=== PATIENT | male | born 1940 | race Caucasian/White ===

== ENCOUNTER 2019-12-29 08:37 | Outpatient (CLI) | payer MEDICARE, SELFPAY ==
--- NOTE | ~2019-12-29 | XR_ITS ---
EXAMINATION: XR chest 2V EXAM DATE: 12/29/2019 09:01 INDICATION: Shortness of breath and cough, symptoms one week. TECHNIQUE: Frontal and lateral projections of the chest obtained and reviewed. Comparison is made to prior examination from 12/10/2017. FINDINGS: Some right-sided pleural calcifications. No confluent consolidation, pneumothorax or pleur al effusion suspected. Sternotomy wires are present without findings to suggest sternal dehiscence. C ardiomediastinal silhouette is normal. There are mild bony degenerative changes. There is no signific ant interval change. IMPRESSION: No acute findings. Reviewed, dictated and finalized at location B. IMPRESSION: No acute findings.
[2019-12-29 08:49] LABS: Basophils Percent Auto 0.3 % (0.2-1.2); Eosinophils Absolute Auto 0.2 K/mm3 (0-0.3); Eosinophils Percent Auto 1.5 % (0-4.4); Hemoglobin 13.3 g/dL (14.0-18.0); Immature Granulocyte Absolute 0.03 K/mm3 (0.00-0.031); Immature Granulocyte Percent A 0.3 % (0-0.5); Lymphocytes Absolute Auto 1.46 K/mm3 (0.9-3.2); Mean Corpuscular HGB Conc 32.4 g/dl (32-36); Mean Corpuscular Hemoglobin 31.4 pg (26-34); Mean Corpuscular Volume 96.7 fl (80-100); Mean Platelet Volume 10.9 fl (7.4-10.4); Monocytes Absolute Auto 0.8 K/mm3 (0.1-0.6); Monocytes Percent Auto 8.4 % (2.6-8.5); Neutrophils Absolute Auto 7.3 K/mm3 (1.3-6.7); Neutrophils Percent Auto 74.5 % (45.5-73.1); Platelet Count Result 216 k/mm3 (150-375); Red Blood Count 4.24 M/mm3 (4.6-6.20); Red Cell Distribution Width 13.2 % (11.5-14.5); White Blood Count 9.8 K/mm3 (4.5-10.0)
== END 2019-12-29 08:38 | disposition home or self-care (01) ==
PROVIDERS: PCP Internal Medicine; Visit Provider Internal Medicine
DX: R06.02 Shortness of breath (principal); Z20.828 Contact with and (suspected) exposure to other viral communicable diseases
CPT/HCPCS: 36415; 71046; 85025; 87635; C9803; U0003

== ENCOUNTER → 2019-12-29 10:51 | Outpatient (NON) | payer MEDICARE, SELFPAY ==
[2019-12-31 14:29] LABS: Pan-SARS RNA: NEGATIVE (NEGATIVE); SARS-CoV-2 RNA: NEGATIVE (NEGATIVE)
== END ==
PROVIDERS: PCP Internal Medicine; Visit Provider Internal Medicine
DX: R05 Cough (principal); R06.02 Shortness of breath
CPT/HCPCS: 87635; U0002; U0003

== ENCOUNTER 2020-08-04 14:20 | Outpatient (CLI) | payer MEDICARE, SELFPAY ==
--- NOTE | ~2020-08-04 | US_ITS ---
EXAMINATION: US art doppler w press LE BI DATE: 08/04/2020 15:06 INDICATION: After scarring heart disease of the [place] coronary arteries. Hypercholesterolemia and pr ior smoking. TECHNIQUE: Segmental pressures and plethysmographic and Doppler waveforms of the brachial and lower e xtremity arteries were obtained. COMPARISON: None. FINDINGS: Right and left brachial artery pressures of 115 mm Hg and 114 mm Hg, respectively, are concordant (no rmal difference <= 30 mmHg). The left high thigh pressure index is 1.48 (normal > 1.2). The right hig h thigh pressure index was unable to be obtained due to inability to occlude the vessel. The right ankle-brachial index (KIRILL) is 1.34 (normal >= 0.9-1). The right great toe-brachial index (T BI) is 0.85 (normal >= 0.6-0.8). The right lower extremity segmental pressure gradients are normal (n ormal gradients <= 20-30 mmHg between adjacent levels on the same leg or the same levels on the two l egs). Arterial waveforms are biphasic with brisk systolic upstrokes throughout the right lower limb. The left KIRILL is 1.51. The left TBI is 0.80. The left lower extremity segmental pressure gradients are normal. Arterial waveforms are triphasic at the left popliteal artery and biphasic at the remaining arteries in the left lower limb with brisk systolic upstrokes throughout. IMPRESSION: 1. Normal KIRILL's and TBI's bilaterally. No significant occlusive disease. Reviewed, dictated and finalized at location A. O DEVELOPER
== END 2020-08-04 14:21 | disposition home or self-care (01) ==
PROVIDERS: PCP Internal Medicine; Visit Provider Internal Medicine
DX: I25.10 Atherosclerotic heart disease of native coronary artery without angina pectoris (principal); E78.5 Hyperlipidemia, unspecified; I73.9 Peripheral vascular disease, unspecified
CPT/HCPCS: 93923

== ENCOUNTER 2020-08-09 09:00 | Outpatient (RCR) | payer MEDICARE, SELFPAY ==
--- NOTE | 2020-08-03 09:58 | STOPEVAL ---
Speech Therapy Initial Evaluation: Thank you for referring Eliezer Rivas to [facility].? The patient is scheduled to be seen for therapy? 1x/week for 3 weeks. Please review, sign, date and return this plan of care DIONTE. I agree with and certify that the following plan of care is medically necessary. Referring Physician Date Attending Provider: Garrison Gamboa MD *ST Outpatient Evaluation Start: 08/02/20 11:14 Freq: Status: Active Protocol: Document 08/02/20 11:15 BECHERERT (Rec: 08/02/20 11:50 BECHERERT [email or web address]) Therapy Assessment Status Assessment Status Assessment Status Evaluation Outpatient Past Medical History Cardiovascular History Hx Atrial Fibrillation Yes: had ablation still on blood thinners Hx Cardiac Surgery Yes: stents Hx Coronary Artery Bypass Graft Yes Hx Coronary Stent Yes Gastrointestinal History Hx Gall Bladder Disease Yes: removed Endocrine History Hx Hypothyroidism Yes Other History Hx Cancer Yes: skin Evaluation Information Problem Diagnosis dysphonia Pain Assessment Timing of Pain Assessment Timing of Pain Assessment Assessment Self Report Self Report Pain Level 0 Pain Score Pain Score 0: Self Report Voice Evaluation Intelligibility Conversational Level Speech (% 100 Intelligibility) Respiration Type of Breathing Pattern Thoracic Counts on One Breath (#) 35 Length of Time for Counting (seconds) 11 Vowel Prolongation (seconds) 17 Termination of Phrases/Sentences Yes Coincides with Termination of Exhalation Method of Breathing Thoracic Phonation/Glottal Closure Cough Strong Throat Clearing Effective Hard Glottal Attack to Command Yes Vocal Hypertension on: Muscle Tension in No Neck or Face Vocal Hypertension: Strained Vocal No Quality or Hard Glottal Attack Loudness Ability to Alter Loudness in Various Yes Levels of Background Noise Ability to Alter Loudness with NUCLEAR CONTROL OPERATOR 10 to Yes 15 Feet Away Loudness No loudness deficit. Voice Quality Breathiness None Harshness None Hoarseness None Vocal Alvarado None Resonance Hypernasality None Hyponasality None [place]-sac Resonance None ST Clinical Summary Clinical Summary ST Clinical Summary Pt presents for speech/voice evaluation with c/o shortness of breath & having a raspy voice. Pt reports, for
--- NOTE | 2020-08-25 08:56 | PCSTNOTE ---
SPEECH THERAPY DISCHARGE: Attending Provider: Garrison Gamboa MD Patient:Eliezer Rivas Date of :1940 Patient has not returned for any further treatments since 08/09/2020, therefore he will be discharged at this time. Patient?s initial visit was on 08/02/2020 and he had a total of 2 visits. Pt presented for speech/voice evaluation with c/o shortness of breath & having a raspy voice. Pt reported, for example, that upon saying a 6 word sentence, the first 5 words come out okay then the sixth word is breathy and raspy . Pt was seen by an ENT who informed the pt that his vocal cords are thin & don't come together . 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 Pt stated he was, otherwise (aside from during discourse), occasionally SOB; pt denied dysphagia, only stated he occasionally had difficulty swallowing pills. Pt denied choking and/or coughing during any oral intake. Overall, upon completion of voice evaluation, pt demonstrated a very mild dysphonia; Pt was seen only x1 to teach HEP and monitor for any potential HEP adjustments. After the single treatment session, pt voiced and demonstrated understanding of HEP and verbalized improved breath support and voicing. The goals have been met. Thank you for referring this patient to [facility]. Please review, sign, date and return this discharge summary DIONTE. I have been updated about the patient's current status and I agree with discharge from the above service at this time. Referring Physician Date
== END 2020-08-25 14:16 | disposition home or self-care (01) ==
LOC: ANHST 09:00
PROVIDERS: PCP Internal Medicine; Visit Provider Otolaryngology
DX: R49.0 Dysphonia (principal); J38.7 Other diseases of larynx
CPT/HCPCS: 92507; 92524

== ENCOUNTER 2020-10-19 06:50 | Outpatient (NON) | payer MEDICARE, SELFPAY ==
[2020-10-19 11:03] LABS: Influenza Control Positive
[2020-10-19 17:33] LABS: SARS-CoV-2 RNA PCR Negative
== END 2020-10-19 06:51 ==
LOC: ANHCOVIDDT 06:58
PROVIDERS: PCP Internal Medicine; Visit Provider Internal Medicine
DX: Z20.822 Contact with and (suspected) exposure to COVID-19 (principal); R09.89 Other specified symptoms and signs involving the circulatory and respiratory systems
CPT/HCPCS: 87804; C9803; U0003; U0005

== ENCOUNTER 2020-11-04 08:47 | Outpatient (CLI) | payer MEDICARE, SELFPAY ==
--- NOTE | ~2020-11-04 | CT_ITS ---
EXAMINATION: CT sinus wo con DATE: 11/04/2020 09:03 INDICATION: Postnasal drip TECHNIQUE: Computed tomography (CT) of the paranasal sinuses was performed without intravenous contra st. The dose-length product was 278.02 mGy-cm. Automated exposure control and iterative reconstruction technique were employed. COMPARISON: CT dated 05/30/2017 FINDINGS: There is chronic mucosal thickening of the left frontal, left maxillary and ethmoid sinuses . There is mucoperiosteal reaction of the left maxillary sinus. Small left mastoid effusion. No signi ficant nasal septal deviation. Left ostiomeatal unit is occluded. IMPRESSION: 1. Moderate chronic sinusitis primarily involving the left maxillary and frontal sinuses. 2: Small left mastoid effusion. Reviewed, dictated and finalized at location B. ND BAKER IMPRESSION: 1. Moderate chronic sinusitis primarily involving the left maxillary and fronta l sinuses. 2: Small left mastoid effusion.
== END 2020-11-04 08:48 | disposition home or self-care (01) ==
LOC: ANHIMG 08:52
PROVIDERS: PCP Internal Medicine; Visit Provider Otolaryngology
DX: R09.82 Postnasal drip (principal); R44.8 Other symptoms and signs involving general sensations and perceptions; J32.9 Chronic sinusitis, unspecified
CPT/HCPCS: 70486

== ENCOUNTER 2020-11-15 03:45 | Emergency (ER) | payer MEDICARE, SELFPAY ==
[2020-11-15 03:52] VITALS: BP 163/62; PULSE 68; RESP 14; TEMP 37; O2SAT 98
[2020-11-15] MEDS: PHENYLEPHRINE HCL 0.5% NA SPRAY 15 ML BTL (*BKC) 1 SPRAY EACH NARE (03:58)
--- NOTE | 2020-11-15 04:04 | ED.GENADULT ---
HPI - General Adult General Chief complaint: Epistaxis Stated complaint: nose bleed Time Seen by Provider: 11/15/20 03:51 History of Present Illness HPI narrative: Patient 80-year-old gentleman who presents to the emergency department with chief complaint of epistaxis. Patient reports that he is on blood thinners and reports that this evening he was at home and noticed that his nose started bleeding. The patient reports he applied pressure and has subsequently not had improvement in the bleeding from his nostril. Patient states that it still oozing at this time and reports that its not improved by anything nor is it worsened by anything. Patient denies lightheadedness denies excessive bleeding. The patient reports he has been seen by ear nose and throat recently for similar complaints. Related Data Home Medications Medication Instructions Recorded Confirmed aspirin 81 mg tablet,delayed 81 mg PO DAILY 10/22/19 07/26/20 release calcium carbonate 600 mg calcium 600 mg PO BID 10/22/19 07/26/20 (1,500 mg) tablet calcium polycarbophil 625 mg tablet 1,250 mg PO DAILY 10/22/19 07/26/20 cyclosporine 0.05 % eye drops in a 1 drop EACH EYE Q12H 10/22/19 07/26/20 dropperette lactobacillus combination no.9 4 4,000 mmu cells PO DAILY 10/22/19 07/26/20 billion cell capsule multivitamin 1 tablet PO DAILY 10/22/19 07/26/20 omega-3 fatty acids 1,000 mg 1,000 mg PO BID 10/22/19 07/26/20 capsule warfarin 4 mg tablet 4 mg PO 4XW tablet 10/22/19 07/26/20 warfarin 6 mg tablet 6 mg PO 3XW tablet 10/22/19 07/26/20 clopidogrel 75 mg tablet 75 mg PO DAILY 02/23/20 07/26/20 ezetimibe 10 mg tablet 10 mg PO DAILY 02/23/20 07/26/20 famotidine 20 mg tablet 20 mg PO DAILY 02/23/20 07/26/20 isosorbide mononitrate 60 mg 60 mg PO DAILY 02/23/20 07/26/20 tablet,extended release 24 hr lovastatin 40 mg tablet 80 mg PO DAILY tablet 07/26/20 07/26/20 sotalol 80 mg tablet 120 mg PO DAILY tablet 07/26/20 07/26/20 Allergies Allergy/AdvReac Type Severity Reaction Status Date / Time No Known Allergies Allergy Verified 10/31/20 09:27 Review of Systems Review of Systems: Narrative: A 10 system review of systems was completed on the patient and is negative except for what is stated in the HPI. Nursing and ancillary documentation was reviewed. [facility] Past Medical History Medical History A-fib Abnormal finding of blood chemistry, unspecified ASHD (arteriosclerotic heart disease) Benign essential hypertension BMI 27.0-27.9,adult Claudication Dry eyes Elevated glucose Encounter for routine adult health examination without abnormal findings Hx of colonic polyps Hyperlipidemia Hypothyroidism (acquired) Insomnia On termite control representative drug therapy Peripheral visual field defect PVC's (premature ventricular contractions) Family History Family History Father Family history of heart disease in male family member before age 55 Family history of cardiovascular disease Mother Family history of diabetes mellitus in first degree relative Family history of heart disease in male family member before age 55 Diabetes mellitus Family history of cardiovascular disease Other Hypertension Social History Social History Smoking status: Former smoker Second hand tobacco smoke exposure: No Smoking end date: 09/23/79 Alcohol intake: never Substance use: never Exam Narrative: Exam Narrative: GENERAL: Well-appearing, well-nourished, and in no acute distress. HEAD: Normocephalic, atraumatic. EYES: PERRLA and EOMI. ENT: Nares clear, no rhinorrhea or epistaxis. Mucous membranes moist. NECK: Supple. CHEST: Clear to auscultation. No respiratory distress. HEART: Regular rate and rhythm. No murmur heard. Normal peripheral pulses. ABDOMEN: Soft, nontender, nondistende
[2020-11-15 06:05] VITALS: BP 159/76; PULSE 64; RESP 18; O2SAT 98
== END 2020-11-15 06:07 | disposition home or self-care (01) ==
PROVIDERS: Emergency Provider Emergency Medicine; PCP Internal Medicine
DX: R04.0 Epistaxis (principal); I48.91 Unspecified atrial fibrillation; Z79.01 Long term (current) use of anticoagulants; I25.10 Atherosclerotic heart disease of native coronary artery without angina pectoris; I10 Essential (primary) hypertension; Z86.010 Personal history of colon polyps; E78.5 Hyperlipidemia, unspecified; E03.9 Hypothyroidism, unspecified; H53.40 Unspecified visual field defects; Z87.891 Personal history of nicotine dependence; Z79.82 Long term (current) use of aspirin
CPT/HCPCS: 99283; A9270

== ENCOUNTER 2020-12-05 12:47 | Outpatient (CLI) | payer MEDICARE, SELFPAY ==
[2020-12-05 14:00] LABS: Partial Thromboplastin Time 36.7 SECONDS (22.3-36.8)
== END 2020-12-05 12:48 ==
LOC: ANHSURGERY 12-29 12:47
PROVIDERS: Anesthesiology; PCP Internal Medicine; Visit Provider Otolaryngology
DX: Z79.01 Long term (current) use of anticoagulants (principal)
CPT/HCPCS: 36415; 85610; 85730

== ENCOUNTER → 2020-12-06 00:35 | Outpatient (CLI) | payer MEDICARE, SELFPAY ==
[2020-12-06 18:32] LABS: SARS-CoV-2 RNA PCR Negative
== END ==
PROVIDERS: PCP Internal Medicine; Visit Provider Otolaryngology
DX: Z01.812 Encounter for preprocedural laboratory examination (principal); Z20.822 Contact with and (suspected) exposure to COVID-19
CPT/HCPCS: C9803; U0003; U0005

== ENCOUNTER 2020-12-09 01:37 | Day surgery (SDC) | payer MEDICARE, SELFPAY ==
[2020-12-01 15:24] VITALS: BMI 25.7
--- NOTE | 2020-12-08 09:27 | PM.IMHP ---
H&P: HPI History of Present Illness Date/Time: 12/08/20 09:27 80-year-old male who presents for planned surgical procedure. No changes in symptoms or medical history. Chief Complaint: CRS, postnasal drip, facial pressure pain Review of Systems Constitutional: Constitutional: Denies fatigue, Denies fever(s) and Denies lethargy Eyes: Eyes: Denies blurry vision and Denies change in vision ENT: Reports as per HPI Cardiovascular: Cardiovascular: Denies chest pain Respiratory: Respiratory: Denies cough Endocrine: Endocrine: Denies fatigue Hematologic/Lymphatic: Hematologic/Lymphatic: Denies easy bleeding, Denies easy bruising and Denies lymphadenopathy Allergic/Immunologic: Allergic/Immunologic: Denies seasonal rhinorrhea [facility] Past Medical History Medical History (Updated 12/08/20 @ 09:27 by Garrison Gamboa MD) A-fib Abnormal finding of blood chemistry, unspecified ASHD (arteriosclerotic heart disease) Benign essential hypertension BMI 27.0-27.9,adult Claudication Dry eyes Elevated glucose Encounter for routine adult health examination without abnormal findings Hx of colonic polyps Hyperlipidemia Hypothyroidism (acquired) Insomnia Itchy scrotum On intermediate manager drug therapy Peripheral visual field defect PVC's (premature ventricular contractions) Family History Family History Father Family history of heart disease in male family member before age 55 Family history of cardiovascular disease Mother Family history of diabetes mellitus in first degree relative Family history of heart disease in male family member before age 55 Diabetes mellitus Family history of cardiovascular disease Other Hypertension Social History Social History Smoking status: Former smoker Tobacco type: pipe Second hand tobacco smoke exposure: No Smoking end date: 03/23/78 Additional smoking assessment comments: SMOKED PIPE X 10-15 YEARS Alcohol intake: never Substance use: never Additional living arrangements comments: Spiritual care concerns: No Meds Home Medications and Allergies Home Medications Medication Instructions Recorded Confirmed Type calcium carbonate 600 mg calcium 600 mg PO BID 10/22/19 12/07/20 History (1,500 mg) tablet calcium polycarbophil 625 mg tablet 1,250 mg PO DAILY 10/22/19 12/07/20 History lactobacillus combination no.9 4 4,000 mmu cells PO DAILY 10/22/19 12/07/20 History billion cell capsule multivitamin 1 tablet PO DAILY 10/22/19 12/07/20 History omega-3 fatty acids 1,000 mg 2,000 mg PO BID 10/22/19 12/07/20 History capsule warfarin 4 mg tablet 4 mg PO 4XW tablet 10/22/19 12/07/20 History warfarin 6 mg tablet 6 mg PO 3XW tablet 10/22/19 12/07/20 History clopidogrel 75 mg tablet 75 mg PO QAM 02/23/20 12/07/20 History ezetimibe 10 mg tablet 10 mg PO HS 02/23/20 12/07/20 History famotidine 20 mg tablet 20 mg PO BID 02/23/20 12/07/20 History isosorbide mononitrate 60 mg 60 mg PO HS 02/23/20 12/07/20 History tablet,extended release 24 hr pantoprazole 40 mg tablet,delayed 40 mg PO QAM #90 tablet 09/27/20 12/07/20 Rx release alprazolam 0.25 mg PO TID PRN 12/01/20 12/07/20 History levothyroxine 75 mcg PO QAM 12/01/20 12/07/20 History lovastatin 80 mg PO HS 12/01/20 12/07/20 History sotalol 120 mg PO BID 12/01/20 12/07/20 History zolpidem 10 mg PO HS 12/01/20 12/07/20 History nystatin-triamcinolone 100,000 1 applic TOPICAL BID #30 g 12/06/20 12/07/20 Rx unit/g-0.1 % topical cream Allergies Allergy/AdvReac Type Severity Reaction Status Date / Time No Known Allergies Allergy Verified 12/06/20 08:23 Exam Const: General: cooperative, healthy appearing, comfortable, well developed and alert HENMT: Head: normal to inspection, normocephalic and atraumatic Ears: hearing grossly normal bilaterally, external ears normal, TM's normal bilaterall
[2020-12-09] VITALS (12 sets, daily range): BP systolic 121–184; BP diastolic 41–76; PULSE 58–80; RESP 10–20; TEMP 36.1–36.8; O2SAT 94–100
--- NOTE | 2020-12-09 07:02 | WPDHPUPDATE1 ---
History and Physical Update Update Date/Time: 12/09/20 07:02 History and Physical has been reviewed, including an updated exam of the patient. There are NO changes in the patient's condition. Risks, benefits, and alternatives have been discussed and questions answered. Patient agrees to proceed with procedure.
[2020-12-09] MEDS: ACETAMINOPHEN 500 MG TABLET 1000 MG PO (11:34)
[2020-12-09] MEDS: LACTATED RINGERS 1,000 ML 30 ML IV CONT ×3 (11:34→19:54)
[2020-12-09 11:48] LABS: Prothrombin Time 13.6 Seconds (11.1-14.7)
--- NOTE | 2020-12-09 11:58 | WPDANESEPPF ---
Anes - Initial Pre Proc Eval Procedure: Operation Date: 12/09/20 13:00 Proposed Procedures p Septoplasty, - Garrison Gamboa MD s Maxillary Antrostomy, Total Ethmoidectomy, Frontal Sinusotomy With Image Guidance - Garrison Gamboa MD Date/Time: 12/09/20 11:58 Surgeon: Garrison Gamboa MD Pre Op Diagnosis: chronic sinusitis Patient Data Age: 80 Gender: M Height: 6 ft Weight: 89.4 kg Last Vital Signs Temp 98.3 F 12/09/20 11:42 Pulse 58 L 12/09/20 11:42 Resp 16 12/09/20 11:42 BP 121/48 L 12/09/20 11:42 Allergies Allergy/AdvReac Type Severity Reaction Status Date / Time No Known Allergies Allergy Verified 12/06/20 08:23 Home Medications Medication Instructions Recorded Confirmed Type calcium carbonate 600 mg calcium 600 mg PO BID 10/22/19 12/09/20 History (1,500 mg) tablet calcium polycarbophil 625 mg tablet 1,250 mg PO DAILY 10/22/19 12/09/20 History lactobacillus combination no.9 4 4,000 mmu cells PO DAILY 10/22/19 12/09/20 History billion cell capsule multivitamin 1 tablet PO DAILY 10/22/19 12/09/20 History omega-3 fatty acids 1,000 mg 2,000 mg PO BID 10/22/19 12/09/20 History capsule warfarin 4 mg tablet 4 mg PO 4XW tablet 10/22/19 12/09/20 History warfarin 6 mg tablet 6 mg PO 3XW tablet 10/22/19 12/09/20 History clopidogrel 75 mg tablet 75 mg PO QAM 02/23/20 12/09/20 History ezetimibe 10 mg tablet 10 mg PO HS 02/23/20 12/09/20 History famotidine 20 mg tablet 20 mg PO BID 02/23/20 12/09/20 History isosorbide mononitrate 60 mg 60 mg PO HS 02/23/20 12/09/20 History tablet,extended release 24 hr pantoprazole 40 mg tablet,delayed 40 mg PO QAM #90 tablet 09/27/20 12/09/20 Rx release alprazolam 0.25 mg PO TID PRN 12/01/20 12/09/20 History levothyroxine 75 mcg PO QAM 12/01/20 12/09/20 History lovastatin 80 mg PO HS 12/01/20 12/09/20 History sotalol 120 mg PO BID 12/01/20 12/09/20 History zolpidem 10 mg PO HS 12/01/20 12/09/20 History nystatin-triamcinolone 100,000 1 applic TOPICAL BID #30 g 12/06/20 12/07/20 Rx unit/g-0.1 % topical cream Laboratory Tests 12/09/20 11:26 PT 13.6 Seconds D Seconds (11.1-14.7) INR 1.0 Patient hx anesthesia problems: none Family hx anesthesia problems: none PMFSH Past Medical History Medical History (Updated 12/08/20 @ 09:27 by Garrison Gamboa MD) A-fib Abnormal finding of blood chemistry, unspecified ASHD (arteriosclerotic heart disease) Benign essential hypertension BMI 27.0-27.9,adult Claudication Dry eyes Elevated glucose Encounter for routine adult health examination without abnormal findings Hx of colonic polyps Hyperlipidemia Hypothyroidism (acquired) Insomnia Itchy scrotum On intermediate designer drug therapy Peripheral visual field defect PVC's (premature ventricular contractions) Family History Family History Father Family history of heart disease in male family member before age 55 Family history of cardiovascular disease Mother Family history of diabetes mellitus in first degree relative Family history of heart disease in male family member before age 55 Diabetes mellitus Family history of cardiovascular disease Other Hypertension Social History Social History Smoking status: Former smoker Tobacco type: pipe Second hand tobacco smoke exposure: No Smoking end date: 03/23/78 Additional smoking assessment comments: SMOKED PIPE X 10-15 YEARS Alcohol intake: never Substance use: never Living arrangements: with family Additional living arrangements comments: Spiritual care concerns: No Anes - Eval Final PreProcedure Day of Procedure 12/09/20 11:58 Patient weight: overweight Heart: regular rate and rhythm Lungs: clear to auscultation Airway: Mallampati scale class II Neurological: alert and oriented Last oral intake: >/= 8 hours ASA classification: III Emergent
[2020-12-09] MEDS: ceFAZolin 2 GM/D5W 50 ML 2 GM/50 ML BAG IVPB (12:56)
[2020-12-09] MEDS: OXYMETAZOLINE HCL 0.05% NAS 15 ML BTL (*BKC) 1 SPRAY NASAL (13:05)
[2020-12-09] MEDS: LIDO 1%/EPINEPHRINE 1:100,000 50 ML VIAL INFILTRATE (13:06)
--- NOTE | 2020-12-09 15:13 | SUR.PHASEI ---
1510- Pts. hearing aids placed bilaterally. Spoke with spouse. pt without c/o pain. suctioned as needed.
--- NOTE | 2020-12-09 15:14 | P.OP_ITS ---
Procedure Note - Detailed Date of procedure: 12/09/20 Pre-op diagnosis: chronic sinusitis Post-op diagnosis: same Procedure performed: 1. Bilateral endoscopic maxillary antrostomies 1 of which with tissue removed 2. Bilateral total ethmoidectomies 3. Bilateral sphenoidotomies 4. Bilateral frontal sinusotomies 1 of which with tissue removed Description of procedure: The patient was correctly identified and consent was verified in the preoperative holding area. The patient was then brought to the operating room and a time-out performed. General anesthesia was induced and endotracheal tube was secured the patient's airway and taped to the left lower lip. Afrin-soaked pledgets were placed image guidance was initiated the Afrin. The patient Afrin-soaked pledgets were allowed to sit for 5 minutes and removed. Under endoscopic guidance specifically 0 degree endoscope the bilateral nasal passages were examined the left middle turbinate was medialized and a double ball tip probe was utilized to outfracture infracture the uncinate process. Backbiter was utilized to perform maxillary antrostomy as well as straight through cut and microdebrider copious amounts of purulence and fungal debris were noted this was irrigated copiously with a 70 degree scope and ensured to connect to the natural os. With the 0 degree scope the total ethmoidectomies performed with Kerrison and micro debrider. Of note some partitions were left a long the skull base as the anterior ethmoidal arteries were low lying. The sphenoid os was located and opened using a Kerrison punch. With a 70 degree scope the frontal sinus outflow tract was located and opened with a Cobra and draft frontal sinus instruments. Again in the left frontal sinus copious months of purulence and fungal debris were noted. Similar procedures were performed on the right side with similar findings except for the absence of fungal debris and purulence on the right side. Hemostasis was adequate. This marked the end of the procedure. Of note the right middle turbinate was somewhat flimsy and a nasal pore was placed to keep it medialized. Care the patient is turned over to Anesthesiology. I performed all dictated portions of the procedure. Anesthesia: GETA Surgeon: Garrison Gamboa MD Estimated blood loss (mL): 100 Packing: Yes ([place]) Pathology: none sent Complications: No immediate complications Condition: stable Disposition: PACU Findings: Left maxillary and left frontal fungal debris as well as purulence irrigated and removed.
--- NOTE | 2020-12-09 18:29 | WPDANESEPPF ---
Anes - Initial Pre Proc Eval Procedure: Operation Date: 12/09/20 13:00 Proposed Procedures p Septoplasty, - Garrison Gamboa MD s Maxillary Antrostomy, Total Ethmoidectomy, Frontal Sinusotomy With Image Guidance - Garrison Gamboa MD Operation Date: 12/09/20 18:00 Proposed Procedures p Cautery Of Nose - Garrison Gamboa MD Date/Time: 12/09/20 18:29 Surgeon: Garrison Gamboa MD Pre Op Diagnosis: chronic sinusitis Patient Data Age: 80 Gender: M Height: 1.83 m Weight: 89.4 kg Last Vital Signs Temp 36.8 C 12/09/20 14:42 Pulse 70 12/09/20 16:00 Resp 16 12/09/20 16:00 BP 165/58 H 12/09/20 16:00 Pulse Ox 100 12/09/20 15:40 Allergies Allergy/AdvReac Type Severity Reaction Status Date / Time No Known Allergies Allergy Verified 12/06/20 08:23 Home Medications Medication Instructions Recorded Confirmed Type calcium carbonate 600 mg calcium 600 mg PO BID 10/22/19 12/09/20 History (1,500 mg) tablet calcium polycarbophil 625 mg tablet 1,250 mg PO DAILY 10/22/19 12/09/20 History lactobacillus combination no.9 4 4,000 mmu cells PO DAILY 10/22/19 12/09/20 History billion cell capsule multivitamin 1 tablet PO DAILY 10/22/19 12/09/20 History omega-3 fatty acids 1,000 mg 2,000 mg PO BID 10/22/19 12/09/20 History capsule warfarin 4 mg tablet 4 mg PO 4XW tablet 10/22/19 12/09/20 History warfarin 6 mg tablet 6 mg PO 3XW tablet 10/22/19 12/09/20 History clopidogrel 75 mg tablet 75 mg PO QAM 02/23/20 12/09/20 History ezetimibe 10 mg tablet 10 mg PO HS 02/23/20 12/09/20 History famotidine 20 mg tablet 20 mg PO BID 02/23/20 12/09/20 History isosorbide mononitrate 60 mg 60 mg PO HS 02/23/20 12/09/20 History tablet,extended release 24 hr pantoprazole 40 mg tablet,delayed 40 mg PO QAM #90 tablet 09/27/20 12/09/20 Rx release alprazolam 0.25 mg PO TID PRN 12/01/20 12/09/20 History levothyroxine 75 mcg PO QAM 12/01/20 12/09/20 History lovastatin 80 mg PO HS 12/01/20 12/09/20 History sotalol 120 mg PO BID 12/01/20 12/09/20 History zolpidem 10 mg PO HS 12/01/20 12/09/20 History nystatin-triamcinolone 100,000 1 applic TOPICAL BID #30 g 12/06/20 12/07/20 Rx unit/g-0.1 % topical cream oxycodone 5 mg PO Q8H PRN #10 tablet 12/09/20 Rx Laboratory Tests 12/09/20 11:26 PT 13.6 Seconds D Seconds (11.1-14.7) INR 1.0 Patient hx anesthesia problems: none Family hx anesthesia problems: none PMFSH Past Medical History Medical History (Updated 12/09/20 @ 15:11 by Garrison Gamboa MD) A-fib Abnormal finding of blood chemistry, unspecified ASHD (arteriosclerotic heart disease) Benign essential hypertension BMI 27.0-27.9,adult Claudication Dry eyes Elevated glucose Encounter for routine adult health examination without abnormal findings Hx of colonic polyps Hyperlipidemia Hypothyroidism (acquired) Insomnia Itchy scrotum On dedicated intermodal truck driver drug therapy Peripheral visual field defect PVC's (premature ventricular contractions) Family History Family History Father Family history of heart disease in male family member before age 55 Family history of cardiovascular disease Mother Family history of diabetes mellitus in first degree relative Family history of heart disease in male family member before age 55 Diabetes mellitus Family history of cardiovascular disease Other Hypertension Social History Social History Smoking status: Former smoker Tobacco type: pipe Second hand tobacco smoke exposure: No Smoking end date: 03/23/78 Additional smoking assessment comments: SMOKED PIPE X 10-15 YEARS Alcohol intake: never Substance use: never Living arrangements: with family Additional living arrangements comments: Spiritual care concerns: No Anes - Eval Final PreProcedure Day of Procedure 12/09/20 18:29 Patient weight: overweight Heart: regular rate
--- NOTE | 2020-12-09 18:40 | WPDHPUPDATE1 ---
History and Physical Update Update Date/Time: 12/09/20 18:40 History and Physical has been reviewed, including an updated exam of the patient. The patient had postoperative epistaxis from the right side. Plan is for the OR for control of epistaxis. This will be performed endoscopically. The risks were discussed with the patient in great detail including bleeding infection and damage to surrounding structures. The patient voiced understanding and agreed.
--- NOTE | 2020-12-09 19:08 | SUR.PHASEII ---
1715 DR ANGELES NOTIFIED IN THE OR THAT PT IS OOZING PRETTY GOOD OUT OF RT NARE, HE FEELS LIKE ITS GETTING WORSE, BLEEDING ALSO DOWN THE BACK OF THROAT. DRIP[ PAD HAS BEEN CHANGED AT LEAST 3 TIMES IN THE LAST HOUR. PT WANTS DR ANGELES TO SEE HIM BEFORE HE LEAVES. PT VITAL SIGNS STABLE, MINIMAL PAIN, PT DROWSY. 1735 DR ANGELES AT BEDSIDE TO SEE PT. PT EXAMINED, DR ANGELES REMOVING CLOTS FROM NOSE USING EQUIPMENT AND PLACED A NASAL ROCKET IN RT NARE. GOING TO WATCH PT FOR A BIT, DR ANGELES WILL RETURN TO REASSESS. 1815 DR ANGELES RETURNED PT STILL FEELS LIKE ITS BLEEDING ON THE RT SIDE AND GOING DOWN THE BACK OF THROAT. PT AND DR ANGELES FEEL ITS BEST TO GO BACK TO THE OR AND PROCEED WITH A NASAL CAUTERY. 1845 PT TAKEN TO OR, CONSENT SIGNED BY SPOUSE DUE TO PT STILL UNDER ANESTHESIA.
[2020-12-09 19:11] LABS: Hematocrit 38.2 % (42.0-52.0); Hemoglobin 12.6 g/dL (14.0-18.0)
--- NOTE | 2020-12-09 20:08 | PM.PROC ---
Procedure Note - Detailed Date of procedure: 12/09/20 Pre-op diagnosis: chronic sinusitis Postoperative epistaxis Post-op diagnosis: same Procedure performed: 1. Nasal endoscopy 2. Control of postoperative epistaxis Description of procedure: The patient was correctly identified and consent was verified in the preoperative holding area. The patient was then brought to the operating room and a time-out was performed. General anesthesia was induced and endotracheal tube was secured the patient's airway and taped to the left lower lip. The bilateral nasal passages were then examined and debrided the postoperative portions had no arterial pumping but overall diffuse oozing more so from the skull base regions and not directly on the skull base were cauterized with Bovie electrocautery. Afrin-soaked pledgets were then placed for 10 minutes. FloSeal and then nasal pore packing was placed bilaterally. Overall the bleeding was much improved. Care the patient was then turned over to Anesthesiology. I performed all dictated portions of this procedure. Hemostasis was again adequate. Of note the patient's hemoglobin was checked and noted to be greater than 12 prior to the start of the procedure Anesthesia: [place] Surgeon: Garrison Gamboa MD Estimated blood loss (mL): 140 Drains: No Packing: Yes (Absorbable) Complications: No immediate complications Condition: stable Disposition: PACU Findings: Oozing from the postoperative cavities [id number] no arterial bleeding
== END 2020-12-09 21:09 | disposition home or self-care (01) ==
PROVIDERS: Anesthesiology; PCP Internal Medicine; Visit Provider Otolaryngology
PROC: (CPT 31267; 2020-12-09 13:00)
PROC: (CPT 31267; principal; 2020-12-09 18:00)
DX: J32.9 Chronic sinusitis, unspecified (principal); R09.82 Postnasal drip; I48.91 Unspecified atrial fibrillation; I25.10 Atherosclerotic heart disease of native coronary artery without angina pectoris; E78.5 Hyperlipidemia, unspecified; G47.00 Insomnia, unspecified; I49.3 Ventricular premature depolarization; Z87.891 Personal history of nicotine dependence; Z79.01 Long term (current) use of anticoagulants; E03.9 Hypothyroidism, unspecified; I73.9 Peripheral vascular disease, unspecified; Z79.02 Long term (current) use of antithrombotics/antiplatelets
CPT/HCPCS: 31267; 31257; 31253; 61782; 36415; 85014; 85018; 85610; A9270; J0330; J0690; J2405; J2704; J3010; J7120

== ENCOUNTER 2020-12-16 18:47 | Emergency (ER) | payer MEDICARE, SELFPAY ==
[2020-12-16 18:53] VITALS: BP 170/60; PULSE 78; RESP 14; TEMP 36.7; O2SAT 99
[2020-12-16 20:10] LABS: Basophils Percent Auto 0.5 % (0.2-1.2); Eosinophils Absolute Auto 0.3 K/mm3 (0-0.3); Eosinophils Percent Auto 2.9 % (0-4.4); Hematocrit 34.7 % (42.0-52.0); Hemoglobin 11.1 g/dL (14.0-18.0); Immature Granulocyte Absolute 0.02 K/mm3 (0.00-0.031); Immature Granulocyte Percent A 0.2 % (0-0.5); Lymphocytes Absolute Auto 1.13 K/mm3 (0.9-3.2); Mean Corpuscular Hemoglobin 31.4 pg (26-34); Mean Corpuscular Volume 98.3 fl (80-100); Mean Platelet Volume 10.1 fl (7.4-10.4); Monocytes Absolute Auto 0.7 K/mm3 (0.1-0.6); Monocytes Percent Auto 8.4 % (2.6-8.5); Neutrophils Absolute Auto 6.5 K/mm3 (1.3-6.7); Platelet Count Result 246 k/mm3 (150-375); Red Blood Count 3.53 M/mm3 (4.6-6.20); Red Cell Distribution Width 13.4 % (11.5-14.5); White Blood Count 8.7 K/mm3 (4.5-10.0)
[2020-12-16 20:21] LABS: Anion Gap 2 mmol/L (8-16); Blood Urea Nitrogen 13 mg/dL (9-20); Calcium 8.7 mg/dL (8.4-10.2); Carbon Dioxide 30 mmol/L (22-30); Chloride 108 mmol/L (98-107); Estimated Glomerular Filt Rate > 60; Glucose 109 mg/dL (75-110); Potassium 4.2 mmol/L (3.4-5.0); Sodium 140 mmol/L (137-145)
[2020-12-16 20:28] VITALS: BP 125/49; PULSE 67; RESP 18; O2SAT 99
--- NOTE | 2020-12-16 20:57 | ED.GENADULT ---
HPI - General Adult General Chief complaint: Epistaxis Stated complaint: nosebleed Time Seen by Provider: 12/16/20 19:39 History of Present Illness HPI narrative: Patient is a 80-year-old gentleman who presents to emergency department with chief complaint of nosebleed. Patient reports he recently had sinus surgery and is currently on antiplatelet therapy. The patient reports that he had a scope done by ENT and they remove some debris out of his nose after the surgery and yesterday noticed that he started having some bleeding out of his nose. Patient states that it was more bleeding down the back of his nose and has subsequently still had some dripping out of his nose. Patient states he tried to irrigate his nose earlier today and had mostly blood in the saline. Patient is concerned that his blood counts are dropping. And the patient has decided, the emergency department for evaluation. Related Data Home Medications Medication Instructions Recorded Confirmed calcium carbonate 600 mg calcium 600 mg PO BID 10/22/19 12/14/20 (1,500 mg) tablet calcium polycarbophil 625 mg tablet 1,250 mg PO DAILY 10/22/19 12/14/20 lactobacillus combination no.9 4 4,000 mmu cells PO DAILY 10/22/19 12/14/20 billion cell capsule multivitamin 1 tablet PO DAILY 10/22/19 12/14/20 omega-3 fatty acids 1,000 mg 2,000 mg PO BID 10/22/19 12/14/20 capsule warfarin 4 mg tablet 4 mg PO 4XW tablet 10/22/19 12/14/20 warfarin 6 mg tablet 6 mg PO 3XW tablet 10/22/19 12/14/20 clopidogrel 75 mg tablet 75 mg PO QAM 02/23/20 12/14/20 ezetimibe 10 mg tablet 10 mg PO HS 02/23/20 12/14/20 famotidine 20 mg tablet 20 mg PO BID 02/23/20 12/14/20 isosorbide mononitrate 60 mg 60 mg PO HS 02/23/20 12/14/20 tablet,extended release 24 hr alprazolam 0.25 mg PO TID PRN 12/01/20 12/14/20 levothyroxine 75 mcg PO QAM 12/01/20 12/14/20 lovastatin 80 mg PO HS 12/01/20 12/14/20 sotalol 120 mg PO BID 12/01/20 12/14/20 zolpidem 10 mg PO HS 12/01/20 12/14/20 Allergies Allergy/AdvReac Type Severity Reaction Status Date / Time No Known Allergies Allergy Verified 12/14/20 09:16 Review of Systems Review of Systems: Narrative: A 10 system review of systems was completed on the patient and is negative except for what is stated in the HPI. Nursing and ancillary documentation was reviewed. PMFSH Past Medical History Medical History A-fib Abnormal finding of blood chemistry, unspecified ASHD (arteriosclerotic heart disease) Benign essential hypertension BMI 27.0-27.9,adult Claudication Dry eyes Elevated glucose Encounter for routine adult health examination without abnormal findings Hx of colonic polyps Hyperlipidemia Hypothyroidism (acquired) Insomnia Itchy scrotum On intermediate drug therapy Peripheral visual field defect PVC's (premature ventricular contractions) Family History Family History Father Family history of heart disease in male family member before age 55 Family history of cardiovascular disease Mother Family history of diabetes mellitus in first degree relative Family history of heart disease in male family member before age 55 Diabetes mellitus Family history of cardiovascular disease Other Hypertension Social History Social History Smoking status: Former smoker Tobacco type: pipe Second hand tobacco smoke exposure: No Smoking end date: 03/23/78 Additional smoking assessment comments: SMOKED PIPE X 10-15 YEARS Alcohol intake: never Substance use: never Additional living arrangements comments: Spiritual care concerns: No Exam Narrative: Exam Narrative: GENERAL: Well-appearing, well-nourished, and in no acute distress. HEAD: Normocephalic, atraumatic. EYES: PERRLA and EOMI. ENT: There is slight clot in the left nostril. Ther
[2020-12-16 23:01] VITALS: BP 129/57; PULSE 79; RESP 18; O2SAT 98
== END 2020-12-16 23:04 | disposition home or self-care (01) ==
PROVIDERS: Emergency Provider Emergency Medicine; PCP Internal Medicine
DX: R04.0 Epistaxis (principal); I48.91 Unspecified atrial fibrillation; I25.10 Atherosclerotic heart disease of native coronary artery without angina pectoris; I10 Essential (primary) hypertension; E78.5 Hyperlipidemia, unspecified; E03.9 Hypothyroidism, unspecified; Z87.891 Personal history of nicotine dependence; Z79.02 Long term (current) use of antithrombotics/antiplatelets; Z79.01 Long term (current) use of anticoagulants; Z98.890 Other specified postprocedural states
CPT/HCPCS: 30901; 36415; 80048; 85025; 99283

== ENCOUNTER 2022-02-06 13:01 | Outpatient (CLI) | payer MEDICARE, SELFPAY ==
--- NOTE | ~2022-02-06 | US_ITS ---
EXAMINATION: US carotid duplex BI DATE: 02/06/2022 14:01 INDICATION: Carotid stenosis. TECHNIQUE: Grayscale, color Doppler, and pulsed Doppler images of the cervical carotid arteries were obtained. The degree of vessel stenosis is placed in one of the following categories: normal, <50%, 5 0-69%, >=70% but less than near-occlusion, near-occlusion, or total occlusion. Note that percent sten osis relative to normal distal artery lumen diameter is indirectly measured from velocity measurement s as described by Jai, et al. Radiology 2003; 229:340-346. Notes: Normal: Peak systolic velocity <125 centimeters/sec and no plaque <50%. Peak systolic velocity <125 ( EDV <40; ICA/CCA PSV ratio <2.0; used these factors only a tandem lesions or low cardiac output or co ntralateral disease) 50-69 %: PSV 125-230 (EDV 40-100; ratio 2-4) >= 70% but less than near occlusion: PSV greater than 230 (EDV > 100; ratio> 4.0) Near Occlusion: PSV that is variable; markedly narrowed lumen Occlusion: Absent flow on color/spectral Doppler and no lumen on russ scale. COMPARISON: None. FINDINGS: RIGHT: The right common carotid artery (CCA) peak systolic velocity (PSV) is 106 cm/s. The right internal ca rotid artery (ICA) PSV is 108 cm/s. The right ICA end-diastolic velocity (EDV) is 27 cm/s. The right ICA/CCA PSV ratio is 1.0. The external carotid artery (ECA) PSV is 138 cm/s. There is antegrade flow in the right vertebral artery. LEFT: The left CCA PSV is 94 cm/s. The left ICA PSV is 99 cm/s. The left ICA EDV is 14 cm/s. The left ICA/C CA PSV ratio is 1.1. The ECA PSV is 142 cm/s. There is antegrade flow in the left vertebral artery. IMPRESSION: 1. Less than 50% stenosis in the right internal carotid artery by sonographic criteria. 2. Less than 50% stenosis in the left internal carotid artery by sonographic criteria. Reviewed, dictated and finalized at location A. IMPRESSION: 1. Less than 50% stenosis in the right internal carotid artery by sonographic nona contreras. 2. Less than 50% stenosis in the left internal carotid artery by sonographic lucas downs.
== END 2022-02-06 13:02 | disposition home or self-care (01) ==
PROVIDERS: PCP Internal Medicine; Visit Provider Internal Medicine
DX: I65.23 Occlusion and stenosis of bilateral carotid arteries (principal)
CPT/HCPCS: 93880

== ENCOUNTER 2022-09-20 09:57 | Outpatient (CLI) | payer MEDICARE, SELFPAY ==
[2022-09-20 12:25] LABS: Alanine Aminotransferase 30 U/L (6-50); Albumin Level 4.4 g/dL (3.5-5.1); Alkaline Phosphatase 45 U/L (38-126); Anion Gap 7 mmol/L (8-16); Aspartate Amino Transferase 85 U/L (17-59); Bilirubin,Total 1.6 mg/dL (0.2-1.3); Blood Urea Nitrogen 14 mg/dL (9-20); Carbon Dioxide 26 mmol/L (22-30); Chloride 105 mmol/L (98-107); Estimated Glomerular Filt Rate > 60; Glucose 103 mg/dL (65-110); Magnesium 2.2 mg/dL (1.6-2.3); Potassium 4.5 mmol/L (3.4-5.0); Sodium 138 mmol/L (137-145)
== END 2022-09-20 09:58 | disposition home or self-care (01) ==
PROVIDERS: PCP Internal Medicine; Visit Provider Internal Medicine Cardiovascular Disease
DX: I48.91 Unspecified atrial fibrillation (principal); Z87.891 Personal history of nicotine dependence; I48.92 Unspecified atrial flutter; R42 Dizziness and giddiness; I47.1 Supraventricular tachycardia; I47.20 Ventricular tachycardia, unspecified; I49.3 Ventricular premature depolarization; E66.3 Overweight; Z79.01 Long term (current) use of anticoagulants; I35.0 Nonrheumatic aortic (valve) stenosis; E03.9 Hypothyroidism, unspecified; E78.5 Hyperlipidemia, unspecified; I25.10 Atherosclerotic heart disease of native coronary artery without angina pectoris; I10 Essential (primary) hypertension; Z95.0 Presence of cardiac pacemaker
CPT/HCPCS: 36415; 80053; 83735

== ENCOUNTER 2022-10-18 11:40 | Outpatient (CLI) | payer MEDICARE, SELFPAY ==
[2022-10-18 12:12] LABS: Alanine Aminotransferase 33 U/L (6-50); Alkaline Phosphatase 46 U/L (38-126); Aspartate Amino Transferase 39 U/L (17-59)
[2022-10-21 15:30] LABS: GGT 28 U/L (3-70)
== END 2022-10-18 11:41 | disposition home or self-care (01) ==
PROVIDERS: PCP Internal Medicine; Referring Provider Internal Medicine Cardiovascular Disease; Visit Provider Internal Medicine
DX: R74.01 Elevation of levels of liver transaminase levels (principal); R79.9 Abnormal finding of blood chemistry, unspecified
CPT/HCPCS: 36415; 80076; 82977

== ENCOUNTER 2022-10-31 11:02 | Outpatient (NON) | payer MEDICARE, SELFPAY ==
[2022-10-31 16:39] LABS: Toxigenic C. Diff NEGATIVE (NEGATIVE)
== END 2022-10-31 11:03 | disposition home or self-care (01) ==
PROVIDERS: PCP Internal Medicine; Visit Provider Internal Medicine
DX: R19.7 Diarrhea, unspecified (principal)
CPT/HCPCS: 87045; 87427; 87493; 89055

== ENCOUNTER 2022-11-27 01:14 | Day surgery (SDC) | payer MEDICARE, SELFPAY ==
[2022-11-14 13:34] VITALS: BMI 27.1
[2022-11-27 07:05] VITALS: BP 143/61; PULSE 69; RESP 18; TEMP 35.4; O2SAT 99; BMI 26.2
[2022-11-27] MEDS: LACTATED RINGERS 1,000 ML 150 ML IV CONT (07:31)
--- NOTE | 2022-11-27 07:49 | PM.HPGS ---
History of Present Illness History of Present Illness Consent: Risks, benefits, and alternatives have been discussed and questions answered. Patient agrees to proceed with procedure. Chief complaint: diverticulitis, neoplasm screening Narrative: Eliezer Rivas is a 82 year old male Presents colonoscopy. Patient reports that he had diarrhea that lasted for about 10 days. Because of this he went to the emergency room. A CT scan suggested the patient had diverticulitis. Patient denies any specific abdominal pain. He has had no bleeding. His diarrhea has resolved. His family history is noncontributory. Because of these abnormalities colonoscopy is requested. Review of Systems Review of Systems: Review of systems noncontributory. Patient does report a history of atrial fibrillation in general overall fatigue. [facility] Past Medical History Medical History A-fib Abnormal finding of blood chemistry, unspecified Aortic stenosis ASHD (arteriosclerotic heart disease) Benign essential hypertension BMI 26.0-26.9,adult BMI 27.0-27.9,adult BMI 28.0-28.9,adult Breast lump Cardiac pacemaker in situ Claudication Diarrhea Diverticulitis Dizziness Dry eyes Elevated glucose Encounter for Medicare annual wellness exam Encounter for routine adult health examination with abnormal findings Encounter for routine adult health examination without abnormal findings Epididymitis Gynecomastia Hematoma Hx of colonic polyps Hyperlipidemia Hypothyroidism (acquired) Insomnia Itchy scrotum LLQ pain Lung nodule On [facility] drug therapy Peripheral visual field defect Prediabetes PVC's (premature ventricular contractions) Renal cyst Shortness of breath Sinus drainage Subcutaneous mass Trigger finger, left middle finger Vitamin D deficiency Weakness Family History Family History Father Family history of heart disease in male family member before age 55 Family history of cardiovascular disease Mother Family history of diabetes mellitus in first degree relative Family history of heart disease in male family member before age 55 Diabetes mellitus Family history of cardiovascular disease Other Hypertension Social History Social History Years smoked: 15 Smoking status: Former smoker Tobacco type: pipe Second hand tobacco smoke exposure: No Smoking end date: 03/23/78 Additional smoking assessment comments: SMOKED PIPE X 10-15 YEARS Alcohol intake: never Substance use: never Substance use type: does not use Lack of Transportation: No Lack of Food: Never True Current Housing: I Have Housing Concerned About Future Housing: No Difficulty Paying Gas/Electric Bills: No Difficulty Paying for Meds: No Currently Unemployed: No Difficulty w/ Childcare or Family Care: No Living arrangements: with family Additional living arrangements comments: Occupation/Education: retired Gender identity (if verbalized by the patient): Male Spiritual care concerns: No Meds Home Medications and Allergies Home Medications Medication Instructions Recorded Confirmed Type calcium carbonate 600 mg calcium 600 mg PO BID 10/22/19 11/27/22 History (1,500 mg) tablet calcium polycarbophil 625 mg 625 mg PO BID 10/22/19 11/27/22 History tablet (FiberCon) multivitamin 1 tablet PO DAILY 10/22/19 11/27/22 History omega-3 fatty acids 1,000 mg 1,000 mg PO BID 10/22/19 11/27/22 History capsule (Fish Oil Concentrate) clopidogrel 75 mg tablet (Plavix) 75 mg PO QAM 02/23/20 11/27/22 History ezetimibe 10 mg tablet 10 mg PO HS 02/23/20 11/27/22 History famotidine 20 mg tablet 20 mg PO BID 02/23/20 11/27/22 History isosorbide mononitrate 60 mg 60 mg PO DAILY 02/23/20 11/27/22 History tablet,extended release 24 hr magnesium oxide 400 mg PO BI
[2022-11-27 07:53] LABS: INR 1.2
--- NOTE | 2022-11-27 07:57 | WPDANESEPPF ---
Anes - Initial Pre Proc Eval Procedure: Operation Date: 11/27/22 08:30 Proposed Procedures p Colonoscopy - Edilson Mejia MD Date/Time: 11/27/22 07:57 Surgeon: Edilson Mejia MD Pre Op Diagnosis: diverticulitis, neoplasm screening Patient Data Age: 82 Gender: M Height: 1.83 m Weight: 87.9 kg Last Vital Signs Temp 95.8 F L 11/27/22 07:05 Pulse 69 11/27/22 07:05 Resp 18 11/27/22 07:05 BP 143/61 H 11/27/22 07:05 Pulse Ox 99 11/27/22 07:05 O2 Del Method Room Air 11/27/22 07:05 Allergies Allergy/AdvReac Type Severity Reaction Status Date / Time No Known Allergies Allergy Verified 11/27/22 07:14 Home Medications Medication Instructions Recorded Confirmed Type calcium carbonate 600 mg calcium 600 mg PO BID 10/22/19 11/27/22 History (1,500 mg) tablet calcium polycarbophil 625 mg 625 mg PO BID 10/22/19 11/27/22 History tablet (FiberCon) multivitamin 1 tablet PO DAILY 10/22/19 11/27/22 History omega-3 fatty acids 1,000 mg 1,000 mg PO BID 10/22/19 11/27/22 History capsule (Fish Oil Concentrate) clopidogrel 75 mg tablet (Plavix) 75 mg PO QAM 02/23/20 11/27/22 History ezetimibe 10 mg tablet 10 mg PO HS 02/23/20 11/27/22 History famotidine 20 mg tablet 20 mg PO BID 02/23/20 11/27/22 History isosorbide mononitrate 60 mg 60 mg PO DAILY 02/23/20 11/27/22 History tablet,extended release 24 hr magnesium oxide 400 mg PO BID 04/18/21 11/27/22 History rosuvastatin 10 mg tablet 10 mg PO DAILY 05/11/21 11/27/22 History aspirin 81 mg tablet,delayed 81 mg PO DAILY 10/11/21 11/27/22 History release (Adult Low Dose Aspirin) levothyroxine 75 mcg tablet 75 mcg PO QAM #90 tabs 12/26/21 11/27/22 Rx pantoprazole 40 mg tablet,delayed 40 mg PO QAM #90 tabs 12/26/21 11/27/22 Rx release dofetilide 500 mcg capsule 500 mcg PO Q12H 06/28/22 11/27/22 History zolpidem 10 mg tablet 10 mg PO QHS #30 tabs 08/14/22 11/27/22 Rx warfarin 4 mg tablet 4 mg PO HS 10/26/22 11/27/22 History Adult Probiotic 1 cap PO DAILY 11/14/22 11/27/22 History Vitamin D3 1 cap PO BID 11/14/22 11/27/22 History metoprolol tartrate 50 mg tablet 50 mg PO BID 11/14/22 11/27/22 History alprazolam 0.25 mg tablet 0.25 mg PO TID #90 tabs 11/20/22 11/27/22 Rx fluticasone propionate 50 See Rx Instructions .Route 11/21/22 11/27/22 Rx mcg/actuation nasal .COMPLEX #16 grams spray,suspension Laboratory Tests 11/27/22 07:31 PT 15.0 Seconds H Seconds (11.1-14.7) INR 1.2 Patient hx anesthesia problems: none Family hx anesthesia problems: none Results Review: All pre-operative results and documents have been reviewed as part of the pre-operative evaluation. [facility] Past Medical History Medical History A-fib Abnormal finding of blood chemistry, unspecified Aortic stenosis ASHD (arteriosclerotic heart disease) Benign essential hypertension BMI 26.0-26.9,adult BMI 27.0-27.9,adult BMI 28.0-28.9,adult Breast lump Cardiac pacemaker in situ Claudication Diarrhea Diverticulitis Dizziness Dry eyes Elevated glucose Encounter for Medicare annual wellness exam Encounter for routine adult health examination with abnormal findings Encounter for routine adult health examination without abnormal findings Epididymitis Gynecomastia Hematoma Hx of colonic polyps Hyperlipidemia Hypothyroidism (acquired) Insomnia Itchy scrotum LLQ pain Lung nodule On fpc drug therapy Peripheral visual field defect Prediabetes PVC's (premature ventricular contractions) Renal cyst Shortness of breath Sinus drainage Subcutaneous mass Trigger finger, left middle finger Vitamin D deficiency Weakness Family History Family History Father Family history of heart disease in male family member before age 55 Family history of cardiovascular disease Mother Family history of diabetes mellitus in first degree relati
[2022-11-27 08:52] VITALS: BP 106/56; PULSE 60; RESP 18; O2SAT 99
[2022-11-27 09:02] VITALS: BP 115/61; PULSE 61; RESP 21; O2SAT 100
[2022-11-27 09:12] VITALS: BP 118/63; PULSE 60; RESP 20; O2SAT 100
== END 2022-11-27 09:18 | disposition home or self-care (01) ==
PROVIDERS: PCP Internal Medicine; Visit Provider Internal Medicine Gastroenterology
PROC: 0DJD8ZZ Inspection of Lower Intestinal Tract, Via Natural or Artificial Opening Endoscopic (ICD-10-PCS; CPT 45378; principal; 2022-11-27 08:30)
DX: R19.7 Diarrhea, unspecified (principal); D12.0 Benign neoplasm of cecum; K63.5 Polyp of colon; K57.30 Diverticulosis of large intestine without perforation or abscess without bleeding; K64.8 Other hemorrhoids; Z87.19 Personal history of other diseases of the digestive system; I48.91 Unspecified atrial fibrillation; I25.10 Atherosclerotic heart disease of native coronary artery without angina pectoris; I10 Essential (primary) hypertension; Z95.0 Presence of cardiac pacemaker; E78.5 Hyperlipidemia, unspecified; E03.9 Hypothyroidism, unspecified; R73.03 Prediabetes; I49.3 Ventricular premature depolarization; I35.0 Nonrheumatic aortic (valve) stenosis; Z79.01 Long term (current) use of anticoagulants; Z79.02 Long term (current) use of antithrombotics/antiplatelets; Z87.891 Personal history of nicotine dependence
CPT/HCPCS: 45385; 36415; 85610; 88305; J2704; J7120

== ENCOUNTER 2022-12-08 07:48 | Inpatient (IN) | payer MEDICARE, SELFPAY ==
[2022-12-08] VITALS (33 sets, daily range): BP systolic 52–153; BP diastolic 21–65; PULSE 69–100; RESP 11–22; TEMP 36.4–37; O2SAT 98–100
--- NOTE | ~2022-12-08 | CT_ITS ---
EXAMINATION: CT brain wo con DATE: 12/09/2022 19:00 INDICATION: syncope . TECHNIQUE: Computed tomography (CT) of the head was performed without intravenous contrast. The mA wa s adjusted according to patient size. Iterative reconstruction technique was employed. The dose-lengt h product was 605.33 mGy-cm. COMPARISON: CT brain 01/22/2013, CT sinus 11/04/2020. FINDINGS: No acute intracranial hemorrhage or extra-axial fluid collection. No hydrocephalus, mass, or herniation. No acute ischemic infarct. Unremarkable dural venous sinus attenuation. No acute osseous abnormality. Prior sinus surgery. Left frontal opacification with surrounding sclerosis. Ethmoid mucosal thickenin g. Left mastoid fluid. The remaining aerated spaces are clear. Mild atrophy and chronic white matter change. Atherosclerotic intracranial calcification. Bilateral l ens replacements. IMPRESSION: No acute intracranial process. Chronic left frontal sinusitis. Reviewed, dictated and finalized at location K.
--- NOTE | 2022-12-08 07:57 | ECG_ITS ---
Measurements Intervals [place] Rate: 83 P: 262 MO: 118 QRS: 46 QRSD: 106 T: 27 QT: 434 QTc: 511 Interpretive Statements SINUS OR ECTOPIC ATRIAL RHYTHM VOLTAGE CRITERIA FOR LVH NONSPECIFIC ST & T-WAVE ABNORMALITY- INF/LAT LEADS PROLONGED QT INTERVAL BASELINE ARTIFACT- I, II, III, AVR ABNORMAL ECG NO PREVIOUS ECG AVAILABLE FOR COMPARISON Electronically Signed On 12-08-2022 8:14:23 CDT by Prem Solorzano D.O.
--- NOTE | 2022-12-08 08:17 | PC.NURSE ---
Patient stated that all he took this morning from his medications was his Tikosyn 500mcg.
[2022-12-08 08:20] LABS: Basophils Absolute Auto 0.1 K/mm3 (0.0-0.1); Basophils Percent Auto 0.8 % (0.2-1.2); Eosinophils Absolute Auto 0.2 K/mm3 (0-0.3); Eosinophils Percent Auto 3.4 % (0-4.4); Hematocrit 29.3 % (42.0-52.0); Hemoglobin 9.5 g/dL (14.0-18.0); Immature Granulocyte Absolute 0.03 K/mm3 (0.00-0.031); Immature Granulocyte Percent A 0.5 % (0-0.5); Lymphocytes Absolute Auto 1.97 K/mm3 (0.9-3.2); Mean Corpuscular HGB Conc 32.4 g/dl (32-36); Mean Corpuscular Hemoglobin 32.2 pg (26-34); Mean Corpuscular Volume 99.3 fl (80-100); Monocytes Absolute Auto 0.4 K/mm3 (0.1-0.6); Monocytes Percent Auto 6.8 % (2.6-8.5); Neutrophils Absolute Auto 3.5 K/mm3 (1.3-6.7); Neutrophils Percent Auto 56.5 % (45.5-73.1); Platelet Count Result 193 k/mm3 (150-375); Red Blood Count 2.95 M/mm3 (4.6-6.20); Red Cell Distribution Width 13.5 % (11.5-14.5); White Blood Count 6.2 K/mm3 (4.5-10.0)
--- NOTE | 2022-12-08 08:24 | ED.GIBLEED ---
HPI - GI Bleed General Chief complaint: GI Bleed Stated complaint: GI Bleed Time Seen by Provider: 12/08/22 08:24 Source: patient, family and EMS Mode of arrival: EMS Limitations: no limitations History of Present Illness HPI Narrative: 82 years old white male came from home by ambulance complaining of rectal bleeding, lightheadedness, and syncope this morning on a standing position trying to have a bowel movement. Patient was seen at [facility] yesterday for similar symptoms and was discharged home and was asked to hold his Coumadin. Patient is status post colonoscopy on November [address] Mejia because of diarrhea. Patient had polypectomy at that time. Patient restarted his Coumadin 7 days ago. Patient currently on aspirin, Plavix and Coumadin. Patient is laying down in bed, and his main complaint at this time is shortness of breath. Related Data Home Medications Medication Instructions Recorded Confirmed calcium carbonate 600 mg calcium 600 mg PO BID 10/22/19 11/27/22 (1,500 mg) tablet calcium polycarbophil 625 mg 625 mg PO BID 10/22/19 11/27/22 tablet (FiberCon) multivitamin 1 tablet PO DAILY 10/22/19 11/27/22 omega-3 fatty acids 1,000 mg 1,000 mg PO BID 10/22/19 11/27/22 capsule (Fish Oil Concentrate) clopidogrel 75 mg tablet (Plavix) 75 mg PO QA 02/23/20 11/27/22 ezetimibe 10 mg tablet 10 mg PO HS 02/23/20 11/27/22 famotidine 20 mg tablet 20 mg PO BID 02/23/20 11/27/22 isosorbide mononitrate 60 mg 60 mg PO DAILY 02/23/20 11/27/22 tablet,extended release 24 hr magnesium oxide 400 mg PO BID 04/18/21 11/27/22 aspirin 81 mg tablet,delayed 81 mg PO DAILY 10/11/21 11/27/22 release (Adult Low Dose Aspirin) dofetilide 500 mcg capsule 500 mcg PO Q12H 06/28/22 11/27/22 warfarin 4 mg tablet 4 mg PO HS 10/26/22 11/27/22 Adult Probiotic 1 cap PO DAILY 11/14/22 11/27/22 Vitamin D3 1 cap PO BID 11/14/22 11/27/22 metoprolol tartrate 50 mg tablet 50 mg PO BID 11/14/22 11/27/22 Allergies Allergy/AdvReac Type Severity Reaction Status Date / Time No Known Allergies Allergy Verified 11/27/22 07:14 Review of Systems Review of Systems: All systems reviewed & are unremarkable except as noted in HPI and below PMFSH Past Medical History Medical History A-fib Abnormal finding of blood chemistry, unspecified Aortic stenosis ASHD (arteriosclerotic heart disease) Benign essential hypertension BMI 26.0-26.9,adult BMI 27.0-27.9,adult BMI 28.0-28.9,adult Breast lump Cardiac pacemaker in situ Claudication Diarrhea Diverticulitis Dizziness Dry eyes Elevated glucose Encounter for Medicare annual wellness exam Encounter for routine adult health examination with abnormal findings Encounter for routine adult health examination without abnormal findings Epididymitis Gynecomastia Hematoma Hx of colonic polyps Hyperlipidemia Hypothyroidism (acquired) Insomnia Itchy scrotum LLQ pain Lung nodule On half-way drug therapy Peripheral visual field defect Prediabetes PVC's (premature ventricular contractions) Renal cyst Shortness of breath Sinus drainage Subcutaneous mass Trigger finger, left middle finger Vitamin D deficiency Weakness Family History Family History Father Family history of heart disease in male family member before age 55 Family history of cardiovascular disease Mother Family history of diabetes mellitus in first degree relative Family history of heart disease in male family member before age 55 Diabetes mellitus Family history of cardiovascular disease Other Hypertension Social History Social History Years smoked: 15 Smoking status: Former smoker Tobacco type: pipe Second hand tobacco smoke exposure: No Smoking end date: 03/23/78 Additional smoking assessment comments: SMOKED PIPE X 10-15 YEARS Alcohol intake: never Substa
[2022-12-08 08:30] LABS: INR 2.1; Partial Thromboplastin Time 25.7 SECONDS (22.3-36.8); Prothrombin Time 22.6 Seconds (11.1-14.7)
[2022-12-08 08:31] LABS: Alanine Aminotransferase 30 U/L (6-50); Albumin Level 3.8 g/dL (3.5-5.1); Alkaline Phosphatase 31 U/L (38-126); Anion Gap 7 mmol/L (8-16); Aspartate Amino Transferase 32 U/L (17-59); Bilirubin,Total 1.1 mg/dL (0.2-1.3); Blood Urea Nitrogen 18 mg/dL (9-20); Calcium 8.5 mg/dL (8.4-10.2); Carbon Dioxide 24 mmol/L (22-30); Chloride 106 mmol/L (98-107); Estimated CRCL calculation 59 ml/min; Estimated Glomerular Filt Rate > 60; Glucose 129 mg/dL (65-110); Potassium 4.1 mmol/L (3.4-5.0); Sodium 137 mmol/L (137-145)
--- NOTE | 2022-12-08 08:51 | PC.NURSE ---
Patient requested to go the bathroom and was able to ambulate to the Doreen steady without any complications. While en route to the bathroom the patient stated he was going to pass out and then proceeded to slump over the Doreen steady where two nurses held the patient up and a third came to help wheel the patient back to his room. The patient was then placed in his bed without any issues and a bed corado was given so the patient could go to the bathroom.
[2022-12-08 09:24] LABS: Lactic Acid Reflex 3.3 mmol/L (0.7-2.0)
[2022-12-08] MEDS: SODIUM CHLORIDE 0.9% IV 1,000 ML 999 ML IV CONT (10:00)
--- NOTE | 2022-12-08 10:28 | ECG_ITS ---
Measurements Intervals [place] Rate: 73 P: -73 MN: 117 QRS: 55 QRSD: 100 T: 75 QT: 435 QTc: 480 Interpretive Statements ECTOPIC ATRIAL RHYTHM VOLTAGE CRITERIA FOR LVH ST-T WAVE ABNORMALITY IN LATERAL LEADS- CONSIDER ISCHEMIA ABNORMAL ECG COMPARED TO ECG 12/08/2022 07:56:10 ST-T AVE ABNORMALITY IS MORE PRONOUNCED Electronically Signed On 12-08-2022 21:27:36 CDT by Prem Solorzano D.O.
[2022-12-08] MEDS: PANTOPRAZOLE SODIUM IV 40 MG VIAL IV PUSH (10:32)
--- NOTE | 2022-12-08 10:40 | PC.NURSE ---
Pt called nurse with c/o chest discomfort. Dr. Conroy notified r/p EKG preformed and showed to Dr. Conroy
[2022-12-08] MEDS: PHYTONADIONE ADULT INJ 10 MG in DEXTROSE 5% IN WATER 50 ML 100 MG IVPB (10:53)
[2022-12-08 10:56] LABS: Hematocrit 26.5 % (42.0-52.0); Hemoglobin 8.5 g/dL (14.0-18.0)
[2022-12-08] MEDS: SODIUM CHLORIDE 0.9% IV 1,000 ML 125 ML IV CONT ×2 (10:59→18:40)
--- NOTE | 2022-12-08 11:50 | ADMGEN ---
This patient, Eliezer Rivas, was admitted to Medical Room 244-. Patient/family oriented to hospital policies and general routines including ID bracelet, bed and alarms, visiting hours, pain management, procedures, bathroom and other care routines, personal items, smoking policy, room service/diet, and visiting hours. Information on how to activate the Rapid Response Team has been discussed. Patient/Family are encouraged to report perceived risks to care and to ask questions if they do not understand what they are told or what they should do.
[2022-12-08 12:12] LABS: Reflex Lactic Acid Yes or No Add Lactic
[2022-12-08 13:05] LABS: Lactic Acid 2.3 mmol/L (0.7-2.0)
--- NOTE | 2022-12-08 16:06 | PHAR ---
Addendum entered by Breanna Montoya [facility] 12/08/22 17:41: TYPO CORRECTION IDENTIFIED TO CONTAIN Original Note: RX [id number] MAIK IDNETIFIED TO [facility] NAME: DOFETILIDE INGREDIENTS: DOFETILIDE -- 500 MCG RELATED DOCUMENTS: DRUGDEX EVALUATIONS - DOFETILIDE COLOR: PEACH , WHITE IMPRINT: 500MCG ; 712 FORM: ORAL CAPSULE
--- NOTE | 2022-12-08 17:21 | ECG_ITS ---
Measurements Intervals [place] Rate: P: OK: QRS: QRSD: T: QT: QTc: Interpretive Statements ECTOPIC ATRIAL RHYTHM SUPRAVENTRICULAR BIGEMINY LEFT VENTRICULAR HYPERTROPHY WITH ST-T CHANGE ST-T WAVE ABNORMALITY IN ANTEROLATERAL LEADS- CONSIDER ISCHEMIA BASELINE ARTIFACT- I, II, III, AVL ABNORMAL ECG NO PRIOR ECG FOR COMPARISON Electronically Signed On 12-09-2022 17:10:28 CDT by Prem Solorzano D.O.
--- NOTE | 2022-12-08 17:33 | PC.NURSE ---
Pt c/o chest pain, Feels like gas. Comes and goes. 04/01. Chest pain reported to JONO Gomez. She states she will put in orders. Pt requesting for nurse Jaclyn to make sure he gets his 0 home medication on time. This was also reported to the provider. Ary states she has reviewed the EKG and will order some trops.
[2022-12-08 17:35] LABS: Hematocrit 24.1 % (42.0-52.0); Hemoglobin 7.7 g/dL (14.0-18.0)
[2022-12-08] MEDS: MORPHINE SULFATE (*CRX) 2 MG/ML INJ IV PUSH (17:36)
[2022-12-08 18:15] LABS: Troponin I 0.084 ng/mL (0.000-0.034)
--- NOTE | 2022-12-08 21:00 | PM.IMHP ---
H&P: HPI History of Present Illness Date/Time: 12/08/22 13:00 Chief Complaint: Syncope, bloody stools. Narrative: This is a very plesant 82-year-old male with paroxysmal atrial fibrillation on chronic anticoagulation, coronary artery disease status post CABG, hypertension, dyslipidemia, hypothyroidism, and other comorbidities who presented to the emergency department via EMS from home for evaluation of bloody stools and syncope. Patient provides the following history. He had a colonoscopy per Dr. Mejia on 11/27/2022 for evaluation of diarrhea. Diverticulosis and internal hemorrhoids were noted and 2 benign polyps were removed from the cecum and sigmoid colon. He held warfarin, aspirin, and clopidogrel prior to the procedure and resumed them earlier this week. He was off them for a longer period of time in anticipation of a tooth extraction. He was told to take 8 mg of warfarin when he started back on the medication and the following day he noticed bright red blood in his stool and he was seen at [facility] in the afternoon. He was apparently stable on workup and after discussions with his search planner and primary care provider, was decided that he would continue to hold his warfarin. He continues to pass bloody stools and this morning after passing a large stool he reports feeling weak, lightheaded, and dizzy while standing to wash his hands and the next thing he knew he was down on the floor. He briefly lost consciousness and does not think he had his head. Luckily he sustained no injuries. He came back in for evaluation today and his hemoglobin has continued to trend down words, 6.9 g at the time of this dictation which is 2.5 g lower than what it was on presentation. He is profoundly orthostatic (104/58 --> 94/53 --> 52/21) and is to be transfused this evening. He has not had a bloody stool for the last 6 hours or so. The bleeding is painless. He has no epigastric or abdominal discomfort. He frequently suffers from gas and GERD symptoms and that is unchanged. At the time my evaluation he feels weak but is otherwise comfortable. He is not having any chest pain or shortness of breath currently but he reported having midsternal chest pressure radiating to the jaw and left arm while in the emergency department and also this afternoon. EKG does show some ST depressions in the lateral leads and his troponin is elevated at 0.250. Again he is not currently having any chest discomfort. Review of Systems Review of Systems: Twelve systems were reviewed and are negative except for as per HPI. [facility] Past Medical History Medical History (Updated 12/09/22 @ 00:02 by Ary Gomez PA-C) Aortic stenosis Atrial fibrillation Benign essential hypertension Benign prostatic hyperplasia Chronic anticoagulation Coronary artery disease Diverticulitis Epididymitis Gastroesophageal reflux Hyperlipidemia Hypothyroidism Insomnia Lung nodule Myocardial infarction Prediabetes Vitamin D deficiency Surgical History Surgical History (Updated 12/08/22 @ 13:34 by Ary Gomez PA-C) History of appendectomy (07/2011) History of cardiac catheterization History of cholecystectomy (03/2005) History of colonoscopy with polypectomy History of coronary artery bypass graft x 2 History of coronary artery stent placement History of epididymectomy (10/2009) Right. History of nasal septoplasty (1969) History of permanent cardiac pacemaker placement History of transurethral resection of prostate (10/2009) Family History Family History Father Family history of heart disease in male family member before age 55 Family history of cardiovascular disease Mother Family history of diabetes mellitus in first degree relative Family history of heart disease in male family member before age 55 Diabetes mellitus Family history of cardiovascular disease Other Hypertension Social Histor
[2022-12-08] MEDS: METOPROLOL TARTRATE 50 MG TAB PO (21:25)
[2022-12-08] MEDS: ZOLPIDEM TARTRATE (*CRX) 5 MG TABLET 10 MG PO (21:25)
[2022-12-08] MEDS: EZETIMIBE 10 MG TABLET PO (21:25)
[2022-12-08] MEDS: MAGNESIUM OXIDE 400 MG TABLET PO (21:25)
[2022-12-08] MEDS: ALPRAZolam (*CRX) 0.25 MG TABLET PO (21:26)
[2022-12-08] MEDS: OMEGA 3 POLYUNSAT FATTY ACIDS 1 GM CAP 2 GM PO (21:26)
[2022-12-08 23:21] LABS: Hematocrit 21.1 % (42.0-52.0)
[2022-12-08 23:35] LABS: Hemoglobin 6.9 g/dL (14.0-18.0)
[2022-12-09] VITALS (24 sets, daily range): BP systolic 96–143; BP diastolic 36–60; PULSE 16–97; RESP 16–100; TEMP 36.4–37.1; O2SAT 79–100
[2022-12-09] LABS: Troponin I 0.595 ng/mL (0.000-0.034)
[2022-12-09] MEDS: LEVOTHYROXINE SODIUM 75 MCG TABLET PO (06:56)
[2022-12-09] MEDS: OMEGA 3 POLYUNSAT FATTY ACIDS 1 GM CAP 2 GM PO ×2 (08:02→20:17)
[2022-12-09] MEDS: FLUTICASONE PROPIONATE 0.05% NA SPR 16 GM BTL (*BKC) 2 SPRAY NASAL (08:02)
[2022-12-09] MEDS: ACIDOPHILUS/BULGARICUS CHEWABLE TABLET 1 TABLET PO (08:03)
[2022-12-09] MEDS: MAGNESIUM OXIDE 400 MG TABLET PO ×2 (08:03→20:17)
[2022-12-09] MEDS: PANTOPRAZOLE SODIUM IV 40 MG VIAL IV PUSH (08:03)
[2022-12-09] MEDS: ROSUVASTATIN 5 MG TABLET PO (08:03)
[2022-12-09] MEDS: CALCIUM CARBONATE (OSCAL) 500 MG TABLET PO (08:04)
[2022-12-09] MEDS: MULTIVITAMINS THERAPEUTIC TAB (*BKC) 1 TABLET PO (08:04)
[2022-12-09] MEDS: ALPRAZolam (*CRX) 0.25 MG TABLET PO ×2 (08:14→20:18)
--- NOTE | 2022-12-09 09:52 | PM.CNCAR ---
Assessment and Plan Assessment and plan (1) Elevated troponin: Code(s): R77.8 - Other specified abnormalities of plasma proteins Status: Acute Assessment and Plan: Acute myocardial injury with angina, elevated troponins, and lateral ST depression consistent with ischemia on EKG, all due to acute physiologic stress from the patient's severe anemia. Doubt acute coronary syndrome. Likely will improve as patient's anemia resolves. --Main treatment: transfusions until patient becomes asymptomatic --IV Fluids for soft BP --Try to resume low-dose BB, titrate back up to usual dose as BP allows --SL TNG prn (2) Coronary artery disease: Code(s): I25.10 - Atherosclerotic heart disease of [place] coronary artery without angina pectoris Status: Acute Assessment and Plan: History of CAD, CABG, redo, MIs and stents. The most recent stent was placed in an old saphenous vein graft to the posterolateral in September 2021. STents in old vein grafts are susceptible to acute thrombosi. However, the patient will need to be office anti-platelet medications for period of time because of the bleeding and acute myocardial injury which will put him at risk of stent thrombosis, which could be a life-threatening problem. On the good side of things has been more than a year since he had the stent placed so it will be less thrombogenic a recent stent would be. --discontinue aspirin and Plavix for now, perhaps resume Plavix at a later date, when GI bleeding has abated. --metoprolol 50 mg b.i.d. has been placed on hold due to the patient's soft blood pressure. I will try to resume it at much lower dose, 12.5 mg b.i.d. and titrate back up to his usual dose as blood pressure allows. (3) Acute blood loss anemia: Code(s): D62 - Acute posthemorrhagic anemia Status: Acute Assessment and Plan: Severe anemia secondary to GI bleeding, getting his 2nd unit of packed cells. May be related to his recent polypectomy. Potentially life-threatening. --follow H&H serially --GI consulted --Consider transfer to the IMU (4) Rectal bleeding: Code(s): K62.5 - Hemorrhage of anus and rectum Status: Acute Assessment and Plan: Patient has been having hematochezia, possibly related to his recent polypectomy and also taking aspirin and Plavix and warfarin. Places pt at risk for significant morbidity and mortality. --hold aspirin, Plavix and warfarin for now --Resume and modify AC/antiplatelet agents (perhaps DOAC + Plavix?) at a later date once the GI bleeding has ceased. --Consider left atrial appendage occlusion device on FU w/ his usual geographic information system surveyor, Dr. Miranda. History of Present Illness History of Present Illness Consult date/time: 12/09/22 09:52 Reason For Visit: gi bleed,coumadin coagulopathy Narrative: Eliezer Rivas an 82-year-old male whom we are asked to see at the request JONO Gomez for advice and opinion regarding his chest pain and elevated troponins in consultation. For unknown reasons, the request did not go through the EMR and I was not informed until I was notified on round this a.m. The patient a history of CAD, MIi, coronary stent (most recent in Sep 2021), CABG (1982 and 2001), pacemake(Biotronik 06/2022)r, and paroxysmal atrial fibrillation on Tikosyn. He was seen by Dr. Miranda, his usual geographic information system surveyor at [facility], on 09/25/2022 complaining of angina. Medical therapy was continued. Was still having some PAF. The patient had a colonoscopy by Dr. Cox on November 27 for diarrhea. He resumed his warfarin after that. He then had rectal bleeding and was told to hold his warfarin. He remained on Plavix + ASA. He presented to our emergency room after having several bloody bowel movements and syncope on 12/08/2022. He apparently had episode of syncope in the emergency room as well. His hematocrit was 29 on admission but has declined to 21yesterday. He is getting
[2022-12-09 10:19] LABS: INR 1.3; Prothrombin Time 15.4 Seconds (11.1-14.7)
[2022-12-09 11:01] LABS: Thyroid Stimulating Hormone Reflex 0.838 uIU/mL (0.465-4.68)
[2022-12-09] MEDS: SIMETHICONE 80 MG TAB.CHEW PO (11:12)
[2022-12-09 11:25] LABS: Anion Gap 5 mmol/L (8-16); Blood Urea Nitrogen 10 mg/dL (9-20); Calcium 8.2 mg/dL (8.4-10.2); Carbon Dioxide 22 mmol/L (22-30); Chloride 110 mmol/L (98-107); Estimated CRCL calculation 74 ml/min; Estimated Glomerular Filt Rate > 60; Glucose 170 mg/dL (65-110); Potassium 3.7 mmol/L (3.4-5.0); Sodium 137 mmol/L (137-145)
--- NOTE | 2022-12-09 12:00 | PC.NURSE ---
Patient transferred to IMU at 1200 12/09/22.
--- NOTE | 2022-12-09 12:01 | P.PNIM_ITS ---
Progress Note: A&P Assessment and Plan (1) GI bleed: Code(s): K92.2 - Gastrointestinal hemorrhage, unspecified Status: Acute Assessment and Plan: The patient presented to the emergency department for evaluation of a syncopal episode after having a bloody stool. Patient has had multiple bloody stools over the past couple days. patient does have history of internal hemorrhoids. * Colonoscopy with polypectomy on 11/27/2022 * Patient on warfarin, Plavix and aspirin. These were all recently resumed after colonoscopy. * Above medications have been put on hold since admission * Hemoglobin and hematocrit dropped from 9.5 to 6.9 while in the ED. Patient then transfused with 2 units of PRBCs. * Trend H&H. * GI consulted . I have discussed this case with on-call renovator machine operator. (2) Elevated troponin: Code(s): R77.8 - Other specified abnormalities of plasma proteins Status: Acute Assessment and Plan: Patient developed chest pain with radiation down his arm and trauma while he was in the ED. * EKG revealed ST depressions in the lateral leads * Troponin trending up with highest at 1.7 * Patient unable to take anti-platelet therapy due to GI bleed and symptomatic anemia. * Cardiology consulted. IF discussed this case personally with on-call car diologist. * Per Cardiology they believe that this is due to physiological stress from patient's severe anemia with low suspicion of acute coronary syndrome. * Patient transferred IMU due to rising troponin, angina and severe anemia. (3) Orthostatic hypotension: Code(s): I95.1 - Orthostatic hypotension Status: Acute Assessment and Plan: Patient with positive orthostatics. * This could be due from profound anemia and blood loss * Patient's metoprolol originally held. Patient's metoprolol started back at lowest dose on 12/09/2022 due to patient's elevated troponin Per cardiology. (4) Syncope: Code(s): R55 - Syncope and collapse Status: Acute Assessment and Plan: Patient with positive orthostatics as well as severe anemia which is most likely the cause of patient's collapse. * Will order CT brain to rule out hemorrhage. * EKG with S T-wave abnormality in lateral leads * Elevated troponin trending up * Consider echocardiogram in a day or 2. (5) Elevated lactic acid level: Code(s): R79.89 - Other specified abnormal findings of blood chemistry Status: Acute Assessment and Plan: Most likely from hypoperfusion. Will trend. (6) Atrial fibrillation: Code(s): I48.91 - Unspecified atrial fibrillation Status: Acute Assessment and Plan: Patient is on warfarin, goal patrol and aspirin. All of these were held. * I asked patient why he was on warfarin instead of Eliquis or Xarelto and he was unsure. He states that he has been warfarin for years. He on discharge I would potentially like to transition patient off of warfarin and on to Eliquis. (7) Acute blood loss anemia: Code(s): D62 - Acute posthemorrhagic anemia Status: Acute Assessment and Plan: see above. Subjective Date/time seen: 12/09/22 12:01 Interval history: Patient sitting up in bed with daughter at bedside. Patient actively having chest pain that started since arrival to the ED last night. Patient still H aving bloody stools. patient denies chest pain radiation although he was experiencing
--- NOTE | 2022-12-09 12:01 | PM.IMPN ---
Progress Note: A&P Assessment and Plan (1) GI bleed: Code(s): K92.2 - Gastrointestinal hemorrhage, unspecified Status: Acute Assessment and Plan: The patient presented to the emergency department for evaluation of a syncopal episode after having a bloody stool. Patient has had multiple bloody stools over the past couple days. patient does have history of internal hemorrhoids. Colonoscopy with polypectomy on 11/27/2022 Patient on warfarin, Plavix and aspirin. These were all recently resumed after colonoscopy. Above medications have been put on hold since admission Hemoglobin and hematocrit dropped from 9.5 to 6.9 while in the ED. Patient then transfused with 2 units of PRBCs. Trend H&H. GI consulted . I have discussed this case with on-call provider relations specialist. (2) Elevated troponin: Code(s): R77.8 - Other specified abnormalities of plasma proteins Status: Acute Assessment and Plan: Patient developed chest pain with radiation down his arm and trauma while he was in the ED. EKG revealed ST depressions in the lateral leads Troponin trending up with highest at 1.7 Patient unable to take anti-platelet therapy due to GI bleed and symptomatic anemia. Cardiology consulted. IF discussed this case personally with on-call rehabilitation inspector. Per Cardiology they believe that this is due to physiological stress from patient's severe anemia with low suspicion of acute coronary syndrome. Patient transferred IMU due to rising troponin, angina and severe anemia. (3) Orthostatic hypotension: Code(s): I95.1 - Orthostatic hypotension Status: Acute Assessment and Plan: Patient with positive orthostatics. This could be due from profound anemia and blood loss Patient's metoprolol originally held. Patient's metoprolol started back at lowest dose on 12/09/2022 due to patient's elevated troponin Per cardiology. (4) Syncope: Code(s): R55 - Syncope and collapse Status: Acute Assessment and Plan: Patient with positive orthostatics as well as severe anemia which is most likely the cause of patient's collapse. Will order CT brain to rule out hemorrhage. EKG with S T-wave abnormality in lateral leads Elevated troponin trending up Consider echocardiogram in a day or 2. (5) Elevated lactic acid level: Code(s): R79.89 - Other specified abnormal findings of blood chemistry Status: Acute Assessment and Plan: Most likely from hypoperfusion. Will trend. (6) Atrial fibrillation: Code(s): I48.91 - Unspecified atrial fibrillation Status: Acute Assessment and Plan: Patient is on warfarin, goal patrol and aspirin. All of these were held. I asked patient why he was on warfarin instead of Eliquis or Xarelto and he was unsure. He states that he has been warfarin for years. He on discharge I would potentially like to transition patient off of warfarin and on to Eliquis. (7) Acute blood loss anemia: Code(s): D62 - Acute posthemorrhagic anemia Status: Acute Assessment and Plan: see above. Subjective Date/time seen: 12/09/22 12:01 Interval history: Patient sitting up in bed with daughter at bedside. Patient actively having chest pain that started since arrival to the ED last night. Patient still Having bloody stools. patient denies chest pain radiation although he was experiencing this down his arms and his trough last night. He denies dizziness, lightheadedness, shortness of breath. Patient having no pain with his bowel movements and states the blood is more surrounding his stool rather than in his stool. He does have history of hemorrhoids. Review of Systems Review of Systems: All systems reviewed & are unremarkable except as noted in HPI and below Exam Narrative: GENERAL: Comfortable, no acute distress HENMT: moist mucous membranes EYES: EOM
--- NOTE | 2022-12-09 12:30 | PC.NURSE ---
This patient, Eliezer Rivas, was received from [facility] on 12/09/22 at 12:30. Patient/family oriented to unit policies and routines. Received report from NELLIE Anaya
[2022-12-09 12:47] LABS: Basophils Absolute Auto 0.1 K/mm3 (0.0-0.1); Basophils Percent Auto 0.5 % (0.2-1.2); Eosinophils Absolute Auto 0.2 K/mm3 (0-0.3); Eosinophils Percent Auto 1.8 % (0-4.4); Hematocrit 29.2 % (42.0-52.0); Hemoglobin 9.4 g/dL (14.0-18.0); Immature Granulocyte Absolute 0.03 K/mm3 (0.00-0.031); Immature Granulocyte Percent A 0.3 % (0-0.5); Lymphocytes Absolute Auto 1.64 K/mm3 (0.9-3.2); Lymphocytes Percent Auto 16.1 % (18.3-44.2); Mean Corpuscular HGB Conc 32.2 g/dl (32-36); Mean Corpuscular Hemoglobin 30.1 pg (26-34); Mean Corpuscular Volume 93.6 fl (80-100); Mean Platelet Volume 10.4 fl (7.4-10.4); Monocytes Absolute Auto 1.2 K/mm3 (0.1-0.6); Monocytes Percent Auto 11.3 % (2.6-8.5); Neutrophils Absolute Auto 7.1 K/mm3 (1.3-6.7); Nucleated Red Blood Cells Perc 0.2 % (0.0-0.2); Platelet Count Result 151 k/mm3 (150-375); Red Blood Count 3.12 M/mm3 (4.6-6.20); Red Cell Distribution Width 15.5 % (11.5-14.5); White Blood Count 10.2 K/mm3 (4.5-10.0)
--- NOTE | 2022-12-09 14:36 | WPDGICN ---
Assessment and Plan Assessment and plan (1) Rectal bleeding: Code(s): K62.5 - Hemorrhage of anus and rectum Status: Acute Assessment and Plan: here with symptomatic bleeding that caused anemia and syncope while patient is on blood thinners (asa, plavix, coumadin- everything on hold now) last colonoscopy 11/27 with only polypectomy- given timing I think will be unlikely source of bleeding and I favor more diverticular source will order GIB scan to assess if still actively bleeding, then will do colonoscopy (if negative then egd since he also has h/o gerd and was using tums) iv protonix, bowel prep tonight (2) Acute blood loss anemia: Code(s): D62 - Acute posthemorrhagic anemia Status: Acute Assessment and Plan: required blood transfusion continue to monitor and keep hb>7 (3) Syncope: Code(s): R55 - Syncope and collapse Status: Acute Assessment and Plan: probably from active bleeding (4) Non-ST elevated myocardial infarction: Code(s): I21.4 - Non-ST elevation (NSTEMI) myocardial infarction Status: Acute Assessment and Plan: demand ischemia from severe anemia cardiology on board on telemetry chest pain resolved after blood transfusion (5) Elevated troponin: Code(s): R77.8 - Other specified abnormalities of plasma proteins Status: Acute Assessment and Plan: by cardiology (6) Orthostatic hypotension: Code(s): I95.1 - Orthostatic hypotension Status: Acute Assessment and Plan: from anemia resolved (7) Chronic anticoagulation: Code(s): Z79.01 - senior care (current) use of anticoagulants Status: Acute Assessment and Plan: received vit K inr down to 1.3 (8) Atrial fibrillation: Code(s): I48.91 - Unspecified atrial fibrillation Status: Acute (9) Colon, diverticulosis: Code(s): K57.30 - Diverticulosis of large intestine without perforation or abscess without bleeding Status: Acute Assessment and Plan: wonder if cause of bleeding GI Consult Note Consult date/time: 12/09/22 14:36 Reason for consult: rectal bleeding, acute blood loss anemia, syncope HPI: Eliezer Rivas is a 82 year old male with h/o CAD, afib s/p pacemaker on aspirin, plavix and coumadin, GERD on protonix (last egd several years ago). He had diarrhea that lasted for about 10 days last month, evaluated in ER and CT scan suggested the patient had diverticulitis, diarrhea resolved and finally Dr Mejia performed colonoscopy 11/27/22, normal colon, found 2 polyps removed with hot snare and diverticulosis without inflammation, hemorrhoids. He resumed his warfarin after that and just few days ago started with new onset of rectal bleeding, he went to [place] [facility] and told to hold coumadin but continued to have more rectal bleeding of brb with clots but also dark appereance and actually had syncopal episode finally came to our ER.?His hb was 9.5 on admission but has declined to 6.9, up to 9.4 after 2 units of blood transfusion, INR was 2.1 then received vit K and down to 1.3. It seems that frequency and amount bleeding finally declining.?Also had chest pain/substernal gas pain off and on since admission but resolved after blood transfusion, improved after using peptobismol. Daughter is at bedside. Review of Systems Constitutional: Constitutional: Denies fever(s) and Reports weakness Eyes: Eyes: Denies blurry vision ENT: Reports system reviewed and no additional complaints, except as documented and Denies epistaxis Cardiovascular: Cardiovascular: Reports chest pain, Denies pedal edema, Reports lightheadedness and Reports dyspnea Respiratory: Respiratory: Denies chest congestion and Reports dyspnea Gastrointestinal: Gastrointestinal: Denies abdominal pain, Reports hematochezia and Reports diarrhea Genitourinary: Genitourinary: Denies hematuria Musculoskeletal: Musculoskeletal: Reports no additional musculosk
[2022-12-09 17:55] LABS: Hemoglobin 9.7 g/dL (14.0-18.0)
[2022-12-09] MEDS: BISACODYL 5 MG TABLET EC 20 MG PO (19:13)
[2022-12-09] MEDS: METOPROLOL TARTRATE 12.5 MG TABLET PO (20:17)
[2022-12-09] MEDS: EZETIMIBE 10 MG TABLET PO (20:18)
[2022-12-09] MEDS: polyethylene glycoL 3350 238 GM BOTTLE PO (20:18)
[2022-12-10] VITALS (21 sets, daily range): BP systolic 106–132; BP diastolic 40–70; PULSE 65–101; RESP 15–20; TEMP 35.9–36.6; O2SAT 97–100
--- NOTE | 2022-12-10 | ECHO_ITS ---
Patient Info Name: Eliezer Rivas Age: 82 years : 1940 Gender: Male Ht: 72 in Wt: 195 lbs BSA: 2.13 m2 HR: 78 bpm BP: 115 / 45 mmHg Technical Quality: Fair Exam Date: 12/10/2022 4:14 PM Exam Location: [facility] Pulmonary Exam Room: [facility] Patient Status: Inpatient Admit Date: 12/09/2022 Staff Ordering Physician: Denice Aburto PA-C Pocket Grinder Operator: Francisca Cavazos RDCS Attending Provider: Galen Lopez MD Referring Physician: Lamonte LEONARD; Exam Type: CA echo dop bubble study w con Study Info Indications - syncope elevated troponins hx/o cad cabg ppm Complete two-dimentional, color flow and Doppler transthoracic echocardiogram is performed with agitated saline and with contrast to opacify the left ventricle and to improve the delineation of the left ventricle endocardial borders. Contrast/Agitated Saline Contrast/Ag. Saline: Definity Amount: 2.00 ml Administered By: Francisca Cavazos [facility] Existing IV Access: Yes IV Access Condition: patent with no signs of infiltration Summary 1. Left ventricular chamber dimension is normal. 2. Left ventricular systolic function is normal, estimated at 65-70%. 3. The left ventricular diastolic function is grade I diastolic dysfunction. 4. Right ventricular systolic function is normal. 5. Linear artifact in right ventricle suggestive of catheter(s), pacemaker lead(s), or ICD lead(s). 6. Left atrial chamber dimension is moderately enlarged. 7. Right atrial chamber dimension is moderately enlarged. 8. Linear artifact in the right atrium suggestive of catheter(s), pacemaker lead(s), or ICD lead(s). 9. Intact interatrial septum visualized by color flow and agitated saline imaging. Negative bubble study. 10. There is moderate-severe aortic valve calcification. 11. There is moderate aortic valve stenosis with a peak velocity of 354 cm/s, mean gradient of 29 mmHg, and aortic valve area of 1.2 cm2. 12. There is moderate aortic valve regurgitation. 13. The mitral valve annulus is mildly calcified. 14. There is mild mitral valve regurgitation. 15. There is mild tricuspid valve regurgitation. Left Ventricle Left ventricular chamber dimension is normal. Left ventricular systolic function is normal, estimated at 65-70%. There is no increased left ventricular wall thickness. The left ventricular diastolic function is grade I diastolic dysfunction. Right Ventricle Linear artifact in right ventricle suggestive of catheter(s), pacemaker lead(s), or ICD lead(s). Right ventricular chamber dimension is normal. Right ventricular systolic function is normal. Left Atria Left atrial chamber dimension is moderately enlarged. Right Atria Right atrial chamber dimension is moderately enlarged. Linear artifact in the right atrium suggestive of catheter(s), pacemaker lead(s), or ICD lead(s). Atrial Septum Intact interatrial septum visualized by color flow and agitated saline imaging. Negative bubble study. Aortic Valve The aortic valve is not well visualized. There is moderate aortic valve stenosis with a peak velocity of 354 cm/s, mean gradient of 29 mmHg, and aortic valve area of 1.2 cm2. There is moderate aortic valve regurgitation. There is moderate-severe aortic valve calcification. Pulmonic Valve The pulmonic valve is not well visualized. Mitral Valve There is no mitral valve stenosis. There is mild mitral valve regurgitation. The mitral valve annulus is mildly calcified. Tr
[2022-12-10 05:09] LABS: Basophils Absolute Auto 0.1 K/mm3 (0.0-0.1); Basophils Percent Auto 0.6 % (0.2-1.2); Eosinophils Absolute Auto 0.3 K/mm3 (0-0.3); Eosinophils Percent Auto 3.6 % (0-4.4); Hematocrit 28.2 % (42.0-52.0); Hemoglobin 9.1 g/dL (14.0-18.0); Immature Granulocyte Absolute 0.02 K/mm3 (0.00-0.031); Immature Granulocyte Percent A 0.2 % (0-0.5); Lymphocytes Absolute Auto 1.74 K/mm3 (0.9-3.2); Lymphocytes Percent Auto 20.1 % (18.3-44.2); Mean Corpuscular HGB Conc 32.3 g/dl (32-36); Mean Corpuscular Hemoglobin 30.1 pg (26-34); Mean Corpuscular Volume 93.4 fl (80-100); Mean Platelet Volume 10.7 fl (7.4-10.4); Monocytes Percent Auto 11.6 % (2.6-8.5); Neutrophils Absolute Auto 5.5 K/mm3 (1.3-6.7); Neutrophils Percent Auto 63.9 % (45.5-73.1); Platelet Count Result 153 k/mm3 (150-375); Red Blood Count 3.02 M/mm3 (4.6-6.20); Red Cell Distribution Width 15.7 % (11.5-14.5); White Blood Count 8.7 K/mm3 (4.5-10.0)
[2022-12-10 05:10] LABS: Hematocrit 28.2 % (42.0-52.0); Hemoglobin 9.2 g/dL (14.0-18.0)
[2022-12-10 05:20] LABS: Alanine Aminotransferase 32 U/L (6-50); Albumin Level 3.6 g/dL (3.5-5.1); Alkaline Phosphatase 39 U/L (38-126); Anion Gap 2 mmol/L (8-16); Aspartate Amino Transferase 58 U/L (17-59); Bilirubin,Total 0.9 mg/dL (0.2-1.3); Blood Urea Nitrogen 7 mg/dL (9-20); Calcium 8.3 mg/dL (8.4-10.2); Carbon Dioxide 29 mmol/L (22-30); Chloride 107 mmol/L (98-107); Estimated CRCL calculation 74 ml/min; Estimated Glomerular Filt Rate > 60; Glucose 105 mg/dL (65-110); Potassium 3.7 mmol/L (3.4-5.0); Sodium 138 mmol/L (137-145)
[2022-12-10] MEDS: LEVOTHYROXINE SODIUM 75 MCG TABLET PO (06:25)
[2022-12-10] MEDS: FLUTICASONE PROPIONATE 0.05% NA SPR 16 GM BTL (*BKC) 2 SPRAY NASAL (08:07)
[2022-12-10] MEDS: polyethylene glycoL 3350 238 GM BOTTLE PO (08:07)
[2022-12-10] MEDS: METOPROLOL TARTRATE 12.5 MG TABLET PO ×2 (08:07→20:49)
[2022-12-10] MEDS: PANTOPRAZOLE SODIUM IV 40 MG VIAL IV PUSH (08:07)
[2022-12-10] MEDS: ALPRAZolam (*CRX) 0.25 MG TABLET PO ×2 (08:07→20:50)
[2022-12-10] MEDS: MAGNESIUM OXIDE 400 MG TABLET PO ×2 (08:07→20:49)
[2022-12-10 12:32] LABS: Hematocrit 29.8 % (42.0-52.0); Hemoglobin 9.7 g/dL (14.0-18.0)
--- NOTE | 2022-12-10 13:37 | P.PNIM_ITS ---
Progress Note: A&P Assessment and Plan (1) GI bleed: Code(s): K92.2 - Gastrointestinal hemorrhage, unspecified Status: Acute Assessment and Plan: The patient presented to the emergency department for evaluation of a syncopal episode after having a bloody stool. Patient has had multiple bloody stools over the past couple days. patient does have history of internal hemorrhoids. * Colonoscopy with polypectomy on 11/27/2022 * Patient on warfarin, Plavix and aspirin. These were all recently resumed after colonoscopy. * Above medications have been put on hold since admission * Hemoglobin and hematocrit dropped from 9.5 to 6.9 while in the ED. Patient then transfused with 2 units of PRBCs. * Trend H&H. * GI consulted. I have discussed this case with on-call site foreman. * 12/10/22 Patient undergoing colonoscopy and EGD. Hemoglobin hematocrit stable. (2) Elevated troponin: Code(s): R77.8 - Other specified abnormalities of plasma proteins Status: Acute Assessment and Plan: Patient developed chest pain with radiation down his arm and trauma while he was in the ED. * EKG revealed ST depressions in the lateral leads * Troponin trending up with highest at 2.13 * Patient unable to take anti-platelet therapy due to GI bleed and symptomatic anemia. * Cardiology consulted. IF discussed this case personally with on-call physician [facility]. * Per Cardiology they believe that this is due to physiological stress from patient's severe anemia with low suspicion of acute coronary syndrome. * Patient transferred IMU due to rising troponin, angina and severe anemia. (3) Orthostatic hypotension: Code(s): I95.1 - Orthostatic hypotension Status: Acute Assessment and Plan: Patient with positive orthostatics. * This could be due from profound anemia and blood loss * Patient's metoprolol originally held. Patient's metoprolol started back at lowest dose on 12/09/2022 due to patient's elevated troponin Per cardiology. * 12/10/2022 patient with negative orthostatics (4) Syncope: Code(s): R55 - Syncope and collapse Status: Acute Assessment and Plan: Patient with positive orthostatics as well as severe anemia which is most likely the cause of patient's collapse. * CT head no acute intracranial process * EKG with ST-wave abnormality in lateral leads * Elevated troponin trending up * Consider echocardiogram in a day or 2. (5) Elevated lactic acid level: Code(s): R79.89 - Other specified abnormal findings of blood chemistry Status: Acute Assessment and Plan: Most likely from hypoperfusion. Will trend. (6) Atrial fibrillation: Code(s): I48.91 - Unspecified atrial fibrillation Status: Acute Assessment and Plan: Patient is on warfarin, goal patrol and aspirin. All of these were held. * I asked patient why he was on warfarin instead of Eliquis or Xarelto and he was unsure. He states that he has been warfarin for years. He on discharge I would potentially like to transition patient off of warfarin and on to Eliquis. (7) Acute blood loss anemia: Code(s): D62 - Acute posthemorrhagic anemia Status: Acute Assessment and Plan: see above. Subjective Date/time seen: 12/10/22 13:37 Interval history: Patient doing better today than yesterday. Patient states that he feels very weak and groggy and that he did slee
--- NOTE | 2022-12-10 13:37 | PM.IMPN ---
Progress Note: A&P Assessment and Plan (1) GI bleed: Code(s): K92.2 - Gastrointestinal hemorrhage, unspecified Status: Acute Assessment and Plan: The patient presented to the emergency department for evaluation of a syncopal episode after having a bloody stool. Patient has had multiple bloody stools over the past couple days. patient does have history of internal hemorrhoids. Colonoscopy with polypectomy on 11/27/2022 Patient on warfarin, Plavix and aspirin. These were all recently resumed after colonoscopy. Above medications have been put on hold since admission Hemoglobin and hematocrit dropped from 9.5 to 6.9 while in the ED. Patient then transfused with 2 units of PRBCs. Trend H&H. GI consulted. I have discussed this case with on-call electric appliance installer. 12/10/22 Patient undergoing colonoscopy and EGD. Hemoglobin hematocrit stable. (2) Elevated troponin: Code(s): R77.8 - Other specified abnormalities of plasma proteins Status: Acute Assessment and Plan: Patient developed chest pain with radiation down his arm and trauma while he was in the ED. EKG revealed ST depressions in the lateral leads Troponin trending up with highest at 2.13 Patient unable to take anti-platelet therapy due to GI bleed and symptomatic anemia. Cardiology consulted. IF discussed this case personally with on-call l d rn. Per Cardiology they believe that this is due to physiological stress from patient's severe anemia with low suspicion of acute coronary syndrome. Patient transferred IMU due to rising troponin, angina and severe anemia. (3) Orthostatic hypotension: Code(s): I95.1 - Orthostatic hypotension Status: Acute Assessment and Plan: Patient with positive orthostatics. This could be due from profound anemia and blood loss Patient's metoprolol originally held. Patient's metoprolol started back at lowest dose on 12/09/2022 due to patient's elevated troponin Per cardiology. 12/10/2022 patient with negative orthostatics (4) Syncope: Code(s): R55 - Syncope and collapse Status: Acute Assessment and Plan: Patient with positive orthostatics as well as severe anemia which is most likely the cause of patient's collapse. CT head no acute intracranial process EKG with ST-wave abnormality in lateral leads Elevated troponin trending up Consider echocardiogram in a day or 2. (5) Elevated lactic acid level: Code(s): R79.89 - Other specified abnormal findings of blood chemistry Status: Acute Assessment and Plan: Most likely from hypoperfusion. Will trend. (6) Atrial fibrillation: Code(s): I48.91 - Unspecified atrial fibrillation Status: Acute Assessment and Plan: Patient is on warfarin, goal patrol and aspirin. All of these were held. I asked patient why he was on warfarin instead of Eliquis or Xarelto and he was unsure. He states that he has been warfarin for years. He on discharge I would potentially like to transition patient off of warfarin and on to Eliquis. (7) Acute blood loss anemia: Code(s): D62 - Acute posthemorrhagic anemia Status: Acute Assessment and Plan: see above. Subjective Date/time seen: 12/10/22 13:37 Interval history: Patient doing better today than yesterday. Patient states that he feels very weak and groggy and that he did sleep much last night. Last night patient was doing bowel prep for colonoscopy today and was using the bathroom most of the night. Patient states chest pain much better after completion infusion as well as taking Gas-X. Patient's troponin still trending upward he is not a candidate for PCI. continue to monitor Exam Narrative: GENERAL: Comfortable, no acute distress HENMT: moist mucous membranes EYES: EOM intact b/l NECK: no lymphadenopathy RESPIRATORY: clear to auscultation CARDIO: R
--- NOTE | 2022-12-10 14:30 | WPDANESEPPF ---
Anes - Initial Pre Proc Eval Procedure: Operation Date: 12/10/22 14:45 Proposed Procedures p Esophagogastroduodenoscopy & Colonoscopy - Edilson Mejia MD Date/Time: 12/10/22 14:30 Surgeon: Galen Lopez MD Pre Op Diagnosis: gi bleed,coumadin coagulopathy Patient Data Age: 82 Gender: M Height: 1.83 m Weight: 88.5 kg Last Vital Signs Temp 97.2 F L 12/10/22 13:36 Pulse 74 12/10/22 13:36 Resp 16 12/10/22 13:36 BP 126/60 12/10/22 13:36 Pulse Ox 100 12/10/22 13:36 O2 Del Method Room Air 12/10/22 13:36 O2 Flow Rate 2 12/09/22 09:05 Allergies Allergy/AdvReac Type Severity Reaction Status Date / Time No Known Allergies Allergy Verified 12/10/22 13:41 Home Medications Medication Instructions Recorded Confirmed Type calcium carbonate 600 mg calcium 600 mg PO QAM 10/22/19 12/08/22 History (1,500 mg) tablet multivitamin 1 tablet PO DAILY 10/22/19 12/08/22 History omega-3 fatty acids 1,000 mg 2,000 mg PO Q12H 10/22/19 12/08/22 History capsule (Fish Oil Concentrate) clopidogrel 75 mg tablet (Plavix) 75 mg PO QAM 02/23/20 12/08/22 History ezetimibe 10 mg tablet 10 mg PO HS 02/23/20 12/08/22 History isosorbide mononitrate 60 mg 60 mg PO DAILY 02/23/20 12/08/22 History tablet,extended release 24 hr magnesium oxide 400 mg PO Q12H 04/18/21 12/08/22 History levothyroxine 75 mcg tablet 75 mcg PO QAM #90 tabs 12/26/21 12/08/22 Rx pantoprazole 40 mg tablet,delayed 40 mg PO QAM #90 tabs 12/26/21 12/08/22 Rx release dofetilide 500 mcg capsule 500 mcg PO Q12H 06/28/22 12/08/22 History zolpidem 10 mg tablet 10 mg PO QHS #30 tabs 08/14/22 12/08/22 Rx warfarin 4 mg tablet 4 mg PO HS 10/26/22 12/08/22 History Adult Probiotic 1 cap PO DAILY 11/14/22 12/08/22 History Vitamin D3 1 cap PO Q12H 11/14/22 12/08/22 History metoprolol tartrate 50 mg tablet 50 mg PO Q12H 11/14/22 12/08/22 History alprazolam 0.25 mg tablet 0.25 mg PO TID #90 tabs 11/20/22 12/08/22 Rx fluticasone propionate 50 See Rx Instructions .Route 11/21/22 12/08/22 Rx mcg/actuation nasal .COMPLEX #16 grams spray,suspension aspirin 81 mg tablet 81 mg PO DAILY 12/08/22 12/08/22 History rosuvastatin 5 mg tablet 5 mg PO DAILY 12/08/22 12/08/22 History Laboratory Tests 12/09/22 12/10/22 12/10/22 17:45 04:38 04:38 WBC 8.7 K/mm3 K/mm3 (4.5-10.0) RBC 3.02 M/mm3 L M/mm3 (4.6-6.20) Hgb 9.7 g/dL L g/dL 9.1 g/dL L g/dL (14.0-18.0) (14.0-18.0) Hct 30.0 % L % 28.2 % L % (42.0-52.0) (42.0-52.0) MCV 93.4 fl fl (80-100) MCH 30.1 pg pg (26-34) MCHC 32.3 g/dl g/dl (32-36) RDW 15.7 % H % (11.5-14.5) Plt Count 153 k/mm3 k/mm3 (150-375) MPV 10.7 fl H fl (7.4-10.4) Immature Gran % (Auto) 0.2 % % (0-0.5) Neut % (Auto) 63.9 % % (45.5-73.1) Lymph % (Auto) 20.1 % % (18.3-44.2) [place] % (Auto) 11.6 % H % (2.6-8.5) Eos % (Auto) 3.6 % % (0-4.4) Baso % (Auto) 0.6 % % (0.2-1.2) Lymph # (Auto) 1.74 K/mm3 K/mm3 (0.9-3.2) [place] # (Auto) 1.0 K/mm3 H K/mm3 (0.1-0.6) Eos # (Auto) 0.3 K/mm3 K/mm3 (0-0.3) Baso # (Auto) 0.1 K/mm3 K/mm3 (0.0-0.1) Abs Immat Gran (auto) 0.02 K/mm3 K/mm3 (0.00-0.031) Absolute Neuts (auto) 5.5 K/mm3 K/mm3 (1.3-6.7) Absolute Nucleated RBC 0.0 K/mm3 K/mm3 (0.0-0.012) Nucleated RBC % 0.0 % % (0.0-0.2) Sodium 138 mmol/L mmol/L (137-145) Potassium 3.7 mmol/L mmol/L (3.4-5.0) Chloride 107 mmol/L mmol/L (98-107) Carbon Dioxide 29 mmol/L mmol/L (22-30) Anion Gap 2 mmol/L L mmol/L (8-16) BUN 7 mg/dL L mg/dL (9-20) Creatinine 0.70 mg/dL mg/dL (0.7-1.3) Estim Creat Clear Calc 74 ml/min ml/min Estimated GFR > 60 (59 - ) Glucose 105 mg/dL mg/dL (
--- NOTE | 2022-12-10 15:02 | SUR.OPER ---
egd ended at 1454, colonoscopy begun at 1501
[2022-12-10] MEDS: LACTATED RINGERS 1,000 ML 150 ML IV CONT (15:15)
[2022-12-10] MEDS: PERFLUTREN LIPID MICROSPHERES 1.5 ML VIAL DILUTED TO 10 ML TOTAL VOLUME IV PUSH (16:45)
[2022-12-10 18:13] LABS: Hematocrit 31.1 % (42.0-52.0); Hemoglobin 10.1 g/dL (14.0-18.0)
[2022-12-10] MEDS: OMEGA 3 POLYUNSAT FATTY ACIDS 1 GM CAP 2 GM PO (20:49)
[2022-12-10] MEDS: EZETIMIBE 10 MG TABLET PO (20:49)
[2022-12-10] MEDS: ZOLPIDEM TARTRATE (*CRX) 5 MG TABLET 10 MG PO (20:50)
[2022-12-11] VITALS: BP 99/54; PULSE 64; PULSE 81; RESP 18; TEMP 36.6; O2SAT 96
[2022-12-11 00:57] LABS: Hematocrit 27.2 % (42.0-52.0); Hemoglobin 8.6 g/dL (14.0-18.0); Mean Corpuscular HGB Conc 31.6 g/dl (32-36); Mean Corpuscular Hemoglobin 30.4 pg (26-34); Mean Corpuscular Volume 96.1 fl (80-100); Mean Platelet Volume 10.3 fl (7.4-10.4); Platelet Count Result 145 k/mm3 (150-375); Red Blood Count 2.83 M/mm3 (4.6-6.20); Red Cell Distribution Width 15.5 % (11.5-14.5)
[2022-12-11 01:16] LABS: Anion Gap 1 mmol/L (8-16); Blood Urea Nitrogen 8 mg/dL (9-20); Calcium 8.1 mg/dL (8.4-10.2); Carbon Dioxide 27 mmol/L (22-30); Chloride 109 mmol/L (98-107); Estimated CRCL calculation 85 ml/min; Estimated Glomerular Filt Rate > 60; Glucose 88 mg/dL (65-110); Sodium 137 mmol/L (137-145)
[2022-12-11 02:00] VITALS: PULSE 66
[2022-12-11 04:00] VITALS: BP 103/51; PULSE 66; PULSE 71; RESP 16; TEMP 36.6; O2SAT 98
[2022-12-11] MEDS: LEVOTHYROXINE SODIUM 75 MCG TABLET PO (06:48)
[2022-12-11 08:00] VITALS: BP 115/49; PULSE 71; RESP 16; TEMP 36.6; O2SAT 100
[2022-12-11] MEDS: CHOLECALCIFEROL 1,000 UNITS TABLET 1000 UNITS PO (08:25)
[2022-12-11] MEDS: FLUTICASONE PROPIONATE 0.05% NA SPR 16 GM BTL (*BKC) 2 SPRAY NASAL (08:26)
[2022-12-11] MEDS: OMEGA 3 POLYUNSAT FATTY ACIDS 1 GM CAP 2 GM PO (08:27)
[2022-12-11] MEDS: PANTOPRAZOLE SODIUM IV 40 MG VIAL IV PUSH (08:29)
[2022-12-11] MEDS: MULTIVITAMINS THERAPEUTIC TAB (*BKC) 1 TABLET PO (08:33)
[2022-12-11] MEDS: METOPROLOL TARTRATE 12.5 MG TABLET PO (08:34)
[2022-12-11] MEDS: ROSUVASTATIN 5 MG TABLET PO (08:35)
[2022-12-11] MEDS: ACIDOPHILUS/BULGARICUS CHEWABLE TABLET 1 TABLET PO (08:36)
[2022-12-11] MEDS: MAGNESIUM OXIDE 400 MG TABLET PO (08:37)
[2022-12-11] MEDS: CALCIUM CARBONATE (OSCAL) 500 MG TABLET PO (08:38)
[2022-12-11] MEDS: ALPRAZolam (*CRX) 0.25 MG TABLET PO (09:01)
--- NOTE | 2022-12-11 10:49 | PC.NURSE ---
patient alert and oriented x4, VSS extremely compliant with care. Daughter presented concerns of father not receiving a bath since admission 3days ago. Patient verified that he refused a bath but wanted his back washed. He stated the tech did everything that i wanted. He stated he does not take a bath every day at home. He stated they changed his gown, and sheets. The daughter was raging about him being filthy and having a rash. upon my assessment, patient had no odor, teeth brushed, clean nails and very well kempt. Patients back had what appeared to be heat rash or perhaps and allergic reaction on his back. No s/s of filthiness or hygiene neglect as previously stated by daughter. patient stated he was fine and wanted the daughter to sit down and stop with her behaivior. Daughter was stating this facility is horrible and she wanted him out of here. Patient verbalized that he did not agree. Charge nurse and physician updated on situation. Care continued.
[2022-12-11 12:00] VITALS: BP 123/52; PULSE 97; RESP 16; TEMP 36.6; O2SAT 100
[2022-12-11 12:41] LABS: Hematocrit 30.1 % (42.0-52.0); Hemoglobin 9.5 g/dL (14.0-18.0)
[2022-12-11 12:52] VITALS: PULSE 97
--- NOTE | 2022-12-11 14:14 | P.DS_ITS ---
DS: Admitting Diagnosis Discharge Date 12/11/22 Admitting Diagnosis anemia DS: Discharge Diagnosis Discharge Diagnosis (1) GI bleed: Code(s): K92.2 - Gastrointestinal hemorrhage, unspecified Status: Acute Assessment and Plan: The patient presented to the emergency department for evaluation of a syncopal episode after having a bloody stool. Patient has had multiple bloody stools over the past couple days. patient does have history of internal hemorrhoids. * Colonoscopy with polypectomy on 11/27/2022 * Patient on warfarin, Plavix and aspirin. These were all recently resumed after colonoscopy. * Above medications have been put on hold since admission * Hemoglobin and hematocrit dropped from 9.5 to 6.9 while in the ED. Patient then transfused with 2 units of PRBCs. * Trend H&H. * GI consulted. I have discussed this case with on-call pet food deboner. * 12/10/22 Patient undergoing colonoscopy and EGD. Hemoglobin hematocrit stable. * 12/11/2022 colonoscopy EGD with no evidence of an active bleed. Hemorrhoids and diverticula were seen on colonoscopy and possibly source of patient's rectal bleeding but there was no evidence of bleeding at the time of colonoscopy. Patient's hemoglobin hematocrit have been stable since receiving 2 units of PRBCs. It is possible that patient was bleeding from diverticula or hemorrhoids while he was on warfarin and once warfarin was discontinued and he was given vitamin K bleeding had stopped. (2) Elevated troponin: Code(s): R77.8 - Other specified abnormalities of plasma proteins Status: Acute Assessment and Plan: Patient developed chest pain with radiation down his arm and trauma while he was in the ED. * EKG revealed ST depressions in the lateral leads * Patient unable to take anti-platelet therapy due to GI bleed and symptomatic anemia. * Cardiology consulted. IF discussed this case personally with on-call community development coordinator. * Per Cardiology they believe that this is due to physiological stress from patient's severe anemia with low suspicion of acute coronary syndrome. * Patient transferred IMU due to rising troponin, angina and severe anemia. * Troponin peak at 2.13 and now trending down. (3) Orthostatic hypotension: Code(s): I95.1 - Orthostatic hypotension Status: Acute Assessment and Plan: Patient with positive orthostatics. * This could be due from profound anemia and blood loss * Patient's metoprolol originally held. Patient's metoprolol started back at lowest dose on 12/09/2022 due to patient's elevated troponin Per cardiology. * 12/10/2022 patient with negative orthostatics (4) Syncope: Code(s): R55 - Syncope and collapse Status: Acute Assessment and Plan: Patient with positive orthostatics as well as severe anemia which is most likely the cause of patient's collapse. * CT head no acute intracranial process * EKG with ST-wave abnormality in lateral leads * Echocardiogram with EF of 65-70%, grade 1 diastolic dysfunction (5) Elevated lactic acid level: Code(s): R79.89 - Other specified abnormal findings of blood chemistry Status: Acute Assessment and Plan: Most likely from hypoperfusion. Will trend. (6) Atrial fibrillation: Code(s): I48.91 - Unspecified atrial fibrillation Status: Acute Assessment and Plan: Patient is on warfarin, goal patrol and aspirin. All of these were held. * I asked patient why he was on warfarin instea
--- NOTE | 2022-12-11 14:14 | PM.DS ---
DS: Admitting Diagnosis Discharge Date 12/11/22 Admitting Diagnosis anemia DS: Discharge Diagnosis Discharge Diagnosis (1) GI bleed: Code(s): K92.2 - Gastrointestinal hemorrhage, unspecified Status: Acute Assessment and Plan: The patient presented to the emergency department for evaluation of a syncopal episode after having a bloody stool. Patient has had multiple bloody stools over the past couple days. patient does have history of internal hemorrhoids. Colonoscopy with polypectomy on 11/27/2022 Patient on warfarin, Plavix and aspirin. These were all recently resumed after colonoscopy. Above medications have been put on hold since admission Hemoglobin and hematocrit dropped from 9.5 to 6.9 while in the ED. Patient then transfused with 2 units of PRBCs. Trend H&H. GI consulted. I have discussed this case with on-call technical applications scientist. 12/10/22 Patient undergoing colonoscopy and EGD. Hemoglobin hematocrit stable. 12/11/2022 colonoscopy EGD with no evidence of an active bleed. Hemorrhoids and diverticula were seen on colonoscopy and possibly source of patient's rectal bleeding but there was no evidence of bleeding at the time of colonoscopy. Patient's hemoglobin hematocrit have been stable since receiving 2 units of PRBCs. It is possible that patient was bleeding from diverticula or hemorrhoids while he was on warfarin and once warfarin was discontinued and he was given vitamin K bleeding had stopped. (2) Elevated troponin: Code(s): R77.8 - Other specified abnormalities of plasma proteins Status: Acute Assessment and Plan: Patient developed chest pain with radiation down his arm and trauma while he was in the ED. EKG revealed ST depressions in the lateral leads Patient unable to take anti-platelet therapy due to GI bleed and symptomatic anemia. Cardiology consulted. IF discussed this case personally with on-call analysis or research safety inspector. Per Cardiology they believe that this is due to physiological stress from patient's severe anemia with low suspicion of acute coronary syndrome. Patient transferred IMU due to rising troponin, angina and severe anemia. Troponin peak at 2.13 and now trending down. (3) Orthostatic hypotension: Code(s): I95.1 - Orthostatic hypotension Status: Acute Assessment and Plan: Patient with positive orthostatics. This could be due from profound anemia and blood loss Patient's metoprolol originally held. Patient's metoprolol started back at lowest dose on 12/09/2022 due to patient's elevated troponin Per cardiology. 12/10/2022 patient with negative orthostatics (4) Syncope: Code(s): R55 - Syncope and collapse Status: Acute Assessment and Plan: Patient with positive orthostatics as well as severe anemia which is most likely the cause of patient's collapse. CT head no acute intracranial process EKG with ST-wave abnormality in lateral leads Echocardiogram with EF of 65-70%, grade 1 diastolic dysfunction (5) Elevated lactic acid level: Code(s): R79.89 - Other specified abnormal findings of blood chemistry Status: Acute Assessment and Plan: Most likely from hypoperfusion. Will trend. (6) Atrial fibrillation: Code(s): I48.91 - Unspecified atrial fibrillation Status: Acute Assessment and Plan: Patient is on warfarin, goal patrol and aspirin. All of these were held. I asked patient why he was on warfarin instead of Eliquis or Xarelto and he was unsure. He states that he has been warfarin for years. He on discharge I would potentially like to transition patient off of warfarin and on to Eliquis. (7) Acute blood loss anemia: Code(s): D62 - Acute posthemorrhagic anemia Status: Acute Assessment and Plan: see above. DS: Summary Hospital Course Reason for hospitalization: Anemia Hospital Course: This
--- NOTE | 2022-12-11 14:25 | WPDGIPROGNO ---
Progress Note: A&P Assessment and Plan (1) Diverticulosis: Code(s): K57.90 - Diverticulosis of intestine, part unspecified, without perforation or abscess without bleeding Status: Acute Assessment and Plan: Diverticular disease noted on endoscopy. Appears stable. No active bleeding at present. If bleeding occurred from this condition that is now resolved. High-fiber diet advised. (2) Rectal bleeding: Code(s): K62.5 - Hemorrhage of anus and rectum Status: Acute Assessment and Plan: Rectal bleeding has stopped. He was found to have rather large hemorrhoids which likely are the cause of this bleeding. Likely aggravated by anticoagulation. Consider hemorrhoid surgery particularly if this recurs. (3) Internal hemorrhoids: Code(s): K64.8 - Other hemorrhoids Status: Acute Assessment and Plan: Internal hemorrhoids rather large in susceptible to bleeding. Suspect they bled more than typical because of anticoagulated state. Would recommend caution with anticoagulation. (4) Chronic anticoagulation: Code(s): Z79.01 - termite technician (current) use of anticoagulants Status: Acute Assessment and Plan: Patient on anticoagulation. Would suggest holding anticoagulation for 3 days to a week before restarting. Reassess whether this is necessary. If patient recur bleeds he likely will need surgery on his hemorrhoids. (5) History of colon polyps: Code(s): Z86.010 - Personal history of colonic polyps Status: Acute Assessment and Plan: Benign colon polyps identified at colonoscopy 2 weeks ago. Colon polyp site appears to have healed. Potentially could have caused bleeding but given the healing noted this is unlikely. Subjective Date/time seen: 12/11/22 14:25 Interval history: Patient alert comfortable this afternoon. Reports no additional blood loss. Denies abdominal pain. Tolerating diet well. Review of Systems Review of Systems: Review of systems noncontributory. Exam Narrative: Physical exam reveals patient be alert. Vital signs stable. HEENT exam reveals no icterus. Lungs are clear. Abdomen is soft nontender. Objective Data Vital Signs Vital Signs: Vital Signs - 24 hr 12/10/22 15:17 12/10/22 15:27 12/10/22 15:37 Temperature Pulse Rate 86 86 85 Respiratory Rate 18 15 16 Blood Pressure 124/67 130/68 132/70 Pulse Oximetry 100 100 100 Oxygen Delivery Room Air Room Air Room Air 12/10/22 16:15 12/10/22 16:00 12/10/22 20:00 Temperature 96.6 F L 97.8 F Pulse Rate 90 86 94 Respiratory Rate 20 18 Blood Pressure 131/58 L 127/51 L Pulse Oximetry 99 100 Oxygen Delivery 12/10/22 20:49 12/10/22 20:00 12/10/22 21:11 Temperature Pulse Rate 89 Respiratory Rate Blood Pressure 125/40 L 122/51 L Pulse Oximetry Oxygen Delivery 12/10/22 21:11 12/10/22 20:00 12/10/22 20:00 Temperature Pulse Rate 101 H Respiratory Rate Blood Pressure 111/57 L Pulse Oximetry Oxygen Delivery Room Air 12/10/22 22:00 12/11/22 00:00 12/11/22 00:00 Temperature 97.9 F Pulse Rate 93 64 81 Respiratory Rate 18 Blood Pressure 99/54 L Pulse Oximetry 96 Oxygen Delivery 12/11/22 00:00 12/11/22 02:00 12/11/22 03:48 Temperature Pulse Rate 66 Respiratory Rate Blood Pressure Pulse Oximetry Oxygen Delivery Room Air Room Air 12/11/22 04:00 12/11/22 04:00 12/11/22 08:00 Temperature 97.8 F 97.8 F Pulse Rate 66 71 71 Respiratory Rate 16 16 Blood Pressure 103/51 L 115/49 L Pulse Oximetry 98 100 Oxygen Delivery 12/11/22 08:00 12/11/22 12:00 12/11/22 12:52 Temperature 97.8 F Pulse Rate 71 97 97 Respiratory Rate 16 Blood Pressure 123/52 L Pulse Oximetry 100 Oxygen Delivery Intake/Output Intake/Output: Intake & Output 12/08/22 12/09/22 12/10/22 12/11/22 23:59 23:59 23:59 23:59 Intake Total 7290 1324 1540 1260 Output Total 775
--- NOTE | 2022-12-11 15:15 | PC.NURSE ---
patient discharged to home per orders. Upon discharge, VSS, patient alert and oriented x3, ambulated to wheelchair without any complications and SBA. Son in law present to take patient home. Discharge papers signed and education given.
== END 2022-12-11 15:12 | disposition home or self-care (01) | DRG 378 ==
LOC: ANHED 08:52 → ANH2MED 11:27 → ANHIMU 12-09 12:34
PROVIDERS: Internal Medicine Cardiovascular Disease; Internal Medicine Gastroenterology; Physician Assistant; Admitting Provider Internal Medicine; Emergency Provider Emergency Medicine; PCP Internal Medicine; Visit Provider Internal Medicine Critical Care Medicine
PROC: 0DJ08ZZ Inspection of Upper Intestinal Tract, Via Natural or Artificial Opening Endoscopic (ICD-10-PCS; CPT 43235; principal; 2022-12-10 14:45)
DX: K57.31 Diverticulosis of large intestine without perforation or abscess with bleeding (principal); D62 Acute posthemorrhagic anemia; R77.8 Other specified abnormalities of plasma proteins; I95.1 Orthostatic hypotension; I48.91 Unspecified atrial fibrillation; I25.10 Atherosclerotic heart disease of native coronary artery without angina pectoris; E03.9 Hypothyroidism, unspecified; R73.03 Prediabetes; K21.9 Gastro-esophageal reflux disease without esophagitis; K64.8 Other hemorrhoids; Z95.5 Presence of coronary angioplasty implant and graft; Z79.82 Long term (current) use of aspirin; Z79.01 Long term (current) use of anticoagulants; Z87.891 Personal history of nicotine dependence; Z79.899 Other long term (current) drug therapy
CPT/HCPCS: 36415; 36430; 70450; 80048; 80053; 83605; 83735; 84443; 84484; 85014; 85018; 85025; 85027; 85610; 85730; 86850; 86900; 86901; 86920; 93005; 96361; 96365; 96368; 96375; 99285; A9270; C8929; C9113; G0378; J0131; J2270; J2704; J3430; J7030; J7120; P9016; Q9957

== ENCOUNTER 2022-12-12 04:14 | Inpatient (IN) | payer MEDICARE, SELFPAY ==
[2022-12-12] VITALS (65 sets, daily range): BP systolic 101–157; BP diastolic 45–72; PULSE 70–106; RESP 12–26; TEMP 36.1–36.8; O2SAT 92–100; BMI 26.9
--- NOTE | ~2022-12-12 | XR_ITS ---
Clinical Indication: Chest pain PA and lateral views of the chest: Comparison: 12/29/2019 Findings: Stable right-sided pleural calcified plaques. No acute pulmonary abnormality evident.. Car diomediastinal silhouette is stable, status post CABG with pacemaker device. Bones and soft tissues a re unremarkable. Impression: No acute abnormality seen. Stable extensive right-sided calcified pleural plaque. Status post CABG with pacemaker device. Reviewed, dictated and finalized at location . Impression: No acute abnormality seen. Stable extensive right-sided calcified pleural plaque. Status post CABG with pacemaker device.
--- NOTE | 2022-12-12 04:17 | ECG_ITS ---
Measurements Intervals [place] Rate: 89 P: -78 IA: 110 QRS: 67 QRSD: 103 T: 65 QT: 426 QTc: 519 Interpretive Statements SINUS RHYTHM LEFT VENTRICULAR HYPERTROPHY AND ST-T CHANGE BORDERLINE ST ABNORMALITY- INFERIOR LEADS BORDERLINE ECG COMPARED TO ECG 12/08/2022 10:36:55 NO SIGNIFICANT CHANGES Electronically Signed On 12-12-2022 6:43:23 CDT by Prem Solorzano D.O.
[2022-12-12 04:27] LABS: Basophils Absolute Auto 0.1 K/mm3 (0.0-0.1); Basophils Percent Auto 0.8 % (0.2-1.2); Eosinophils Absolute Auto 0.4 K/mm3 (0-0.3); Eosinophils Percent Auto 4.7 % (0-4.4); Hematocrit 29.7 % (42.0-52.0); Hemoglobin 9.6 g/dL (14.0-18.0); Immature Granulocyte Absolute 0.03 K/mm3 (0.00-0.031); Immature Granulocyte Percent A 0.4 % (0-0.5); Lymphocytes Percent Auto 22.1 % (18.3-44.2); Mean Corpuscular HGB Conc 32.3 g/dl (32-36); Mean Corpuscular Hemoglobin 31.1 pg (26-34); Mean Corpuscular Volume 96.1 fl (80-100); Mean Platelet Volume 10.4 fl (7.4-10.4); Monocytes Absolute Auto 0.7 K/mm3 (0.1-0.6); Monocytes Percent Auto 8.6 % (2.6-8.5); Neutrophils Absolute Auto 4.9 K/mm3 (1.3-6.7); Neutrophils Percent Auto 63.4 % (45.5-73.1); Platelet Count Result 207 k/mm3 (150-375); Red Blood Count 3.09 M/mm3 (4.6-6.20); Red Cell Distribution Width 15.6 % (11.5-14.5); White Blood Count 7.7 K/mm3 (4.5-10.0)
--- NOTE | 2022-12-12 04:30 | ED.CHESTPAIN ---
HPI - Chest Pain General Chief Complaint: Chest Pain <Bob Tomlin MD - Last Filed: 12/12/22 08:30> Stated Complaint: CHEST PAIN <Bob Tomlin MD - Last Filed: 12/12/22 08:30> Time Seen by Provider: 12/12/22 04:27 <Bob Tomlin MD - Last Filed: 12/12/22 08:30> History of Present Illness HPI narrative: This is a 89-year-old male with past medical history of A-fib, recent rectal bleed, hypothyroidism, who was brought in by EMS for chest pain. The patient states he noted palpitations earlier today, approximately 30 minutes prior to arrival he had onset of left-sided chest pain, initially rated severe now significantly improved. EMS reports ST depressions in V4, V5 and V6. <Bob Tomlin MD - Last Filed: 12/12/22 08:30> Related Data Home Medications: Home Medications Medication Instructions Recorded Confirmed calcium carbonate 600 mg calcium 600 mg PO QAM 10/22/19 12/08/22 (1,500 mg) tablet multivitamin 1 tablet PO DAILY 10/22/19 12/08/22 omega-3 fatty acids 1,000 mg 2,000 mg PO Q12H 10/22/19 12/08/22 capsule (Fish Oil Concentrate) clopidogrel 75 mg tablet (Plavix) 75 mg PO QAM 02/23/20 12/08/22 ezetimibe 10 mg tablet 10 mg PO HS 02/23/20 12/08/22 isosorbide mononitrate 60 mg 60 mg PO DAILY 02/23/20 12/08/22 tablet,extended release 24 hr magnesium oxide 400 mg PO Q12H 04/18/21 12/08/22 dofetilide 500 mcg capsule 500 mcg PO Q12H 06/28/22 12/08/22 Adult Probiotic 1 cap PO DAILY 11/14/22 12/08/22 Vitamin D3 1 cap PO Q12H 11/14/22 12/08/22 metoprolol tartrate 50 mg tablet 50 mg PO Q12H 11/14/22 12/08/22 aspirin 81 mg tablet 81 mg PO DAILY 12/08/22 12/08/22 rosuvastatin 5 mg tablet 5 mg PO DAILY 12/08/22 12/08/22 <Bob Tomlin MD - Last Filed: 12/12/22 08:30> Allergies/Adverse Reactions: Allergies Allergy/AdvReac Type Severity Reaction Status Date / Time No Known Allergies Allergy Verified 12/10/22 13:41 <Bob Tomlin MD - Last Filed: 12/12/22 08:30> Review of Systems Review of Systems: CONSTITUTIONAL: Denies fever, chills, or sweats. CARDIOVASCULAR: Chest pain and palpitations denies edema. RESPIRATORY: Denies cough or dyspnea. GASTROINTESTINAL: Denies abdominal pain, nausea, vomiting, or diarrhea. GENITOURINARY: Denies dysuria or hematuria. SKIN: Denies rash or itching. MUSCULOSKELETAL: Denies back pain, joint pain, or myalgia. NEUROLOGIC: Denies headache, numbness, dizziness, or weakness. PSYCHIATRIC: Denies anxiety or depression. <Bob Tomlin MD - Last Filed: 12/12/22 08:30> [facility] Past Medical History Medical History: Medical History (Updated 12/12/22 @ 13:30 by Ary Gomez PA-C) Aortic stenosis Atrial fibrillation paroxysmal Benign essential hypertension Benign prostatic hyperplasia BMI 26.0-26.9,adult BMI 28.0-28.9,adult Chronic anticoagulation Coronary artery disease Cardiac catheterization diagram from September 2021 showed an occluded proximal Left anterior descending and mid circumflex. Looks like the distal RCA is occluded. The saphenous vein graft to the posterolateral had an old stent distally and looks like a new 2.5 x 12 mm stent was placed in a subtotal occlusion in the proximal segment. Looks like another saphenous vein graft to the PDA is patent, saphenous vein graft to diagonal and Left anterior descending is patent, and a saphenous vein graft remnant between the 1st and 2nd OM is patent. Diverticulitis Diverticulosis of sigmoid colon Elevated glucose Epididymitis Epistaxis Gastroesophageal reflux Hyperlipidemia Insomnia Itchy scrotum Lung nodule Myocardial infarction Nasal crusting Prediabetes Right-sided epistaxis Vitamin D deficiency <Bob Tomlin MD - Last Filed: 12/12/22 08:30> Surgical History Surgical History: Surgical History (Updated 12/12/22 @ 13:30 by Ary Gomez PA-C) History of appendectomy (07/2011) History of cardiac catheterization History o
[2022-12-12 04:37] LABS: Alanine Aminotransferase 29 U/L (6-50); Albumin Level 3.8 g/dL (3.5-5.1); Alkaline Phosphatase 42 U/L (38-126); Anion Gap 5 mmol/L (8-16); Aspartate Amino Transferase 40 U/L (17-59); Bilirubin,Total 0.9 mg/dL (0.2-1.3); Blood Urea Nitrogen 11 mg/dL (9-20); Calcium 9.1 mg/dL (8.4-10.2); Carbon Dioxide 29 mmol/L (22-30); Chloride 105 mmol/L (98-107); Estimated Glomerular Filt Rate > 60; Glucose 113 mg/dL (65-110); Lipase 100 U/L (23-300); Potassium 3.6 mmol/L (3.4-5.0); Sodium 139 mmol/L (137-145)
[2022-12-12 04:50] LABS: Prothrombin Time 13.1 Seconds (11.1-14.7)
[2022-12-12] MEDS: MORPHINE SULFATE (*CRX) 4 MG/ML INJ IV PUSH (04:58)
[2022-12-12 04:59] LABS: Partial Thromboplastin Time < 20.0 SECONDS (22.3-36.8)
--- NOTE | 2022-12-12 08:39 | PM.CNCAR ---
Assessment and Plan Assessment and plan (1) Chest pain: Code(s): R07.9 - Chest pain, unspecified Status: Acute Assessment and Plan: He does describe an exertional component to his chest pain with the onset of his first chest pain episode last night, but is also having chest pain at rest. Chest pain lasted for hours. He does have elevated troponin levels that have trended slightly higher than his troponin at discharge yesterday. Because of his recent blood loss anemia he is not a candidate for coronary angiogram at this time. Will plan for medical management for now. Will increase imdur dose to 90mg daily and add ranexa. (2) Elevated troponin: Code(s): R77.8 - Other specified abnormalities of plasma proteins Status: Acute Assessment and Plan: As above (3) Aortic stenosis: Qualifiers: Cardiac valve disease etiology: etiology unspecified Qualified Code(s): I35.0 - Nonrheumatic aortic (valve) stenosis Code(s): I35.0 - Nonrheumatic aortic (valve) stenosis Status: Acute Assessment and Plan: Moderate by recent echo, Outpatient follow up. (4) Cardiac pacemaker in situ: Code(s): Z95.0 - Presence of cardiac pacemaker Status: Acute Assessment and Plan: Biotronik device. Can check interrogation (5) Atrial fibrillation: Code(s): I48.91 - Unspecified atrial fibrillation Status: Acute Assessment and Plan: apixaban on hold for now given recent blood loss anemia (6) Chronic anticoagulation: Code(s): Z79.01 - nursing home (current) use of anticoagulants Status: Acute History of Present Illness History of Present Illness Consult date/time: 12/12/22 08:39 Consult reason: chest pain Reason For Visit: chest pain,elevated troponin Narrative: Mr. Rivas is an 82-year-old male with history of coronary artery disease status post CABG (1982 in 2001), and PCI (September 2021), pacemaker, and paroxysmal atrial fibrillation. This is a patient who is followed by Dr. Miranda at [facility]. He was just discharged from hospital yesterday following an episode of syncope and was subsequently found to have significant anemia related to bleeding hemorrhoids. During that hospitalization he experienced chest pain and was found to have elevated troponins that peaked at 2.13. Since he was experiencing chest pain and elevated troponins in the setting of severe anemia, this was considered a type 2 CO and coronary angiogram was not pursued. His chest pain resolved after blood transfusion and troponin did trend down. He presents to the emergency department again today with a chief complaint of chest pain. He states that last night when he was climbing the stairs to go to bed he noticed that his heart rate was around 115 on his Apple watch I and at that time he began to experience some chest tightness. His chest pain did not go away with rest and he ended up falling asleep with ongoing chest pain. He states that he woke up several hours later with 8/10 chest pain. This resolved after he went to the bathroom and passed some flatus. He had another episode of chest pain that woke him from sleep a couple hours after this which is when he decided to call 911. He was given nitroglycerin by EMS which resolved his chest pain. Currently, he is free from any chest pain and is resting comfortably on a stretcher in the emergency department. He does not have any complaints at this time. Review of Systems Review of Systems: All systems reviewed & are unremarkable except as noted in HPI and below [facility] Past Medical History Medical History (Updated 12/12/22 @ 13:30 by Ary Gomez PA-C) Aortic stenosis Atrial fibrillation paroxysmal Benign essential hypertension Benign prostatic hyperplasia BMI 26.0-26.9,adult BMI 28.0-28.9,adult Chronic anticoagulation Coronary artery disease Cardiac catheterization diagram from September 2021
--- NOTE | 2022-12-12 13:30 | PM.IMHP ---
H&P: HPI History of Present Illness Date/Time: 12/12/22 13:30 Chief Complaint: Chest pain. Narrative: This is a very pleasant 82-year-old male with paroxysmal atrial fibrillation on chronic anticoagulation, coronary artery disease status post CABG, hypertension, dyslipidemia, hypothyroidism, and other comorbidities who presented to the emergency department via EMS from home for evaluation of chest pain. He is known to the hospitalist service and myself from an admission on 12/08/2022 for syncope related to orthostatic hypotension secondary to acute blood loss anemia from a GI bleed. Colonoscopy showed multiple medium-sized uncomplicated internal hemorrhoids with stigmata of bleeding and a few medium diverticula in the sigmoid colon without evidence of bleeding. EGD was unremarkable. He also complained of chest pain during that stay and EKG showed ST depressions consistent with ischemia. His troponins were elevated and trended though they remained flat and it was felt that his symptoms were related to demand ischemia from acute physiologic stress related to the severe anemia. Echocardiogram showed normal LV systolic function with an EF of 65 to 70%, grade 1 diastolic dysfunction, normal RV systolic function, biatrial enlargement, moderate aortic valve stenosis and regurgitation; no wall motion abnormalities were seen. He was transfused to a stable hemoglobin and had no further episodes of rectal bleeding. He resumed aspirin on discharge and he was supposed to start taking his clopidogrel today. Warfarin was held and he was transitioned to Eliquis which is supposed to start on 12/17/2022. He has not had a bowel movement since his colon prep and seems to be doing okay in that regard. Unfortunately he continues to have intermittent episode of chest pain which seemed to be related to those times when his heart rate is over 100 beats per minute. Recently this has been occurring more so when lying in bed at night but not always. He describes an aching discomfort in the center of his chest which does not radiate. He has not had shortness of breath, nausea, vomiting, or sweats. Additionally complains of gas discomfort which he attributes to the recent endoscopies and though symptoms seem to improve when up walking around. In route to the hospital he was given nitroglycerin which improved his symptoms and they have not returned. His blood pressures were stable on arrival. Hemoglobin and hematocrit are stable compared to those drawn yesterday morning before discharge. His troponin remains elevated but lower than his max troponin of 2.130 on 12/10/2022. EKG today does not show any significant change when compared to tracings obtained earlier this week. Currently the patient has no complaints. Review of Systems Review of Systems: Twelve systems were reviewed and are negative except for as per HPI. [facility] Past Medical History Medical History (Updated 12/12/22 @ 19:35 by Ary Gomez PA-C) Aortic stenosis Benign essential hypertension Benign prostatic hyperplasia Chronic anticoagulation Coronary artery disease Cardiac catheterization diagram from September 2021 showed an occluded proximal Left anterior descending and mid circumflex. Looks like the distal RCA is occluded. The saphenous vein graft to the posterolateral had an old stent distally and looks like a new 2.5 x 12 mm stent was placed in a subtotal occlusion in the proximal segment. Looks like another saphenous vein graft to the PDA is patent, saphenous vein graft to diagonal and Left anterior descending is patent, and a saphenous vein graft remnant between the 1st and 2nd OM is patent. Diverticulitis Diverticulosis of sigmoid colon Elevated glucose Epididymitis Gastroesophageal reflux Hyperlipidemia Insomnia Lower GI bleed (11/2022) Colonoscopy showed stigmata of bleeding internal hemorrhoids. Lung nodule Myocardial infarction Paroxysmal atrial fibrillation Prediabetes Vitamin D deficiency Surgica
--- NOTE | 2022-12-12 14:24 | ADMIMU ---
This patient, Eliezer Rivas, was admitted to IMU status, and placed in IMU Room 206-02. Patient/family oriented to hospital policies and general routines including ID bracelet, bed and alarms, visiting hours, pain management, procedures, bathroom and other care routines, personal items, smoking policy, room service/diet, and visiting hours. Valuables list has been completed. Information on how to activate the Rapid Response Team has been discussed. Patient/Family are encouraged to report perceived risks to care and to ask questions if they do not understand what they are told or what they should do.
--- NOTE | 2022-12-12 16:23 | PHAR ---
HOME MEDICATION VERIFIED BY PHARMACY: DOFETILIDE 500 MCG CAPSULES TAKE 1 CAPSULE PO Q12H
[2022-12-12] MEDS: RANOLAZINE 500 MG TAB.ER.12H PO (19:32)
[2022-12-12] MEDS: OMEGA 3 POLYUNSAT FATTY ACIDS 1 GM CAP 2 GM PO (21:50)
[2022-12-12] MEDS: MAGNESIUM OXIDE 400 MG TABLET PO (21:51)
[2022-12-12] MEDS: METOPROLOL TARTRATE 50 MG TAB PO (21:52)
[2022-12-12] MEDS: EZETIMIBE 10 MG TABLET PO (21:52)
[2022-12-12] MEDS: ZOLPIDEM TARTRATE (*CRX) 5 MG TABLET 10 MG PO (21:54)
[2022-12-12] MEDS: DIPHENHYDRAMINE 1%/ZINC 0.1% CREAM 30 GM TUBE 1 APPLIC TOPICAL (22:00)
[2022-12-12] MEDS: ALPRAZolam (*CRX) 0.25 MG TABLET PO (22:40)
[2022-12-13] VITALS (9 sets, daily range): BP systolic 100–126; BP diastolic 47–63; PULSE 66–102; RESP 18; TEMP 36–36.4; O2SAT 96–98
--- NOTE | 2022-12-13 01:36 | PHAR ---
DOFETILIDE 500 MCG CAPSULE (HOME MED) TAKE 1 CAPSULE BY MOUTH EVERY 12HRS - Verified (#15 Caps) in Pharmacy and sent back to IMU for patient use.
[2022-12-13 05:11] LABS: Hematocrit 26.6 % (42.0-52.0); Hemoglobin 8.5 g/dL (14.0-18.0); Mean Corpuscular Hemoglobin 30.2 pg (26-34); Mean Corpuscular Volume 94.7 fl (80-100); Mean Platelet Volume 10.1 fl (7.4-10.4); Platelet Count Result 191 k/mm3 (150-375); Red Blood Count 2.81 M/mm3 (4.6-6.20); Red Cell Distribution Width 15.4 % (11.5-14.5); White Blood Count 5.7 K/mm3 (4.5-10.0)
[2022-12-13 05:35] LABS: Anion Gap 2 mmol/L (8-16); Blood Urea Nitrogen 9 mg/dL (9-20); Calcium 8.7 mg/dL (8.4-10.2); Carbon Dioxide 31 mmol/L (22-30); Chloride 107 mmol/L (98-107); Estimated CRCL calculation 65 ml/min; Estimated Glomerular Filt Rate > 60; Glucose 95 mg/dL (65-110); Magnesium 2.2 mg/dL (1.6-2.3); Potassium 3.9 mmol/L (3.4-5.0); Sodium 140 mmol/L (137-145)
[2022-12-13] MEDS: LEVOTHYROXINE SODIUM 75 MCG TABLET PO (06:30)
[2022-12-13] MEDS: DOFETILIDE 500 MCG CAPSULE 1 EACH PO (06:30)
[2022-12-13] MEDS: ISOSORBIDE MONONITRATE 30 MG TAB.ER.24H 90 MG PO (08:01)
[2022-12-13] MEDS: METOPROLOL TARTRATE 50 MG TAB PO (08:01)
[2022-12-13] MEDS: CLOPIDOGREL BISULFATE 75 MG TABLET PO (08:01)
[2022-12-13] MEDS: MAGNESIUM OXIDE 400 MG TABLET PO (08:01)
[2022-12-13] MEDS: ROSUVASTATIN 5 MG TABLET PO (08:01)
[2022-12-13] MEDS: MULTIVITAMINS THERAPEUTIC TAB (*BKC) 1 TABLET PO (08:01)
[2022-12-13] MEDS: ASPIRIN 81 MG ENTERIC TABLET PO (08:01)
[2022-12-13] MEDS: OMEGA 3 POLYUNSAT FATTY ACIDS 1 GM CAP 2 GM PO (08:01)
[2022-12-13] MEDS: RANOLAZINE 500 MG TAB.ER.12H PO (08:02)
[2022-12-13] MEDS: FLUTICASONE PROPIONATE 0.05% NA SPR 16 GM BTL (*BKC) 2 SPRAY NASAL (08:02)
[2022-12-13] MEDS: PANTOPRAZOLE 40 MG TABLET PO (08:02)
[2022-12-13] MEDS: ALPRAZolam (*CRX) 0.25 MG TABLET PO (08:02)
[2022-12-13] MEDS: SACCHAROMYCES BOULARDII 250 MG CAPSULE PO (08:02)
[2022-12-13] MEDS: CALCIUM CARBONATE (OSCAL) 500 MG TABLET PO (08:02)
--- NOTE | 2022-12-13 09:03 | PM.PNCARD ---
Progress Note: A&P Assessment and Plan (1) Chest pain: Code(s): R07.9 - Chest pain, unspecified Status: Acute Assessment and Plan: No recurrence of chest pain since admission. Continue with medical management as he is not a candidate for angiogram/PCI at this time because of recent severe anemia. Imdur dose increased to 90mg daily and Ranexa was added. 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 (2) Elevated troponin: Code(s): R77.8 - Other specified abnormalities of plasma proteins Status: Acute (3) Aortic stenosis: Qualifiers: Cardiac valve disease etiology: etiology unspecified Qualified Code(s): I35.0 - Nonrheumatic aortic (valve) stenosis Code(s): I35.0 - Nonrheumatic aortic (valve) stenosis Status: Acute Assessment and Plan: Moderate by recent echo, Outpatient follow up. (4) Cardiac pacemaker in situ: Code(s): Z95.0 - Presence of cardiac pacemaker Status: Acute Assessment and Plan: Biotronik device. Can check interrogation (5) Atrial fibrillation: Code(s): I48.91 - Unspecified atrial fibrillation Status: Acute Assessment and Plan: apixaban on hold for now given recent blood loss anemia (6) Chronic anticoagulation: Code(s): Z79.01 - MCC (current) use of anticoagulants Status: Acute Subjective Date/time seen: 12/13/22 09:03 Cardiology follow up for CAD, chest pain, elevated troponin He is feeling well this morning. States he slept well last night. He denies any recurrence of chest pain. Review of Systems Review of Systems: All systems reviewed & are unremarkable except as noted in HPI and below Exam Const: General: comfortable, no acute distress, alert and awake Orientation/consciousness: patient oriented x3 HENMT: Head: normal to inspection Eyes: General: appearance normal, both eyes and all related structures Pupils: Equal, round and reactive pupils present Neck: Neck: normal visual inspection, supple and no JVD Carotids: bruit bilateral Resp: Effort & Inspection: normal respiratory effort Auscultation: clear to auscultation bilaterally Cardio: Rate: regular rate Rhythm: regular rhythm Heart sounds: S1 normal heart sound present, S2 normal heart sound present and Murmur heart sound present systolic GI: Auscultation: abnormal bowel sounds (hyperactive) Skin: General skin exam: normal color Neuro: General: patient oriented x3 Cranial nerves: Yes Equal, round and reactive pupils present Extrem: General: normal to inspection Other: no edema Psych: Appearance: grossly normal Mental Status: mental status grossly normal Objective Data Vital Signs Vital Signs: Vital Signs - 24 hr 12/12/22 09:15 12/12/22 09:16 12/12/22 09:30 Temperature Pulse Rate 80 80 81 Respiratory Rate 20 20 14 Blood Pressure 145/65 H Pulse Oximetry 99 98 99 Oxygen Delivery 12/12/22 09:47 12/12/22 10:01 12/12/22 10:02 Temperature Pulse Rate 74 73 73 Respiratory Rate 17 26 H 16 Blood Pressure 124/60 Pulse Oximetry 97 98 99 Oxygen Delivery 12/12/22 10:23 12/12/22 10:30 12/12/22 10:31 Temperature Pulse Rate 72 77 74 Respiratory Rate 12 15 20 Blood Pressure 102/60 Pulse Oximetry 94 93 97 Oxygen Delivery 12/12/22 10:55 12/12/22 11:00 12/12/22 11:01 Temperature Pulse Rate 70 71 72 Respiratory Rate 13 14 15 Blood Pressure 101/45 L Pulse Oximetry 95 95 97 Oxygen Delivery 12/12/22 11:15 12/12/22 11:16 12/12/22 11:35 Temperature Pulse Rate 75 75 73 Respiratory Rate 18 16 18 Blood Pressure 124/55 L Pulse Oximetry 95 97 97 Oxygen Delivery 12/12/22 11:45 12/12/22 11:46 12/12/22 12:02 Temperature Pulse Rate 74 74 75 Respiratory Rate 17 19 21 H Blood Pressure 117/55 L Pulse Oximetry 96 96 98 Oxygen Delivery 12/12/22 12:19 12/12/22 12:30 11/22
--- NOTE | 2022-12-13 11:37 | PM.DS ---
DS: Admitting Diagnosis Discharge Date December 13, 2022 Admitting Diagnosis Chest pain DS: Discharge Diagnosis Discharge Diagnosis (1) Chest pain: Code(s): R07.9 - Chest pain, unspecified Status: Acute (2) Elevated troponin: Code(s): R77.8 - Other specified abnormalities of plasma proteins Status: Acute (3) Coronary artery disease: Code(s): I25.10 - Atherosclerotic heart disease of [place] coronary artery without angina pectoris Status: Acute (4) Chronic anticoagulation: Code(s): Z79.01 - correction (current) use of anticoagulants Status: Acute (5) Paroxysmal atrial fibrillation: Code(s): I48.0 - Paroxysmal atrial fibrillation Status: Acute DS: Summary Hospital Course Hospital Course: Patient is a 2-year-old gentleman who came in chest pain. Cardiology was consulted and adjusted his medications otherwise no further cardiology workup is indicated at this time. Patient can follow up with outpatient Cardiology Time Spent with Patient Time attestation: Total time spent providing and/or coordinating discharge services: Exam Narrative: General:?Well-developed gentleman sitting up in bed in no distress. Weight: 89 kg. BMI: 27.0. HEENT:??Wearing corrective lenses. PERRL, EOMI. Sclera anicteric.? Oral mucosa moist. Neck:??Supple. No JVD. Respiratory:?Lungs are clear to auscultation bilaterally. Cardiovascular:??Regular rate and rhythm with S1-S2. Soft murmur at the upper sternal border. Gastrointestinal:??Abdomen is soft, nontender, and nondistended with positive bowel sounds. Skin:??Warm and dry. Generalized pallor. Extremities:??No cyanosis, clubbing, or edema. Radial and pedal pulses intact. Neurological:??Alert.? Cranial nerves 2-12 are grossly intact. No gross focal deficits to casual conversation. Psychiatric:??Pleasant and cooperative with normal mood and affect.? Judgment and insight intact. DS: Data Data Completed and Pending Labs on day of discharge: Labs from last 24 hours 12/13/22 12/13/22 05:03 05:03 WBC 5.7 RBC 2.81 L Hgb 8.5 L Hct 26.6 L MCV 94.7 MCH 30.2 MCHC 32.0 RDW 15.4 H Plt Count 191 MPV 10.1 Sodium 140 Potassium 3.9 Chloride 107 Carbon Dioxide 31 H Anion Gap 2 L BUN 9 Creatinine 0.80 Estim Creat Clear Calc 65 Estimated GFR > 60 Glucose 95 Calcium 8.7 Magnesium 2.2 Discharge Plan Discharge Attending physician on discharge: Jose Ferris Consulting providers: Diego Mendez Discharging Clinician: Jose Ferris Patient Disposition: Home, Self-Care Activity: no preference Diet: as tolerated Patient Instructions: Antibiotic Form Stand Alone Forms: General Discharge Information Follow-up/Referrals: Ruddy Barnett MD [Primary Care Provider] - Discharge Medications: New isosorbide mononitrate 30 mg Tablet Extended Release 24 Hr 90 mg PO QAM 30 Days Qty: 90 0RF ranolazine 500 mg tablet extended release 12 hr 500 mg PO Q12H Qty: 60 0RF Continued omega-3 fatty acids [Fish Oil Concentrate] 1,000 mg capsule 2,000 mg PO Q12H multivitamin Tablet 1 tablet PO DAILY calcium carbonate 600 mg calcium (1,500 mg) tablet 600 mg PO QAM ezetimibe 10 mg tablet 10 mg PO HS isosorbide mononitrate 60 mg tablet extended release 24 hr 60 mg PO DAILY clopidogrel [Plavix] 75 mg tablet 75 mg PO QAM dofetilide 500 mcg capsule 500 mcg PO Q12H Rx Instructions: 7AM and 7PM magnesium oxide 400 mg magnesium tablet 400 mg PO Q12H rosuvastatin 5 mg tablet 5 mg PO DAILY aspirin 81 mg Tablet 81 mg PO DAILY Eliquis 5 mg tablet 5 mg PO BID Qty: 60 0RF Label Comments: Patient states will be starting Eliquis on 12/17 Adult Probiotic 1 cap PO DAILY metoprolol tartrate 50 mg tablet 50 mg PO Q12H Vitamin D3 1 cap PO DAILY pantoprazole 40 mg
== END 2022-12-13 12:00 | disposition home or self-care (01) | DRG 313 ==
LOC: ANHED 08:29 → ANHIMU 13:12
PROVIDERS: Physician Assistant; Admitting Provider Chiropractor; Emergency Provider Preventive Medicine Aerospace Medicine; PCP Internal Medicine; Visit Provider Chiropractor
DX: R07.9 Chest pain, unspecified (principal); I25.10 Atherosclerotic heart disease of native coronary artery without angina pectoris; R77.8 Other specified abnormalities of plasma proteins; I48.0 Paroxysmal atrial fibrillation; E03.9 Hypothyroidism, unspecified; I35.0 Nonrheumatic aortic (valve) stenosis; I10 Essential (primary) hypertension; N40.0 Benign prostatic hyperplasia without lower urinary tract symptoms; K21.9 Gastro-esophageal reflux disease without esophagitis; E55.9 Vitamin D deficiency, unspecified; D50.0 Iron deficiency anemia secondary to blood loss (chronic); K57.30 Diverticulosis of large intestine without perforation or abscess without bleeding; E78.5 Hyperlipidemia, unspecified; R91.1 Solitary pulmonary nodule; Z79.01 Long term (current) use of anticoagulants; I25.2 Old myocardial infarction; Z90.49 Acquired absence of other specified parts of digestive tract; Z95.1 Presence of aortocoronary bypass graft; Z95.0 Presence of cardiac pacemaker; Z95.5 Presence of coronary angioplasty implant and graft; Z87.891 Personal history of nicotine dependence
CPT/HCPCS: 36415; 71046; 80048; 80053; 83690; 83735; 84484; 85025; 85027; 85610; 85730; 93005; 96374; 99285; A9270; G0378; J2270

== ENCOUNTER 2022-12-17 10:11 | Outpatient (CLI) | payer MEDICARE, SELFPAY ==
[2022-12-17 10:48] LABS: Hematocrit 28.6 % (42.0-52.0); Hemoglobin 8.8 g/dL (14.0-18.0)
== END 2022-12-17 10:12 | disposition home or self-care (01) ==
LOC: ANHLAB 10:12
PROVIDERS: PCP Internal Medicine; Visit Provider Internal Medicine
DX: R53.1 Weakness (principal)
CPT/HCPCS: 36415; 85014; 85018

== ENCOUNTER 2022-12-24 04:26 | Emergency (ER) | payer MEDICARE, SELFPAY ==
--- NOTE | ~2022-12-24 | CT_ITS ---
EXAMINATION: CT brain wo con DATE: 12/24/2022 05:19 INDICATION: One week of intermittent frontal headache TECHNIQUE: Computed tomography (CT) of the head was performed without intravenous contrast. Sagittal and coronal reconstructions were performed. The mA was adjusted according to patient size. Iterative reconstruction technique was employed. The dose-length product was 605.33 mGy-cm. COMPARISON: head CT dated 12/09/[address] sinuses dated 11/04/2020 FINDINGS: No acute intracranial hemorrhage, acute infarction or abnormal extra axial fluid collection. There is mild scattered white matter hypoattenuation consistent with chronic small vessel ischemic disease. S ymmetric prominence of the sulci consistent with mild age-appropriate diffuse cerebral volume loss. V entricles are normal and symmetric. No mass/mass effect. Changes of bilateral intraocular lens replac ement. Trace bilateral mastoid effusions. Increased prominent mucosal thickening in the paranasal sin uses with chronic complete opacification of the left frontal sinus. Again seen are postoperative meyer ges of the paranasal sinuses, new since 11/04/2020. IMPRESSION: 1. No acute intracranial process. 2. Chronic sinus disease with persistent complete opacification of the left frontal sinus. Reviewed, dictated and finalized at location A. IMPRESSION: 1. No acute intracranial process. 2. Chronic sinus disease with persistent complete opacification of the left fro ntal sinus.
[2022-12-24 04:32] VITALS: BP 141/56; PULSE 82; RESP 16; TEMP 36.2; O2SAT 96
[2022-12-24 04:56] VITALS: BP 123/62; PULSE 82; RESP 16; O2SAT 98
--- NOTE | 2022-12-24 05:01 | ECG_ITS ---
Measurements Intervals [place] Rate: 85 P: -82 [place]: 142 QRS: 52 QRSD: 109 T: 45 QT: 427 QTc: 511 Interpretive Statements SINUS RHYTHM LEFT VENTRICULAR HYPERTROPHY AND ST-T CHANGE [VOLTAGE CRITERIA PLUS ST/T ABNORMALITY] COMPARED TO ECG 12/12/2022 04:17:59 NO SIGNIFICANT CHANGES Electronically Signed On 12-24-2022 12:23:47 CDT by Diego Mendez M.D.
[2022-12-24 05:11] LABS: Basophils Absolute Auto 0.1 K/mm3 (0.0-0.1); Basophils Percent Auto 1.2 % (0.2-1.2); Eosinophils Absolute Auto 0.5 K/mm3 (0-0.3); Eosinophils Percent Auto 8.2 % (0-4.4); Hematocrit 26.7 % (42.0-52.0); Hemoglobin 8.5 g/dL (14.0-18.0); Immature Granulocyte Absolute 0.03 K/mm3 (0.00-0.031); Immature Granulocyte Percent A 0.5 % (0-0.5); Mean Corpuscular HGB Conc 31.8 g/dl (32-36); Mean Corpuscular Hemoglobin 30.1 pg (26-34); Mean Corpuscular Volume 94.7 fl (80-100); Mean Platelet Volume 10.2 fl (7.4-10.4); Monocytes Absolute Auto 0.6 K/mm3 (0.1-0.6); Neutrophils Absolute Auto 4.1 K/mm3 (1.3-6.7); Neutrophils Percent Auto 64.1 % (45.5-73.1); Nucleated Red Blood Cells Perc 0.3 % (0.0-0.2); Platelet Count Result 259 k/mm3 (150-375); Red Blood Count 2.82 M/mm3 (4.6-6.20); Red Cell Distribution Width 14.8 % (11.5-14.5); White Blood Count 6.5 K/mm3 (4.5-10.0)
[2022-12-24 05:21] LABS: Alanine Aminotransferase 28 U/L (6-50); Albumin Level 3.7 g/dL (3.5-5.1); Alkaline Phosphatase 56 U/L (38-126); Anion Gap 7 mmol/L (8-16); Aspartate Amino Transferase 24 U/L (17-59); Bilirubin,Total 0.9 mg/dL (0.2-1.3); Blood Urea Nitrogen 12 mg/dL (9-20); Calcium 8.8 mg/dL (8.4-10.2); Carbon Dioxide 26 mmol/L (22-30); Chloride 105 mmol/L (98-107); Estimated CRCL calculation 59 ml/min; Estimated Glomerular Filt Rate > 60; Glucose 101 mg/dL (65-110); Potassium 3.7 mmol/L (3.4-5.0); Sodium 138 mmol/L (137-145)
[2022-12-24 05:23] LABS: INR 1.4; Prothrombin Time 16.9 Seconds (11.1-14.7)
--- NOTE | 2022-12-24 05:25 | ED.GENADULT ---
HPI - General Adult General Chief complaint: Headache Stated complaint: Severe headache and pressure Time Seen by Provider: 12/24/22 04:50 History of Present Illness HPI narrative: Patient 82-year-old gentleman who presents the emergency department with chief complaint of headache. Patient reports that this evening he had a frontal headache that reports was pretty severe the patient states that he has had some intermittent mild headaches but this is significantly worse than what he has had before in the past the patient does report that he recently had a GI bleed and was changed from Coumadin to Eliquis the patient states that he has had problems with anemia and has been transfused recently. Related Data Home Medications Medication Instructions Recorded Confirmed calcium carbonate 600 mg calcium 600 mg PO QAM 10/22/19 12/12/22 (1,500 mg) tablet multivitamin 1 tablet PO DAILY 10/22/19 12/12/22 omega-3 fatty acids 1,000 mg 2,000 mg PO Q12H 10/22/19 12/12/22 capsule (Fish Oil Concentrate) ezetimibe 10 mg tablet 10 mg PO HS 02/23/20 12/12/22 magnesium oxide 400 mg PO Q12H 04/18/21 12/12/22 dofetilide 500 mcg capsule 500 mcg PO Q12H 06/28/22 12/12/22 Adult Probiotic 1 cap PO DAILY 11/14/22 12/12/22 Vitamin D3 1 cap PO DAILY 11/14/22 12/12/22 metoprolol tartrate 50 mg tablet 50 mg PO Q12H 11/14/22 12/12/22 aspirin 81 mg tablet 81 mg PO DAILY 12/08/22 12/12/22 rosuvastatin 5 mg tablet 5 mg PO DAILY 12/08/22 12/12/22 simethicone 250 mg capsule 250 mg PO BID PRN 12/19/22 (Phazyme) Allergies Allergy/AdvReac Type Severity Reaction Status Date / Time No Known Allergies Allergy Verified 12/24/22 04:29 Review of Systems Review of Systems: A 10 system review of systems was completed on the patient and is negative except for what is stated in the HPI. Nursing and ancillary documentation was reviewed. [facility] Past Medical History Medical History Aortic stenosis Benign essential hypertension Benign prostatic hyperplasia BPPV (benign paroxysmal positional vertigo) Chest pain Chronic anticoagulation Coronary artery disease Cardiac catheterization diagram from September 2021 showed an occluded proximal Left anterior descending and mid circumflex. Looks like the distal RCA is occluded. The saphenous vein graft to the posterolateral had an old stent distally and looks like a new 2.5 x 12 mm stent was placed in a subtotal occlusion in the proximal segment. Looks like another saphenous vein graft to the PDA is patent, saphenous vein graft to diagonal and Left anterior descending is patent, and a saphenous vein graft remnant between the 1st and 2nd OM is patent. Diverticulitis Diverticulosis of sigmoid colon Elevated glucose Elevated troponin Elevated troponin Epididymitis Gastroesophageal reflux Hyperlipidemia Insomnia Insomnia Lower GI bleed (11/2022) Colonoscopy showed stigmata of bleeding internal hemorrhoids. Lung nodule Myocardial infarction Paroxysmal atrial fibrillation Post-operative pain Prediabetes Vitamin D deficiency Surgical History Surgical History History of appendectomy (07/2011) History of cardiac catheterization History of cholecystectomy (03/2005) History of colonoscopy (12/10/22) Internal hemorrhoids with stigmata of recent bleeding. Medium diverticula of sigmoid colon. History of colonoscopy with polypectomy History of coronary artery bypass graft x 2 1982 and 2001, last 1 at [facility] History of coronary artery stent placement History of epididymectomy (10/2009) Right. History of nasal septoplasty (1969) History of permanent cardiac pacemaker placement Biotroni 06/2022 History of transurethral resection of prostate (10/2009) Family History Family History Father Family history of heart disease in m
[2022-12-24] MEDS: diphenhydrAMINE HCl INJ 50 MG/ML VIAL IV PUSH (05:29)
[2022-12-24] MEDS: PROCHLORPERAZINE EDISYLATE 10 MG/2 ML VIAL IV PUSH (05:29)
[2022-12-24] MEDS: SODIUM CHLORIDE 0.9% IV 250 ML BAG 500 ML IVPB (05:29)
[2022-12-24 05:52] LABS: Appearance Urine Cloudy (Clear); Bacteria Urine None Seen /hpf; Bilirubin Urine Negative (Negative); Blood Urine Negative (Negative); Color Urine Yellow (Yellow); Glucose Urine UA Negative (Negative); Ketones Urine Negative (Negative); Leukocyte Esterase Ur Trace LEU/UL (Negative); Nitrate Urine Negative (Negative); Non Pathogenic Casts 0-2; Protein Urine Negative (Negative); RBC Urine 0-2 /hpf (0-2); Specific Grav Ur 1.016 (1.001-1.035); Squamous Epithelial Cell Urine None seen /hpf (Few); Urobilinogen Urine 0.2 mg/dL (<2.0); WBC Urine 0-5 /hpf; pH Urine 6.5 (5.0-9.0)
[2022-12-24 06:04] LABS: Add Urine Microscopic? YES
[2022-12-24 06:05] VITALS: BP 121/74; PULSE 86; RESP 24; O2SAT 95
[2022-12-24 07:22] VITALS: BP 138/63; PULSE 81; RESP 22; O2SAT 96
== END 2022-12-24 07:23 | disposition home or self-care (01) ==
PROVIDERS: Emergency Provider Emergency Medicine; PCP Internal Medicine
DX: R51.9 Headache, unspecified (principal); D64.9 Anemia, unspecified; I35.0 Nonrheumatic aortic (valve) stenosis; I10 Essential (primary) hypertension; I25.10 Atherosclerotic heart disease of native coronary artery without angina pectoris; I25.2 Old myocardial infarction; I48.0 Paroxysmal atrial fibrillation; K21.9 Gastro-esophageal reflux disease without esophagitis; N40.0 Benign prostatic hyperplasia without lower urinary tract symptoms; E55.9 Vitamin D deficiency, unspecified; Z87.891 Personal history of nicotine dependence; Z79.82 Long term (current) use of aspirin; Z79.01 Long term (current) use of anticoagulants; I51.7 Cardiomegaly
CPT/HCPCS: 36415; 70450; 80053; 81001; 85025; 85610; 85730; 93005; 96374; 96375; 99284; J0780; J1200; J7050

== ENCOUNTER 2023-03-19 12:55 | Emergency (ER) | payer MEDICARE, SELFPAY ==
--- NOTE | 2023-03-19 12:57 | ED.URI ---
HPI - URI/Sore Throat General Chief Complaint: Upper Respiratory Infection Stated Complaint: CONGESTION Time Seen by Provider: 03/19/23 12:56 Source: patient Mode of arrival: ambulatory Limitations: no limitations History of Present Illness HPI Narrative: Mr. Rivas is an 82-year-old male patient presenting to the clinic today with complaints of head congestion, weakness, shortness of breath, frothy sputum, and lower extremity edema and has been going on for several weeks. Had an appointment to see his family doctor today however, his doctor was not available. Denies any known fever or chills. History of aortic stenosis, cardiac stents, GI bleed, AL, and chronic anti coagulation therapy MD elicited complaint: sore throat and nasal congestion Related Data Home Medications Medication Instructions Recorded Confirmed calcium carbonate 600 mg calcium 600 mg PO QAM 10/22/19 03/19/23 (1,500 mg) tablet multivitamin 1 tablet PO DAILY 10/22/19 03/19/23 omega-3 fatty acids 1,000 mg 2,000 mg PO Q12H 10/22/19 03/19/23 capsule (Fish Oil Concentrate) ezetimibe 10 mg tablet 10 mg PO HS 02/23/20 03/19/23 magnesium oxide 400 mg PO Q12H 04/18/21 03/19/23 dofetilide 500 mcg capsule 500 mcg PO Q12H 06/28/22 03/19/23 Adult Probiotic 1 cap PO DAILY 11/14/22 03/19/23 Vitamin D3 1 cap PO DAILY 11/14/22 03/19/23 metoprolol tartrate 50 mg tablet 50 mg PO Q12H 11/14/22 03/19/23 aspirin 81 mg tablet 81 mg PO DAILY 12/08/22 03/19/23 simethicone 250 mg capsule 250 mg PO BID PRN Diarrhea 12/19/22 03/19/23 (Phazyme) ascorbate calcium (vitamin C) 500 500 mg PO DAILY 01/03/23 03/19/23 mg tablet ferrous sulfate 325 mg (65 mg 325 mg PO BID 01/03/23 03/19/23 iron) tablet (FeroSul) trazodone 50 mg tablet 50 mg PO QHS insomnia 03/19/23 03/19/23 Allergies Allergy/AdvReac Type Severity Reaction Status Date / Time No Known Allergies Allergy Verified 06/27/23 13:06 Review of Systems Review of Systems: Pertinent positives per HPI. Patient denies any fever, chills, rash, headache, visual changes, dizziness, cough, shortness of breath, chest pain, palpitations, nausea, vomiting, diarrhea, constipation, abdominal pain, or any urinary issues. [facility] Past Medical History Medical History Aortic stenosis Benign essential hypertension Benign prostatic hyperplasia BMI 26.0-26.9,adult BPPV (benign paroxysmal positional vertigo) Chest pain Chronic anticoagulation Coronary artery disease Cardiac catheterization diagram from September 2021 showed an occluded proximal Left anterior descending and mid circumflex. Looks like the distal RCA is occluded. The saphenous vein graft to the posterolateral had an old stent distally and looks like a new 2.5 x 12 mm stent was placed in a subtotal occlusion in the proximal segment. Looks like another saphenous vein graft to the PDA is patent, saphenous vein graft to diagonal and Left anterior descending is patent, and a saphenous vein graft remnant between the 1st and 2nd OM is patent. Diverticulitis Diverticulosis of sigmoid colon Elevated glucose Elevated troponin Elevated troponin Epididymitis Facial pressure Follow up Gastroesophageal reflux Hyperlipidemia Insomnia Insomnia Lower GI bleed (11/2022) Colonoscopy showed stigmata of bleeding internal hemorrhoids. Lung nodule Myocardial infarction Paroxysmal atrial fibrillation Post-operative pain Prediabetes Vitamin D deficiency Surgical History Surgical History History of appendectomy (07/2011) History of cardiac catheterization History of cholecystectomy (03/2005) History of colonoscopy (12/10/22) Internal hemorrhoids with stigmata of recent bleeding. Medium diverticula of sigmoid colon. History of colonoscopy with polypectomy History of coronary artery bypass graft x 2 1982 and 2001, last 1 at [facility] History of coronary
[2023-03-19 13:08] VITALS: BP 137/79; PULSE 79; RESP 16; TEMP 36.4; O2SAT 99
[2023-03-19 13:54] VITALS: BP 137/79; PULSE 79; RESP 16; TEMP 36.4; O2SAT 99
== END 2023-03-19 13:20 | disposition short-term general hospital (02) ==
PROVIDERS: Emergency Provider Nurse Practitioner Family; PCP Internal Medicine
DX: R06.02 Shortness of breath (principal); R53.1 Weakness; R60.0 Localized edema; R05.9 Cough, unspecified; Z87.891 Personal history of nicotine dependence; I35.0 Nonrheumatic aortic (valve) stenosis; I10 Essential (primary) hypertension; N40.0 Benign prostatic hyperplasia without lower urinary tract symptoms; I25.10 Atherosclerotic heart disease of native coronary artery without angina pectoris; K21.9 Gastro-esophageal reflux disease without esophagitis; I25.2 Old myocardial infarction; I48.0 Paroxysmal atrial fibrillation; R73.03 Prediabetes; E55.9 Vitamin D deficiency, unspecified; Z95.5 Presence of coronary angioplasty implant and graft; Z95.0 Presence of cardiac pacemaker
CPT/HCPCS: 99212; G0463

== ENCOUNTER 2023-03-19 13:46 | Emergency (ER) | payer MEDICARE, SELFPAY ==
--- NOTE | ~2023-03-19 | XR_ITS ---
EXAMINATION: XR chest 2V DATE: 03/19/2023 14:09 INDICATION: Shortness of breath TECHNIQUE: PA and lateral views of the chest are obtained. COMPARISON: 12/12/2022 FINDINGS: The lungs are free of acute opacities. No pleural effusion or pneumothorax. The heart size is normal. Median sternotomy wires and mediastinal surgical clips are seen, likely from prior coronar y artery bypass grafting. A dual-lead cardiac pacemaker of the left chest wall ends with leads in exp ected locations. Calcified pleural plaques are again seen which can be seen in the setting of prior a sbestos exposure. There is mild thoracic spondylosis. IMPRESSION: 1. No acute cardiopulmonary abnormality. Reviewed, dictated and finalized at location [facility].
--- NOTE | 2023-03-19 13:47 | ECG_ITS ---
Measurements Intervals [place] Rate: 72 P: -75 [place]: 139 QRS: 46 QRSD: 106 T: 52 QT: 457 QTc: 501 Interpretive Statements SINUS RHYTHM NONSPECIFIC T-WAVE ABNORMALITY PROLONGED QT INTERVAL ABNORMAL ECG Electronically Signed On 03-20-2023 11:51:54 CDT by Dano Gutierrez M.D.
[2023-03-19 13:50] VITALS: BP 156/61; PULSE 73; RESP 16; TEMP 36.4; O2SAT 98
[2023-03-19 14:03] LABS: Basophils Percent Auto 0.6 % (0.2-1.2); Eosinophils Absolute Auto 0.2 K/mm3 (0-0.3); Eosinophils Percent Auto 2.2 % (0-4.4); Hematocrit 42.2 % (42.0-52.0); Hemoglobin 13.3 g/dL (14.0-18.0); Immature Granulocyte Absolute 0.01 K/mm3 (0.00-0.031); Immature Granulocyte Percent A 0.1 % (0-0.5); Lymphocytes Absolute Auto 1.39 K/mm3 (0.9-3.2); Lymphocytes Percent Auto 19.9 % (18.3-44.2); Mean Corpuscular HGB Conc 31.5 g/dl (32-36); Mean Corpuscular Hemoglobin 30.9 pg (26-34); Mean Corpuscular Volume 98.1 fl (80-100); Mean Platelet Volume 10.6 fl (7.4-10.4); Monocytes Absolute Auto 0.6 K/mm3 (0.1-0.6); Monocytes Percent Auto 8.3 % (2.6-8.5); Neutrophils Absolute Auto 4.8 K/mm3 (1.3-6.7); Neutrophils Percent Auto 68.9 % (45.5-73.1); Platelet Count Result 245 k/mm3 (150-375); Red Cell Distribution Width 16.9 % (11.5-14.5)
[2023-03-19 14:13] LABS: Alanine Aminotransferase 42 U/L (6-50); Albumin Level 4.5 g/dL (3.5-5.1); Alkaline Phosphatase 50 U/L (38-126); Anion Gap 6 mmol/L (8-16); Aspartate Amino Transferase 41 U/L (17-59); Bilirubin,Total 0.8 mg/dL (0.2-1.3); Blood Urea Nitrogen 17 mg/dL (9-20); Calcium 9.4 mg/dL (8.4-10.2); Carbon Dioxide 32 mmol/L (22-30); Chloride 102 mmol/L (98-107); Estimated CRCL calculation 49 ml/min; Estimated Glomerular Filt Rate > 60; Glucose 101 mg/dL (65-110); INR 1.3; Potassium 4.5 mmol/L (3.4-5.0); Prothrombin Time 16.6 Seconds (11.1-14.7); Sodium 140 mmol/L (137-145)
[2023-03-19 14:14] LABS: Partial Thromboplastin Time 36.8 SECONDS (22.3-36.8)
[2023-03-19 14:25] LABS: NT Pro B Type Natriuretic Pept 689 pg/mL (19.9-100); Troponin I < 0.012 ng/mL (0.000-0.034)
[2023-03-19 14:39] VITALS: BP 158/62; PULSE 70; PULSE 71; RESP 15; O2SAT 98
--- NOTE | 2023-03-19 15:25 | ED.GENADULT ---
HPI - General Adult General Chief complaint: Shortness of Breath/Dyspnea Stated complaint: SOB, BLE edema Time Seen by Provider: 03/19/23 14:54 History of Present Illness HPI narrative: 82-year-old male presented to ED for evaluation of increased cough congestion and sputum production. Patient states he was also on recent antibiotics and for this improved his symptoms but his symptoms returned. Patient did have some sputum that he was concerned about possibly being blood-tinged. Patient does have lower extremity edema but states this is similar to his baseline. Patient did go for 18 holes yesterday but did feel more tired than usual. Related Data Home Medications Medication Instructions Recorded Confirmed calcium carbonate 600 mg calcium 600 mg PO QAM 10/22/19 03/19/23 (1,500 mg) tablet multivitamin 1 tablet PO DAILY 10/22/19 03/19/23 omega-3 fatty acids 1,000 mg 2,000 mg PO Q12H 10/22/19 03/19/23 capsule (Fish Oil Concentrate) ezetimibe 10 mg tablet 10 mg PO HS 02/23/20 03/19/23 magnesium oxide 400 mg PO Q12H 04/18/21 03/19/23 dofetilide 500 mcg capsule 500 mcg PO Q12H 06/28/22 03/19/23 Adult Probiotic 1 cap PO DAILY 11/14/22 03/19/23 Vitamin D3 1 cap PO DAILY 11/14/22 03/19/23 metoprolol tartrate 50 mg tablet 50 mg PO Q12H 11/14/22 03/19/23 aspirin 81 mg tablet 81 mg PO DAILY 12/08/22 03/19/23 simethicone 250 mg capsule 250 mg PO BID PRN Diarrhea 12/19/22 03/19/23 (Phazyme) ascorbate calcium (vitamin C) 500 500 mg PO DAILY 01/03/23 03/19/23 mg tablet ferrous sulfate 325 mg (65 mg 325 mg PO BID 01/03/23 03/19/23 iron) tablet (FeroSul) trazodone 50 mg tablet 50 mg PO QHS insomnia 03/19/23 03/19/23 Allergies Allergy/AdvReac Type Severity Reaction Status Date / Time No Known Allergies Allergy Verified 03/19/23 13:06 Review of Systems Review of Systems: All systems reviewed & are unremarkable except as noted in HPI and below PMFSH Past Medical History Medical History Aortic stenosis Benign essential hypertension Benign prostatic hyperplasia BMI 26.0-26.9,adult BPPV (benign paroxysmal positional vertigo) Chest pain Chronic anticoagulation Coronary artery disease Cardiac catheterization diagram from September 2021 showed an occluded proximal Left anterior descending and mid circumflex. Looks like the distal RCA is occluded. The saphenous vein graft to the posterolateral had an old stent distally and looks like a new 2.5 x 12 mm stent was placed in a subtotal occlusion in the proximal segment. Looks like another saphenous vein graft to the PDA is patent, saphenous vein graft to diagonal and Left anterior descending is patent, and a saphenous vein graft remnant between the 1st and 2nd OM is patent. Diverticulitis Diverticulosis of sigmoid colon Elevated glucose Elevated troponin Elevated troponin Epididymitis Facial pressure Follow up Gastroesophageal reflux Hyperlipidemia Insomnia Insomnia Lower GI bleed (11/2022) Colonoscopy showed stigmata of bleeding internal hemorrhoids. Lung nodule Myocardial infarction Paroxysmal atrial fibrillation Post-operative pain Prediabetes Vitamin D deficiency Surgical History Surgical History History of appendectomy (07/2011) History of cardiac catheterization History of cholecystectomy (03/2005) History of colonoscopy (12/10/22) Internal hemorrhoids with stigmata of recent bleeding. Medium diverticula of sigmoid colon. History of colonoscopy with polypectomy History of coronary artery bypass graft x 2 1982 and 2001, last 1 at [facility] History of coronary artery stent placement History of epididymectomy (10/2009) Right. History of nasal septoplasty (1969) History of permanent cardiac pacemaker placement Biotronik 06/2022 History of transurethral resection of prostate (10/2009) Family History Family History (Reviewed 03/19
[2023-03-19 16:03] VITALS: BP 132/65; PULSE 60; RESP 17; O2SAT 100
== END 2023-03-19 16:06 | disposition home or self-care (01) ==
PROVIDERS: Emergency Provider Emergency Medicine; PCP Internal Medicine
DX: R05.9 Cough, unspecified (principal); I10 Essential (primary) hypertension; I25.10 Atherosclerotic heart disease of native coronary artery without angina pectoris; E78.5 Hyperlipidemia, unspecified; I48.0 Paroxysmal atrial fibrillation; Z79.82 Long term (current) use of aspirin; Z79.01 Long term (current) use of anticoagulants; Z79.891 Long term (current) use of opiate analgesic
CPT/HCPCS: 36415; 71046; 80053; 83880; 84484; 85025; 85610; 85730; 93005; 99284

== ENCOUNTER 2025-03-04 01:41 | Emergency (ER) | payer MEDICARE, SELFPAY ==
[2025-03-04] VITALS (11 sets, daily range): BP systolic 109–140; BP diastolic 50–69; PULSE 60–73; RESP 13–18; O2SAT 95–97
--- NOTE | ~2025-03-04 | XR_ITS ---
Portable chest x-ray Comparison: 03/19/2023 Clinical History: Palpitations Findings: There is chronic hazy and interstitial airspace opacity at the right mid to lower lung zon e as compared to prior exam. Similar probable mild involvement of the left lung base, also likely unc hanged. No acute pulmonary abnormality evident. Cardiomediastinal silhouette is stable, status post aortic valve replacement with pacemaker device. Bones and soft tissues are unremarkable. Impression: No acute pulmonary abnormality. Probable extensive calcified pleural plaque particularly the right sara ng, unchanged from prior exam. Reviewed, dictated and finalized at location M. Impression: No acute pulmonary abnormality. Probable extensive calcified pleural plaque par ticularly the right lung, unchanged from prior exam.
--- NOTE | 2025-03-04 01:52 | ECG_ITS ---
Test Date: 2025-03-04 01:54:07 Measurements Intervals [place] Rate: 68 P: -82 [place]: 114 QRS: 29 QRSD: 110 T: 63 QT: 467 QTc: 500 Interpretive Statements ECTOPIC ATRIAL RHYTHM NONSPECIFIC T-WAVE ABNORMALITY- HIGH LATERAL LEADS BASELINE ARTIFACT- I, II, AVR, AVL ABNORMAL ECG No previous ECG available for comparison Electronically Signed On 03-04-2025 05:54:38 CDT by Prem Solorzano D.O.
[2025-03-04 02:14] LABS: Basophils Absolute Auto 0.1 K/mm3 (0.0-0.1); Basophils Percent Auto 0.7 % (0.2-1.2); Eosinophils Absolute Auto 0.1 K/mm3 (0-0.3); Eosinophils Percent Auto 1.8 % (0-4.4); Hemoglobin 13.5 g/dL (14.0-18.0); Immature Granulocyte Absolute 0.02 K/mm3 (0.00-0.031); Immature Granulocyte Percent A 0.3 % (0-0.5); Lymphocytes Absolute Auto 1.36 K/mm3 (0.9-3.2); Mean Corpuscular HGB Conc 32.9 g/dl (32-36); Mean Corpuscular Hemoglobin 33.8 pg (26-34); Mean Corpuscular Volume 102.5 fl (80-100); Mean Platelet Volume 10.7 fl (7.4-10.4); Monocytes Absolute Auto 0.8 K/mm3 (0.1-0.6); Monocytes Percent Auto 10.5 % (2.6-8.5); Neutrophils Absolute Auto 4.9 K/mm3 (1.3-6.7); Neutrophils Percent Auto 67.7 % (45.5-73.1); Platelet Count Result 193 k/mm3 (150-375); Red Cell Distribution Width 12.6 % (11.5-14.5); White Blood Count 7.2 K/mm3 (4.5-10.0)
[2025-03-04 02:21] LABS: Alanine Aminotransferase 71 U/L (6-50); Albumin Level 4.3 g/dL (3.5-5.1); Alkaline Phosphatase 78 U/L (38-126); Anion Gap 9 mmol/L (4-12); Aspartate Amino Transferase 70 U/L (17-59); Bilirubin,Total 0.8 mg/dL (0.2-1.3); Blood Urea Nitrogen 15 mg/dL (9-20); Calcium 9.3 mg/dL (8.4-10.2); Carbon Dioxide 25 mmol/L (22-30); Chloride 104 mmol/L (98-107); Estimated CRCL calculation 48 ml/min; Estimated Glomerular Filt Rate > 60; Glucose 117 mg/dL (65-110); Lipase 46 U/L (23-300); Potassium 3.9 mmol/L (3.4-5.0); Sodium 138 mmol/L (137-145)
--- OUTSIDE RECORDS SUMMARY | 2025-03-04 02:21 | XMS_ITS | Clinical Summary ---
Author Organization [facility] [place] [address] Address [address] [place] [address] Care Team Providers Care Physics Technical Officer Name Role Phone Mayank Souza MD Primary Care Provider [phone] Iza Mackey NP Unavailable [phone] Apoorva Whitlock MD Unavailable [phone] Tay Cook MD Unavailable Allergies No known active allergies Medications dofetilide (TIKOSYN) 250 mcg capsule Take 1 capsule (250 mcg total) by mouth 2 (two) times a day Active ezetimibe (ZETIA) 10 mg tablet Take 1 tablet (10 mg total) by mouth daily Active rosuvastatin (CRESTOR) 5 mg tablet Take 1 tablet (5 mg total) by mouth nightly Active ALPRAZolam (XANAX) 0.25 mg tablet Take 1 tablet (0.25 mg total) by mouth 3 (three) times a day as needed for anxiety Active azelastine (ASTELIN) 137 mcg (0.1 %) nasal spray Administer 1 spray into each nostril 2 (two) times a day Use in each nostril as directed Active pantoprazole DR (PROTONIX) 40 mg EC tablet Take 1 tablet (40 mg total) by mouth daily Active ranolazine ER (RANEXA) 500 mg 12 hr tablet Take 1 tablet (500 mg total) by mouth 2 (two) times a day Active traZODone (DESYREL) 50 mg tablet Take 1 tablet (50 mg total) by mouth nightly Active multivitamin tabletIndicatio ns:Vitamin Deficiency Prevention Take 1 tablet by mouth daily Active levothyroxine (SYNTHROID) 75 mcg tablet Take 1 tablet (75 mcg total) by mouth lead supply worker before breakfast Active magnesium oxide (MAG-OX) 400 mg (241.3 mg elemental magnesium) tabletIndicatio ns:hypomagnesem ia Take 1 tablet (400 mg total) by mouth 2 (two) times a day Active metoprolol tartrate (LOPRESSOR) 50 mg immediate release tablet Take 1 tablet (50 mg total) by mouth 2 (two) times a day Active isosorbide mononitrate ER (IMDUR) 120 mg 24 hr tablet Take 1 tablet (120 mg total) by mouth daily Active simethicone 250 mg capsule Take 250 mg by mouth 2 (two) times a day Active budesonide-glyc opyr-formoterol (Breztri Aerosphere) 160-9-4.8 mcg/actuation inhaler Inhale 2 puffs 2 (two) times a day Active guaiFENesin ER (MUCINEX) 600 mg 12 hr tablet Take 2 tablets (1,200 mg total) by mouth 2 (two) times a day Active ascorbic acid (ascorbic acid with racheal hips) 500 mg tablet,chewable Take 1 tablet/chew tab (500 mg total) by mouth daily Active ferrous sulfate 325 mg (65 mg of elemental iron) tabletIndicatio ns:Iron Deficiency Anemia Take 1 tablet (325 mg total) by mouth 2 (two) times a day Active clopidogreL (PLAVIX) 75 mg tablet Take 1 tablet (75 mg total) by mouth daily Active zolpidem (AMBIEN) 5 mg tabletIndicatio ns:Sleep-Onset Insomnia Take 1 tablet (5 mg total) by mouth nightly Active Saccharomyces boulardii (FLORASTOR) 250 mg capsule Take 1 capsule (250 mg total) by mouth 2 (two) times a day Active aspirin 81 mg enteric coated tablet Take 1 tablet (81 mg total) by mouth daily 30 tablet 11 4 03/26/20 25 Active cholecalciferol (VITAMIN D-3) 68077 unit capsule Take 1 capsule (10,000 Units total) by mouth daily Active rguvr-wqzhf-2-d pj-dyg-hhofep (krill oil) 707-18-87-50 mg capsule Take 300 mg by mouth daily Active mupirocin (BACTROBAN) 2 % ointment 4 Active HYDROcodone-amelia taminophen (NORCO) 5-325 mg per tablet TAKE 1-2 TABLET BY MOUTH EVERY EIGHT HOURS NEEDED FOR PAIN 4 Active nitroglycerin (NITROSTAT) 0.[address] 1 tablet (0.4 mg total) under the tongue every 5 (five) minutes as needed for chest pain Active budesonide (PULMICORT) 0.25 mg/2 mL nebulizer solution Take 2 mL (0.25 mg total) by nebulization daily Rinse mouth with water after use. Do not swallow. Active Active Problems Problem Noted Date Diagnosed Date S/p TAVR (transcatheter aort ic valve replacement), bioprosthetic 04/30/2024 Aortic stenosis, severe 04/02/2024 Hematoma of groin, initial encounter 03/23/2024 Surgical History Surgery Date Site/Laterality Comments CORONARY ARTERY BYPASS GRAFT 1982 Coronary Artery Bypass Graft CORONARY ARTERY BYPASS GRAFT 2001 Coronary Artery Bypass Graft CORONARY STENT PLACEMENT Coronary Stent Placement CARDIAC PACEMAKER PLACEMENT Biotronik SKIN CANCER EXCISION head CATARACT EXTRACTION, BILATERAL COLONOSCOPY CHOLECYSTECTOMY APPENDECTOMY TRANSURETHRAL RESECTION OF PROSTATE Medical History Medical History Date Comments Hypertension Hypertension Hyperlipidemia Atrial fibrillation (HCC) Aortic stenosis, severe GERD (gastroesophageal reflux disease) Hypothyroidism Depression Anxiety Cancer (HCC) skin Cataract History of transfusion History of GI bleed Family History Medical History Relation Name Comments Coronary artery disease Brother 2 CABG ; Heart failure Father Congestive Hea rt Failure; Cause of : Congestive Heart Failure Other Mother CABG-81-83 yrs; Heart disease Other 2 Heart disease; Relation Name Status Comments Brother 1 Alive Brother 2 Father (Age 63) Mother Other 1 Alive Other 2 Social History Tobacco Use Types Packs/Day Years Used Date Smoking Tobacco: Former Cigarettes Q uit: 09/23/1977 Pipe Quit: 1977 Cigars Quit: 1977 Alcohol Use Standard Drinks/Week Comments No 0 (1 standard drink = 0.6 oz pur e alcohol) [facility] Utilities Answer Date Recorded In the past 12 months has [employer], gas, oil, or water [employer] threatened to shut off services in your home? No 05/01/2024 Social Connection and Isolat ion Panel [NHANES] Answer Date Recorded In a typical week, how many times do you talk on the phone with family, friends, or neighbors? More than three times a week 05/01/2024 How often do you get togethe r with friends or relatives? More than three times a week 05/01/2024 How often do you attend chur ch or protestant services? More than 4 times per year 05/01/2024 Do you belong to any clubs o r organizations such as jainism groups, unions, fraternal or athletic groups, or school groups? No 05/01/2024 How often do you attend meet ings of the clubs or organizations you belong to? Never 05/01/2024 Are you , , di vorced, , never , or living with a partner? 05/01/2024 AUDIT-C Answer Date Recorded Q1: How often do you have a drink containing alcohol? Never 04/30/2024 Q2: How many drinks containi ng alcohol do you have on a typical day when you are drinking? Patient does not drink Q3: How often do you have si x or more drinks on one occasion? Never 04/30/2024 Overall Financial Resource Strain (CARDIA) Answe r Date Recorded How hard is it for you to pa y for the very basics like food, housing, medical care, and heating? Not hard at all 05/01/2024 Hunger Vital Sign Answer Date Recorded Within the past 12 months, y ou worried that your food would run out before you got the money to buy more. Never true 05/01/20 24 Within the past 12 months, t he food you bought just didn't last and you didn't have money to get more. Never true 05/01/2024 PRAPARE - Transportation Answer Date Re corded In the past 12 months, has l ack of transportation kept you from medical appointments or from getting medications? No 05/2024 In the past 12 months, has l ack of transportation kept you from meetings, work, or from getting things needed for daily living? No 05/01/2024 Housing Stability Vital Sign Answer Alcon e Recorded In the last 12 months, was t here a time when you were not able to pay the mortgage or rent on time? No 05/01/2024 In the past 12 months, how m any times have you moved where you were living? 1 05/01/2024 At any time in the past [address] [facility], were you homeless or living in a fpc (including now)? No 05/01/2024 Personal Safety Answer Date Recorded Have you ever been in or are you currently in a harmful physical or emotional relationship or is someone making you feel afraid or unsafe? 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 Gender Identity Not on file Sexual Orientation Not on file Obstetrics History Last Filed Vital Signs Vital Sign Reading Time Taken Comments Blood Pressure 171/64 05/02/2024 11:00 AM CDT Pulse 65 05/02/2024 11:55 AM CDT Temperature 36.6 C (97.9 F) 05/02/2024 7:44 AM CDT Respiratory Rate 25 05/02/2024 11:55 AM CDT Oxygen Saturation 96% 05/02/2024 9:50 AM CDT Inhaled Oxygen Concentration - - Weight 79.8 kg (176 lb) 04/30/2024 8:23 AM CDT Height 182.9 cm (6') 04/30/2024 8:23 AM CDT Body Mass Index 23.87 04/30/2024 8:23 AM CDT Plan of Treatment Health Maintenance Due Date Last Done Comments Depression Screening 1938 Hepatitis B Screening 1956 Well Visit 65+ 2003 Pneumococcal vaccine 65+ (2 of 2 - PPSV23) 05/29/2016 05/29/2015 Zoster Vaccine (2 of 3) 07/21/2018 05/26/2018, 07/24 Covid-19 Vaccine (4 - 2023-2 5 season) 2024 07/21/2021, 11/22/2020, 10/20/2020 Fall Risk Assessment 05/02/2025 05/02/2024 Influenza Vaccine (Season Ended) 2025 05/29/2023, 05/26/2022, 05/26/2018, Additional history exists DTaP/Tdap/Td Vaccine (2 - Td or Tdap) 04/01/2033 04/01/2023 Medical Devices Implanted Type Area Millwright Instructor Device Identifier Shelf Expiration Date Model / Serial / Lot Pacemaker Pacemaker Left: Chest Wall [employer] Hima 3 Commander Levine 26mm Transcatheter Ultra Low Profile [id number] - [id number] - [id number] Implanted:Qty: 1 on 04/30/2024 by Yobany Zhong MD at [facility] [employer] 11/19/2026 [id number] / [id number] / Edge Vascular System Closure Repair Femoral Artery Suture Mediated Perclose Prostyle 93968-33 - [id number] Implanted:Qty: 1 on 04/30/2024 by Yobany Zhong MD at [facility] [employer] 01/20/2026 [id number] / / [id number] Edge V[employer] System Closure Repair Femoral Artery Suture Mediated Perclose Prostyle 01072-41 - [id number] Implanted:Qty: 1 on 04/30/2024 by Yobany Zhong MD at [facility] [employer] 01/20/2026 [id number] / / [id number] [place] [address] [facility] ADV[facility] Address: [facility] [address] [place] [address] [place] [address] [facility] MEDICARE ADVANTAGE [facility] Address: [address] [address] [place] [address] [facility] MEDICARE ADVANTAGE [facility] Address: [address] [address] [place] [address] Advance Directives For more information, please contact: [phone] * Full Code (Latest Code Status on File) Date Activated Date Inactivated Comments 03/23/2024 11:55 PM 03/25/2024 9:36 PM Care Teams Physics Technical Officer Relationship Specialty Start Date End Date Mayank Souza MD [address] [address] PCP - General Family Medicine 03/23/24 Iza Mackey NP [address] [facility] [facility] [address] [place] [address] Nurse Practitioner Vascular Surgery 03/25/24 Apoorva Whitlock MD [address] [facility] [id number] [place] [address] Surgeon Cardiothoracic Surgery 03/25/24 Tay Cook MD [address] [facility] [id number] [place] [address] Referring Physician Cardiology 03/25/24
--- OUTSIDE RECORDS SUMMARY | 2025-03-04 02:22 | XMS_ITS | Referral Summary ---
Author Organization [facility] [place] [address] Address [address] [place] [address] Care Team Providers Care Life Skills Teacher Name Role Phone Mayank Souza MD Primary Care Provider [phone] Iza Mackey NP Unavailable Apoorva Whitlock MD Unavailable [phone] Tay Cook MD Unavailable Allergies No [...] 1 tablet (75 mcg total) by mouth needleworker before breakfast Active magnesium oxide (MAG-OX) 400 [...] 4 03/26/20 25 Active cholecalciferol (VITAMIN D-3) 49078 unit capsule Take 1 capsule (10,000 Units total) by mouth daily Active ugisd-bgfii-4-d fv-ces-smrftq (krill oil) 444-71-25-50 mg capsule Take 300 mg by mouth [...] 04/02/2024 Hematoma of groin, initial encounter 03/23/2024 Social History Tobacco Use Types Packs/Day Years Used Date Smoking Tobacco: Former Cigarettes Q uit: 09/23/1977 Pipe Quit: 1977 Cigars Quit: 1977 Alcohol Use Standard Drinks/Week Comments No 0 (1 standard drink = 0.6 oz pur e alcohol) [facility] Utilities Answer Date Recorded In the past 12 months has [employer], gas, oil, or water [employer] threatened to shut off services in your [...] often do you attend chur ch or muslim services? More than 4 times per year 05/01/2024 Do you belong to any clubs o r organizations such as adventist groups, unions, fraternal or athletic groups, or [...] any time in the past 12 m [facility], were you homeless or living in a intermediate (including now)? No 05/01/2024 Personal Safety Answer Date Recorded Have you ever been in or are you currently in a harmful physical or emotional relationship or is someone making you feel afraid or unsafe? 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 Gender Identity Not on file Sexual Orientation Not on file Last Filed Vital Signs Vital Sign Reading [...] 04/30/2024 8:23 AM CDT Plan of Treatment Not on file Medical Devices Implanted Type Area Insurance Account Representative Device Identifier Shelf Expiration Date Model / Serial / Lot Pacemaker Pacemaker Left: Chest Wall [employer] Hima 3 Commander Levine 26mm Transcatheter Ultra Low Profile [id number] - [id number] - [id number] Implanted:Qty: 1 on 04/30/2024 by Yobany Zhong MD at [facility] [employer] 11/19/2026 [id number] / [id number] / Edge Vascular System Closure Repair Femoral Artery Suture Mediated Perclose Prostyle 92315-44 - [id number] Implanted:Qty: 1 on 04/30/2024 by Yobany Zhong MD at [facility] [employer] 01/20/2026 [id number] / / [id number] Edge V[employer] System Closure Repair Femoral Artery Suture Mediated Perclose Prostyle 28384-25 - [id number] Implanted:Qty: 1 on 04/30/2024 by Yobany Zhong MD at [facility] [employer] 01/20/2026 [id number] / / [id number] Insurance [facility] MEDICARE ADVANTAGE [place] [id number] [facility] MEDICARE ADVANTAGE [place] [id number] UHC MEDICARE ADVANTAGE Advance Directives For more information, please contact: [phone] * Full Code (Latest Code Status on File) Date Activated Date Inactivated Comments 03/23/2024 11:55 PM 03/25/2024 9:36 PM Care Teams Life Skills Teacher Relationship Specialty Start Date End Date Mayank Souza MD [address] [address] PCP - General Family Medicine 03/23/24 Iza Mackey NP [address] [place] [address] Nurse Practitioner Vascular Surgery 03/25/24 Apoorva Whitlock MD [address] [place] [address] Surgeon Cardiothoracic Surgery 03/25/24 Tay Cook MD [address] [place] [address] Referring Physician Cardiology 03/25/24
--- OUTSIDE RECORDS SUMMARY | 2025-03-04 02:22 | XMS_ITS | Encounter Summary ---
Author Organization [facility] Address [address] [place] [address] Care Team Providers Care Receiver Name Role Phone Ruddy Barnett MD Primary Care Provider [phone] Jennifer Lozano RN Unavailable [phone] Encounter Details Date Type Department Care Team (Late st Contact Info) Description 11/04/2019 Lab Requisition [facility] [address] [place] [address] Pacheco Murphy MD [address] [place] [address] Social History Tobacco Use Types Packs/Day Years Used Date Smoking Tobacco: Former Cigarettes Q uit: 12/06/1985 Alcohol Use Standard Drinks/Week Comments Not Asked 0 (1 standard drink = 0.6 oz pur e alcohol) Sex and Gender Information Value Date Recorded Sex Assigned at Not on file Legal Sex Male 6:29 AM DOCUMENT SPECIALIST Gender Identity Not on file Sexual Orientation Not on file documented as of this encounter Functional Status * Is person deaf or have serious hearing difficulty? Answer Date of Assessment Author No 12/10/2015 1:21 PM Michelle Lagos RN * Is person blind or have serious difficulty seeing? Answer Date of Assessment Author No 12/10/2015 1:21 PM Michelle Lagos RN * Does person have serious difficulty walking/climbing stairs? Answer Date of Assessment Author No 12/10/2015 1:21 PM Michelle Lagos RN * Does person have difficulty dressing/bathing? Answer Date of Assessment Author No 12/10/2015 1:21 PM Michelle Lagos RN * Does person have difficulty doing errands alone? Answer Date of Assessment Author No 12/10/2015 1:21 PM Michelle Lagos RN documented as of this encounter Mental Status * Does person have difficulty concentrating/remembering/making decisions? Answer Entry Date Author No 12/10/2015 1:21 PM Michelle Lagos RN documented in this encounter Plan of Treatment Not on file documented as of this encounter Procedures Procedure Name Priority Date/Time Associated Diagnosis Comments DERMATOPATHOLOGY Routine 11/03/2019 12:0 0 AM DOCUMENT SPECIALIST documented in this encounter Results * DERMATOPATHOLOGY (11/03/2019 12:00 AM DOCUMENT SPECIALIST) Case Report Dermatopathology Report Case: [id number] Authorizing Provider: Pacheco Murphy MD Collected: 11/03/2019 12:00 AM Ordering Location: [facility] Received: 11/04/2019 12:45 PM Pathologist: Christine Jimenez MD Specimen: Skin, right lat sup sideburn ant to ear 0 1:31 PM [facility]ER[facility]OR[facility] Final Diagnosis Specimen A. 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 The specimen consists of a shave biopsy measuring 10x8x1 mm. Jar 0. 0 1:31 PM [facility] DERMATOPATHOLOGY [facility]ORATORY Microscopic Description Specimen A. SKIN, right lat sup sideburn ant to ear: The epidermis shows parakeratosis, full thickness disorderly maturation of keratinocytes, mitoses at different levels, and dyskeratotic cells. 0 1:31 PM [facility] DERMATOPATHOLOGY [facility]ORATORY Disclaimer An external and internal positive and negative controls are appropriate for the histochemical, immunohistochemical and immunofluorescence stain(s) in this case (if any), except where stated explicitly. The performance characteristics of the stain(s) cited in this report were developed and its performance characteristic determined by the Dermatopathology Laboratory at [facility], directed by Dr. Josee Ly. These tests need not be, and therefore are not, approved by the [place] Food and Drug Administration. The tests are used for clinical purposes. Billing Codes Specimen Charges Stain Charges 43972 1 0 1:31 PM DOCUMENT SPECIALIST DERMATOPATHOLOGY LABORATORY Embedded Images 0 1:31 PM DOCUMENT SPECIALIST DERMATOPATHOLOGY LABORATORY Pathology/Cytolog y TISSUE SPECIMEN FROM SKIN / Unknown 11/03/2019 11/04/2019 12:45 PM DOCUMENT SPECIALIST Pacheco Murphy MD LAB - PATHOLOGY/CYTOLOGY ORD ERABLES Final Result DERMATOPATHOLOGY LABORATORY [facility] - Department of Dermatology [address] [place] [address] [address] Lab [address] [phone] documented in this encounter Visit Diagnoses Not on filedocumented in this encounter Care Teams Receiver Relationship Specialty Start Date End Date Ruddy Barnett MD PCP - General Internal Medicine 11/21/15 Jennifer Lozano, RN Glass Pulverizer Equipment Operator 12/08/15 documented as of this encounter
--- OUTSIDE RECORDS SUMMARY | 2025-03-04 02:22 | XMS_ITS | Clinical Summary ---
Author Organization [facility] Address [address] [place] [address] Care Team Providers Care Car Shunter Name Role Phone Ruddy Barnett MD Primary Care Provider [phone] Jennifer Lozano RN Unavailable [phone] Source Comments [facility],non-owned Affiliates and Associated Physician Practices is amultiple site organization consisting of ambulatory clinics and hospital sitesin [place], [place], [place] and [place]. This disclosure is being madepursuant to the Care Everywhere program and may not contain all information available regarding this patient. Last updated 18.[facility] [employer] Allergies No known active allergies Medications * Be aware that medications may not be up to date on this document. Alwaysverify current medications with the patient. aspirin EC (ECOTRIN) 81 MG tablet Take 81 mg by mouth once daily Active ALPRAZolam (XANAX) 0.25 MG tablet Take 0.25 mg by mouth 2 times daily Active fluticasone propionate (FLONASE) 50 MCG/ACT nasal spray [place] 2 Sprays into each nostril once daily Active sotalol (BETAPACE) 120 MG tablet Take 120 mg by mouth 2 times daily Active pantoprazole EC (PROTONIX) 40 MG tablet Take 40 mg by mouth once daily Active metoprolol tartrate (LOPRESSOR) 25 MG tablet Take 25 mg by mouth 2 times daily Active zolpidem (AMBIEN) 10 MG tablet Take 10 mg by mouth nightly as needed for Insomnia Active Multiple Vitamin (MULTI VITAMIN DAILY PO) Take 1 Tab by mouth Active niacin CR (NIASPAN) 500 MG tablet Take 500 mg by mouth at bedtime Active levothyroxine (SYNTHROID) 75 MCG tablet Take 75 mcg by mouth daily before breakfast Active Krill Oil 300 MG Take 300 mg by mouth once daily Active Flaxseed, Linseed, (EQL FLAX SEED OIL) 1000 MG Take 2,000 mg by mouth at bedtime Active ferrous gluconate 324 (38 FE) MG tablet Take 324 mg by mouth 2 times daily with morning and evening meal Active lovastatin (MEVACOR) 40 MG tablet Take 80 mg by mouth daily with dinner Active oxyCODONE-aceta minophen (PERCOCET) 5-325 MG tablet Take 1 Tab by mouth every 6 hours as needed 15 Tab 0 6 Active pantoprazole EC (PROTONIX) 40 MG tablet Take 1 Tab by mouth once daily 41 Tab 0 6 Active warfarin (COUMADIN) 5 MG tablet Take 1 Tab by mouth once daily 30 Tab 5 6 Active Social History Tobacco Use Types Packs/Day Years Used Date Smoking Tobacco: Former Cigarettes Q uit: 12/06/1985 Alcohol Use Standard Drinks/Week Comments Not Asked 0 (1 standard drink = 0.6 oz pur e alcohol) Sex and Gender Information Value Date Recorded Sex Assigned at Not on file 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 Gender Identity Not on file Sexual Orientation Not on file Last Filed Vital Signs Vital Sign Reading Time Taken Comments Blood Pressure 107/64 12/10/2015 12:02 PM CDT Pulse 107 12/10/2015 12:02 PM CDT Temperature 36.8 C (98.2 F) 12/10/2015 12:02 PM CDT Respiratory Rate 20 12/10/2015 12:02 PM CDT Oxygen Saturation 93% 12/10/2015 12:02 PM CDT Inhaled Oxygen Concentration - - Weight 93.4 kg (206 lb) 12/10/2015 4:41 AM CDT Height 182.9 cm (6') 12/07/2015 7:43 AM CDT Body Mass Index 27.94 12/07/2015 7:43 AM CDT Plan of Treatment Health Maintenance Due Date Last Done Comments DTAP/TDAP/TD VACCINES (1 - Tdap) 1957 PNEUMOCOCCAL VACCINE 50+ (1 of 1 - PCV) 1988 ZOSTER VACCINE (1 of 2) 1988 Respiratory Syncytial Virus (RSV) Vaccine Pt: or over 60 yrs (1 - 1-dose 75+ series) 2013 COVID-19 VACCINE (2023-2 5 season) 2024 DEPRESSION SCREENING 09/23/2024 MEDICARE AWV CALENDAR YEAR 2024 INFLUENZA VACCINE (Season Ended) 2025 HEPATITIS B VACCINE Aged Out No longe r eligible based on patient's age to complete this topic HIB VACCINE Aged Out No longer eligi ble based on patient's age to complete this topic HPV VACCINE Aged Out No longer eligi ble based on patient's age to complete this topic MENINGOCOCCAL (Group B) VACC INE SHARED DECISION-MAKING Aged Out No longer eligibl e based on patient's age to complete this topic MENINGOCOCCAL GROUPS A/C/Y/W VACCINE Aged Out No longer eligible b ased on patient's age to complete [place] [address] [facility] MANAGED MEDICARE ADV [place], [place] [address] MANA[facility]IC[facility] ADV Care Teams Car Shunter Relationship Specialty Start Date End Date Ruddy Barnett MD PCP - General Internal Medicine 11/21/15 Jennifer Lozano, RN Manager Report 12/08/15
--- OUTSIDE RECORDS SUMMARY | 2025-03-04 02:22 | XMS_ITS | Encounter Summary ---
Author Organization [facility] Address [address] [place] [address] Care Team Providers Care Deputy Sheriff Lieutenant Name Role Phone Ruddy Barnett MD Primary Care Provider [phone] Jennifer Lozano RN Unavailable [phone] Encounter Details Date Type Department Care Team (Late st Contact Info) Description 07/28/2024 Lab Requisition [facility] - DermPath Lab [address] [place] [address] Pacheco Murphy MD [address] [place] [address] Social History Tobacco Use Types Packs/Day Years Used Date Smoking Tobacco: Former Cigarettes Q uit: 12/06/1985 Alcohol Use Standard Drinks/Week Comments Not Asked 0 (1 standard drink = 0.6 oz pur e alcohol) Sex and Gender Information Value Date Recorded Sex Assigned at Not on file Legal Sex Male 6:29 AM WIDTH STRIPPER Gender Identity Not on file Sexual Orientation [...] of Assessment Author No 12/10/2015 1:21 PM CDT Tyrone, Michelle L, RN * Does person have difficulty dressing/bathing? [...] Priority Date/Time Associated Diagnosis Comments DERMATOPATHOLOGY Routine 07/27/2024 3:33 AM WIDTH STRIPPER documented in this encounter Results * DERMATOPATHOLOGY (07/27/2024 3:33 AM WIDTH STRIPPER) Case Report Dermatopathology Report Case: [id number] Authorizing Provider: Pacheco Murphy MD Collected: 07/27/2024 03:33 AM Ordering Location: [facility] - Received: 07/28/2024 02:15 PM DermPath Lab Pathologist: Christine Jimenez MD Specimen: Skin, right side scalp at hairline 4 2:17 PM [facility] DERMATOPATHOLOGY [facility]ORATORY Final Diagnosis Specimen A. 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 The specimen consists of a shave biopsy measuring [id number] mm. Jar 0. 4 2:17 PM [facility] DERMATOPATHOLOGY [facility]ORATORY Microscopic Description Specimen A. SKIN, right side scalp at hairline: The epidermis shows parakeratosis, full thickness disorderly maturation of keratinocytes, mitoses at different levels, and dyskeratotic cells. 4 2:17 PM [facility] Disclaimer An external and internal positive and negative controls are appropriate for the histochemical, immunohistochemical and immunofluorescence stain(s) in this case (if any), except where stated explicitly. The performance characteristics of the stain(s) cited in this report were developed and its performance characteristic determined by the Dermatopathology Laboratory at [facility], directed by Dr. Josee Ly. These tests need not be, and therefore are not, approved by the [place] Food and Drug Administration. The tests are used for clinical purposes. Billing Codes Specimen Charges Stain Charges 44518 1 4 2:17 PM [facility] Embedded Images 4 2:17 PM [facility] Pathology/Cytolo gy TISSUE SPECIMEN FROM SKIN / Unknown 07/27/2024 3:33 AM WIDTH STRIPPER 07/28/2024 2:15 PM WIDTH STRIPPER Pacheco Murphy MD LAB - PATHOLOGY/CYTOLOGY ORD ERABLES Final Result DERMATOPATHOLOGY LABORATORY [facility] - Department of Dermatology [facility] Medicine [address] [place] [address], [address] [phone] documented in this encounter Visit Diagnoses Not on filedocumented in this encounter Care Teams Deputy Sheriff Lieutenant Relationship Specialty Start Date End Date Ruddy Barnett MD PCP - General Internal Medicine 11/21/15 Jennifer Lozano RN Car Record Clerk 12/08/15 documented as of this encounter
--- OUTSIDE RECORDS SUMMARY | 2025-03-04 02:22 | XMS_ITS | CONTINUITY OF CARE DOCUMENT ---
Author Name dawson, dawson Address Unknown Organization [facility] Address [address] [place] [address] Phone [phone] Care Team Providers Care Er Physician Name Role Phone Ruben ÁLVAREZ, Kj Unavailable NENA ÁLVAREZ, RADHA Unavailable TARSHA FORTE MD Unavailable [phone] PROBLEMS Condition Status Date Provider Notes Postprocedural hematoma of a circulatory system organ or structure following a cardiac catheterization active Julia Hickman Groin pain, right active Julia Vick S/P Dual chamb PCM - Biotronik ( MRI Safe) active Evelyn Roblero manager intermediate current use of anticoagulants active Sukh Agudelo RN PHYSICAL EXAMINATION completed - Heidy Weiner MD Atrial Fibrillation s/p ablation active Kj Miranda MD inr per [facility] CAD cabg 1982, 2000 active Kj Miranda MD HTN ESSENTIAL active Kj Miranda MD Hyperlipidemia active Kj Miranda MD HYPOTHYROIDISM active Kj Miranda MD Family History of Hypertension: completed - Heidy Weiner MD Examination, preoperative cardiovascular completed - Heidy Weiner MD Anticoagulation completed - Heidy Weiner MD Aortic stenosis, mild active Bryan Davis MD mod ai and tr and mr Palpitations completed - Bryan Davis MD Tobacco use, quit active Bryan Davis MD t oo remote to screen Overweight active Bryan Davis MD Frequent PVCs active Taandrea Avalos SVT active Taewon Robbie Nonsustained ventricular tachycardia active Taewbryson Avalos Dizziness / vertigo active Kj Miranda MD Atrial Fibrillation active Kj Miranda MD Atrial flutter with rapid response active Taandrea Avalos SOB active Karen Jacobsmeyer Syncope active Kj Miranda MD Aortic stenosis, severe active Kj de la vega MD ENCOUNTERS Date Type Provider Location Encounter Diag nosis - In-person encounter Office Visit Kj Miranda MD [facility] - In-person encounter Office Visit Kj Miranda MD [facility] - In-person encounter Office Visit Yobany Zhong MD [facility] Office - In-person encounter Office Visit Yobany Zhong MD, [place] [facility] - In-person encounter Office Visit Antonio Rinaldi MD [facility] - In-person encounter Office Visit Kj Miranda MD [facility] Aortic stenosis, severe - In-person encounter Office Visit Kj Miranda MD [facility] - In-person encounter Office Visit Kj Miranda MD [facility] - In-person encounter Office Visit Kj Miranda MD [facility] - In-person encounter Office Visit Antonio Rinaldi MD [facility] - In-person encounter Office Visit Kj Miranda MD [facility] Syncope - In-person encounter Office Visit Kj Miranda MD [facility] - In-person encounter Office Visit Antonio Rinaldi MD [facility] SOB - In-person encounter Office Visit Antonio Rinaldi MD [facility] - In-person encounter Office Visit Antonio Rinaldi MD [facility] - In-person encounter Office Visit Kj Miranda MD [facility] - In-person encounter Office Visit Antonio Rinaldi MD [facility] Atrial flutter with rapid response - In-person encounter Office Visit Kj Miranda MD [facility] Atrial Fibrillation - In-person encounter Office Visit Kj Miranda MD [facility] - In-person encounter Office Visit Kj Miranda MD [facility] Dizziness / vertigo - In-person encounter Office Visit Kj Miranda MD [facility] Atrial Fibrillation s/p ablation - In-person encounter Office Visit Antonio Rinaldi MD [facility] Frequent PVCsSVTNonsustained ventricular tachycardia - In-person encounter Office Visit Antonio Rinaldi MD [facility] - In-person encounter Office Visit Kj Miranda MD [facility] - In-person encounter Office Visit Kj Miranda MD [facility] CAD cabg 1982, 2000 - In-person encounter Office Visit Kj Miranda MD [facility] Frequent PVCs - In-person encounter Office Visit Kj Miranda MD [facility] Office - In-person encounter Office Visit Bryan Davis MD [facility] Atrial Fibrillation s/p ablationAortic stenosis, mildPalpitationsTobacco use, quitOverweight - In-person encounter Office Visit Kj Miranda MD [facility] - In-person encounter Office Visit Kj Miranda MD [facility] Hyperlipidemia - In-person encounter Office Visit Kj Miranda MD [facility] Office - In-person encounter Office Visit Hipolito Hobson MD [facility] - In-person encounter Office Visit Heidy Weiner MD [facility] PHYSICAL EXAMINATIONAtrial Fibrillation s/p ablationCAD cabg 1982, 2000Family History of Hypertension:Examination, preoperative cardiovascularAnticoagulationAortic stenosis, mild - In-person encounter Office Visit Kj Miranda MD [facility] - In-person encounter Office Visit Hipolito Hobson MD [facility] Office - In-person encounter Office Visit Hipolito Hobson MD [facility] Office - In-person encounter Office Visit Kj Miranda MD [facility] Atrial Fibrillation s/p ablation - In-person encounter Office Visit Hipolito Ruiz Office - In-person encounter Office Visit Hipolito [facility] - In-person encounter Office Visit Hipolito [facility] - In-person encounter Office Visit Kj Miranda MD [facility] - In-person encounter Office Visit Kj Miranda MD [facility] - In-person encounter Office Visit Kj Miranda MD [facility] - In-person encounter Office Visit Kj Miranda MD [facility] - In-person encounter Office Visit Kj Miranda MD [facility] Atrial Fibrillation s/p ablation - In-person encounter Office Visit Kj Miranda MD [facility] - In-person encounter Office Visit Kj Miranda MD [facility] Atrial Fibrillation s/p ablationCAD cabg 1982, 2000HTN ESSENTIALHyperlipidemiaHYPOTHYROIDISM VITAL SIGNS Date Observation Value Provider Body Mass Index (Ratio) 26.04 kg/m2 Tine Miranda MD oxygen saturation, oximetry 97 % Justa Fernandez pulse rate 60 /min Justa Hulbert blood pressure, diastolic 67 mm[Hg] [facility] 123 mm[Hg[facility] rate E&M 12 /min [facility] weight E&M 192 [lb_av] [facility] height E&M 72 [in_i] [facility] blood pressure, cuff size regular [place] Body Mass Index (Ratio) 24.82 kg/m2 Tien Miranda MD pulse rate 62 /min Aleena Kilpatrick respiratory rate E&M 12 /min Aleena Kilpatrick oxygen saturation, oximetry 97 % Aleena Kilpatrick weight E&M 183 [lb_av] Aleena Kilpatrick blood pressure, cuff size regular Kailash Kilpatrick blood pressure, diastolic 50 mm[Hg] Kailash Kilpatrick blood pressure, systolic 110 mm[Hg] Tab itha Finesse height E&M 72 [in_i] Aleena Kilpatrick Body Mass Index (Ratio) 24.14 kg/m2 dequan Zhong MD blood pressure, diastolic 69 mm[Hg] Octaviano Licona blood pressure, systolic 123 mm[Hg] Grover Licona oxygen saturation, oximetry 96 % Lacey Licona respiratory rate E&M 14 /min Lacey martinez pulse rate 77 /min Lacey Maldonadoam weight E&M 178 [lb_av] Lacey Maldonadoam blood pressure, cuff size regular Octaviano Licona height E&M 72 [in_i] Lacey Maldonadoam Body Mass Index (Ratio) 24.55 kg/m2 dequan Zhong MD respiratory rate E&M 18 /min Elmira Posley oxygen saturation, oximetry 96 % Elmira Posley pulse rate 58 /min Elmira Posley blood pressure, cuff size regular Le slie Posley blood pressure, diastolic 68 mm[Hg] Le slie Posley blood pressure, systolic 130 mm[Hg] Les lie Posley weight E&M 181 [lb_av] Elmira Posley height E&M 72 [in_i] Elmira Posley Body Mass Index (Ratio) 23.60 kg/m2 Edgar Taylor blood pressure, diastolic 60 mm[Hg] Ja rret blood pressure, systolic 120 mm[Hg] Jar ret pulse rate 66 /min Robbie blood pressure, cuff size regular Ja rret oxygen saturation, oximetry 97 % Robbie respiratory rate E&M 16 /min Robbie 05 weight E&M 174 [lb_av] Robbie height E&M 72 [in_i] Robbie y Body Mass Index (Ratio) 24.41 kg/m2 Tien Miranda MD blood pressure, cuff size regular Ja rret blood pressure, diastolic 60 mm[Hg] Ja rret blood pressure, systolic 118 mm[Hg] Francine ret pulse rate 61 /min Robbie oxygen saturation, oximetry 95 % Robbie respiratory rate E&M 14 /min Robbie weight E&M 180 [lb_av] Robbie height E&M 72 [in_i] Robbie y Body Mass Index (Ratio) 25.77 kg/m2 Tien Miranda MD blood pressure, cuff size regular Ke rri Gruenenfelder blood pressure, diastolic 60 mm[Hg] Ke rri Gruenenfeld blood pressure, systolic 136 mm[Hg] Edmond Ac oxygen saturation, oximetry 94 % Shantal Ac respiratory rate E&M 12 /min Shantal josephenemadelin pulse rate 73 /min Shantal Jhe er weight E&M 190 [lb_av] Shantal Gruenenfe er height E&M 72 [in_i] Shantal Gruenenfe Body Mass Index (Ratio) 26.58 kg/m2 Tien Miranda MD blood pressure, cuff size regular Ja rret blood pressure, diastolic 69 mm[Hg] Ja rret blood pressure, systolic 118 mm[Hg] Francine michael pulse rate 60 /min Robbie respiratory rate E&M 12 /min Robbie oxygen saturation, oximetry 96 % Robbie weight E&M 196 [lb_av] Robbie height E&M 72 [in_i] Robbie y Body Mass Index (Ratio) 26.44 kg/m2 Marilee lozoya Puhse respiratory rate E&M 20 /min Iman Maher pulse rate 71 /min Iman Maher blood pressure, diastolic 66 mm[Hg] Terri Maher blood pressure, systolic 122 mm[Hg] Carla Maher oxygen saturation, oximetry 97 % Iman Maher blood pressure, cuff size regular becky Maher weight E&M 195 [lb_av] Iman Maher height E&M 72 [in_i] Iman Maher blood pressure, diastolic 62 mm[Hg] Li nkLog blood pressure, systolic 132 mm[Hg] Nicol kLogic Body Mass Index (Ratio) 25.77 kg/m2 Edgar Taylor blood pressure, diastolic 62 mm[Hg] Tx azul [place] blood pressure, systolic 132 mm[Hg] [facility] helrosio [place] oxygen saturation, oximetry 95 % Luz Marina Mcelroy pulse rate 74 /min Luz Marina dillard weight E&M 190 [lb_av] Luz Marina dillard respiratory rate E&M 16 /min Yumiko Mcelroy blood pressure, cuff size large Niya Mcelroy height E&M 72 [in_i] Luz Marina dillard Body Mass Index (Ratio) 26.85 kg/m2 Tien Miranda MD blood pressure, diastolic 66 mm[Hg] Amparo tea Lux blood pressure, systolic 122 mm[Hg] Jessy new Jose J oxygen saturation, oximetry 98 % Helen Jose J pulse rate 83 /min Helen Jose J blood pressure, cuff size large An tea Jose J weight E&M 198 [lb_av] Helen Jose J height E&M 72 [in_i] Helen Jose J Body Mass Index (Ratio) 27.12 kg/m2 Tien Miranda MD blood pressure, diastolic 67 mm[Hg] St roque Sánchez blood pressure, systolic 128 mm[Hg] Ernestina Sánchez oxygen saturation, oximetry 95 % Nelly Sánchez pulse rate 67 /min Nelly Sánchez respiratory rate E&M 16 /min Nelly madison weight E&M 200 [lb_av] Nelly Sánchez height E&M 72 [in_i] Nelly Sánchez Body Mass Index (Ratio) 27.12 kg/m2 Dora Briceño blood pressure, cuff size large Ke rri Yashira blood pressure, diastolic 54 mm[Hg] Enoch rri Yashira blood pressure, systolic 122 mm[Hg] Edmond Ac oxygen saturation, oximetry 98 % Shantal Ac respiratory rate E&M 14 /min Shantal rodas pulse rate 72 /min Shantal Pearce [facility] weight E&M 200 [lb_av] Shantal Pearce [facility] height E&M 72 [in_i] Shantal Pearce [facility] Body Mass Index (Ratio) 27.12 kg/m2 Akira Rinaldi MD blood pressure, cuff size large Ke rri Gruenenfelder blood pressure, diastolic 68 mm[Hg] Ke rri Gruenenfelder blood pressure, systolic 147 mm[Hg] Ker ri Gruenenfelder oxygen saturation, oximetry 96 % Shantal Gruenenfelder respiratory rate E&M 16 /min Shantal G ruenenfelder pulse rate 68 /min Shantal Gruenenfe er weight E&M 200 [lb_av] Shantal Gruenenfe lder height E&M 72 [in_i] Shantal Gruenenfe er Body Mass Index (Ratio) 27.26 kg/m2 Edgar Taylor blood pressure, cuff size large Ke rri Gruenenfelder blood pressure, diastolic 62 mm[Hg] Ke rri Gruenenfelder blood pressure, systolic 115 mm[Hg] Ker ri Gruenenfelder oxygen saturation, oximetry 96 % Shantal Gruenenfelder respiratory rate E&M 16 /min Shantal G ruenenfelder pulse rate 73 /min Shantal Gruenenfe er weight E&M 201 [lb_av] Shantal Gruenenfe lder height E&M 72 [in_i] Shantal Gruenenfe er Body Mass Index (Ratio) 27.39 kg/m2 Tien Miranda MD blood pressure, diastolic 62 mm[Hg] Li nkLogic blood pressure, systolic 136 mm[Hg] Nicol kLogic blood pressure, diastolic 62 mm[Hg] Ca therine Spike blood pressure, systolic 136 mm[Hg] Cat herine Spike oxygen saturation, oximetry 96 % Melva Spike respiratory rate E&M 18 /min Catheri ne Se[place] pulse rate 78 /min Melva Spike weight E&M 202 [lb_av] Melva [place] blood pressure, cuff size regular Ca therine [place] height E&M 72 [in_i] Melva [place] Body Mass Index (Ratio) 27.26 kg/m2 Taew on Robbie blood pressure, cuff size large Ke rri Gruenenfelder blood pressure, diastolic 60 mm[Hg] Ke rri Gruenenfelder blood pressure, systolic 121 mm[Hg] Edmond vizcarra Nevillenfelder oxygen saturation, oximetry 98 % Shantal Jhelder respiratory rate E&M 16 /min Shantal Jocelyne belloelder pulse rate 70 /min Shantal Almanzavirginiaalexe lder weight E&M 201 [lb_av] Shantal Archiepetarnenfe lder height E&M 72 [in_i] Shantal Nevillenfe lder Body Mass Index (Ratio) 27.66 kg/m2 Tien Miranda MD blood pressure, diastolic 52 mm[Hg] Sa ra Goldberg blood pressure, systolic 110 mm[Hg] Reilly a Goldberg oxygen saturation, oximetry 95 % Doreen Goldberg respiratory rate E&M 16 /min Doreen Si ms pulse rate 71 /min Doreen Goldberg blood pressure, cuff size regular Sa ra Goldberg weight E&M 204 [lb_av] Doreen Goldberg height E&M 72 [in_i] Doreen Goldberg Body Mass Index (Ratio) 27.39 kg/m2 Tien Miranda MD blood pressure, diastolic 63 mm[Hg] Ch astity Pavel blood pressure, systolic 143 mm[Hg] Marybeth stity Pavel oxygen saturation, oximetry 98 % Chastity Pavel pulse rate 71 /min Chastity Pavel weight E&M 202 [lb_av] Chastity Pavel respiratory rate E&M 16 /min Chastit y Pavel height E&M 72 [in_i] Chastity Pavel Body Mass Index (Ratio) 27.80 kg/m2 Tien Miranda MD blood pressure, diastolic 64 mm[Hg] Sa ra Goldberg blood pressure, systolic 138 mm[Hg] Reilly a Goldberg oxygen saturation, oximetry 98 % Doreen Goldberg respiratory rate E&M 16 /min Doreen Si ms pulse rate 71 /min Doreen Goldberg blood pressure, cuff size regular Sa ra Goldberg weight E&M 205 [lb_av] Doreen Goldberg height E&M 72 [in_i] Doreen Goldberg Body Mass Index (Ratio) 27.39 kg/m2 Tien Miranda MD blood pressure, cuff size regular Cy ntjohn Atkinson blood pressure, diastolic 64 mm[Hg] Cy nthia Demetrio blood pressure, systolic 124 mm[Hg] Mary merlyn Atkinson pulse rate 71 /min Bette Curtisbel l respiratory rate E&M 16 /min Bette Atkinson oxygen saturation, oximetry 97 % Bette Atkinson weight E&M 202 [lb_av] Bette Campbel l height E&M 72 [in_i] Bette Campbel l Body Mass Index (Ratio) 26.99 kg/m2 Mila on Robbie blood pressure, diastolic 64 mm[Hg] Li nkLogic blood pressure, systolic 134 mm[Hg] Nicol kLogic blood pressure, resting Yes Darron Yancey blood pressure, diastolic 64 mm[Hg] Sh calixto Yancey blood pressure, systolic 134 mm[Hg] She pauline Yancey oxygen saturation, oximetry 98 % Felipe Yancey pulse rate 69 /min Felipe mcintyre respiratory rate E&M 18 /min Mandy Yancey weight E&M 199 [lb_av] Felipe mcintyre height E&M 72 [in_i] Felipe mcintyre Body Mass Index (Ratio) 27.26 kg/m2 Akira Rinaldi MD blood pressure, cuff size large Ke rri Myrnanemadelin blood pressure, diastolic 70 mm[Hg] Ke rri Archieuenemadelin blood pressure, systolic 140 mm[Hg] Ker ri Yashira oxygen saturation, oximetry 97 % Shantal Yashira respiratory rate E&M 16 /min Shantal G clark pulse rate 81 /min Shantal Portia lder weight E&M 201 [lb_av] Shantal Gruenenfe lder height E&M 72 [in_i] Shantal Gruenenfethan lder Body Mass Index (Ratio) 26.72 kg/m2 Tien Miranda MD blood pressure, cuff size regular Cy al[place] Atkinson blood pressure, diastolic 74 mm[Hg] Cy ntjohn Atkinson blood pressure, systolic 118 mm[Hg] Mary thibharat Atkinson oxygen saturation, oximetry 97 % Bette Atkinson pulse rate 74 /min Bette lucas respiratory rate E&M 16 /min Bette Atkinson weight E&M 197 [lb_av] Bette lucas height E&M 72 [in_i] Bette lucas Body Mass Index (Ratio) 26.85 kg/m2 Tien Miranda MD blood pressure, diastolic 61 mm[Hg] Jerardo lovelace Atkinson blood pressure, systolic 118 mm[Hg] Mary zuleta Demetrio blood pressure, cuff size regular Jerardo lovelace Demetrio oxygen saturation, oximetry 97 % Bette Demetrio respiratory rate E&M 16 /min Bette Atkinson pulse rate 64 /min Bette lucas weight E&M 198 [lb_av] Bette lucas height E&M 72 [in_i] Bette lucas Body Mass Index (Ratio) 26.99 kg/m2 Tien Miranda MD oxygen saturation, oximetry 95 % Sukh Agudelo RN respiratory rate E&M 18 /min Sukh corey RN pulse rate 62 /min Sukh Agudelo RN weight E&M 199 [lb_av] Sukh Agudelo RN Body Mass Index (Ratio) 27.19 kg/m2 Tien Miranda MD blood pressure, diastolic 64 mm[Hg] Fe cliff New blood pressure, systolic 137 mm[Hg] Fel icia Wolff oxygen saturation, oximetry 97 % Iraida New respiratory rate E&M 16 /min Iraida Wolff pulse rate 65 /min Iraida Wolff weight E&M 200.50 [lb_av] Iraida Wolff height E&M 72 [in_i] Iraida New Body Mass Index (Ratio) 27.53 kg/m2 Gasper Davis MD oxygen saturation, oximetry 97 % [facility] respiratory rate E&M 16 /min [facility] blood pressure, diastolic 74 mm[Hg] To [facility] blood pressure, systolic 146 mm[Hg] Ton [facility] weight E&M 203 [lb_av] [facility] height E&M 72 [in_i] [facility] temperature site temporal January Tank sley temperature E&M 97.1 [degF] January Tanks lee Body Mass Index (Ratio) 28.21 kg/m2 Tien Miranda MD blood pressure, cuff size regular Cr zhanna Lux blood pressure, diastolic 76 mm[Hg] Cr zhanna Lux blood pressure, systolic 130 mm[Hg] Cry stalance Lux oxygen saturation, oximetry 97 % Sarah Lux respiratory rate E&M 17 /min Sarah Lux pulse rate 66 /min Sarah ramey weight E&M 208 [lb_av] Sarah ramey height E&M 72 [in_i] Sarah Pravin ramey Body Mass Index (Ratio) 28.88 kg/m2 Tien Miranda MD pulse rate 66 /min Gilbert macdonald oxygen saturation, oximetry 97 % Gilbert Vaughn blood pressure, diastolic 68 mm[Hg] Isael Vaughn blood pressure, systolic 118 mm[Hg] Alicia Vaughn respiratory rate E&M 16 /min Gilbert Vaughn weight E&M 213 [lb_av] Gilbert macdonald height E&M 72 [in_i] Gilbert macdonald Body Mass Index (Ratio) 28.88 kg/m2 Tien Miranda MD pulse rate 68 /min Marybethstity Pavel oxygen saturation, oximetry 95 % Chastity Pavel blood pressure, diastolic 70 mm[Hg] Ch astity Pavel blood pressure, systolic 120 mm[Hg] Marybeth stity Pavel respiratory rate E&M 16 /min Marybethstit y Pavel weight E&M 213 [lb_av] Chastity Pavel height E&M 72 [in_i] [facility] Pavel Body Mass Index (Ratio) 27.94 kg/m2 John Hobson MD blood pressure, diastolic 64 mm[Hg] Deirdre Fernandez blood pressure, systolic 130 mm[Hg] Edita Fernandez pulse rate 69 /min Laurita Fernandez oxygen saturation, oximetry 97 % Laurita Fernandez respiratory rate E&M 17 /min Laurita Fernandez weight E&M 206 [lb_av] Laurita Fernandez height E&M 72 [in_i] Laurita Fernandez Body Mass Index (Ratio) 28.13 kg/m2 Dejon Weiner MD blood pressure, cuff size regular Otis Birch blood pressure, diastolic 66 mm[Hg] Te jayden Birch blood pressure, systolic 128 mm[Hg] Candelario Birch oxygen saturation, oximetry 97 % Lida Birch respiratory rate E&M 18 /min Lida Birch pulse rate 67 /min Lida Birch blood pressure, resting Yes Herve Birch weight E&M 207.4 [lb_av] Lida mackey Body Mass Index (Ratio) 27.39 kg/m2 Tien Miranda MD blood pressure, cuff size regular Adilia Banegas blood pressure, diastolic 70 mm[Hg] Adilia Banegas blood pressure, systolic 110 mm[Hg] Marissa Banegas oxygen saturation, oximetry 98 % Scarlet Banegas respiratory rate E&M 16 /min Scarlet Banegas pulse rate 66 /min Scarlet Banegas weight E&M 202 [lb_av] Scarlet Banegas height E&M 72 [in_i] Scarlet Banegas blood pressure, cuff size regular Deirdre [facility] OTristenPillo blood pressure, diastolic 60 mm[Hg] Deirdre [facility] O'Pillo blood pressure, systolic 148 mm[Hg] Edita michaels 'Pillo oxygen saturation, oximetry 98 % Cortney OPillo respiratory rate E&M 18 /min Cortney O'Pillo pulse rate 66 /min Cortney O'Pillo Body Mass Index (Ratio) 28.88 kg/m2 [facility] weight in kilograms E&M 96.61 kg [facility] weight E&M 213 [lb_av] Ocrtney O'Pillo height E&M 72 [in_i] Cortney OPillo height in centimeters E&M 182.88 cm Deirdre [facility] Lara'Pillo blood pressure, diastolic 70 mm[Hg] Deirdre [facility] Lara'Pillo blood pressure, systolic 112 mm[Hg] Edita Bermudez'Pillo pulse rate 70 /min Cortney O'Pillo oxygen saturation, oximetry 95 % Cortney O'Pillo respiratory rate E&M 16 /min Cortney O'Pillo Body Mass Index (Ratio) 27.66 kg/m2 [facility] weight E&M 204 [lb_av] Cortney O'Pillo blood pressure, diastolic 70 mm[Hg] Enoch Ac blood pressure, systolic 124 mm[Hg] Edmond Ac pulse rate 71 /min Shantal Pearce lder oxygen saturation, oximetry 98 % Shantal Ac respiratory rate E&M 16 /min Shantal bellojasmineheather Body Mass Index (Ratio) 27.39 kg/m2 Arpit Peñalozanoelle weight E&M 202 [lb_av] Shantal Pearce lder blood pressure, diastolic 60 mm[Hg] Marquis Almarazby blood pressure, systolic 120 mm[Hg] Antelmo Almarazby pulse rate 68 /min Jackeline Almarazby oxygen saturation, oximetry 99 % Jackeline Almarazby respiratory rate E&M 16 /min Jackeline Almarazby Body Mass Index (Ratio) 27.01 kg/m2 Matias Almarazby weight E&M 199.2 [lb_av] Jackeline Almarazby height in centimeters E&M 182.88 cm Marquis Cantu blood pressure, diastolic 70 mm[Hg] Sridhar Lopezdney blood pressure, systolic 120 mm[Hg] Keyona Lopezdney pulse rate 63 /min Sridhargrace Sunitha oxygen saturation, oximetry 94 % Dian Sunitha respiratory rate E&M 14 /min Dian Lopezdney Body Mass Index (Ratio) 28.75 kg/m2 Cooper Helton weight E&M 212 [lb_av] rSidharTristengrace Helton blood pressure, lock[place] tolic, second observation 62 mm[Hg] Elaina Freire blood pressure, syst olic, second observation 112 mm[Hg] Elaina Freire blood pressure, diastolic 62 mm[Hg] Na martha Freire blood pressure, systolic 112 mm[Hg] Zamazm Freire pulse rate 96 /min Elaina Freire oxygen saturation, oximetry 98 % Elaina Freire respiratory rate E&M 17 /min Elaina Freire Body Mass Index (Ratio) 28.34 kg/m2 Cinthia Freire weight E&M 209 [lb_av] Elaina Freire blood pressure, diastolic 68 mm[Hg] Deirdre Mora blood pressure, systolic 123 mm[Hg] Edita Mora pulse rate 64 /min Cristal maldonado oxygen saturation, oximetry 93 % Cristal Mora respiratory rate E&M 16 /min Parker Mora Body Mass Index (Ratio) 27.96 kg/m2 Renata Mora weight E&M 206.2 [lb_av] Cristal gomezon Body Mass Index (Ratio) 27.12 kg/m2 Munson i Gruenenfelder blood pressure, diastolic 62 mm[Hg] Ke rri Gruenenfelder blood pressure, systolic 102 mm[Hg] Ker ri Gruenenfelder pulse rate 62 /min Shantal Gruenenfe lder oxygen saturation, oximetry 98 % Shantal Grpetarnenfelder respiratory rate E&M 16 /min Shantal G jakeenenfelder weight E&M 200 [lb_av] Shantal Gruenenfe lder Body Mass Index (Ratio) 27.80 kg/m2 Munson i Gruenenfelder blood pressure, diastolic 60 mm[Hg] Ke rri Gruenenfelder blood pressure, systolic 102 mm[Hg] Ker ri Gruenenfelder pulse rate 64 /min Shantal Gruenenfe lder oxygen saturation, oximetry 97 % Shantal Gruenenfelder respiratory rate E&M 16 /min Shantal Casanova clark weight E&M 205 [lb_av] Shantal Jhethan [facility] Body Mass Index (Ratio) 27.53 kg/m2 Anea rowan Krish blood pressure, diastolic 72 mm[Hg] An eatris Krish blood pressure, systolic 130 mm[Hg] Ane atris Brown pulse rate 69 /min Aneatris [facility] oxygen saturation, oximetry 96 % Aneatris Brown respiratory rate E&M 18 /min Aneatri s [facility] weight E&M 203 [lb_av] Aneatris [facility] Body Mass Index (Ratio) 27.12 kg/m2 Arpit pinto Yahsira blood pressure, diastolic 64 mm[Hg] Enoch meneses Yashira blood pressure, systolic 122 mm[Hg] Edmond vizcarra Yashira pulse rate 56 /min Shantal Portia [facility] [place] oxygen saturation, oximetry 98 % Shantal Yashira respiratory rate E&M 16 /min Shantal Casanova clark weight E&M 200 [lb_av] Shantal Portia [facility] [place] Body Mass Index (Ratio) 27.90 kg/m2 Marilee ssa [place] blood pressure, diastolic 70 mm[Hg] Ma jorge alberto [place] blood pressure, systolic 136 mm[Hg] Alyse carlos [place] pulse rate 57 /min Yael [place] oxygen saturation, oximetry 97 % Yael [place] respiratory rate E&M 14 /min Yael [place] weight E&M 205 [lb_av] Yael [place] Body Mass Index (Ratio) 28.04 kg/m2 Anea rowan [facility] blood pressure, diastolic 76 mm[Hg] An eatris Brown blood pressure, systolic 140 mm[Hg] Ane atris [facility] pulse rate 57 /min Aneatris [facility] oxygen saturation, oximetry 98 % Aneatris [facility] respiratory rate E&M 18 /min Aneatri s [facility] weight E&M 206 [lb_av] Aneatris [facility] height E&M 72 [in_i] Aneatris Krish ALLERGIES No Known Drug Allergies RESULTS Date Observation Value Provider Reference Range Interpretation Location thyroid stimulating hormone, serum 2.06 u[IU]/mL [facility] 0.40-4.50 Normal thyroxine, serum, free 1.4 ng/dL [facility] 0.8-1.8 Normal triiodothyronine (T3), serum 97 ng/dL [facility] 76-181 Normal basophils as percent of blood leukocytes 0.6 % [facility] Normal eosinophils as percent of blood leukocytes 2.7 % [facility] Normal monocyte count, blood 8.0 % [facility] Normal lymphocyte count, blood 15.0 % [facility] Normal neutrophils as percent of blood leukocytes 73.7 % [facility] Normal basophils, absolute, manual 38 cells/mcL [facility] 0-200 Normal eosinophils, absolute, manual 173 cells/mcL [facility] 15-500 Normal monocytes, absolute, manual 512 cells/mcL [facility] 200-950 Normal lymphocytes, absolute 960 CELLS/UL [facility] 850-3900 Normal Absolute Neutrophil count 4717 cells/mcL [facility] 2740-7606 Normal mean platelet volume 11.3 fL [facility] 7.5-12.5 Normal platelet count 166 THOUSAND/UL [facility] 140-400 Normal red blood cell distribution width 11.9 % [facility] 11.0-15.0 Normal mean corpuscular hemoglobin concentration, RBC 31.8 G/DL [facility] 32.0-36.0 Low mean corpuscular hemoglobin, RBC 33.9 pg [facility] 27.0-33.0 High mean corpuscular volume, RBC 106.7 fL [facility] 80.0-100.0 High hematocrit, blood 40.0 % [facility] 38.5-50.0 Normal hemoglobin electrophoresis, blood 12.7 [facility] 13.2-17.1 Low erythrocyte (RBC) count 3.75 MILLION/UL [facility] 4.20-5.80 Low leukocyte (white blood cells) count, blood 6.4 THOUSAND/UL [facility] 3.8-10.8 Normal calcium, serum 9.2 mg/dL [facility] 8.6-10.3 Normal carbon dioxide, venous blood 28 mmol/L [facility] 20-32 Normal chloride, serum 103 mmol/L [facility] 98-110 Normal potassium, serum 4.4 mmol/L [facility] 3.5-5.3 Normal sodium, serum 138 mmol/L [facility] 135-146 Normal urea nitrogen/creatinin e ratio, serum SEE NOTE: (calc) [facility] 6-22 creatinine, serum 1.04 mg/dL [facility] 0.70-1.22 Normal urea nitrogen, blood 14 mg/dL [facility] 7-25 Normal blood glucose, random 93 mg/dL [facility] 65-99 Normal magnesium, serum 2.0 mg/dL [facility] 1.5-2.5 Normal NT-pro BNP 343 [facility] <450 Normal 04/08 Estimated Glomerular Filtration Rate (calc) 82 mL/min/{1.73 _m2} [facility] >=60 Normal C, [address] [address] 04/08 NT-pro BNP 987 [facility] <=450 High C, [place] [address] 04/08 aspartate aminotransferase (SGOT), serum 33 1/L [facility] 10-50 Normal C, [place] [address] 04/08 alanine aminotransferase (SGPT), serum 41 1/L [facility] 7-55 Normal C, [place] [address] 04/08 Alkaline phosphatase 107 [facility] 40-130 Normal C, [place] [address] 04/08 albumin, serum 4.1 g/dL [facility] 3.5-5.0 Normal C, [place] [address] 04/08 protein, total, serum 6.7 g/dL [facility] 6.5-8.5 Normal C, [place] [address] 04/08 bilirubin, serum, total 1.0 mg/dL [facility] 0.1-1.2 Normal C, [place] [address] 04/08 calcium, serum 9.2 mg/dL [facility] 8.5-10.3 Normal C, [place] [address] 04/08 blood glucose, random 129 mg/dL [facility] 70-199 Normal C, [place] [address] 04/08 creatine, serum 0.92 mg/dL [facility] 0.80-1.30 Normal C, [place] [address] 04/08 urea nitrogen, blood 12 mg/dL [facility] 6-25 Normal C, [place] [address] 04/08 anion gap, serum 10 mmol/L [facility] 2-15 Normal C, [place] [address] 04/08 carbon dioxide, venous blood 26 mmol/L [facility] 22-32 Normal C, [address] [address] 04/08 chloride, serum 105 mmol/L [facility] 97-110 Normal C, [place] [address] 04/08 potassium, serum 4.4 MMOL/L [facility] 3.3-4.9 Normal C, [place] [address] 04/08 sodium, serum 141 mmol/L [facility] 135-145 Normal C, [place] [address] 04/08 activated partial thromboplastin time (aPTT) 40 s [facility] 28-38 High C, [place] [address] 04/08 international normalized ratio (INR) 1.32 [facility] 0.90-1.20 High C, [place] [address] 04/08 prothrombin time (patient) 14.3 s [facility] 9.7-13.0 High C, [place] [address] 04/08 Absolute Basophils 0.1 K/CUMM [facility] 0.0-0.1 Normal C, [place] [address] 04/08 Absolute Monocytes 0.5 K/CUMM [facility] 0.2-0.8 Normal C, [place] [address] 04/08 Absolute Lymphocytes 0.8 K/CUMM [facility] 0.8-3.3 Normal C, [place] [address] 04/08 Absolute Neutrophils 3.9 K/CUMM [facility] 1.5-6.5 Normal C, [place] [address] 04/08 nucleated red blood cells as percent of blood leukocytes 0.00 K/CUMM [facility] 0.00-0.01 Normal 04/08 red blood cell distribution width, size density 54.2 fL [facility] 35.7-48.1 High 04/08 mean corpuscular hemoglobin concentration, RBC 31.4 G/DL [facility] 32.3-35.7 Low 04/08 mean corpuscular hemoglobin, RBC 33.9 pg [facility] 27.1-33.3 High 04/08 mean corpuscular volume, RBC 108.0 fL [facility] 81.3-96.4 High 04/08 erythrocyte count, whole blood 3.51 M/CUMM [facility] 4.30-5.80 Low 04/08 mean platelet volume 10.5 fL [facility] 9.1-12.3 Normal 04/08 platelet count 177 10*3/uL [facility] 150-400 Normal 04/08 hematocrit, blood 37.9 % [facility] 38.9-50.3 Low 04/08 hemoglobin, blood 11.9 g/dL [facility] 13.0-17.5 Low 02/24 prothrombin time (patient) 13.0 s [facility] 9.1-12.0 High 02/24 international normalized ratio (INR) 1.2 [facility] 0.9-1.2 02/24 lipoprotein, beta, serum, point, quantitative, calculated 35 mg/dL [facility] 0-99 02/24 HDL cholesterol, serum 44 mg/dL [facility] >39 02/24 triglyceride, serum, random 78 mg/dL [facility] 0-149 02/24 cholesterol, serum 95 mg/dL [facility] 100-199 Low 02/24 calcium, serum 9.2 mg/dL [facility] 8.6-10.2 02/24 carbon dioxide, venous blood 26 mmol/L [facility] 20-29 02/24 chloride, serum 102 mmol/L [facility] 96-106 02/24 potassium, serum 4.4 mmol/L [facility] 3.5-5.2 02/24 sodium, serum 138 mmol/L [facility] 699-117 1896/0 6/04 urea nitrogen/creatinin e ratio, serum 13 [facility] 10-24 02/24 creatinine, serum 1.05 mg/dL [facility] 0.76-1.27 02/24 urea nitrogen, blood 14 mg/dL [facility] 8-27 02/24 blood glucose, random 105 mg/dL [facility] 70-99 High 02/24 basophil count, absolute 0.0 x10E3/uL [facility] 0.0-0.2 02/24 Eosinophil Absolute Count 0.2 X10E3/UL [facility] 0.0-0.4 02/24 monocyte count, blood, automated 0.5 X10E3/UL [facility] 0.1-0.9 02/24 lymphocyte count, blood, automated 1.1 X10E3/UL [facility] 0.7-3.1 02/24 Absolute Neutrophils 3.8 X10E3/UL [facility] 1.4-7.0 02/24 basophils as percent of blood leukocytes 1 % [facility] Not Estab. 02/24 eosinophils as percent of blood leukocytes 4 % [facility] Not Estab. 02/24 monocytes as percent of blood leukocytes 9 % [facility] Not Estab. 02/24 lymphocytes as percent of blood leukocytes 19 % [facility] Not Estab. 02/24 neutrophils as percent of blood leukocytes 67 % [facility] Not Estab. 02/24 platelet count 173 X10E3/UL [facility] 670-053 0512/0 6/04 red blood cell distribution width 11.9 % [facility] 11.6-15.4 02/24 mean corpuscular hemoglobin concentration, RBC 33.0 G/DL [facility] 31.5-35.7 02/24 mean corpuscular hemoglobin, RBC 33.8 pg [facility] 26.6-33.0 High 02/24 mean corpuscular volume, RBC 102 fL [facility] 79-97 High 02/24 hematocrit, blood 38.2 % [facility] 37.5-51.0 02/24 hemoglobin, blood 12.6 g/dL [facility] 13.0-17.7 Low 02/24 erythrocyte (RBC) count 3.73 X10E6/UL [facility] 4.14-5.80 Low 02/24 leukocyte count, blood 5.6 X10E3/UL [facility] 3.4-10.8 01/22 calcium, serum 9.6 mg/dL [facility] 8.6-10.3 Normal 01/22 carbon dioxide, venous blood 29 mmol/L [facility] 20-32 Normal 01/22 chloride, serum 102 mmol/L [facility] 98-110 Normal 01/22 potassium, serum 4.6 mmol/L [facility] 3.5-5.3 Normal 01/22 sodium, serum 137 mmol/L [facility] 135-146 Normal 01/22 urea nitrogen/creatinin e ratio, serum SEE NOTE: (calc) [facility] -01/22 creatinine, serum 1.07 mg/dL [facility] 0.70-1.22 Normal 01/22 urea nitrogen, blood 15 mg/dL [facility] 7-25 Normal 01/22 blood glucose, random 104 mg/dL [facility] 65-139 Normal 01/22 NT-pro BNP 915 [facility] <450 High 04/18 C-reactive protein, serum 0.07 mg/dL [facility] Units converted. See lab report for original value. Normal 04/18 calcium, serum 9.1 mg/dL [facility] 8.6-10.3 Normal 04/18 carbon dioxide, venous blood 30 mmol/L [facility] 20-32 Normal 04/18 chloride, serum 104 mmol/L [facility] 98-110 Normal 04/18 potassium, serum 4.3 mmol/L [facility] 3.5-5.3 Normal 04/18 sodium, serum 138 mmol/L [facility] 135-146 Normal 04/18 urea nitrogen/creatinin e ratio, serum NOT APPLICABLE (calc) [facility] -04/18 creatinine, serum 1.06 mg/dL [facility] 0.70-1.22 Normal 04/18 urea nitrogen, blood 18 mg/dL [facility] 7-25 Normal 04/18 blood glucose, random 112 mg/dL [facility] 65-99 High 04/18 cholesterol, non-HDL, total 47 MG/DL (CALC) [facility] <130 Normal 04/18 cholesterol/HDL ratio, serum, percent 2.0 (calc) [facility] <5.0 Normal 04/18 LDL cholesterol, serum 34 MG/DL (CALC) [facility] Normal 04/18 triglyceride, serum, fasting 58 mg/dL [facility] <150 Normal 04/18 HDL cholesterol, serum 46 mg/dL [facility] > OR = 40 Normal 04/18 cholesterol, serum 93 mg/dL [facility] <200 Normal 12/06 coagulation managed by Cecilia Merlos RN 12/06 international normalized ratio (INR) 1.6 Cecilia Merlos RN Normal 11/13 coagulation managed by Julia Hickman 11/13 international normalized ratio (INR) 2.3 Julia Hickman Normal 10/12 coagulation managed by Sukh Agudelo RN 10/12 international normalized ratio (INR) 2.5 Sukh Agudelo RN Normal 11/08 coagulation managed by Sukh Agudelo RN 11/08 international normalized ratio (INR) 2.5 Sukh Agudelo RN Normal 10/25 coagulation managed by Cecilia Merlos RN 10/25 international normalized ratio (INR) 2.6 Cecilia Merlos RN Normal coagulation managed by Cecilia Merlos RN Cecilia Merlos RN international normalized ratio (INR) 2.1 Cecilia Merlos RN Normal 06/06 coagulation managed by Cecilia Merlos RN Cecilia Merlos RN 06/06 international normalized ratio (INR) 2.5 Cecilia Merlos RN Normal 05/23 coagulation managed by Ninfa Rutherford RN 05/23 international normalized ratio (INR) 2.2 Ninfa Rutherford RN Normal 05/11 alanine aminotransferase (SGPT), serum 26 1/L [facility] 9-46 Normal 05/11 aspartate aminotransferase (SGOT), serum 26 1/L [facility] 10-35 Normal 05/11 alkaline phosphatase, serum 40 1/L [facility] 35-144 Normal 05/11 bilirubin, serum, total 0.9 mg/dL [facility] 0.2-1.2 Normal 05/11 albumin/globulin ratio, serum 1.9 (calc) [facility] 1.0-2.5 Normal 05/11 globulins, serum, total 2.3 G/DL (CALC) [facility] 1.9-3.7 Normal 05/11 albumin, serum 4.3 g/dL [facility] 3.6-5.1 Normal 05/11 protein, total, serum 6.6 g/dL [facility] 6.1-8.1 Normal 05/11 calcium, serum 9.3 mg/dL [facility] 8.6-10.3 Normal 05/11 carbon dioxide, venous blood 28 mmol/L [facility] 20-32 Normal 05/11 chloride, serum 105 mmol/L [facility] 98-110 Normal 05/11 potassium, serum 4.6 mmol/L [facility] 3.5-5.3 Normal 05/11 sodium, serum 142 mmol/L [facility] 135-146 Normal 05/11 urea nitrogen/creatinin e ratio, serum NOT APPLICABLE (calc) [facility] 6-22 05/11 creatinine, serum 0.87 mg/dL [facility] 0.70-1.22 Normal 05/11 urea nitrogen, blood 18 mg/dL [facility] 7-25 Normal 05/11 blood glucose, random 104 mg/dL [facility] 65-99 High 05/11 magnesium, serum 2.2 mg/dL [facility] 1.5-2.5 Normal 05/09 coagulation managed by Cecilia Merlos RN 05/09 international normalized ratio (INR) 2.2 Cecilia Merlos RN Normal 04/25 coagulation managed by Bay Ramos RN 04/25 international normalized ratio (INR) 3.0 Bay Ramos RN Normal 02/27 coagulation managed by Julia Hickman 02/27 international normalized ratio (INR) 1.7 Julia Hickman Normal 02/09 basophils as percent of blood leukocytes 0.7 % [facility] Normal 02/09 eosinophils as percent of blood leukocytes 1.7 % [facility] Normal 02/09 monocyte count, blood 9.5 % [facility] Normal 02/09 lymphocyte count, blood 17.3 % [facility] Normal 02/09 neutrophils as percent of blood leukocytes 70.8 % [facility] Normal 02/09 basophils, absolute, manual 57 cells/mcL [facility] 0-200 Normal 02/09 eosinophils, absolute, manual 138 cells/mcL [facility] 15-500 Normal 02/09 monocytes, absolute, manual 770 cells/mcL [facility] 200-950 Normal 02/09 lymphocytes, absolute 1401 CELLS/UL [facility] 850-3900 Normal 02/09 Absolute Neutrophil count 5735 cells/mcL [facility] 3678-4452 Normal 02/09 mean platelet volume 11.3 fL [facility] 7.5-12.5 Normal 02/09 platelet count 218 THOUSAND/UL [facility] 140-400 Normal 02/09 red blood cell distribution width 12.1 % [facility] 11.0-15.0 Normal 02/09 mean corpuscular hemoglobin concentration, RBC 32.1 G/DL [facility] 32.0-36.0 Normal 02/09 mean corpuscular hemoglobin, RBC 30.6 pg [facility] 27.0-33.0 Normal 02/09 mean corpuscular volume, RBC 95.5 fL [facility] 80.0-100.0 Normal 02/09 hematocrit, blood 39.9 % [facility] 38.5-50.0 Normal 02/09 hemoglobin electrophoresis, blood 12.8 [facility] 13.2-17.1 Low 02/09 erythrocyte (RBC) count 4.18 MILLION/UL [facility] 4.20-5.80 Low 02/09 leukocyte (white blood cells) count, blood 8.1 THOUSAND/UL [facility] 3.8-10.8 Normal 02/09 PTT patient 39 s [facility] 23-32 High 02/07 coagulation managed by Sukh Agudelo RN 02/07 international normalized ratio (INR) 2.7 Sukh Agudelo RN Normal 01/31 coagulation managed by Sukh Agudelo RN Sukh Sotos RN 01/31 international normalized ratio (INR) 3.0 Sukh Agudelo RN Normal 01/17 coagulation managed by Sukh Agudelo RN Sukh Sotos RN 01/17 international normalized ratio (INR) 2.7 Sukh Agudelo RN Normal 01/03 coagulation managed by Sukh Sotos RN Sukh Sotos RN 01/03 international normalized ratio (INR) 2.9 Sukh Agudelo RN Normal 12/20 coagulation managed by Sukh Agudelo RN Sukh Sotos RN 12/20 international normalized ratio (INR) 2.5 Sukh Sotos RN Normal 12/06 coagulation managed by Sukh Agudelo RN Sukh Agudelo RN 12/06 international normalized ratio (INR) 2.6 Sukh Agudelo RN Normal 11/08 coagulation managed by Sukh Agudelo RN Sukh Sotos RN 11/08 international normalized ratio (INR) 3.9 Sukh Agudelo RN Normal coagulation managed by Cecilia Merlos RN international normalized ratio (INR) 2.5 Cecilia eMrlos RN Normal 11/07 coagulation managed by Sukh Agudelo RN 11/07 international normalized ratio (INR) 2.0 Sukh Agudelo RN Normal 10/24 coagulation managed by Sukh Sotos RN 10/24 international normalized ratio (INR) 2.2 Sukh Agudelo RN Normal 10/10 coagulation managed by Sukh Agudelo RN Sukh Sotos RN 10/10 international normalized ratio (INR) 2.0 Sukh Agudelo RN Normal 09/25 coagulation managed by Julia Hickman RN Juliaramona Hickman 09/25 international normalized ratio (INR) 2.3 Julia Hickman Normal coagulation managed by Julia Hickman RN Juliaramona Hickman international normalized ratio (INR) 1.9 Julia Hickman Normal coagulation managed by Sukh Agudelo RN Sukh Agudelo RN international normalized ratio (INR) 1.8 Sukh Agudelo RN Normal coagulation managed by Sukh Sotos RN Sukh Sotos RN international normalized ratio (INR) 2.2 Sukh Agudelo RN Normal 0 coagulation managed by Sukh Agudelo RN Sukh Sotos RN 0 international normalized ratio (INR) 2.3 Sukh Agudelo RN Normal 0 coagulation managed by Sukh Sotos RN Sukh Sotos RN 06/15 coagulation managed by Sukh Agudelo RN Sukh Sotos RN 06/15 international normalized ratio (INR) 1.7 Sukh Sotos RN Normal 05/23 international normalized ratio (INR) 2.0 Sukh Agudelo RN Normal 05/09 international normalized ratio (INR) 2.3 Gilda jesus alberto Normal 04/11 coagulation managed by Sukh Sotos RN Sukh Sotos RN 04/11 international normalized ratio (INR) 2.2 Sukh Agudelo RN Normal 03/28 coagulation managed by Sukh Agudelo RN Sukh Sotos RN 03/28 international normalized ratio (INR) 2.1 Sukh Sotos RN Normal 03/21 coagulation managed by Sukh Sotos RN Sukh Sotos RN 03/21 international normalized ratio (INR) 1.6 Sukh Agudelo RN Normal 02/24 magnesium, serum 2.4 mg/dL [facility] 1.6-2.3 High 02/24 lipoprotein, beta, serum, point, quantitative, calculated 45 mg/dL [facility] 0-99 02/24 HDL cholesterol, serum 41 mg/dL [facility] >39 02/24 triglyceride, serum, random 110 mg/dL [facility] 0-149 02/24 cholesterol, serum 106 mg/dL [facility] 871-481 8180/0 6/04 alanine aminotransferase (SGPT), serum 24 1/L [facility] 0-44 02/24 aspartate aminotransferase (SGOT), serum 32 1/L [facility] 0-40 02/24 alkaline phosphatase, serum 52 1/L [facility] 48-121 02/24 bilirubin, serum, total 0.7 mg/dL [facility] 0.0-1.2 02/24 albumin/globulin ratio, serum 1.8 [facility] 1.2-2.2 02/24 globulin, serum 2.5 [facility] 1.5-4.5 02/24 albumin, serum 4.5 g/dL [facility] 3.6-4.6 02/24 protein, total, serum 7.0 g/dL [facility] 6.0-8.5 02/24 calcium, serum 9.3 mg/dL [facility] 8.6-10.2 02/24 carbon dioxide, venous blood 22 mmol/L [facility] 20-29 02/24 chloride, serum 99 mmol/L [facility] 96-106 02/24 sodium, serum 139 mmol/L [facility] 290-000 6183/0 6/04 urea nitrogen/creatinin e ratio, serum 14 [facility] 10-24 02/24 eGFR if 80 mL/min/{1.73 _m2} [facility] >59 02/24 eGFR if not 69 mL/min/{1.73 _m2} [facility] >59 02/24 creatinine, serum 1.01 mg/dL [facility] 0.76-1.27 02/24 urea nitrogen, blood 14 mg/dL [facility] 8-27 02/24 activated partial thromboplastin time (aPTT) 38 s [facility] 24-33 High 02/24 prothrombin time (patient) 21.6 s [facility] 9.1-12.0 High 02/24 international normalized ratio (INR) 2.1 [facility] 0.9-1.2 High 02/24 platelet count 213 X10E3/UL [facility] 033-279 9477/0 6/04 red blood cell distribution width 12.4 % [facility] 11.6-15.4 02/24 mean corpuscular hemoglobin concentration, RBC 32.3 G/DL [facility] 31.5-35.7 02/24 mean corpuscular hemoglobin, RBC 30.3 pg [facility] 26.6-33.0 02/24 mean corpuscular volume, RBC 94 fL [facility] 79-97 02/24 hematocrit, blood 40.6 % [facility] 37.5-51.0 02/24 hemoglobin, blood 13.1 g/dL [facility] 13.0-17.7 02/24 erythrocyte (RBC) count 4.33 X10E6/UL [facility] 4.14-5.80 02/24 leukocyte count, blood 4.5 X10E3/UL [facility] 3.4-10.8 02/21 coagulation managed by Sukh Agudelo RN 02/21 international normalized ratio (INR) 2.5 Sukh Agudelo RN Normal 02/14 international normalized ratio (INR) 2.4 Shantal Ac Normal 02/06 coagulation managed by Sukh Agudelo RN 02/06 international normalized ratio (INR) 2.8 Sukh Agudelo RN Normal 01/23 international normalized ratio (INR) 2.2 Sukh Agudelo RN Normal 01/23 coagulation managed by Sukh Agudelo RN 01/16 coagulation managed by Sukh Agudelo RN 01/16 international normalized ratio (INR) 3.6 Sukh Agudelo RN Normal 01/09 international normalized ratio (INR) 3.3 Renata Johnson RN Normal 01/02 coagulation managed by Sukh Sotokaroline BALLARD Sukh Agudelo RN 01/02 international normalized ratio (INR) 1.5 Sukh Agudelo RN Normal 11/23 international normalized ratio (INR) 2.5 Renata Johnson RN Normal 11/09 international normalized ratio (INR) 2.4 Renata Johnson RN Normal 10/26 coagulation managed by Sukh Agudelo NELLIE Sukh Agudelo RN 10/26 international normalized ratio (INR) 2.8 Sukh Agudelo RN Normal 10/12 international normalized ratio (INR) 2.3 Renata Johnson RN Normal 09/29 international normalized ratio (INR) 2.2 Renata Johnson RN Normal 11/13 coagulation managed by Sukh Agudelo NELLIE Sukh Agudelo RN 11/13 international normalized ratio (INR) 2.7 Sukh Agudelo RN Normal 10/30 international normalized ratio (INR) 2.4 Renata Johnson RN Normal 10/15 coagulation managed by Sukh Sotokaroline BALLARD Sukh Agudelo RN 10/15 international normalized ratio (INR) 2.3 Sukh Agudelo RN Normal 10/01 coagulation managed by Julia Hickman 10/01 international normalized ratio (INR) 2.2 Julia Hickman Normal 09/24 coagulation managed by Sukh Sotokaroline BALLARD Sukh Agudelo RN 09/24 international normalized ratio (INR) 1.2 Sukh Agudelo RN Normal prothrombin time (patient) 23.8 s [facility] 9.1-12.0 High international normalized ratio (INR) 2.3 [facility] 0.9-1.2 High lipoprotein, beta, serum, point, quantitative, calculated 41 mg/dL [facility] 0-99 HDL cholesterol, serum 42 mg/dL [facility] >39 triglyceride, serum, random 80 mg/dL [facility] 0-149 cholesterol, serum 99 mg/dL [facility] 100-199 Low calcium, serum 9.6 mg/dL [facility] 8.6-10.2 carbon dioxide, venous blood 28 mmol/L [facility] 20-29 chloride, serum 106 mmol/L [facility] 96-106 potassium, serum 5.0 mmol/L [facility] 3.5-5.2 sodium, serum 142 mmol/L [facility] 253-197 4549/1 0/09 urea nitrogen/creatinin e ratio, serum 13 [facility] 10-24 eGFR if 77 mL/min/{1.73 _m2} [facility] >59 eGFR if not 67 mL/min/{1.73 _m2} [facility] >59 creatinine, serum 1.04 mg/dL [facility] 0.76-1.27 urea nitrogen, blood 13 mg/dL [facility] 8-27 blood glucose, random 102 mg/dL [facility] 65-99 High basophil count, absolute 0.0 x10E3/uL [facility] 0.0-0.2 Eosinophil Absolute Count 0.2 X10E3/UL [facility] 0.0-0.4 monocyte count, blood, automated 0.6 X10E3/UL [facility] 0.1-0.9 lymphocyte count, blood, automated 1.5 X10E3/UL [facility] 0.7-3.1 Absolute Neutrophils 3.7 X10E3/UL [facility] 1.4-7.0 basophils as percent of blood leukocytes 1 % [facility] Not Estab. eosinophils as percent of blood leukocytes 3 % [facility] Not Estab. monocytes as percent of blood leukocytes 9 % [facility] Not Estab. lymphocytes as percent of blood leukocytes 25 % [facility] Not Estab. neutrophils as percent of blood leukocytes 62 % [facility] Not Estab. platelet count 223 X10E3/UL [facility] 864-252 9946/1 0/09 red blood cell distribution width 12.7 % [facility] 11.6-15.4 mean corpuscular hemoglobin concentration, RBC 32.8 G/DL [facility] 31.5-35.7 mean corpuscular hemoglobin, RBC 31.3 pg [facility] 26.6-33.0 mean corpuscular volume, RBC 96 fL [facility] 79-97 hematocrit, blood 40.6 % [facility] 37.5-51.0 hemoglobin, blood 13.3 g/dL [facility] 13.0-17.7 erythrocyte (RBC) count 4.25 X10E6/UL [facility] 4.14-5.80 leukocyte count, blood 6.0 X10E3/UL [facility] 3.4-10.8 coagulation managed by Julia Hickman RN Julia Vick international normalized ratio (INR) 2.2 Julia Vick Normal 2020/0 06/13 coagulation managed by Julia Hickman RN [place] [address] 06/13 international normalized ratio (INR) 2.5 Julia Vick Normal 0 05/30 coagulation managed by Julia Hickman RN Julia Vick 0 05/30 international normalized ratio (INR) 2.4 Julia Vick Normal 2020/0 05/16 coagulation managed by Julia Hickman RN [place] [address] 05/16 international normalized ratio (INR) 2.4 Julia Vick Normal 2020/0 05/02 coagulation managed by Sukh Agudelo RN 0 05/02 international normalized ratio (INR) 2.4 Sukh Agudelo RN Normal 0 04/19 coagulation managed by Sukh Agduelo RN 0 04/19 international normalized ratio (INR) 2.2 Sukh Agudelo RN Normal 2020/0 04/04 coagulation managed by Sukh Agudelo RN 0 04/04 international normalized ratio (INR) 2.8 Sukh Agudelo RN Normal 0 03/21 coagulation managed by Sukh Agudelo RN Sukh Agudelo RN 2020/0 03/21 international normalized ratio (INR) 2.0 Sukh Agudelo RN Normal 2020/0 03/07 coagulation managed by Julia Bermudezenz NELLIE Dumont Vick 2020/0 03/07 international normalized ratio (INR) 2.6 Julia Hickman Normal 2020/0 02/21 coagulation managed by Sukh Sotos RN Sukh Agudelo RN 2020/0 02/21 international normalized ratio (INR) 2.3 Sukh Agudelo RN Normal 2020/0 02/07 coagulation managed by Sukh Sotos RN Sukh Sotos RN 2020/0 02/07 international normalized ratio (INR) 2.3 Sukh Agudelo RN Normal 2020/0 01/24 coagulation managed [place] [address] 01/24 international normalized ratio (INR) 2.5 Sukh Agudelo RN Normal [address] 01/17 international normalized ratio (INR) 2.5 Renata Johnson RN Normal [address] 01/10 coagulation managed by Sukh Agudelo RN Sukh Sotos RN 0 01/10 international normalized ratio (INR) 2.0 Sukh Agudelo RN Normal 2020/0 01/04 coagulation managed by Sukh Agudelo RN Sukh Sotos RN 2020/0 01/04 international normalized ratio (INR) 1.6 Sukh Agudelo RN Normal 2019/0 12/17 free thyroxine index 2.5 [facility] 1.2-4.9 12/17 triiodothyronine resin uptake 27 % [facility] 24-39 12/17 thyroxine, serum, total 9.1 ug/dL [facility] 4.5-12.0 12/17 thyroid stimulating hormone, serum 1.630 u[IU]/mL [facility] 0.450-4.50 0 12/17 lipoprotein, beta, serum, point, quantitative, calculated 74 mg/dL [facility] 0-99 12/17 very low density lipoproteins 23 mg/dL [facility] 5-40 12/17 HDL cholesterol, serum 49 mg/dL [facility] >39 12/17 triglyceride, serum, random 115 mg/dL [facility] 0-149 12/17 cholesterol, serum 146 mg/dL [facility] 460-284 4583/0 3/27 calcium, serum 9.7 mg/dL [facility] 8.6-10.2 12/17 carbon dioxide, venous blood 26 mmol/L [facility] 20-29 12/17 chloride, serum 102 mmol/L [facility] 96-106 12/17 potassium, serum 5.1 mmol/L [facility] 3.5-5.2 12/17 sodium, serum 142 mmol/L [facility] 036-242 2479/0 3/27 urea nitrogen/creatinin e ratio, serum 14 [facility] 10-24 12/17 eGFR if 80 mL/min/{1.73 _m2} [facility] >59 12/17 eGFR if not 69 mL/min/{1.73 _m2} [facility] >59 12/17 creatinine, serum 1.01 mg/dL [facility] 0.76-1.27 12/17 urea nitrogen, blood 14 mg/dL [facility] 8-27 12/17 blood glucose, random 95 mg/dL [facility] 65-99 12/17 basophil count, absolute 0.1 x10E3/uL [facility] 0.0-0.2 12/17 Eosinophil Absolute Count 0.2 X10E3/UL [facility] 0.0-0.4 12/17 monocyte count, blood, automated 0.7 X10E3/UL [facility] 0.1-0.9 12/17 lymphocyte count, blood, automated 2.0 X10E3/UL [facility] 0.7-3.1 12/17 Absolute Neutrophils 4.7 X10E3/UL [facility] 1.4-7.0 12/17 basophils as percent of blood leukocytes 1 % [facility] Not Estab. 12/17 eosinophils as percent of blood leukocytes 3 % [facility] Not Estab. 12/17 monocytes as percent of blood leukocytes 9 % [facility] Not Estab. 12/17 lymphocytes as percent of blood leukocytes 26 % [facility] Not Estab. 12/17 neutrophils as percent of blood leukocytes 61 % [facility] Not Estab. 12/17 platelet count 233 X10E3/UL [facility] 970-133 4835/0 3/27 red blood cell distribution width 12.6 % [facility] 11.6-15.4 12/17 mean corpuscular hemoglobin concentration, RBC 32.3 G/DL [facility] 31.5-35.7 12/17 mean corpuscular hemoglobin, RBC 31.0 pg [facility] 26.6-33.0 12/17 mean corpuscular volume, RBC 96 fL [facility] 79-97 12/17 hematocrit, blood 43.4 % [facility] 37.5-51.0 12/17 hemoglobin, blood 14.0 g/dL [facility] 13.0-17.7 12/17 erythrocyte (RBC) count 4.52 X10E6/UL [facility] 4.14-5.80 12/17 leukocyte count, blood 7.6 X10E3/UL [facility] 3.4-10.8 12/06 coagulation managed by Sukh Agudelo RN 12/06 international normalized ratio (INR) 2.4 Sukh Agudelo RN Normal 11/22 international normalized ratio (INR) 2.1 Sukh Agudelo RN Normal 11/22 coagulation managed by Sukh Sotos RN 11/09 coagulation managed by Sukh Sotos RN 10/28 coagulation managed by Sukh Sotos RN Sukh Sotos RN 10/28 international normalized ratio (INR) 2.4 Sukh Sotos RN Normal 09/28 coagulation managed by Sukh Sotos RN 09/28 international normalized ratio (INR) 2.5 Sukh Agudelo RN Normal 11/15 coagulation managed by Sukh Sotos RN 11/15 international normalized ratio (INR) 2.0 Sukh Agudelo RN Normal 11/08 coagulation managed by Sukh Sotos RN 11/08 international normalized ratio (INR) 1.8 Sukh Agudelo RN Normal 11/01 coagulation managed by Sukh Sotos RN 11/01 international normalized ratio (INR) 1.7 Sukh Agudelo RN Normal 10/25 international normalized ratio (INR) 1.9 Sukh Agudelo RN Normal 10/11 coagulation managed by Sukh Sotokaroline BALLARD Sukh Agudelo RN 10/11 international normalized ratio (INR) 1.6 Bette Atkinson Normal 10/11 prothrombin time (patient) 19.5 s Bette Atkinson prothrombin time (patient) 24.3 s Bette Atkinson international normalized ratio (INR) 2.0 Bette Atkinson Normal international normalized ratio (INR) 1.7 Cristal Mora Normal prothrombin time (patient) 20.1 s Cristal Mora 05/26 coagulation managed by Jena Betancourt 05/26 international normalized ratio (INR) 2.2 Jena Betancourt Normal 04/28 coagulation managed by Sukh Agudelo RN Sukh Sotos RN 04/28 international normalized ratio (INR) 2.1 Sukh Sotokaroline BALLARD Normal 04/28 prothrombin time (patient) 25.6 s Sukh Agudelo RN 03/31 coagulation managed by Sukh Sotos RN Sukh Sotos RN 03/31 international normalized ratio (INR) 2.3 Sukh Agudelo NELLIE Normal 03/31 prothrombin time (patient) 27.8 s Sukh Agudelo RN 02/24 coagulation managed by Sukh Sotokaroline BALLARD Sukh Sotos RN 02/24 international normalized ratio (INR) 1.9 Bette Atkinson Normal 02/24 prothrombin time (patient) 22.7 s Bette Atkinson 01/27 coagulation managed by Sukh Sotokaroline ABLLARD Sukh Agudelo RN 01/27 international normalized ratio (INR) 2.1 Bette Atkinson Normal 01/27 prothrombin time (patient) 25.3 s Bette Atkinson 12/22 coagulation managed by Sukh Agudelo RN Sukh Sotos RN 12/22 international normalized ratio (INR) 2.0 Sukh Agudelo NELLIE Normal 12/22 prothrombin time (patient) 24.3 s Sukh Sotos RN 12/01 coagulation managed by Jena Betancourt 12/01 international normalized ratio (INR) 2.6 Bette Atkinson Normal 12/01 prothrombin time (patient) 31.5 s Bette Atkinson 11/03 coagulation managed by Sukh Agudelo RN 11/03 international normalized ratio (INR) 2.4 Mercedes Philip Normal 11/03 prothrombin time (patient) 28.6 s Mercedes Philip 10/06 coagulation managed by Sukh Agudelo RN 10/06 international normalized ratio (INR) 3.0 Bette Atkinson Normal 10/06 prothrombin time (patient) 23.0 s Bette Atkinson coagulation managed by Sukh Agudelo RN international normalized ratio (INR) 1.7 Shantal Norrisnenfelder Normal prothrombin time (patient) 20.6 s Shantal Gruenenfelder 10/26 coagulation managed by Jena Betancourt 10/26 international normalized ratio (INR) 2.3 Mercedes Philip Normal 10/26 prothrombin time (patient) 27.2 s Mercedes Philip 09/27 coagulation managed by Skuh Agudelo RN 09/27 international normalized ratio (INR) 2.4 Bette Atkinson Normal 09/27 prothrombin time (patient) 28.8 s Bette Atkinson coagulation managed by Sukh Agudelo RN international normalized ratio (INR) 2.0 Bette Atkinson Normal prothrombin time (patient) 23.5 s Bette Atkinson 06/02 coagulation managed by Emilee Cornelius RN 06/02 international normalized ratio (INR) 2.3 Cortney O'Pillo Normal 06/02 prothrombin time (patient) 27.5 s Cortney O'Pillo 05/06 coagulation managed by Jacey Frank 05/06 international normalized ratio (INR) 2.1 Mercedes Philip Normal 05/06 prothrombin time (patient) 25.1 s Mercedes Philip 04/08 coagulation managed by Jacey Frank 04/08 international normalized ratio (INR) 2.8 Bette Atkinson Normal 04/08 prothrombin time (patient) 33.2 s Bette Atkinson 03/11 coagulation managed by Jacey Frank 03/11 international normalized ratio (INR) 2.0 Mercedes Philip Normal 03/11 prothrombin time (patient) 24.0 s Mercedes Philip 02/11 coagulation managed by Sukh Agudelo RN 02/11 international normalized ratio (INR) 2.4 Mercedes Philip Normal 02/11 prothrombin time (patient) 28.6 s Mercedes Philip 01/14 coagulation managed by Sukh Agudelo RN 01/14 international normalized ratio (INR) 2.4 Cristalceferino Mora Normal 01/14 prothrombin time (patient) 29.2 s Cristalceferino Mora 01/07 coagulation managed by Renata Johnson RN 01/07 international normalized ratio (INR) 3.6 Renata Mello 01/07 prothrombin time (patient) 42.9 s Mercedes Philip 12/29 prothrombin time (patient) 32.0 s Jackeline Pepe 12/29 international normalized ratio (INR) 2.7 Jackeline Pepe Normal 12/22 coagulation managed by Sukh Agudelo RN 12/22 international normalized ratio (INR) 2.3 CristalLizzie Mora Normal 12/22 prothrombin time (patient) 27.6 s Cristal Mora 12/18 magnesium, serum 2.6 mg/dL [facility] 1.6 - 2.4 High 12/18 urea nitrogen/creatinin e ratio, serum 12.0 [facility] - 12/18 Estimated Glomerular Filtration Rate (calc) 77.0 (?) [facility] 59.0 - 12/18 chloride, serum 98.4 mmol/L [facility] 98.0 - 107.0 12/18 potassium, serum 5.0 mmol/L [facility] 3.5 - 5.1 12/18 sodium, serum 137.0 mmol/L [facility] 136.0 - 145.0 12/18 creatinine, serum 1.0 mg/dL [facility] 0.7 - 1.2 12/18 carbon dioxide, venous blood 26.0 mmol/L [facility] 23.0 - 31.0 12/18 calcium, serum 9.0 mg/dL [facility] 8.6 - 10.2 12/18 urea nitrogen, blood 12.0 mg/dL [facility] 8.0 - 23.0 12/18 blood glucose, random 75.0 mg/dL [facility] 74.0 - 99.0 12/18 coagulation managed by Sukh Agudelo RN 12/18 international normalized ratio (INR) 1.8 Shantal Ac Normal 12/18 prothrombin time (patient) 21.6 s Shantal Almanzajose 12/14 international normalized ratio (INR) 2.0 Sridhar'grace Sunitha Normal 12/14 international normalized ratio (INR) 2.0 Je'grace Lopezdney Normal 12/12 coagulation managed by Sukh Agudelo RN 12/12 international normalized ratio (INR) 3.4 Yael Villa Normal 12/12 prothrombin time (patient) 41.4 s Yael Canoann 12/04 coagulation managed by Sukh Agudelo RN 12/04 international normalized ratio (INR) 2.6 Yael Villa Normal 12/04 prothrombin time (patient) 31.1 s Yael Villa 11/28 prothrombin time (patient) 41.9 s [facility] 9.0-11.5 High 11/28 international normalized ratio (INR) 4.0 [facility] High 11/28 mean platelet volume 9.8 fL [facility] 7.5-11.5 Normal 11/28 platelet count 238 THOUSAND/UL [facility] 140-400 Normal 11/28 red blood cell distribution width 13.6 % [facility] 11.0-15.0 Normal 11/28 mean corpuscular hemoglobin concentration, RBC 32.9 G/DL [facility] 32.0-36.0 Normal 11/28 mean corpuscular hemoglobin, RBC 30.9 pg [facility] 27.0-33.0 Normal 11/28 mean corpuscular volume, RBC 93.8 fL [facility] 80.0-100.0 Normal 11/28 hematocrit, blood 42.6 % [facility] 38.5-50.0 Normal 11/28 hemoglobin electrophoresis, blood 14.0 [facility] 13.2-17.1 Normal 11/28 erythrocyte (RBC) count 4.54 MILLION/UL [facility] 4.20-5.80 Normal 11/28 leukocyte (white blood cells) count, blood 7.5 THOUSAND/UL [facility] 3.8-10.8 Normal 11/28 alanine aminotransferase (SGPT), serum 30 1/L [facility] 9-46 Normal 11/28 aspartate aminotransferase (SGOT), serum 25 1/L [facility] 10-35 Normal 11/28 alkaline phosphatase, serum 51 1/L [facility] 40-115 Normal 11/28 bilirubin, serum, total 0.6 mg/dL [facility] 0.2-1.2 Normal 11/28 albumin/globulin ratio, serum 2.0 (calc) [facility] 1.0-2.5 Normal 11/28 globulins, serum, total 2.2 G/DL (CALC) [facility] 1.9-3.7 Normal 11/28 albumin, serum 4.3 g/dL [facility] 3.6-5.1 Normal 11/28 protein, total, serum 6.5 g/dL [facility] 6.1-8.1 Normal 11/28 calcium, serum 9.3 mg/dL [facility] 8.6-10.3 Normal 11/28 carbon dioxide, venous blood 23 mmol/L [facility] 19-30 Normal 11/28 chloride, serum 107 mmol/L [facility] 98-110 Normal 11/28 potassium, serum 4.5 mmol/L [facility] 3.5-5.3 Normal 11/28 sodium, serum 139 mmol/L [facility] 135-146 Normal 11/28 urea nitrogen/creatinin e ratio, serum NOT APPLICABLE (calc) [facility] 6-11/28 Estimated Glomerular Filtration Rate (calc) 82 mL/min/{1.73 _m2} [facility] > OR = 60 Normal 11/28 creatinine, serum 1.02 mg/dL [facility] 0.70-1.18 Normal 11/28 urea nitrogen, blood 14 mg/dL [facility] 7-25 Normal 11/28 blood glucose, random 77 mg/dL [facility] 65-99 Normal HISTORY OF MEDICATION USE Medication Status Instructions Dates Provider Indications Com ments clopidogrel 75 mg tablet active Take 1 tablet by mouth once daily 02/23 Sendy Rushing dofetilide 250 mcg capsule active TAKE 1 CAPSULE BY MOUTH EVERY 12 HOURS [facility] tartrate 50 mg tablet active Take 1 tablet by mouth twice a day Shantal Ac azelastine 137 mcg (0.1 %) spray,non-aerosol active Aleena Kilpatrick cephalexin 500 mg tablet completed Take 1 tablet by mouth twice a day 03/27 - Aleena Kilpatrick hydrocodone-aceta minophen 5-325 mg tablet active Take 1-2 tablet by mouth every eight hours as needed for pain 03/23 Yobanydequan Zhong MD clopidogrel 75 mg tablet completed Take 1 tablet by mouth once a day 03/19 - 02/23 Sendy Rushing dofetilide 250 mcg capsule active TAKE 1 CAPSULE BY MOUTH TWICE DAILY ONCE EVERY 12 HOURS. 03/06 Shantal Ac chlorthalidone 25 mg tablet completed Take 1/2 (one-half) tablet by mouth once daily 03/06 - Aleena Kilpatrick ranolazine 500 mg tablet extended release 12 hr active Take 1 tablet by mouth twice daily 01/27 Kj Miranda MD chlorthalidone 25 mg tablet completed 1/2 tablet by mouth once a day 01/13 - 03/06 Shantal Ac budesonide 0.25 mg/2 mL suspension for nebulization active once in the pm Shantal Ac sertraline 50 mg tablet completed take 1 pill a day - Aleena Kilpatrick zolpidem 5 mg tablet active take 1 pill at bedtime as needed Shantal Ac isosorbide mononitrate 120 mg tablet extended release 24 hr active Take 1 tablet by mouth once daily 12/23 Sendy Whipple Nitrostat 0.4 mg tablet, sublingual active 1 tablet under tongue as needed as directed one tab under tongue may repeat in 10 min 12/11 Sukh Agudelo RN Eliquis 5 mg tablet active Take 1 tablet by mouth twice daily 11/26 Sendy Whipple Phazyme unspecified unspecified active 2 a day Shantal Ac Breztri Aerosphere 160-9-4.8 mcg/actuation HFA aerosol inhaler active as directed Shantal Ac budesonide unspecified unspecified completed - 01/13 Shantal Ac dofetilide 250 mcg capsule completed Take 1 capsule by mouth twice a day TAKE 1 CAPSULE BY MOUTH EVERY 12 HOURS 03/23 - 03/06 Shantal Ac Atrial Fibrillation trazodone 50 mg tablet active TAKE 1 TO 3 TABLETS BY MOUTH EVERY DAY AT BEDTIME NEEDED FOR INSOMNIA Michelle Rowell NP isosorbide mononitrate 120 mg tablet extended release 24 hr completed TAKE 1 TABLET BY MOUTH ONCE DAILY - 03/22 Michelle Rowell NP ferrous sulfate 325 mg (65 mg iron) tablet active twice a day Michelle Rowell NP metoprolol tartrate 50 mg tablet completed Take 1 tablet by mouth twice daily 03/20 - Shantal Ac Eliquis 5 mg tablet completed Take 1 tablet by mouth twice a day TAKE 1 TABLET BY MOUTH TWICE DAILY 02/07 - 11/26 Sendy Colonhimichela isosorbide mononitrate 120 mg tablet extended release 24 hr completed 1 tablet once a day 01/17 - 12/23 Iman Maher isosorbide mononitrate 120 mg tablet extended release 24 hr completed 2 tablet once a day 01/14 - 01/17 Sukh Agudelo RN ranolazine 500 mg tablet extended release 12 hr completed Take 1 tablet by mouth twice a day 01/11 - 01/27 Sendy Rushing warfarin 4 mg tablet completed Take 1 tablet by mouth every evening 10/15 - 02/07 Kj Miranda MD dofetilide 500 mcg capsule completed TAKE 1 CAPSULE BY MOUTH EVERY 12 HOURS 06/18 - 03/23 Antonio Rinaldi MD dofetilide 500 mcg capsule completed Take 1 capsule by mouth every twelve hours TAKE ONE CAPSULE BY MOUTH EVERY 12 HOURS 04/17 - 06/18 Shantal Ac Atrial Fibrillation metoprolol tartrate 50 mg tablet completed Take 1 tablet by mouth twice a day 03/27 - 03/20 Luz Marina Mcelroy magnesium oxide 400 mg (241.3 mg magnesium) tablet active Take 1 tablet by mouth twice daily [facility]cg capsule completed Take 1 capsule by mouth twice a day [facility] - 04/17 Antonio Rinaldi MD cephalexin 250 mg capsule completed 1 capsule three times a day 02/15 - 03/22 Michelle Rowell NP tramadol 50 mg tablet completed Take 1 tablet by mouth every six hours as needed for pain 02/15 - 03/22 Luz Marina Mcelroy rosuvastatin 5 mg tablet active every 48 hours Take 1 tablet by mouth once daily 01/16 Keila BEGUM ezetimibe 10 mg tablet active Take 1 tablet by mouth once daily 01/05 Sendy Rushing warfarin 2 mg tablet completed 1 tablet by mouth twice a week with 4mg tablet on Sat 12/15 - 02/14 Sukh Agudelo RN warfarin 2 mg tablet completed - 12/15 Sukh Agudelo RN metoprolol succinate 100 mg tablet extended release 24 hr completed Take 1/2 tablet by mouth once a day 12/12 - 03/27 Kj Miranda MD warfarin 4 mg tablet completed Take 1 tablet by mouth every evening 12/06 - 10/15 Emily Lux RN warfarin 4 mg tablet completed Take 1 tablet by mouth as directed except on Wed and Sat take 1 1/2 tab = 6 mg. 09/28 - 11/27 Sukh Agudelo RN clopidogrel 75 mg tablet completed Take 1 tablet by mouth once daily 09/26 - 03/22 Michelle Rowell NP warfarin 4 mg tablet completed Take 1 tablet by mouth as directed except on Wed and Sat take 1 1/2 tab = 6 mg. 11/09 - 09/28 Sukh Agudelo RN isosorbide mononitrate 60 mg tablet extended release 24 hr completed Take 1 tablet by mouth once daily 11/08 - 01/14 Kj Miranda MD warfarin 4 mg tablet completed Take 1 tablet by mouth as directed TAKE ONE TAB PO DAILY, EXCEPT ON WED & FRI TAKE 1.5 TABS (6MG) 10/22 - 11/09 Emily Lux RN warfarin 4 mg tablet completed TAKE ONE TAB PO DAILY, EXCEPT ON WED & FRI TAKE 1.5 TABS (6MG) 05/31 - 10/22 Julia Hickman metoprolol succinate 50 mg tablet extended release 24 hr completed 1 tablet once a day 03/24 - 12/12 Sukh Agudelo RN magnesium oxide 400 mg (241.3 mg magnesium) tablet completed 1 tablet twice a day 03/10 - 03/27 Kj Miranda MD Dutoprol 50-12.5 mg tablet extended release 24 hr completed 03/10 - 12/12 Felipe Ynacey diltiazem HCl 30 mg tablet completed 1 tablet by mouth every six hours - 12/12 Nitza Avalos cholecalciferol (vitamin D3) 125 mcg (5,000 unit) capsule active Take 1 once a day 02/03 Shantal Ac rosuvastatin 10 mg tablet completed 1 tablet by mouth once a day 01/25 - 01/16 Frieda Vazquez RN PROBIOTIC CAPSULE active once a day 06/07 Sukh Agudelo RN famotidine 20 mg tablet completed twice a day 06/07 - 03/22 Michelle Rowell NP SINGULAIR 10 MG ORAL TABLET completed daily 06/07 - 04/10 Shantal Ac FiberCon 625 mg tablet active once a day 06/07 Sukh Agudelo RN CALCIUM CAPSULE active Take 1 twice a day 06/07 Shantal Ac Fish Oil 300-1,000 mg capsule,delayed release(DR/EC) active 2 tablet twice a day 06/07 Sukh Agudleo RN clopidogrel 75 mg tablet completed Take 1 tablet by mouth once a day 03/21 - 09/26 Dale iLng BRILINTA 90 MG ORAL TABLET completed One tab twice daily 12/27 - 12/27 Bay Ramos RN Zetia 10 mg tablet completed Take 1 tablet every night 12/17 - 01/05 Julia Hickman ASPIRIN ADULT LOW DOSE 81 MG ORAL TABLET DELAYED RELEASE completed One Tab By Mouth Daily for 1 month (STOP 01/27/20) 12/16 - 01/24 Bette Atkinson isosorbide mononitrate 60 mg tablet extended release 24 hr completed 1 tablet once a day 12/16 - 11/08 Bryan Davis MD warfarin 4 mg tablet completed TAKE 1&1/2 TABLETS BY MOUTH ON MON,WED,SAT AND 1 TABLET ON SAT, , , AND SAT. 12/24 - 05/31 Julia Hickman COUMADIN 6 MG ORAL TABLET completed one tab Sat-Wed- 12/01 - 10/27 Renata Johnson RN WARFARIN SODIUM 5 MG ORAL TABLET completed Hold 12/31 - 04/10 Sarah Lux ZANTAC TABLET completed one tab twice daily 12/02 - 06/07 Sukh Agudelo RN GABAPENTIN 100 MG ORAL CAPSULE completed one tab once daily 12/02 - 06/07 Sukh Agudelo RN Nitrostat 0.4 mg tablet, sublingual completed 1 tablet under tongue as needed 05/13 - 12/11 Sukh Agudelo RN SB ANTIHISTAMINE TABLET completed 10 mg once daily 03/01 - [facility] 300 MG ORAL CAPSULE completed take one pill a day 02/06 - 06/07 Sukh Agudelo RN METOPROLOL TARTRATE 25 MG ORAL TABLET completed one tab. twice daily 12/29 - 09/23 Cecilia Merlos RN on Sotolol and Metoprolol DOXYCYCLINE MONOHYDRATE 100 MG ORAL CAPSULE completed TWICE DAILY - 12/29 Jackeline Cantu AMOXICILLIN-POT CLAVULANATE 875-125 MG ORAL TABLET completed EVERY 12 HOURS - 04/10 Jackeline Cantu LASIX 20 MG ORAL TABLET completed One tablet every morning. 12/11 - 04/10 Shantal Ac LORATADINE 10 MG ORAL TABLET completed 1/2 tab daily - 04/10 Jackeline Cantu AZITHROMYCIN 250 MG ORAL TABLET completed Per package instuctions 02/01 - 04/10 Cristal Mora EQL FLAX SEED OIL CAPSULE completed at bedtime 04/13 - 03/01 Cortney Layton alprazolam 0.25 mg tablet active take 1 pill twice a day Shantal Ac COUMADIN 4 MG ORAL TABLET completed 1.5 tabs Mon, Wed, Fri; 1 tab remaining days of the week. Take in the evening 12/01 - 06/07 Sukh Agudelo RN FERROUS SULFATE 325 (65 FE) MG ORAL TABLET completed two daily - 12/02 Zaida Zhao OMEGA-3 FISH OIL 1000 MG ORAL CAPSULE completed daily 04/13 - 03/01 Cortney Layton levothyroxine 75 mcg tablet active 1 tablet once a day Kj Miranda MD NIACIN ER 500 MG ORAL TABLET EXTENDED RELEASE completed one daily - 02/06 Kj iMranda MD MULTIVITAMINS CAPS active 1 tablet once a day Kj Miranda MD Ambien 10 mg tablet completed 1 tablet every night - 03/22 Michelle Rowell NP METOPROLOL SUCCINATE ER 25 MG ORAL TABLET EXTENDED RELEASE 24 HOUR completed two tabs daily - 12/29 Hipolito Hobson MD pantoprazole 40 mg tablet,delayed release (DR/EC) active 1 once a day Kj Miranda MD FLONASE 50 MCG/ACT NASAL SUSPENSION completed - Aleena Kilpatrick AMIODARONE HCL 200 MG ORAL TABLET completed ONE TAB. DAILY - 04/13 Kj Miranda MD ASPIRIN 81 MG ORAL TABLET completed ONE TAB. DAILY - 12/16 Bryan Davis MD LOVASTATIN 40 MG ORAL TABLET completed TAKE 2 TABS ONCE DAILY, AT BEDTIME 12/16 - 01/24 Bette Atkinson SOCIAL HISTORY Date Observation Value Provider personal history of marijuana use no Kj Miranda MD drug use no Kj Dillard alcohol use no Kj Dillard passive cigarette sm suzy exposure no Kj Miranda MD smoking status Never smoker Kj Miranda MD personal history of marijuana use no Keila Ventimiglia [facility] drug use no Keila Ventimig anselmo [facility] alcohol use no Keila Ventimig anselmo SWITCH TECHNICIAN passive cigarette sm suzy exposure no Keila Ventimiglia SWITCH TECHNICIAN smoking status Never smoker Keila Ventim iglia [facility] number of grandchildren Yobany Trevin ÁLVAREZ Ne zechariaha Nalluri [employer] SUPER[employer] drug use none Shonda Nalluri [employer] SUPERVISOR alcohol use no Shonda Nalluri [employer] SUPERVISOR passive cigarette sm suzy exposure no Shonda Nalluri [employer] SUPERVISOR smoking status Never smoker Shonda Nallu ri [employer] SUPERVISOR drug use none Edgar Penablair alcohol use no Edgar Beckyblair passive cigarette sm suzy exposure no Edgar Taylor smoking status Never smoker Edgar Kirbyhuma drug use none Kj Dillard alcohol use no Kj Dillard passive cigarette sm suzy exposure no Kj Miranda MD smoking status Never smoker Kj Miranda MD drug use none Keila Ventimig anselmo SWITCH TECHNICIAN alcohol use no Keila Ventimig anselmo SWITCH TECHNICIAN passive cigarette sm suzy exposure no Keila Ventimiglia [facility] smoking/tobacco cessation, patient education and counseling contraindicated Keila Ventimiglia [facility] smoking status Never smoker Keila Ventim iglia [facility] social history revie wed E&M reviewed - no changes required Kj Miranda MD social history E&M Marital Statu s: L rolo with family/friends J ob Status: Retired Smoking History: Dequan garcia has never smoked. Kj Miranda MD social history revie wed E&M reviewed - no changes required Kj Miranda MD smoking status Never smoker Iman Nika seatbelt usage 100 % Luz Marina Ortiz passive cigarette sm suzy exposure no Luz Marina Mcelroy year patient quit ci gar use 30 Luz Marina Mcelroy Number of years smok ing cigar/pipe 15 Luz Marina Mcelroy pipes smoked per week 4 a day Max Bartholomew Pipe Smoking Use yes Luz Marina sage cigar use yes Luz Marina dillard smoking, year quit 1983 Luz Marina Mcelroy number of years as a smoker 10 a Luz Marina Mcelroy smoking history, tot al pack/year 30 Luz Marina Mcelroy smoking history, tot al pack/day 1/2 Luz Marina Mcelroy cigarette use yes Luz Marina Horn nd smoking status Former smoker Luz Marina rodriguez social history E&M Marital Statu s: Lance seth with family/friends J ob Status: Retired Smoking History: P jose is a former smoker. Kj Miranda MD social history revie wed E&M reviewed - no changes required Kj Miranda MD seatbelt usage 100 % Helen Lux passive cigarette sm suzy exposure no Helen Lux year patient quit ci gar use 30 Helen Lux Number of years smok ing cigar/pipe 15 Helen Lux pipes smoked per week 4 a day Helen Valentin abdullahi Pipe Smoking Use yes Helenbharat James ms cigar use yes Helen Lux smoking, year quit 1982 Helen Will iams number of years as a smoker 10 a Helen Lux smoking history, tot al pack/year 30 Helen Lux smoking history, tot al pack/day 1/2 Helen Lux cigarette use yes Helen Lux smoking status Former smoker Helen ramey social history E&M Marital Statu s: Lance seth with family/friends J ob Status: Retired Smoking History: Dequan garcia is a former smoker. Kj Miranda MD social history revie wed E&M reviewed - no changes required Kj Miranda MD seatbelt usage 100 % Nelly Sánchez passive cigarette sm suzy exposure no Nellyjerardo Sánchez year patient quit ci gar use 30 Nelly Sánchez Number of years smok ing cigar/pipe 15 Nelly Sánchez pipes smoked per week 4 a day Nelly Sánchez Pipe Smoking Use yes Nelly Gonzalo cigar use yes Nelly Gonzalo smoking, year quit 1982 Nelly Thomas davis number of years as a smoker 10 a Nelly Gonzalo smoking history, tot al pack/year 30 Nelly Gonzalo smoking history, tot al pack/day 1/2 Nelly Gonzalo cigarette use yes Nelly Gonzalo smoking status Former smoker Nelly Gonzalo social history E&M Marital Statu s: L rolo with family/friends J ob Status: Retired Smoking History: P atkatharine is a former smoker. Karen Briceño social history revie ann E&M reviewed - no changes required Karen Briceño seatbelt usage 100 % Shantal gifford passive cigarette sm suzy exposure no Shantal Ac year patient quit ci gar use 30 Shantal Ac Number of years smok ing cigar/pipe 15 Shantal Ac pipes smoked per week 4 a day Shantal Ac Pipe Smoking Use yes Shantal mills cigar use yes Shantal king smoking, year quit 1982 Shantal camilo number of years as a smoker 10 a Shantal Ac smoking history, tot al pack/year 30 Shantal Ac smoking history, tot al pack/day 1/2 Shantal Ac cigarette use yes Shantal drake smoking status Former smoker Shantal yusuf social history E&M Marital Statu s: L rolo with family/friends J ob Status: Retired Smoking History: P atkatharine is a former smoker. Edgar Orrhuma social history revie wed E&M reviewed - no changes required [facility] seatbelt usage 100 % Shantal Gemini shooker passive cigarette sm suzy exposure no Shantal Yashira year patient quit ci gar use 30 Shantal Archievirginiaalexjasmineer Number of years smok ing cigar/pipe 15 Shantal Archievirginiasulmaer pipes smoked per week 4 a day Shantal Archievirginiaalexjasmineheather Pipe Smoking Use yes Shantal Minda mills cigar use yes Shantal Myrnajayneconstantin king smoking, year quit 1982 Shantal Gina camilo number of years as a smoker 10 a Shantal Ac smoking history, tot al pack/year 30 Shantal Archievirginiaalexnoelle smoking history, tot al pack/day 1/2 Shantal Archievirginiasulmaheather cigarette use yes Shantal Jh drake smoking status Former smoker Shantal Almanzavigrinia alexnoelle social history E&M Marital Statu s: L rolo with family/friends J ob Status: Retired Smoking History: P jose is a former smoker. Edgar Taylor social history revie wed E&M reviewed - no changes required Edgar huma seatbelt usage 100 % Shantal Lozadaceferino gifford passive cigarette sm suzy exposure no Shantal Archiejose year patient quit ci gar use 30 Shantal Nevillealexnoelle Number of years smok ing cigar/pipe 15 Shantal Nevillealexjasmineer pipes smoked per week 4 a day Shantal Yashira Pipe Smoking Use yes Shantal Archiethelma enfelder cigar use yes Shantal Pearce lder smoking, year quit 1982 Shantal cannonfelder number of years as a smoker 10 a Shantal cA smoking history, tot al pack/year 30 Shantal Ac smoking history, tot al pack/day 1/2 Shantal Ac cigarette use yes Shantal drake smoking status Former smoker Shantal johnsonelder social history E&M Marital Statu s: L rolo with family/friends J ob Status: Retired Smoking History: P jose is a former smoker. Kj Miranda MD social history revie wed E&M reviewed - no changes required Kj Miranda MD seatbelt usage 100 % Melva Pam s passive cigarette sm suzy exposure no Melva Sebring year patient quit ci gar use 30 Melva Spike Number of years smok ing cigar/pipe 15 Melva Spike pipes smoked per week 4 a day Cather ine Spike Pipe Smoking Use yes Melva O tis cigar use yes Melva Sebring smoking, year quit 1982 Melva Sebring number of years as a smoker 10 a Melva Sebring smoking history, tot al pack/year 30 Melva Spike smoking history, tot al pack/day 1/2 Melva Sebring cigarette use yes Melva Spike smoking status Former smoker Melva Ot is social history E&M Marital Statu s: L rolo with family/friends J ob Status: Retired Smoking History: P jose is a former smoker. Nitza Avalos social history revie wed E&M reviewed - no changes required Nitza Avalos seatbelt usage 100 % Shantal shooker passive cigarette sm suzy exposure no Shantal Ac year patient quit ci gar use 30 Shantal Ac Number of years smok ing cigar/pipe 15 Shantal Ac pipes smoked per week 4 a day Shantal Ac Pipe Smoking Use yes Shantal olivoирина cigar use yes Shantal Pearce fernando smoking, year quit 1982 Shantal olivogene number of years as a smoker 10 a Shantal Ac smoking history, tot al pack/year 30 Shantal Ac smoking history, tot al pack/day 1/2 Shantal Ac cigarette use yes Shantal drake smoking status Former smoker Shantal ozunaheather social history revie wed E&M reviewed - no changes required Kj Miranda MD social history E&M Marital Statu s: L rolo with family/friends J ob Status: Retired Smoking History: Dequan garcia is a former smoker. Kj Miranda MD social history revie wed E&M reviewed - no changes required Kj Miranda MD seatbelt usage 100 % Chastity Hogu e passive cigarette sm suzy exposure no Marybethstity Pavel year patient quit ci gar use 30 Marybethstity Pavel Number of years smok ing cigar/pipe 15 Chastity Pavel pipes smoked per week 4 a day Chasti ty Pavel Pipe Smoking Use yes Marybethstity Ho sayda cigar use yes Chastity Pavel smoking, year quit 1982 Zaida Zhao number of years as a smoker 10 a Zaida Zhao smoking history, tot al pack/year 30 Zaida Zhao smoking history, tot al pack/day 1/2 Zaida Zhao cigarette use yes Zaida Zhao smoking status Former smoker Zaida davey social history revie wed E&M reviewed - no changes required Kj Miranda MD social history E&M Marital Statu s: L rolo with family/friends J ob Status: Retired Smoking History: P jose is a former smoker. Kj Miranda MD social history revie wed E&M reviewed - no changes required Kj Miranda MD seatbelt usage 100 % Bette casiano passive cigarette sm suzy exposure no Bette Atkinson year patient quit ci gar use 30 Bette Atkinson Number of years smok ing cigar/pipe 15 Bette Atkinson pipes smoked per week 4 a day Rina Atkinson Pipe Smoking Use yes Bette romero cigar use yes Bette Green l smoking, year quit 1982 Bette elaine number of years as a smoker 10 a Bette Atkinson smoking history, tot al pack/year 30 Bette Atkinson smoking history, tot al pack/day 1/2 Bette Atkinson cigarette use yes Bette phelan smoking status Former smoker Bette hooper social history E&M Marital Statu s: L rolo with family/friends J ob Status: Retired Smoking History: P jose is a former smoker. Nitza Avalos social history revie wed E&M reviewed - no changes required Nitza Avalos seatbelt usage 100 % Felipe boo passive cigarette sm suzy exposure no Felipe Yancey year patient quit ci gar use 30 Felipe Yancey Number of years smok ing cigar/pipe 15 Felipe Yancey pipes smoked per week 4 a day Alex Yancey Pipe Smoking Use yes Felipe Yancey cigar use yes Felipe mcintyre smoking, year quit 1982 Nargis Yancey number of years as a smoker 10 a Felipe Yancey smoking history, tot al pack/year 30 Felipe Yancey smoking history, tot al pack/day 1/2 Felipe Yancey cigarette use yes Felipe servinadonis smoking status Former smoker Felipe small social history E&M Marital Statu s: L rolo with family/friends J ob Status: Retired Smoking History: Dequan garcia is a former smoker. Nitza Avalos social history revie wed E&M reviewed - no changes required Nitza Avalos number of grandchildren Antonio Avalos seatbelt usage 100 % Shantal gifford passive cigarette sm suzy exposure no Shantal Yashira year patient quit ci gar use 30 Shantal Yashira Number of years smok ing cigar/pipe 15 Shantal Yashira pipes smoked per week 4 a day Shantal Yashira Pipe Smoking Use yes Shantal mills cigar use yes Shantal Portia king smoking, year quit 1982 Shantal Gina camilo number of years as a smoker 10 a Shantal Ac smoking history, tot al pack/year 30 Shantal Ac smoking history, tot al pack/day 1/2 Shantal Ac cigarette use yes Shantal drake smoking status Former smoker Shantal yusuf social history E&M Marital Statu s: L rolo with family/friends J ob Status: Retired Smoking History: P atient is a former smoker. Kj Miranda MD social history revie wed E&M reviewed - no changes required Kj Miranda MD seatbelt usage 100 % Bette casiano passive cigarette sm suzy exposure no Bette Atkinson year patient quit ci gar use 30 Bette Atkinson Number of years smok ing cigar/pipe 15 Bette Atkinson pipes smoked per week 4 a day Rina Atkinson Pipe Smoking Use yes Bette romero cigar use yes Bette lucas smoking, year quit 1982 Bette elaine number of years as a smoker 10 a Bette Atkinson smoking history, tot al pack/year 30 Bette Atkinson smoking history, tot al pack/day 1/2 Bette Atkinson cigarette use yes Bette phelan smoking status Former smoker Bette hooper social history E&M Marital Statu s: L rolo with family/friends J ob Status: Retired Smoking History: P atient is a former smoker. Kj Miranda MD social history revie wed E&M reviewed - no changes required Kj Miranda MD seatbelt usage 100 % Bette casiano passive cigarette sm suzy exposure no Bette Atkinson year patient quit ci gar use 30 Bette Atkinson Number of years smok ing cigar/pipe 15 Bette Atkinson pipes smoked per week 4 a day Rina Atkinson Pipe Smoking Use yes Bette Hosea romero cigar use yes Bette Acevedodeena l smoking, year quit 1982 Bette Tiffany elaine number of years as a smoker 10 a Bette Atkinson smoking history, tot al pack/year 30 Bette Atkinson smoking history, tot al pack/day 1/2 Bette Atkinson cigarette use yes Bette Joseph ll smoking status Former smoker Bette Curtis hooper social history revie wed E&M reviewed - no changes required Kj Miranda MD social history E&M Marital Statu s: Lance seth with family/friends J ob Status: Retired Smoking History: Dequan garcia is a former smoker. Kj Miranda MD social history revie wed E&M reviewed - no changes required Kj Miranda MD seatbelt usage 100 % Iraida New passive cigarette sm suzy exposure no Iraida Wolff year patient quit ci gar use 30 Iraida New Number of years smok ing cigar/pipe 15 Iraida Fox pipes smoked per week 4 a day Felici a Wolff Pipe Smoking Use yes Iraida Wolff cigar use yes Iraida Wolff smoking, year quit 1982 Iraida F ox number of years as a smoker 10 a Iraida Wolff smoking history, tot al pack/year 30 Iraida Wolff smoking history, tot al pack/day 1/2 Iraida Wolff cigarette use yes Iraida Wolff smoking status Former smoker Iraida Wolff quit smoking, stage quit Bryan arora MD social history E&M Marital Statu s: L rolo with family/friends J ob Status: Retired Smoking History: P jose is a former smoker. Bryan Davis MD social history revie wed E&M reviewed - no changes required Bryan Davis MD seatbelt usage 100 % [facility] passive cigarette sm suzy exposure no [facility] year patient quit ci gar use 30 [facility] Number of years smok ing cigar/pipe 15 [facility] pipes smoked per week [address] [facility] Pipe Smoking Use yes [facility] cigar use yes [facility] smoking, year quit 1982 [facility] number of years as a smoker [address] [facility] smoking history, tot al pack/year 30 [facility] smoking history, tot al pack/day 1/2 [facility] cigarette use yes [facility] smoking status Former smoker [facility] social history E&M Marital Statu s: L rolo with family/friends J ob Status: Retired Smoking History: Dequan garcia is a former smoker. Kj Miranda MD social history revie wed E&M reviewed - no changes required Kj Miranda MD cigarette use yes Sarah James ms smoking status Former smoker Sarah Mills iaor social history revie wed E&M reviewed - no changes required Kj Miranda MD social history E&M Marital Statu s: L rolo with family/friends J ob Status: Retired Smoking History: Dequan garcia is a former smoker. Kj Miranda MD social history revie wed E&M reviewed - no changes required Kj Miranda MD seatbelt usage 100 % Chastity Hogu e alcohol use no Chastity Pavel drug use none Chastity Pavel passive cigarette sm suzy exposure no Chastmi Zhao year patient quit ci gar use 30 Marybethstity Pavel Number of years smok ing cigar/pipe 15 Marybethstity Pavel pipes smoked per week 4 a day Emilianai issac Zhao Pipe Smoking Use yes Zaida zelayae cigar use yes Zaida Zhao smoking, year quit 1982 Zaida Zhao number of years as a smoker 10 a Zaida Zhao smoking history, tot al pack/year 30 Zaida Zhao smoking history, tot al pack/day 1/2 Zaida Zhao cigarette use yes Zaida Zhao smoking status Former smoker Zaida davey smoking status Former smoker Laurita Jim social history revie wed E&M reviewed - no changes required Heidy Weiner MD number of grandchildren Heidy Weiner MD T lan Birch social history revdann wed E&M reviewed - no changes required Kj Miranda MD seatbelt usage 100 % Scarlet Banegas alcohol use no Scarlet Banegas drug use none Scarlet Banegas passive cigarette sm suzy exposure no Scarlet Banegas year patient quit ci gar use 30 Scarlet Banegas Number of years smok ing cigar/pipe 15 Scarlet Banegas pipes smoked per week 4 a day Rafia Banegas Pipe Smoking Use yes Scarlet caballero cigar use yes Scarlte Banegas smoking, year quit 1982 Scarlet bruno number of years as a smoker 10 a Scarlet Banegas smoking history, tot al pack/year 30 Scarlet Banegas smoking history, tot al pack/day 1/2 Scarlet Banegas cigarette use yes Scarlet Banegas smoking status Former smoker Scarlet Banegas social history revie wed E&M reviewed - no changes required Hipolito Hobson MD social history revie wed E&M reviewed - no changes required Hipolito Hobson MD number of grandchildren Hipolito Layton cigarette use yes Cortney Bermudez'Pillo smoking status Former smoker Cortney Lola lucas social history revie wed E&M reviewed - no changes required Kj Miranda MD alcohol use no Shantal Lozadaalexethan dellaer smoking status Former smoker Shantal Lozada madelin social history revie wed E&M reviewed - no changes required Hipolito Hobson MD social history revie wed E&M reviewed - no changes required Hipolito Hobson MD social history revie wed E&M reviewed - no changes required Hipolito Hobson MD seatbelt usage 100 % Elaina Rejishira mackey alcohol use no Elaina Freire drug use none Elaina Freire passive cigarette sm suzy exposure no Elaina Freire year patient quit ci gar use 30 Elaina Freire Number of years smok ing cigar/pipe 15 Elaina Freire pipes smoked per week 4 a day Shelia Freire Pipe Smoking Use yes Elaina mcnulty cigar use yes Elaina Freire smoking, year quit 1983 Elaina ordonez number of years as a smoker 10 a Elaina Freire smoking history, tot al pack/year 30 Elaina Freire smoking history, tot al pack/day 1/2 Elaina Freire cigarette use yes Elaina Freire smoking status Former smoker Elaina barragan social history revie wed E&M reviewed - no changes required Kj Miranda MD seatbelt usage 100 % Cristal Cherry alcohol use no Cristal maldonado drug use none Cristal maldonado passive cigarette sm suzy exposure no Cristal Mora year patient quit ci gar use 30 Cristal Mora Number of years smok ing cigar/pipe 15 Cristal Mora pipes smoked per week 4 a day Fabiola Mora Pipe Smoking Use yes Cristal jaeger cigar use yes Cristal maldonado smoking, year quit 1983 Cristal Mora number of years as a smoker 10 a Cristal Mora smoking history, tot al pack/year 30 Cristal Mora smoking history, tot al pack/day 1/2 Cristal Morgan cigarette use yes Cristal michaud smoking status Former smoker Cristal Keita smoking/tobacco cessation, patient education and counseling No Kj Miranda MD social history revie wed E&M reviewed - no changes required Kj Miranda MD Number of years smok ing cigar/pipe 15 Shantal Ac pipes smoked per week 4 a day Shantal Ac Pipe Smoking Use yes Shantal mills alcohol use no Shantal king smoking status Former smoker Shantal yusuf smoking/tobacco cessation, patient education and counseling No Kj Miranda MD social history revie wed E&M reviewed - no changes required Kj Miranda MD number of years as a smoker 10 a Shantal Ac smoking history, tot al pack/day 1/2 Shantal Ac alcohol use no Shantal king cigarette use yes Shantal Almanzapetarcarina noelle smoking status Former smoker Shantal Lozada madelin social history revie wed E&M reviewed - no changes required Kj Miranda MD alcohol use no Shantalcarmita king pipes smoked per week 28 Shantal Yashira year patient quit ci gar use 30 Shantal Almanzajose Number of years smok ing cigar/pipe 14 Shantal Yashira Pipe Smoking Use yes Shantal Almanzathelma mills cigar use yes Shantal Almanzakamran king smoking status Former smoker Shantal Almanzavirginia yusuf drug use none Kj Dillard social history revie wed E&M reviewed Kj Miranda MD seatbelt usage 100 % Kj Miranda MD passive cigarette sm suzy exposure no Kj Miranda MD social history E&M Marital Statu s: L rolo with family/friends J ob Status: Retired Kj Miranda MD drug use no Kj Dillard social history revie wed E&M reviewed Kj Miranda MD smoking history, tot al pack/year 30 Manjit Rutherford smoking, year quit 1982 Manjit Rutherford smoking status former smoker Manjit dove FUNCTIONAL STATUS Date Observation Value Provider HRA, CV Assess/Plan, Angina (inactive) Management Plan continue current therapy Keilaralf Millsmiglia SWITCH TECHNICIAN HRA, CV Assess/Plan, Angina (inactive) Management Plan continue current therapy Shonda Daniels PIPE [employer] SUPERVISOR HRA, CV Assess/Plan, Angina (inactive) Management Plan continue current therapy Lilly Perez PIPE [employer] SUPERVISOR HRA, CV Assess/Plan, Angina (inactive) Management Plan continue current therapy Edgar Taylor HRA, CV Assess/Plan, Angina (inactive) Management Plan continue current therapy Keila Jones SWITCH TECHNICIAN HRA, CV Assess/Plan, Angina (inactive) Management Plan continue current therapy Michelle Rowell PIPE AND [employer]ILER [employer]OVERS SUPERVISOR HRA, CV Assess/Plan, Angina (inactive) Management Plan continue current therapy Karenjudith Linbridget HRA, CV Assess/Plan, Angina (inactive) Management Plan continue current therapy Edgar Ahmedzai HRA, CV Assess/Plan, Angina (inactive) Management Plan continue current therapy Edgar Ahmedzai HRA, CV Assess/Plan, Angina (inactive) Management Plan continue current therapy Taandrea Robbie HRA, CV Assess/Plan, Angina (inactive) Management Plan continue current therapy Kj Miranda MD HRA, CV Assess/Plan, Angina (inactive) Management Plan continue current therapy Kj Miranda MD HRA, CV Assess/Plan, Angina (inactive) Management Plan continue current therapy Nitza Avalos HRA, CV Assess/Plan, Angina (inactive) Management Plan continue current therapy Taandrea Robbie HRA, CV Assess/Plan, Angina (inactive) Management Plan continue current therapy Kj Miranda MD HRA, CV Assess/Plan, Angina (inactive) Management Plan continue current therapy Kj Miranda MD HRA, CV Assess/Plan, Angina (inactive) Management Plan continue current therapy Kj Miranda MD HRA, CV Assess/Plan, Angina (inactive) Management Plan continue current therapy Kj Miranda MD HRA, CV Assess/Plan, Angina (inactive) Management Plan antianginal therapy, schedule PCI Bryan Davis MD HRA, CV Assess/Plan, Angina (inactive) Management Plan continue current therapy Kj Miranda MD HRA, CV Assess/Plan, Angina (inactive) Management Plan continue current therapy Kj Miranda MD HRA, CV Assess/Plan, Angina (inactive) Management Plan continue current therapy Kj Miranda MD HRA, CV Assess/Plan, Angina (inactive) Management Plan continue current therapy Heidy Weiner MD HRA, CV Assess/Plan, Angina (inactive) Management Plan continue current therapy Kj Miranda MD MENTAL STATUS Date Observation Value Provider assessment of judgme nt and insight E&M Alert and oriented to time, place and person. Mood and affect are normal. Kj Miranda MD assessment of judgme nt and insight E&M Alert and oriented to time, place and person. Mood and affect are normal. Kj Miranda MD FAMILY HISTORY Family Member Condition Father Family History of Co ronary Artery Disease: Mother Family History of Co ronary Artery Disease: Mother Family History of Hy pertension: Mother Family History of Di abetes: INSURANCE PROVIDERS Payer name Policy type / Coverage type [place] [employer] GRP MEDICARE ADVANTAGE PLAN (PPO) Medicare [id number] ADVANCE DIRECTIVES Name Date POWER OF DRAWING KILN OPERATOR TREATMENT PLAN Date Name Performer [id number],SKj MD [id number],S, Kj de la vega MD [id number],SKj MD [id number],SKj MD [id number],SKj MD [id number],BKj MD [id number],S, Kj de la vega MD [id number],S, Kj de la vega MD [id number],S, Kj de la vega MD [id number],B, Kj de la vega MD [id number],S,H is episodes of a-fib have not increased on lower dose of dofetilide and may actually be less frequent. No significant ventricular ectopy, so I do not feel inclined to upgrade pacemaker to defibrillator. Kj Miranda MD [id number],C,p t reports recent ECHO at [place], will request records to review Michelle Rowell NP [id number],C,w ill review interrgation today PT: 21.6 (02/24/2021) INR: 1.6 (12/06/2022) P TT: 39 (02/09/2022) H gb: 13.1 (02/24/2021) HCT: 39.9 (02/09/2022) Platelets: 218 THOUSAND/UL (02/09/2022) R BC: 4.18 MILLION/UL (02/09/2022) WBC: 4.5 X10E3/UL (02/24/2021) B UN: 18 (05/11/2022) Creat: 0.87 (05/11/2022) Na+: 142 (05/11/2022) K+: 4.6 (05/11/2022) Cl: 105 (05/11/2022) Calcium: 9.3 (05/11/2022) Mg++: 2.2 (05/11/2022) T SH: 1.630 (12/18/2019) T4 (total): 9.1 (12/18/2019) C ardiac Cath: 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 Widely patent bypass conduits. Intermediate disease remaining in the first diagonal vessel, which is deemed appropriate for medical management. Low-normal left ventricular ejection fraction. Widely patent renal arteries. Right femoral angiography was performed. Mynx closure device was placed, safeguard placed on top. The patient can resume taking Coumadin, which he has been on for history of paroxysmal atrial fibrillation. - [facility] (08/22/2013) Michelle Rowell NP [id number],C, B P today: 132/62 P rior BP: 122/66 (12/18/2022) Labs Reviewed: C reat: 0.87 (05/11/2022) C hol: 106 (02/24/2021) HDL: 41 (02/24/2021) His updated medication list for this problem includes: Metoprolol Tartrate 50 Mg Tablet (Metoprolol tartrate) ..... Take 1 tablet by mouth twice daily Michelle Rowell JUAN [id number],C,C HOL: 106 (02/24/2021) HDL: 41 (02/24/2021) H is updated medication list for this problem includes: Rosuvastatin 5 Mg Tablet (Rosuvastatin) ..... Take 1 tablet by mouth once daily Ezetimibe 10 Mg Tablet (Ezetimibe) ..... Take 1 tablet by mouth once daily Michelle Estradamami MARTINEZ [id number],C,on supplement ation Michelle Estradamami MARTINEZ [id number],C,will review i nterrogation today Michelle Estradamami MARTINEZ [id number],C,o n coleen. interrogation of device today Michelle Estradamami MARTINEZ [id number],B, Kj de la vega MD [id number],S, Kj de la vega MD [id number],B, Kj de la vega [place] [id number],W, Kj de la vega MD [id number],N,L ikely due to acute blood loss. No evidence arrythmia. Kj Miranda MD [id number],S, Kj de la vega MD [id number],S, Kj de la vega MD [id number],S, Kj de la vega MD [id number],B, Kj de la vega MD [id number],B, Kj de la vega MD [id number],S,H aving some exertional CP, sounds like a stable anginal pattern. May be small vessel disease as well. Kj Miranda MD [id number],C,S till having some a-fib. 8% by pacemaker. Occasionally symptomatic. H as mild elevation of T. Bili and AST, he is concerned this is due to Tikosyn. Elevation is very mild, AST likely due statin. He is having labs rechecked in 4 weeks. Kj Miranda MD [id number],C, H is updated medication list for this problem includes: Dofetilide 500 Mcg Capsule (Dofetilide) ..... Take 1 capsule by mouth every twelve hours take one capsule by mouth every 12 hours Metoprolol Tartrate 50 Mg Tablet (Metoprolol tartrate) ..... Take 1 tablet by mouth twice a day Warfarin 4 Mg Tablet (Warfarin) ..... Take 1 tablet by mouth every evening Clopidogrel 75 Mg Tablet (Clopidogrel) ..... Take 1 tablet by mouth once daily Orders: 9 14 MOD 30-39min (CPT-94118) C OMPREHENSIVE METABOLIC PANEL, W/EGFR (46033) M AGNESIUM (622) Karen Briceño [id number],C, E KG shows atrial rhythm. Pt is tolerating Tikosyn well. He complains of occasional episodes of irregular heartbeat, but otherwise doing well. Will check a magnesium level and CMP Karen Briceño [id number],C, B P today: 122/54 P rior BP: 147/68 (04/20/2022) Labs Reviewed: C reat: 0.87 (05/11/2022) C hol: 106 (02/24/2021) HDL: 41 (02/24/2021) His updated medication list for this problem includes: Metoprolol Tartrate 50 Mg Tablet (Metoprolol tartrate) ..... Take 1 tablet by mouth twice a day Karen Briceño [id number],C, O rders: 9 9214 MOD 30-39min (CPT-42286) C OMPREHENSIVE METABOLIC PANEL, W/EGFR (84429) M JULIANNA (622) Antonio Rinaldi MD [id number],C, H is updated medication list for this problem includes: Dofetilide 500 Mcg Capsule (Dofetilide) ..... Take 1 capsule by mouth every twelve hours take one capsule by mouth every 12 hours Metoprolol Tartrate 50 Mg Tablet (Metoprolol tartrate) ..... Take 1 tablet by mouth twice a day Warfarin 4 Mg Tablet (Warfarin) ..... Take 1 tablet by mouth every evening Clopidogrel 75 Mg Tablet (Clopidogrel) ..... Take 1 tablet by mouth once daily Isosorbide Mononitrate 60 Mg Tablet Extended Release 24 Hr (Isosorbide mononitrate) ..... Take 1 tablet by mouth once daily Nitrostat 0.4 Mg Tablet, Sublingual (Nitroglycerin) ..... 1 tablet under tongue as needed Orders: 9 9214 MOD 30-39min (CPT-67632) C OMPREHENSIVE METABOLIC PANEL, W/EGFR (80147) M JULIANNA (622) Antonio Rinaldi MD [id number],C,h e undwent Tikosyn loading with EKG monitoring and has converted successfully to sinus rhythm. EKG today shows sinus rhythm. h ethan continues to be SOB, I recommended he start an exercise regimen. His updated medication list for this problem includes: Dofetilide 500 Mcg Capsule (Dofetilide) ..... Take 1 capsule by mouth every twelve hours take one capsule by mouth every 12 hours Metoprolol Tartrate 50 Mg Tablet (Metoprolol tartrate) ..... Take 1 tablet by mouth twice a day Warfarin 4 Mg Tablet (Warfarin) ..... Take 1 tablet by mouth every evening Clopidogrel 75 Mg Tablet (Clopidogrel) ..... Take 1 tablet by mouth once daily Orders: E KG (CPT-55667) 9 9214 MOD 30-39min (CPT-37210) 9 9214 MOD 30-39min (CPT-28903) C OMPREHENSIVE METABOLIC PANEL, W/EGFR (85144) C OMPREHENSIVE METABOLIC PANEL, W/EGFR (28546) M JULIANNA (622) M AGNESIUM (622) Edgar Penablair [id number],S, Edgar Pena i [id number],S, Edgar Penai [id number],S, Edgar Pena i [id number],S, Edgar Pena i [id number],S, B P today: 115/62 P rior BP: 136/62 (03/27/2022) Labs Reviewed: C reat: 1.01 (02/24/2021) C hol: 106 (02/24/2021) HDL: 41 (02/24/2021) Edgar Taylor [id number],W, Kj de la vega MD [id number],S, Kj de la vega MD [id number],S, Kj de la vega MD [id number],S, Kj de la vega MD [id number],S, Kj de la vega MD [id number],W,N eeds ablation. I ncrease BB until then Kj Miranda MD [id number],B, B P today: 121/60 P rior BP: 110/52 (02/06/2022) Labs Reviewed: C reat: 1.01 (02/24/2021) C hol: 106 (02/24/2021) HDL: 41 (02/24/2021) Nitza Avalos [id number],W, H is updated medication list for this problem includes: Dofetilide 500 Mcg Capsule (Dofetilide) ..... Take 1 capsule by mouth twice a day [facility] Warfarin 4 Mg Tablet (Warfarin) ..... Take 1 tablet by mouth every evening Metoprolol Succinate 100 Mg Tablet Extended Release 24 Hr (Metoprolol succinate) ..... Take 1/2 tablet by mouth once a day Clopidogrel 75 Mg Tablet (Clopidogrel) ..... Take 1 tablet by mouth once daily Orders: 9 9215 HIGH 40-54min (CPT-19225) A BLATION w/ Anesthesia (*) A BLATION w/ Anesthesia (*) Antonio Rinaldi MD [id number],W, H is updated medication list for this problem includes: Dofetilide 500 Mcg Capsule (Dofetilide) ..... Take 1 capsule by mouth twice a day [facility] Warfarin 4 Mg Tablet (Warfarin) ..... Take 1 tablet by mouth every evening Metoprolol Succinate 100 Mg Tablet Extended Release 24 Hr (Metoprolol succinate) ..... Take 1/2 tablet by mouth once a day Clopidogrel 75 Mg Tablet (Clopidogrel) ..... Take 1 tablet by mouth once daily Orders: 9 9215 HIGH 40-54min (CPT-31818) A BLATION w/ Anesthesia (*) C T Cardiac with contrast (Pre-Ablation) (CPT-84347) Antonio Rinaldi MD [id number],S, Kj de la vega MD [id number],S, Kj de la vega MD [id number],W, Kj de la vega MD [id number],S, Kj de la vega MD [id number],S, Kj de la vega MD [id number],W,N ow persistent for > 1 week. Had multiple pauses on ILR. Longest > 6 seconds. Will reduce BB, but this is now colton/Tachy syndrome. N eeds CV, but will need PPM first. Will do both at same time. Kj Miranda MD [id number],SKj MD [id number],S, Kj de la vega MD [id number],S, Kj Cho n [id number],S, Kj Ramada n [id number],S, Kj Ramada n [id number],S, Kj Ramada n [id number],S, Kj Devanteada n [id number],S, Kj Ramada n [id number],S, Kj Ramada n [id number],S, Kj Ramada n [id number],S, Kj Ramada n [id number],B, Kj Lownataliya n [id number],B, Kj Lownataliya n [id number],S,S /P recent stent with resolution of chest pain. Kj Ruben ÁLVAREZ [id number],N,2 episodes. Will have him pick and shovel man some meclizine. Kj Miranda MD [id number],B, Kjbayron Lownataliya de la vega MD [id number],S, Kj Lownataliya de la vega MD [id number],S, Kj Lownataliya n [id number],S, Kj Cho n [id number],S, Kj Lowada n [id number],S,S /P ILR. s /p ablation 12/06 Kj Ruben ÁLVAREZ [id number],S, Kj Lownataliya n [id number],S, Kj Marquis de la vega MD [id number],B, B P today: 134/64 P rior BP: 140/70 (02/03/2021) Labs Reviewed: C reat: 1.01 (02/24/2021) C hol: 106 (02/24/2021) HDL: 41 (02/24/2021) His updated medication list for this problem includes: Dutoprol 50-12.5 Mg Oral Tablet Extended Release 24 Hour (Metoprolol-hydrochlorothiazide) Diltiazem Hcl 30 Mg Oral Tablet (Diltiazem hcl) ..... One tab by mouth every 6 hours. Nitza Avalos [id number],B, s /p ablation 12/06 0 % burden by recent monitor ada keatonjevon jefferylara would recommend him for loop recorder implantation by Dr. Miranda at this time. Discussed the indications, alternatives and risk of complications from the procedure with the patient who expressed understanding. Nitza Avalos [id number],C, C ath 06/2020 C ONCLUSIONS: 1 . Three of four vein grafts are patent with the vein graft to the first obtuse marginal occluded but the jump portion from OM1 to OM2 is patent. 2 . Patent stent in circumflex. 3 . High-grade restenosis of graft to posterolateral at site of previous angioplasty. 4 . Patent graft to diagonal and LAD. 5 . Patent graft to posterior descending. 2 . POST INTERVENTION: Following stent implantation there is no residual stenosis. Flow is improved from CHINYERE 1 to CHINYERE 3. There is no evidence of dissection or thrombus formation. C ONCLUSIONS: Successful stent implantation anastomosis of saphenous vein graft to the posterolateral artery. Kailashandrea Robbie [id number],W, r equired treatment in ER f eels better since starting dutoprol would recommend him for loop recorder implantation by Dr. Miranda at this time. Discussed the indications, alternatives and risk of complications from the procedure with the patient who expressed understanding. His updated medication list for this problem includes: Dutoprol 50-12.5 Mg Oral Tablet Extended Release 24 Hour (Metoprolol-hydrochlorothiazide) Diltiazem Hcl 30 Mg Oral Tablet (Diltiazem hcl) ..... One tab by mouth every 6 hours. Clopidogrel 75 Mg Tablet (Clopidogrel bisulfate) ..... Take 1 tablet by mouth every day Isosorbide Mononitrate Er 60 Mg Oral Tablet Extended Release 24 Hour (Isosorbide mononitrate) ..... One tab. daily Warfarin Sodium 4 Mg Tablet (Warfarin sodium) ..... Take 1&1/2 tablets by mouth on mon,wed,fri and 1 tablet on sat, tu, th, and sat. Nitrostat 0.4 Mg Sublingual Tablet Sublingual (Nitroglycerin) ..... One tab. under tongue as needed. may repeat twice in 10 minutes. Amiodarone Hcl 200 Mg Oral Tablet (Amiodarone hcl) ..... Hold Nitza Avalos [id number],N, R hythm: Sinus Rhythm with Ventricular and Supraventricular runs. M inimum Heart Rate was 54 bpm, Average Heart Rate was 79 bpm, and Maximum Heart Rate was 139 bpm. V entricular Ectopy was 2121, with 6 V-Pairs and 2 V-Runs. S upraVentricular Ectopy was 3984, with 41 SV-Runs. R eport Date: 03/06/2021. //[facility] would recommend him for loop recorder implantation by Dr. Miranda at this time. Discussed the indications, alternatives and risk of complications from the procedure with the patient who expressed understanding. Nitza Avalos Cardiology: B P 123/67 W ill continue present meds T he following medications were removed from the medication list: Chlorthalidone 25 Mg Tablet (Chlorthalidone) ..... Take 1/2 (one-half) tablet by mouth once daily His updated medication list for this problem includes: Metoprolol Tartrate 50 Mg Tablet (Metoprolol tartrate) ..... Take 1 tablet by mouth twice daily Kj Miranda MD Cardiology Kj Miranda MD Cardiology Kj Miranda MD Cardiology:1% burden on pacer ch azael Kj Miranda MD Cardiology: w ith stent to SVG 03/16 n o chest pain or pressure w ill continue plavix and stop asa H is updated medication list for this problem includes: Clopidogrel 75 Mg Tablet (Clopidogrel) ..... Take 1 tablet by mouth once a day Metoprolol Tartrate 50 Mg Tablet (Metoprolol tartrate) ..... Take 1 tablet by mouth twice daily Ranolazine 500 Mg Tablet Extended Release 12 Hr (Ranolazine) ..... Take 1 tablet by mouth twice daily Isosorbide Mononitrate 120 Mg Tablet Extended Release 24 Hr (Isosorbide mononitrate) ..... Take 1 tablet by mouth once daily Nitrostat 0.4 Mg Tablet, Sublingual (Nitroglycerin) ..... 1 tablet under tongue as needed as directed one tab under tongue may repeat in 10 min Kj Miranda MD Cardiology: s /p TAVR R epeat ECHO in 6 months Kj Miranda MD Cardiology: H is updated medication list for this problem includes: Rosuvastatin 5 Mg Tablet (Rosuvastatin) ..... Every 48 hours take 1 tablet by mouth once daily Ezetimibe 10 Mg Tablet (Ezetimibe) ..... Take 1 tablet by mouth once daily Keila Jones [facility] Cardiology:BP 110/60 W ill continue present meds T he following medications were removed from the medication list: Chlorthalidone 25 Mg Tablet (Chlorthalidone) ..... Take 1/2 (one-half) tablet by mouth once daily His updated medication list for this problem includes: Metoprolol Tartrate 50 Mg Tablet (Metoprolol tartrate) ..... Take 1 tablet by mouth twice daily Keilaralf Jones [facility] Cardiology:with rece nt stent n o chest pain or pressure w ill continue plavix and stop asa H is updated medication list for this problem includes: Clopidogrel 75 Mg Tablet (Clopidogrel) ..... Take 1 tablet by mouth once a day Metoprolol Tartrate 50 Mg Tablet (Metoprolol tartrate) ..... Take 1 tablet by mouth twice daily Ranolazine 500 Mg Tablet Extended Release 12 Hr (Ranolazine) ..... Take 1 tablet by mouth twice daily Isosorbide Mononitrate 120 Mg Tablet Extended Release 24 Hr (Isosorbide mononitrate) ..... Take 1 tablet by mouth once daily Nitrostat 0.4 Mg Tablet, Sublingual (Nitroglycerin) ..... 1 tablet under tongue as needed as directed one tab under tongue may repeat in 10 min Keilaralf Jones [facility] Cardiology:s/p TAVR with normal appearance on recent echo Causey Karen [facility] Cardiology:Last reema te check showed afib burden of 2% R emains on Metoprolol and tikosyn W ill resume Eliquis for AC W ill update labs to r/o electrolyte or thyroid dysfunction H is updated medication list for this problem includes: Clopidogrel 75 Mg Tablet (Clopidogrel) ..... Take 1 tablet by mouth once a day Metoprolol Tartrate 50 Mg Tablet (Metoprolol tartrate) ..... Take 1 tablet by mouth twice daily Dofetilide 250 Mcg Capsule (Dofetilide) ..... Take 1 capsule by mouth twice daily once every 12 hours. [facility] Cardiology:Improved. 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 Will continue on current medical management. a dvised to increase activity and monitor sx [facility] Deshaunluri Cardiology:No afib o n device check c ontinue asa and plavix will resume eliquis in 2 months Shonda Nalluri [employer] Cardiology: H is updated medication list for this problem includes: Rosuvastatin 5 Mg Tablet (Rosuvastatin) ..... Every 48 hours take 1 tablet by mouth once daily Ezetimibe 10 Mg Tablet (Ezetimibe) ..... Take 1 tablet by mouth once daily Shonda Nalluri [employer] Cardiology: B P today: 123/69 P rior BP: 130/68 (03/30/2024) Labs Reviewed: C reat: 1.05 (02/25/2024) C hol: 95 (02/25/2024) HDL: 44 (02/25/2024) LDL: 35 (02/25/2024) T (02/25/2024) Shonda Daniels NP Cardiology:S/p TAVR Hima 3 with # 26 valve P ost procedural echo unremarkable c ontinue ASA 81 mg and Plavix 75 mg w ill resume eliquis after 2 months c heck echo in 1 week Shonda Daniels NP Cardiology:Groin sit e healed well. No hematoma/bleeding noted Shonda Daniels NP Cardiology:s/p pci s vg to lad f eels better in chest after procedure but not fully as still sx from his Yobany Zhong MD Cardiology:tavr proc edure d/w pt r isk complications and options discussed h as had cts eval in house i s to have carotid doppler and then will let Mirta know to add him to heart valve meeting Yobany Zhong MD Cardiology:duples of Rigth groin hematoma at [facility] - March 23 Active AV fistula between the common femoral artery and the common f emoral vein N o evidence of right groin pseudoaneurysm. S mall focal hematoma somewhat remote from and superficial to the a lucia with additional edema and subcutaneous soft tissue thickening o f superficial hematoma continues to have groin pain and swelling, will obtain repeat duplex - now with bruit noted in groin on ausculatation h as a small pseudo on u/s - shopuld close by itself and will do serial dopplers to f/u Yobany Zhong MD Cardiology:continues to have right groin pain with hematoma noted. now with bruit w ill obtain arterial duplex to assess further. Lilly Perez NP Cardiology:duples of Rigth groin hematoma at [facility] - March 23 Active AV fistula between the common femoral artery and the common f emoral vein N o evidence of right groin pseudoaneurysm. S mall focal hematoma somewhat remote from and superficial to the a lucia with additional edema and subcutaneous soft tissue thickening o f superficial hematoma continues to have groin pain and swelling, will obtain repeat duplex - now with bruit noted in groin on ausculatation Lilly Bharat Chris [employer] Electrophysiology: B P today: 120/60 P rior BP: 118/60 (02/11/2024) Labs Reviewed: C reat: 1.05 (02/25/2024) C hol: 95 (02/25/2024) HDL: 44 (02/25/2024) LDL: 35 (02/25/2024) T (02/25/2024) His updated medication list for this problem includes: Metoprolol Tartrate 50 Mg Tablet (Metoprolol tartrate) ..... Take 1 tablet by mouth twice daily Chlorthalidone 25 Mg Tablet (Chlorthalidone) ..... Take 1/2 (one-half) tablet by mouth once daily Edgar Taylor Electrophysiology:s/ p successful stenting of the sequential vein graft to the diagonal and the LAD with reduction of stenosis from 95% to less than 10% with ultrasound guidance 02/2024. Edgar Taylor Electrophysiology:no significant events on PCM Edgar Taylor Electrophysiology:he is on pain medication for sxs, no pseudo by US Edgar Taylor Electrophysiology: S everely calcified aortic valve by cath 02/2024 Edgar Taylor Cardiology Kj Miranda MD Cardiology Kj Miranda MD Cardiology Kj Miranda MD Cardiology Kj Miranda MD Cardiology Kj Miranda MD Cardiology:Cath scheduled, will get CT TAVR Kj Miranda MD Cardiology:rate regu lar on exam r emains on tikosyn and eliquis H is updated medication list for this problem includes: Metoprolol Tartrate 50 Mg Tablet (Metoprolol tartrate) ..... Take 1 tablet by mouth twice daily Dofetilide 250 Mcg Capsule (Dofetilide) ..... Take 1 capsule by mouth twice a day take 1 capsule by mouth every 12 hours [facility]:mild to m oderate on last echo E F normal last echo w ill update echo [facility] Cardiology:on statin therapy will update lipid panel H is updated medication list for this problem includes: Rosuvastatin 5 Mg Tablet (Rosuvastatin) ..... Every 48 hours take 1 tablet by mouth once daily Ezetimibe 10 Mg Tablet (Ezetimibe) ..... Take 1 tablet by mouth once daily [facility] Cardiology:BP stable contnue present medicaion H is updated medication list for this problem includes: Metoprolol Tartrate 50 Mg Tablet (Metoprolol tartrate) ..... Take 1 tablet by mouth twice daily [facility] Cardiology:Etiology unclear. concern for underlying CHF, based on symptoms and decompensation on recent device check. We will do stress test as noted above. Will do echo to r/o LV dysfunction or valvular abnormality. Will check labs. Will begin low dose chlorathalidone. [facility] Cardiology:Has known history of CAD with reports of increasing SOB and chest pain. Will plan for nuclear stress test to r/o ischemia H is updated medication list for this problem includes: Isosorbide Mononitrate 120 Mg Tablet Extended Release 24 Hr (Isosorbide mononitrate) ..... Take 1 tablet by mouth once daily Metoprolol Tartrate 50 Mg Tablet (Metoprolol tartrate) ..... Take 1 tablet by mouth twice daily Nitrostat 0.4 Mg Tablet, Sublingual (Nitroglycerin) ..... 1 tablet under tongue as needed as directed one tab under tongue may repeat in 10 min Ranolazine 500 Mg Tablet Extended Release 12 Hr (Ranolazine) ..... Take 1 tablet by mouth twice a day [facility] Cardiology Kj Miranda MD Cardiology Kj Miranda MD Cardiology Kj Miranda MD Cardiology Kj Miranda MD Cardiology Kj Miranda MD Cardiology Kj Miranda MD Cardiology Kj Miranda MD Cardiology Kj Miranda MD Cardiology Kj Miranda MD Cardiology Kj Miranda MD Cardiology:His episo keyanna of a-fib have not increased on lower dose of dofetilide and may actually be less frequent. No significant ventricular ectopy, so I do not feel inclined to upgrade pacemaker to defibrillator. Kj Miranda MD Electrophysiology:pt reports recent ECHO at [place], will request records to review Michelle Rowell NP Electrophysiology:wi tapan review interrgation today PT: 21.6 (02/24/2021) INR: 1.6 (12/06/2022) P TT: 39 (02/09/2022) H gb: 13.1 (02/24/2021) HCT: 39.9 (02/09/2022) Platelets: 218 THOUSAND/UL (02/09/2022) R BC: 4.18 MILLION/UL (02/09/2022) WBC: 4.5 X10E3/UL (02/24/2021) B UN: 18 (05/11/2022) Creat: 0.87 (05/11/2022) Na+: 142 (05/11/2022) K+: 4.6 (05/11/2022) Cl: 105 (05/11/2022) Calcium: 9.3 (05/11/2022) Mg++: 2.2 (05/11/2022) T SH: 1.630 (12/18/2019) T4 (total): 9.1 (12/18/2019) C ardiac Cath: 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 Widely patent bypass conduits. Intermediate disease remaining in the first diagonal vessel, which is deemed appropriate for medical management. Low-normal left ventricular ejection fraction. Widely patent renal arteries. Right femoral angiography was performed. Mynx closure device was placed, safeguard placed on top. The patient can resume taking Coumadin, which he has been on for history of paroxysmal atrial fibrillation. - [facility] (08/22/2013) Michelle Rowell NP Electrophysiology: B P today: 132/62 P rior BP: 122/66 (12/18/2022) Labs Reviewed: C reat: 0.87 (05/11/2022) C hol: 106 (02/24/2021) HDL: 41 (02/24/2021) His updated medication list for this problem includes: Metoprolol Tartrate 50 Mg Tablet (Metoprolol tartrate) ..... Take 1 tablet by mouth twice daily Michelle Rowell NP Electrophysiology:CH OL: 106 (02/24/2021) HDL: 41 (02/24/2021) H is updated medication list for this problem includes: Rosuvastatin 5 Mg Tablet (Rosuvastatin) ..... Take 1 tablet by mouth once daily Ezetimibe 10 Mg Tablet (Ezetimibe) ..... Take 1 tablet by mouth once daily Michelle Rowell NP Electrophysiology:on supplementa tion Michelle Rowell NP Electrophysiology:will review in terrogation today Michelle Rowell NP Electrophysiology:on eliquis. interrogation of device today Michelle Rowell NP Cardiology Kj Miranda MD Cardiology Kj Miranda MD Cardiology Kj Miranda MD Cardiology Kj Miranda MD Cardiology:Likely du e to acute blood loss. No evidence arrythmia. Kj Miranda MD Cardiology Kj Miranda MD Cardiology Kj Miranda MD Cardiology Kj Miranda MD Cardiology Kj Miranda MD Cardiology Kj Miranda MD Cardiology:Having so me exertional CP, sounds like a stable anginal pattern. May be small vessel disease as well. Kj Miranda MD Cardiology:Still hav ing some a-fib. 8% by pacemaker. Occasionally symptomatic. H as mild elevation of T. Bili and AST, he is concerned this is due to Tikosyn. Elevation is very mild, AST likely due statin. He is having labs rechecked in 4 weeks. Kj Miranda MD Electrophysiology: H is updated medication list for this problem includes: Dofetilide 500 Mcg Capsule (Dofetilide) ..... Take 1 capsule by mouth every twelve hours take one capsule by mouth every 12 hours Metoprolol Tartrate 50 Mg Tablet (Metoprolol tartrate) ..... Take 1 tablet by mouth twice a day Warfarin 4 Mg Tablet (Warfarin) ..... Take 1 tablet by mouth every evening Clopidogrel 75 Mg Tablet (Clopidogrel) ..... Take 1 tablet by mouth once daily Orders: 9 9214 MOD 30-39min (CPT-09200) C OMPREHENSIVE METABOLIC PANEL, W/EGFR (02760) M AGNESIUM (622) Karen Briceño Electrophysiology: E KG shows atrial rhythm. Pt is tolerating Tikosyn well. He complains of occasional episodes of irregular heartbeat, but otherwise doing well. Will check a magnesium level and CMP Karen Briceño Electrophysiology: B P today: 122/54 P rior BP: 147/68 (04/20/2022) Labs Reviewed: C reat: 0.87 (05/11/2022) C hol: 106 (02/24/2021) HDL: 41 (02/24/2021) His updated medication list for this problem includes: Metoprolol Tartrate 50 Mg Tablet (Metoprolol tartrate) ..... Take 1 tablet by mouth twice a day Karen Briceño Electrophysiology: O rders: 9 14 MOD 30-39min (CPT-06512) C OMPREHENSIVE METABOLIC PANEL, W/EGFR (21470) M AGNESIUM (622) Antonio Rinaldi MD Electrophysiology: H is updated medication list for this problem includes: Dofetilide 500 Mcg Capsule (Dofetilide) ..... Take 1 capsule by mouth every twelve hours take one capsule by mouth every 12 hours Metoprolol Tartrate 50 Mg Tablet (Metoprolol tartrate) ..... Take 1 tablet by mouth twice a day Warfarin 4 Mg Tablet (Warfarin) ..... Take 1 tablet by mouth every evening Clopidogrel 75 Mg Tablet (Clopidogrel) ..... Take 1 tablet by mouth once daily Isosorbide Mononitrate 60 Mg Tablet Extended Release 24 Hr (Isosorbide mononitrate) ..... Take 1 tablet by mouth once daily Nitrostat 0.4 Mg Tablet, Sublingual (Nitroglycerin) ..... 1 tablet under tongue as needed Orders: 9 9214 MOD 30-39min (CPT-97578) C OMPREHENSIVE METABOLIC PANEL, W/EGFR (14467) M AGNESIUM (622) Antonio Rinaldi MD Electrophysiology:he undwent Tikosyn loading with EKG monitoring and has converted successfully to sinus rhythm. EKG today shows sinus rhythm. h e continues to be SOB, I recommended he start an exercise regimen. His updated medication list for this problem includes: Dofetilide 500 Mcg Capsule (Dofetilide) ..... Take 1 capsule by mouth every twelve hours take one capsule by mouth every 12 hours Metoprolol Tartrate 50 Mg Tablet (Metoprolol tartrate) ..... Take 1 tablet by mouth twice a day Warfarin 4 Mg Tablet (Warfarin) ..... Take 1 tablet by mouth every evening Clopidogrel 75 Mg Tablet (Clopidogrel) ..... Take 1 tablet by mouth once daily Orders: E KG (CPT-96077) 9 9214 MOD 30-39min (CPT-51922) 9 9214 MOD 30-39min (CPT-96470) C OMPREHENSIVE METABOLIC PANEL, W/EGFR (01905) C OMPREHENSIVE METABOLIC PANEL, W/EGFR (63734) M AGNESIUM (622) M AGNESIUM (622) Antonio Rinaldi MD Electrophysiology Edgar Taylor Electrophysiology Edgar Taylor Electrophysiology Edgar Taylor Electrophysiology Edgarraiza Taylor Electrophysiology: B P today: 115/62 P rior BP: 136/62 (03/27/2022) Labs Reviewed: C reat: 1.01 (02/24/2021) C hol: 106 (02/24/2021) HDL: 41 (02/24/2021) Edgar Taylor Cardiology[RxRsp] Kj Miranda MD Cardiology[RxRsp] Kj Miranda MD Cardiology[RxRsp] Kj Miranda MD Cardiology[RxRsp] Kj Miranda MD Cardiology[RxRsp] Kj Miranda MD Cardiology[RxRsp]:Ne eds ablation. I ncrease BB until then Kj Miranda MD Electrophysiology: B P today: 121/60 P rior BP: 110/52 (02/06/2022) Labs Reviewed: C reat: 1.01 (02/24/2021) C hol: 106 (02/24/2021) HDL: 41 (02/24/2021) Nitza Avalos Electrophysiology: H is updated medication list for this problem includes: Dofetilide 500 Mcg Capsule (Dofetilide) ..... Take 1 capsule by mouth twice a day [facility] Warfarin 4 Mg Tablet (Warfarin) ..... Take 1 tablet by mouth every evening Metoprolol Succinate 100 Mg Tablet Extended Release 24 Hr (Metoprolol succinate) ..... Take 1/2 tablet by mouth once a day Clopidogrel 75 Mg Tablet (Clopidogrel) ..... Take 1 tablet by mouth once daily Orders: 9 9215 HIGH 40-54min (CPT-20201) A BLATION w/ Anesthesia (*) A BLATION w/ Anesthesia (*) Nitza Avalos Electrophysiology: H is updated medication list for this problem includes: Dofetilide 500 Mcg Capsule (Dofetilide) ..... Take 1 capsule by mouth twice a day [facility] Warfarin 4 Mg Tablet (Warfarin) ..... Take 1 tablet by mouth every evening Metoprolol Succinate 100 Mg Tablet Extended Release 24 Hr (Metoprolol succinate) ..... Take 1/2 tablet by mouth once a day Clopidogrel 75 Mg Tablet (Clopidogrel) ..... Take 1 tablet by mouth once daily Orders: 9 9215 HIGH 40-54min (CPT-62596) A BLATION w/ Anesthesia (*) C T Cardiac with contrast (Pre-Ablation) (CPT-36483) Milabryson Avalos Cardiology Kj Miranda MD Cardiology Kj Miranda MD Cardiology Kj Miranda MD Cardiology Kj Miranda MD Cardiology Kj Miranda MD Cardiology:Now persi stent for > 1 week. Had multiple pauses on ILR. Longest > 6 seconds. Will reduce BB, but this is now colton/Tachy syndrome. N eeds CV, but will need PPM first. Will do both at same time. Kj Miranda MD Cardiology Kj Miranda MD Cardiology Kj Miranda MD Cardiology Kj Miranda MD Cardiology Kj Miranda MD Cardiology Kj Miranda MD Cardiology Kj Miranda MD Cardiology Kj Miranda MD Cardiology Kj Miranda MD Cardiology Kj Miranda MD Cardiology Kj Miranda MD Cardiology Kj Miranda MD Cardiology Kj Miranda MD Cardiology Kj Miranda MD Cardiology:S/P recen t stent with resolution of chest pain. Kj Miranda MD Cardiology:2 episode s. Will have him pick and shovel man some meclizine. Kj Miranda MD Cardiology hospital follow up Ra mao Miranda MD Cardiology hospital follow up Ra mao Miranda MD Cardiology hospital follow up Ra mao Miranda MD Cardiology hospital follow up Ra mao Miranda MD Cardiology hospital follow up Ra mao Miranda MD Cardiology hospital follow up :S/P ILR. s /p ablation 12/06 Kj Miranda MD Cardiology hospital follow up Ra mao Miranda MD Cardiology hospital follow up Ra mao Miranda MD Cardiology 12: B P today: 134/64 P rior BP: 140/70 (02/03/2021) Labs Reviewed: C reat: 1.01 (02/24/2021) C hol: 106 (02/24/2021) HDL: 41 (02/24/2021) His updated medication list for this problem includes: Dutoprol 50-12.5 Mg Oral Tablet Extended Release 24 Hour (Metoprolol-hydrochlorothiazide) Diltiazem Hcl 30 Mg Oral Tablet (Diltiazem hcl) ..... One tab by mouth every 6 hours. Nitza Avalos Cardiology 12: s /p ablation 12/06 0 % burden by recent monitor ada sam would recommend him for loop recorder implantation by Dr. Miranda at this time. Discussed the indications, alternatives and risk of complications from the procedure with the patient who expressed understanding. Nitza Avlaos Cardiology 12: C ath 06/2020 C ONCLUSIONS: 1 . Three of four vein grafts are patent with the vein graft to the first obtuse marginal occluded but the jump portion from OM1 to OM2 is patent. 2. Patent stent in circumflex. 3 . High-grade restenosis of graft to posterolateral at site of previous angioplasty. 4 . Patent graft to diagonal and LAD. 5 . Patent graft to posterior descending. 2 . POST INTERVENTION: Following stent implantation there is no residual stenosis. Flow is improved from CHINYERE 1 to CHINYERE 3. There is no evidence of dissection or thrombus formation. CONCLUSIONS: Successful stent implantation anastomosis of saphenous vein graft to the posterolateral artery. Nitza Avalos Cardiology 12: r equired treatment in ER f eels better since starting dutoprol would recommend him for loop recorder implantation by Dr. Miranda at this time. Discussed the indications, alternatives and risk of complications from the procedure with the patient who expressed understanding. His updated medication list for this problem includes: Dutoprol 50-12.5 Mg Oral Tablet Extended Release 24 Hour (Metoprolol-hydrochlorothiazide) Diltiazem Hcl 30 Mg Oral Tablet (Diltiazem hcl) ..... One tab by mouth every 6 hours. Clopidogrel 75 Mg Tablet (Clopidogrel bisulfate) ..... Take 1 tablet by mouth every day Isosorbide Mononitrate Er 60 Mg Oral Tablet Extended Release 24 Hour (Isosorbide mononitrate) ..... One tab. daily Warfarin Sodium 4 Mg Tablet (Warfarin sodium) ..... Take 1&1/2 tablets by mouth on mon,wed,fri and 1 tablet on sat, , , and sat. Nitrostat 0.4 Mg Sublingual Tablet Sublingual (Nitroglycerin) ..... One tab. under tongue as needed. may repeat twice in 10 minutes. Amiodarone Hcl 200 Mg Oral Tablet (Amiodarone hcl) ..... Hold Nitza Avalos Cardiology 12: R hythm: Sinus Rhythm with Ventricular and Supraventricular runs. M inimum Heart Rate was 54 bpm, Average Heart Rate was 79 bpm, and Maximum Heart Rate was 139 bpm. V entricular Ectopy was 2121, with 6 V-Pairs and 2 V-Runs. S upraVentricular Ectopy was 3984, with 41 SV-Runs. R eport Date: 03/06/2021. //[facility] would recommend him for loop recorder implantation by Dr. Miranda at this time. Discussed the indications, alternatives and risk of complications from the procedure with the patient who expressed understanding. Nitza Avalos Electrophysiology : O rders: L IPID PANEL (1833) His updated medication list for this problem includes: Rosuvastatin Calcium 10 Mg Oral Tablet (Rosuvastatin calcium) ..... One tab by mouth daily Zetia 10 Mg Oral Tablet (Ezetimibe) ..... Take one tab daily at bedtime CHOL: 99 (07/01/2020) HDL: 42 (07/01/2020) Nitza Avalos Electrophysiology : s tarted dilt B P today: 140/70 P rior BP: 118/74 (01/24/2021) Labs Reviewed: C reat: 1.04 (07/01/2020) C hol: 99 (07/01/2020) HDL: 42 (07/01/2020) & #13;His updated medication list for this problem includes: Diltiazem Hcl 30 Mg Oral Tablet (Diltiazem hcl) ..... One tab by mouth every 6 hours. Nitza Avalos Electrophysiology : H is updated medication list for this problem includes: Diltiazem Hcl 30 Mg Oral Tablet (Diltiazem hcl) ..... One tab by mouth every 6 hours. Clopidogrel 75 Mg Tablet (Clopidogrel bisulfate) ..... Take 1 tablet by mouth every day Isosorbide Mononitrate Er 60 Mg Oral Tablet Extended Release 24 Hour (Isosorbide mononitrate) ..... One tab. daily Warfarin Sodium 4 Mg Tablet (Warfarin sodium) ..... Take 1&1/2 tablets by mouth on mon,wed,fri and 1 tablet on sun, tues, thurs, and sat. Nitrostat 0.4 Mg Sublingual Tablet Sublingual (Nitroglycerin) ..... One tab. under tongue as needed. may repeat twice in 10 minutes. Antonio Rinaldi MD Electrophysiology : p atient notes he has been on amiodarone in past and it was stopped due to PFTs results d hyacinth yun with him. would plan to hold amio and check monitor to better assess arrhythmia Orders: M onitor - Telemetry (Mobile Cardiac) (CPT-29711) F VC - 52733 (56109) F RC - 88385 (75520) D LCO - 45228 (39872) C BC (H/H, RBC, INDICES, WBC, PLT) (1759) P ROTHROMBIN TIME WITH INR (8847) P artial Thromboplastin Time, Activated (763) M AGNESIUM (622) His updated medication list for this problem includes: Clopidogrel 75 Mg Tablet (Clopidogrel bisulfate) ..... Take 1 tablet by mouth every day Warfarin Sodium 4 Mg Tablet (Warfarin sodium) ..... Take 1&1/2 tablets by mouth on mon,wed,fri and 1 tablet on sun, tues, thurs, and sat. Amiodarone Hcl 200 Mg Oral Tablet (Amiodarone hcl) ..... Hold Nitza Avalos Electrophysiology : O rders: M onitor - Telemetry (Mobile Cardiac) (CPT-57945) would plan to hold amio and check monitor to better assess arrhythmia D iscussed possible ablation if VT documented. Discussed the indications, alternatives and risk of complications from the procedure with the patient who expressed understanding. His updated medication list for this problem includes: Diltiazem Hcl 30 Mg Oral Tablet (Diltiazem hcl) ..... One tab by mouth every 6 hours. Clopidogrel 75 Mg Tablet (Clopidogrel bisulfate) ..... Take 1 tablet by mouth every day Isosorbide Mononitrate Er 60 Mg Oral Tablet Extended Release 24 Hour (Isosorbide mononitrate) ..... One tab. daily Warfarin Sodium 4 Mg Tablet (Warfarin sodium) ..... Take 1&1/2 tablets by mouth on mon,wed,fri and 1 tablet on sat, , th, and sat. Nitrostat 0.4 Mg Sublingual Tablet Sublingual (Nitroglycerin) ..... One tab. under tongue as needed. may repeat twice in 10 minutes. Amiodarone Hcl 200 Mg Oral Tablet (Amiodarone hcl) ..... Hold Nitza Avalos Cardiology follow up Kj rothman MD Cardiology follow up Kj rothman MD Cardiology follow up Kj rothman MD Cardiology follow up Kj rothman MD Cardiology follow up Kj rothman MD Cardiology follow up :Having episodes again. W ill stop sotalol and re-start amiodarone, have him see Dr Rinaldi. Kj Miranda MD Cardiology follow up Kj rothman MD Cardiology follow up Kj rothman MD Cardiology follow up Kj rothman MD Cardiology follow up Kj rothman MD Cardiology follow up Kj rothman MD Cardiology:Will incr ease sotalol to 120mg daily. If no improvement will go back to Amiodarone. Kj Miranda MD Cardiology Kj Miranda MD Cardiology Kj Miranda MD Cardiology Kj Miranda MD Cardiology Kj Miranda MD Cardiology:Will do s tress test as he is having more PVCs. Kj Miranda MD Cardiology Kj Miranda MD Cardiology Kj Miranda MD Cardiology Kj Miranda MD Cardiology Kj Miranda MD Cardiology Kj Miranda MD Cardiology:S/P stent to LCx. PTCA to PDA. Feels much better now. Kj Miranda MD Cardiology: T he following medications were removed from the medication list: Aspirin 81 Mg Oral Tablet (Aspirin) ..... One tab. daily His updated medication list for this problem includes: Sotalol 80 Mg Tablet (Sotalol hcl) ..... Take 1 tablet by mouth twice a day BP today: 146/74 P rior BP: 130/76 (02/03/2019) Labs Reviewed: C reat: 1.0 (12/19/2015) Bryan Davis MD Cardiology: H is updated medication list for this problem includes: Lovastatin 40 Mg Oral Tablet (Lovastatin) ..... 2 tab. daily Bryan Davis MD Cardiology:lasrt stress 18, pos on medcial rx Bryan Davis MD Cardiology Bryan Davis MD Cardiology:in nsr does not want noac Bryan Davis MD Cardiology Kj Miranda MD Cardiology Kj Miranda MD Cardiology Kj Miranda MD Cardiology Kj Miranda MD Cardiology Kj Miranda MD Cardiology Kj Miranda MD Cardiology Kj Miranda MD Cardiology Kj Miranda MD Cardiology Kj Miranda MD Cardiology Kj Miranda MD Cardiology Kj Miranda MD Cardiology Kj Miranda MD Cardiology Kj Miranda MD Cardiology:Will chec k stress test. If no new ischemis, will increase sotalol. If ischemia, then cath. Kj Miranda MD Cardiology Heidy Wiener MD Cardiology Heidy Weiner MD Cardiology Heidy Weiner MD Cardiology Follow up Kj rothman MD Cardiology Follow up Kj rothman MD Cardiology Follow up Kj rothman MD Cardiology Follow up Kj rothman MD Cardiology Follow up Kj rothman MD Cardiology Follow up Kj rothman MD Cardiology Follow up Kj rothman MD Cardiology Follow up :S/P ablation 12/06 N o amio due to PFTs Kj Miranda MD Cardiology Kj Miranda MD Cardiology Kj Miranda MD Cardiology Kj Miranda MD Cardiology Kj Miranda MD Cardiology Kj Miranda MD Follow up Kj Miranda MD Follow up : H is updated medication list for this problem includes: Sotalol Hcl 120 Mg Tabs (Sotalol hcl) ..... One tab twice daily Aspirin 81 Mg Tabs (Aspirin) ..... One tab. daily Metoprolol Succinate 25 Mg Tb24 (Metoprolol succinate) ..... Two tabs daily Kj Miranda MD Follow up Kj Miranda MD Follow up Kj Miranda MD Follow up: H is updated medication list for this problem includes: Sotalol Hcl 120 Mg Tabs (Sotalol hcl) ..... One tab twice daily Aspirin 81 Mg Tabs (Aspirin) ..... One tab. daily Metoprolol Succinate 25 Mg Tb24 (Metoprolol succinate) ..... Two tabs daily Kj Miranda MD Follow up [facility] Ruben ÁLVAREZ Follow up Kjbayron Miranda MD follow up: H is updated medication list for this problem includes: Sotalol Hcl 120 Mg Tabs (Sotalol hcl) ..... One tab twice daily Aspirin 81 Mg Tabs (Aspirin) ..... One tab. daily Metoprolol Succinate 25 Mg Tb24 (Metoprolol succinate) ..... Two tabs daily [facility] Ruben ÁLVAREZ follow up: H is updated medication list for this problem includes: Sotalol Hcl 120 Mg Tabs (Sotalol hcl) ..... One tab twice daily Aspirin 81 Mg Tabs (Aspirin) ..... One tab. daily Metoprolol Succinate 25 Mg Tb24 (Metoprolol succinate) ..... Two tabs daily Kjbayron Miranda MD follow up Kjbayron Miranda MD follow up Kjbayron Miranda MD Follow up : H is updated medication list for this problem includes: Aspirin 81 Mg Tabs (Aspirin) ..... One tab. daily Metoprolol Succinate 25 Mg Tb24 (Metoprolol succinate) ..... Two tabs daily [facility] Ruben ÁLVAREZ Follow up : H is updated medication list for this problem includes: Levothyroxine Sodium 88 Mcg Tabs (Levothyroxine sodium) ..... One daily Kjbayron Miranda MD Follow Up: H is updated medication list for this problem includes: Levothyroxine Sodium 88 Mcg Tabs (Levothyroxine sodium) ..... One daily [facility] Ruben ÁLVAREZ Follow Up: H is updated medication list for this problem includes: Lovastatin Tabs (Lovastatin tabs) ..... 80mg one daily Niacin Er 500 Mg Cr-tabs (Niacin) ..... One daily Kjbayron Miranda MD Follow Up: H is updated medication list for this problem includes: Aspirin 81 Mg Tabs (Aspirin) ..... One tab. daily Metoprolol Succinate 25 Mg Tb24 (Metoprolol succinate) ..... Two tabs daily Kj Miranda MD Follow Up: H is updated medication list for this problem includes: Lovastatin Tabs (Lovastatin tabs) ..... 80mg one daily Aspirin 81 Mg Tabs (Aspirin) ..... One tab. daily Metoprolol Succinate 25 Mg Tb24 (Metoprolol succinate) ..... Two tabs daily Coumadin 3 Mg Tabs (Warfarin sodium) Kj Miranda MD Follow Up: H is updated medication list for this problem includes: Aspirin 81 Mg Tabs (Aspirin) ..... One tab. daily Amiodarone Hcl 200 Mg Tabs (Amiodarone hcl) ..... One tab. daily Metoprolol Succinate 25 Mg Tb24 (Metoprolol succinate) ..... Two tabs daily Coumadin 3 Mg Tabs (Warfarin sodium) Orders: M obile Cardiac Tele (CPT-75307) F gardenia PFT (*) Kj Miranda MD hos follow up: H is updated medication list for this problem includes: Levothyroxine Sodium 88 Mcg Tabs (Levothyroxine sodium) ..... One daily Kj Miranda MD hos follow up: H is updated medication list for this problem includes: Lovastatin Tabs (Lovastatin tabs) ..... 80mg one daily Niacin Er 500 Mg Cr-tabs (Niacin) ..... One daily BP today: 140/76 Prior BP: / () Kj Miranda MD hos follow up: H is updated medication list for this problem includes: Aspirin 81 Mg Tabs (Aspirin) ..... One tab. daily Metoprolol Succinate 25 Mg Tb24 (Metoprolol succinate) ..... Two tabs daily Kj Miranda MD hos follow up: H is updated medication list for this problem includes: Lovastatin Tabs (Lovastatin tabs) ..... 80mg one daily Aspirin 81 Mg Tabs (Aspirin) ..... One tab. daily Metoprolol Succinate 25 Mg Tb24 (Metoprolol succinate) ..... Two tabs daily Coumadin 3 Mg Tabs (Warfarin sodium) BP today: 140/76 Prior BP: / () C ardiac Cath: 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 Widely patent bypass conduits. Intermediate disease remaining in the first diagonal vessel, which is deemed appropriate for medical management. Low-normal left ventricular ejection fraction. Widely patent renal arteries. Right femoral angiography was performed. Mynx closure device was placed, safeguard placed on top. The patient can resume taking Coumadin, which he has been on for history of paroxysmal atrial fibrillation. - [facility] (08/22/2013) Kj Miranda MD hos follow up: H is updated medication list for this problem includes: Aspirin 81 Mg Tabs (Aspirin) ..... One tab. daily Amiodarone Hcl 200 Mg Tabs (Amiodarone hcl) ..... One tab. daily Metoprolol Succinate 25 Mg Tb24 (Metoprolol succinate) ..... Two tabs daily Coumadin 3 Mg Tabs (Warfarin sodium) BP today: 140/76 Prior BP: / () C ardiac Cath: 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 Widely patent bypass conduits. Intermediate disease remaining in the first diagonal vessel, which is deemed appropriate for medical management. Low-normal left ventricular ejection fraction. Widely patent renal arteries. Right femoral angiography was performed. Mynx closure device was placed, safeguard placed on top. The patient can resume taking Coumadin, which he has been on for history of paroxysmal atrial fibrillation. - [facility] (08/22/2013) Kj Miranda MD Date Name Complete Echo MAGNESIUM CBC (INCLUDES DIFF/P LT) TSH, free T4, total T3 PROBNP, N TERMINAL BASIC METABOLIC PANE L W/EGFR Complete Echo Arterial Duplex to r /o pseudoanuerysm Arterial Duplex to r /o pseudoanuerysm Carotid Duplex Bilat eral Complete Echo Arterial Duplex RLE Arterial Duplex to r /o pseudoanuerysm CT Angio, abdomen an d pelvis CT Cardiac with cont rast (Pre-Ablation) CT Angio, abdomen an d pelvis CT Angio Chest (Aort a) CT Cardiac with cont rast (Pre-Ablation) PROTHROMBIN TIME WIT H INR LIPID PANEL CBC (INCLUDES DIFF/P LT) BASIC METABOLIC PANE L W/EGFR PROBNP, N TERMINAL BASIC METABOLIC PANE L W/EGFR Stress Regadenoson Complete Echo LIPID PANEL Lipoprotein (a) CRP, high sensitivit y BASIC METABOLIC PANE L W/EGFR CXR- PA/Lat DLCO - 52478 FRC - 02192 FVC - 57374 MAGNESIUM COMPREHENSIVE METABO LIC PANEL, W/EGFR MAGNESIUM COMPREHENSIVE METABO LIC PANEL, W/EGFR CT Cardiac with cont rast (Pre-Ablation) ABLATION w/ Anesthes ia CXR- PA/Lat PARTIAL THROMBOPLAST IN TIME, ACTIVATED CBC (INCLUDES DIFF/P LT) Pacemaker Dual Chamb er - [facility] Cardioversion - [facility] Loop Rec Implant - S [facility] LIPID PANEL MAGNESIUM Partial Thromboplast in Time, Activated PROTHROMBIN TIME WIT H INR CBC (H/H, RBC, INDIC ES, WBC, PLT) COMPREHENSIVE METABO LIC PANEL, W/EGFR DLCO - 15166 FRC - 73626 FVC - 02564 Monitor - Telemetry (Mobile Cardiac) Holter Monitor 48 hr PROTHROMBIN TIME WIT H INR LIPID PANEL CBC (INCLUDES DIFF/P LT) BASIC METABOLIC PANE L W/EGFR Complete Echo Stress Regadenoson Carotid Duplex Bilat eral Complete Echo TSH, free T4, total T3 CBC (INCLUDES DIFF/P LT) BASIC METABOLIC PANE L W/EGFR Carotid Duplex Bilat eral LIPID PANEL Complete Echo INR Strip INR Strip STR - Adenosine Complete Echo Complete Echo MAGNESIUM BASIC METABOLIC PANE L W/EGFR PROTHROMBIN TIME WIT H INR CBC (H/H, RBC, INDIC ES, WBC, PLT) COMPREHENSIVE METABO LIC PANEL W/EGFR STR - Nuclear Holter Monitor 24 Hr Full PFT Mobile Cardiac Tele HISTORY OF PROCEDURES Procedure Date Procedure Name Provider Procedure Notes S tatus Complex e/m visit add on Trevin ÁLVAREZ completed Complex e/m visit add on Trevin ÁLVAREZ completed Complex e/m visit add on Trevin ÁLVAREZ completed Spirometry Antonio ramey MD completed FVC / MVV with bronchodilator - 88959 Antonio Rinaldi MD completed BLOOD COUNT HEMOGLOBIN Antonio gacria MD completed FRC - 59180 Antonio ramey MD completed SpO2 w/o 6min walk/titration Antonio Rinaldi MD completed SVC - 83426 Antonio ramey MD completed DLCO - 89386 Antonio ramey MD completed Schedule Followup Antonio chakraborty MD [address] Miranda [address] Rinaldi completed EKG Antonio ramey MD completed Phone Anti-Coag Management Kj Miranda MD completed Phone Anti-Coag Management Kj Miranda MD completed EKG Antonio ramey MD completed Phone Anti-Coag Management Kj Miranda MD completed Phone Anti-Coag Management Kj Miranda MD completed EKG Antonio ramey MD completed EKG Antonio ramey MD completed EKG Antonio ramey MD completed EKG Kj Miranda MD complete d Phone Anti-Coag Management Kj Miranda MD completed Phone Anti-Coag Management Sukh Agudelo RN completed Phone Anti-Coag Management Kj Miranda MD completed Phone Anti-Coag Management Kj Miranda MD completed Phone Anti-Coag Management Kj Miranda MD completed Phone Anti-Coag Management Kj Miranda MD completed Phone Anti-Coag Management Kj Miranda MD completed Phone Anti-Coag Management Kj Miranda MD completed Phone Anti-Coag Management Kj Miranda MD completed Phone Anti-Coag Management Kj Miranda MD completed Phone Anti-Coag Management Kj Miranda MD completed Phone Anti-Coag Management Kj Miranda MD completed Phone Anti-Coag Management Kj Miranda MD completed Phone Anti-Coag Management Gilda Rosales completed Phone Anti-Coag Management Kj Miranda MD completed Mobile Cardiac Telem etry - Tech Antonio Rinaldi MD completed Mobile Cardiac Telem etry - Prof Antonio Rinaldi MD completed Phone Anti-Coag Management Kj Miranda MD completed Phone Anti-Coag Management Kj Miranda MD completed EKG Kj Miranda MD complete d Phone Anti-Coag Management Kj Miranda MD completed Phone Anti-Coag Management Kj Miranda MD completed Phone Anti-Coag Management Kj Miranda MD completed EKG Antonio ramey MD completed EKG Kj Miranda MD complete d Phone Anti-Coag Management Kj Miranda MD completed Phone Anti-Coag Management Kj Miranda MD completed Phone Anti-Coag Management Kj Miranda MD completed Phone Anti-Coag Management Kj Miranda MD completed Phone Anti-Coag Management Kj Miranda MD completed Phone Anti-Coag Management Kj Miranda MD completed Phone Anti-Coag Management Sukh Agudelo RN completed Phone Anti-Coag Management Kj Miranda MD completed Phone Anti-Coag Management Kj Miranda MD completed Phone Anti-Coag Management Kj Miranda MD completed Regadenoson, 4 units Kj Miranda MD completed Cardiolite, 2 units Kj Miranda MD completed SPECT Images Kj Miranda MD comple faith Stress EKG Kj Miranda MD complete d Phone Anti-Coag Management Kj Miranda MD completed Phone Anti-Coag Management Kj Miranda MD completed Protime Kj Miranda MD complete d Phone Anti-Coag Management Kj Miranda MD completed Phone Anti-Coag Management Sukh Agudelo RN completed Phone Anti-Coag Management Kj Miranda MD completed Phone Anti-Coag Management Kj Miranda MD completed Phone Anti-Coag Management Kj Miranda MD completed EKG Bryan Davis MD complete d Phone Anti-Coag Management Kj Miranda MD completed Phone Anti-Coag Management Kj Miranda MD completed Phone Anti-Coag Management Kj Miranda MD completed Phone Anti-Coag Management Kj Miranda MD completed Phone Anti-Coag Management Kj Miranda MD completed Phone Anti-Coag Management Kj Miranda MD completed Phone Anti-Coag Management Kj Miranda MD completed Tha Weiner MD completed Protmariia Davis MD complete d Tha Weiner MD completed Tha Weiner MD completed EKG Kj Miranda MD complete d Tha Weiner MD completed Tha Acosta MD completed Protmariia Cabrera MD complet ed Tha Weiner MD completed Tha Weiner MD completed Protmariia Acosta MD completed Tha Cabrera MD complet ed Tha Weiner MD completed Tha Huffman MD completed Tha Miranda MD complete d Tha Miranda MD complete d Tha Miranda MD complete d Tha Miranda MD complete d Tha Miranda MD complete d Protime Heidy Weiner MD completed Regadenoson, 4 units Kj Miranda MD completed Cardiolite, 2 units Kj Miranda MD completed SPECT Images Jose Sanchez MD compl eted Stress EKG Jose Sanchez MD complet ed EKG Hipolito bingham MD completed SNOMED-CT: [id number] Current Medications Documented Hipolito Hobson MD completed Stress EKG Heidy Weiner MD completed Cardiolite, 2 units Kj Miranda MD completed SPECT Images Heidy Weiner MD complet ed SNOMED-CT: 93155475 Physical Exam, Performed: Pulse Exam of Foot Heidy Weiner MD completed SNOMED-CT: 179931194660968 Current Medications Documented Heidy Weiner MD completed SNOMED-CT: 587578997765587 Current Medications Documented Kj Miranda MD completed EKG Cortney Layton completed SNOMED-CT: 619636149473842 Current Medications Documented Cortney Layton completed EKG Hipolito bingham MD completed SNOMED-CT: 071297772022884 Current Medications Documented Hipolito Hobson MD completed SNOMED-CT: 159793083831907 Current Medications Documented Kj Miranda MD completed Protime Hipolito bingham MD completed EKG Hipolito bingham MD completed SNOMED-CT: 788207202548166 Current Medications Documented Hipolito Hobson MD completed Protime Kj Miranda MD complete d INR Strip Kj Miranda MD complete d Protmariia Miranda MD complete d Protmariia Miranda MD complete d EKG Hipolito bingham MD completed SNOMED-CT: 185370738429878 Current Medications Documented Hipolito Hobson MD completed Tha Miranda MD complete d Tha Miranda MD complete d EKG Hipolito bingham MD completed SNOMED-CT: 497927182381840 Current Medications Documented Hipolito Hobson MD completed EKG Kj Miranda MD complete d SNOMED-CT: 088811024513882 Current Medications Documented Kj Miranda MD completed Holter, 24 or 48 Kj Miranda MD co mpleted EKG Kj Miranda MD complete d EKG Kj Miranda MD complete d EKG Kj Miranda MD complete d
[2025-03-04 02:29] LABS: INR 1.4; Partial Thromboplastin Time 35.9 Seconds (22.3-36.8)
[2025-03-04 02:31] LABS: Troponin I 0.028 ng/mL (0.000-0.034)
--- NOTE | 2025-03-04 04:32 | ED.GENADULT ---
HPI - General Adult General Chief complaint: Arrhythmia/Palpitations Stated complaint: PALPITATIONS W/ CARDIAC HISTORY Time Seen by Provider: 03/04/25 01:54 History of Present Illness HPI narrative: This is an 84-year-old male presenting ED with chief complaint of palpitations. Patient says that he has been feeling fluttering in his chest when he tries to go to bed. He then tried to do an EKG and his apple watch and saw a change in the EKG tracing. He then [employer] does symptoms inside possible he was having a heart attack so he came to the hospital to be evaluated. He has no other symptoms other than a fluttering in his chest that has been happening most nights for quite some time. He has not called his chemical laboratory technician. No fevers, chest pain difficulty breathing abdominal pain urinary symptoms syncope diaphoresis vomiting or exertional component. Related Data Home Medications ?Medication ?Instructions ?Recorded ?Confirmed ?Last Taken ?Type calcium carbonate 600 mg PO QAM 10/22/19 07/28/24 12/11/22 09:00 History multivitamin 1 tablet PO DAILY 10/22/19 07/28/24 12/11/22 08:00 History omega-3 fatty acids 1,000 mg 2,000 mg PO Q12H 10/22/19 07/28/24 12/11/22 21:00 History capsule (Fish Oil Concentrate) ezetimibe 10 mg tablet 10 mg PO HS 02/23/20 07/28/24 12/11/22 21:00 History magnesium oxide 400 mg PO Q12H 04/18/21 07/28/24 12/11/22 20:00 History Adult Probiotic 1 cap PO DAILY 11/14/22 07/28/24 12/11/22 08:00 History Vitamin D3 1 cap PO DAILY 11/14/22 07/28/24 12/11/22 08:00 History metoprolol tartrate 50 mg tablet 50 mg PO Q12H 11/14/22 07/28/24 12/11/22 20:00 History simethicone 250 mg capsule 250 mg PO BID PRN Diarrhea 12/19/22 07/28/24 Unknown History (Phazyme) ascorbate calcium (vitamin C) 500 500 mg PO DAILY 01/03/23 07/28/24 Unknown History mg tablet ferrous sulfate 325 mg (65 mg 325 mg PO BID 01/03/23 07/28/24 Unknown History iron) tablet (FeroSul) nitroglycerin 0.4 mg sublingual 0.4 mg sublingual Q5M PRN 03/28/23 07/28/24 Unknown History tablet chlorthalidone 25 mg tablet 12.5 mg PO DAILY 01/14/24 07/28/24 Unknown History Allergies Allergy/AdvReac Type Severity Reaction Status Date / Time No Known Allergies Allergy Verified 11/19/23 14:26 [facility] Past Medical History Medical History Seasonal allergic rhinitis (05/27/24) Male erectile dysfunction, unspecified Macrocytosis (06/10/24) MCV elevated at 106 on 06/10/2024. Pharyngitis Gastro-esophageal reflux disease without esophagitis Pulmonary hypertension severe pulmonary hypertension on echo on 01/29/2024. with moderate to severe mitral valve regurgitation and stenosis, tricuspid valve regurgitation and stenosis, aortic valve regurgitation and stenosis. Fatigue Overweight (BMI 25.0-29.9) BMI 25.0-25.9,adult Change in voice Presbyphonia PND (post-nasal drip) Nasal folliculitis Nasal crusting Nasal polyps Muscle cramps Chest congestion Pedal edema Dyspnea Follow up Lower GI bleed (11/2022) Colonoscopy showed stigmata of bleeding internal hemorrhoids. Paroxysmal atrial fibrillation Diverticulosis of sigmoid colon Elevated troponin Chest pain History of diverticulosis Internal hemorrhoids Rectal bleeding Elevated troponin Orthostatic hypotension Non-ST elevated myocardial infarction Chronic anticoagulation Elevated lactic acid level Syncope Acute blood loss anemia GI bleed Gastroesophageal reflux Benign prostatic hyperplasia Myocardial infarction Coronary artery disease Cardiac catheterization diagram from September 2021 showed an occluded proximal Left anterior descending and mid circumflex. Looks like the distal RCA is occluded. The saphenous vein graft to the posterolateral had an old stent distally and looks like a new 2.5 x 12 mm stent was placed in a subtotal occlusion in the proximal segment. Looks like another saphenous vein graft to the PDA is patent, saphenous vein graft to diagonal and Left anterior descending is patent, and a saphenous vein graft remnant between the 1st and 2nd OM is patent. cardiac catheterization 03/02/2024 with high-grade stenosis of 2 bypass graft, 80% LAD and 90% posterior lateral. Moderate to severe pulmonary hypertension. Diverticulosis Diarrhea Diverticulitis Lung nodule Epididymitis Chronic hoarseness Encounter for routine adult health examination with abnormal findings BPPV (benign paroxysmal positional vertigo) Dizziness Vitamin D deficiency Prediabetes Fasting glucose 97 with hemoglobin A1c 5.3 on 10/10/2023. Fasting glucose 105 on 02/24/2024. Fasting glucose 91 with hemoglobin A1c 5.0 on 06/10/2024. BMI 26.0-26.9,adult Aortic stenosis echo 12/09/2022 with EF 65-70%, grade 1 diastolic dysfunction, moderate aortic valve stenosis and aortic valve regurgitation with mild mitral valve and tricuspid valve regurgitation. Patient had trans catheter aortic valve replacement on 04/30/2024. Nasal polyps Post-operative pain Chronic sinusitis Facial pressure Claudication Presbylarynges Insomnia Elevated glucose Hyperlipidemia Cholesterol 117, triglycerides 85, HDL 51, LDL 49 with ratio 2.3 on 09/30/2023. Cholesterol 95, triglycerides 78, HDL 44, LDL 35 on 02/24/2024. Cholesterol 135, triglycerides 94, HDL 57, LDL 60 with ratio 2.4 on 06/10/2024. PVC's (premature ventricular contractions) Abnormal finding of blood chemistry, unspecified Dry eyes Encounter for routine adult health examination without abnormal findings Peripheral visual field defect ASHD (arteriosclerotic heart disease) Benign essential hypertension Surgical History Surgical History History of colonoscopy (12/10/22) Internal hemorrhoids with stigmata of recent bleeding. Medium diverticula of sigmoid colon. History of coronary artery bypass graft x 2 1982 and 2001, last 1 [facility] History of coronary artery stent placement History of cardiac catheterization History of nasal septoplasty (1969) History of epididymectomy (10/2009) Right. History of transurethral resection of prostate (10/2009) History of cholecystectomy (03/2005) History of appendectomy (07/2011) History of colonoscopy with polypectomy History of permanent cardiac pacemaker placement Biotronik 06/2022 Family History Family History Father Family history of heart disease in male family member before age 55 Family history of cardiovascular disease Alcoholism Heart disease Mother Family history of diabetes mellitus in first degree relative Family history of heart disease in male family member before age 55 Diabetes mellitus Family history of cardiovascular disease Heart disease Other Hypertension Social History Social History Social History: Surrogat Medical Decision Maker is Natalia Sutherland, daughter and POA. Code status: Full code. Years smoked: 15 Smoking status: Former smoker Tobacco type: pipe Second hand tobacco smoke exposure: No Smoking end date: 03/23/78 Alcohol intake: never Substance use: never Substance use type: does not use Lack of Transportation: No Lack of Food: Never True Current Housing: I Have Housing Concerned About Future Housing: No Difficulty Paying Gas/Electric Bills: No Difficulty Paying for Meds: No Currently Unemployed: No Education: Bachelor's Degree Difficulty w/ Childcare or Family Care: No Living arrangements: with family Additional living arrangements comments: Lives with in [place]. Occupation/Education: retired Spiritual care concerns: No Exam Narrative: APPEARANCE: No apparent distress. Head: atraumatic. EYES: EOMI, NOSE: Atraumatic NECK: Trachea midline RESPIRATORY: No increased rate of breathing clear to auscultation CARDIOVASCULAR: Occasional missed heart beats, no peripheral edema ABDOMINAL: Non-distended soft nontender MUSCULOSKELETAl: No obvious deformities NEURO: Alert. Moving 4/4 extremities SKIN:: Warm, dry. Normal color PSYCHIATRIC: Normal affect Course Vital Signs Vital signs: Vital Signs Pulse Rate 69 03/04/25 01:44 Respiratory Rate 18 03/04/25 01:44 Blood Pressure 139/66 03/04/25 01:44 Pulse Oximetry 96 03/04/25 01:44 Oxygen Delivery Room Air 03/04/25 01:44 Pulse Rate 73 03/04/25 05:18 Respiratory Rate 16 03/04/25 05:18 Blood Pressure 124/69 03/04/25 05:18 Pulse Oximetry 97 03/04/25 05:18 Oxygen Delivery Room Air 03/04/25 02:00 Medical Decision Making MDM Narrative Medical decision making narrative: -Course: 84-year-old male presenting with a fluttering sensation in his chest. The fluttering sensation corresponds with PVCs occurred on his cafeteria monitor. Troponins were within normal limits. Chest x-ray with no acute findings. EKG showed next optic atrial rhythm at ischemic changes. Patient was monitored for several hours and has been resting comfortably with no complaints. Patient is comfortable being discharged follow-up with his chemical laboratory technician. Return precautions. -DDX includes but is not limited to: AFib, anxiety, PVCs, PACs, cardiac dysrhythmia Independent EKG interpretation: Rhythm [sinus], Rate [68], [place] -[normal], [place] -[normal], QRS [narrow], QTC [normal], T waves -[negative for concerning inversions], ST Segments - [Negative for concerning elevations] Final interpretations: [Normal Sinus Rhythm] Vital Signs Vital Signs: Vital Signs Pulse Rate 69 03/04/25 01:44 Respiratory Rate 18 03/04/25 01:44 Blood Pressure 139/66 03/04/25 01:44 Pulse Oximetry 96 03/04/25 01:44 Oxygen Delivery Room Air 03/04/25 01:44 Pulse Rate 73 03/04/25 05:18 Respiratory Rate 16 03/04/25 05:18 Blood Pressure 124/69 03/04/25 05:18 Pulse Oximetry 97 03/04/25 05:18 Oxygen Delivery Room Air 03/04/25 02:00 Lab Data 03/04/25 02:04 03/04/25 02:04 Labs: Lab Results 03/04/25 03/04/25 Range/Units 02:04 05:05 WBC 7.2 (4.5-10.0) K/mm3 RBC 4.00 L (4.6-6.20) M/mm3 Hgb 13.5 L (14.0-18.0) g/dL Hct 41.0 L (42.0-52.0) % MCV 102.5 H (80-100) fl MCH 33.8 (26-34) pg MCHC 32.9 (32-36) g/dl RDW 12.6 (11.5-14.5) % Plt Count 193 (150-375) k/mm3 MPV 10.7 H (7.4-10.4) fl Immature Gran % (Auto) 0.3 (0-0.5) % Neut % (Auto) 67.7 (45.5-73.1) % Lymph % (Auto) 19.0 (18.3-44.2) % [place] % (Auto) 10.5 H (2.6-8.5) % Eos % (Auto) 1.8 (0-4.4) % Baso % (Auto) 0.7 (0.2-1.2) % Lymph # (Auto) 1.36 (0.9-3.2) K/mm3 [place] # (Auto) 0.8 H (0.1-0.6) K/mm3 Eos # (Auto) 0.1 (0-0.3) K/mm3 Baso # (Auto) 0.1 (0.0-0.1) K/mm3 Abs Immat Gran (auto) 0.02 (0.00-0.031) K/mm3 Absolute Neuts (auto) 4.9 (1.3-6.7) K/mm3 Absolute Nucleated RBC 0.000 (0.0-0.012) K/mm3 Nucleated RBC % 0.0 (0.0-0.2) % PT 17.0 H (11.1-14.7) Seconds INR 1.4 APTT 35.9 (22.3-36.8) Seconds Sodium 138 (137-145) mmol/L Potassium 3.9 (3.4-5.0) mmol/L Chloride 104 (98-107) mmol/L Carbon Dioxide 25 (22-30) mmol/L Anion Gap 9 (4-12) mmol/L BUN 15 (9-20) mg/dL Creatinine 1.07 (0.7-1.3) mg/dL Estim Creat Clear Calc 48 ml/min Estimated GFR > 60 (59 - ) Glucose 117 H (65-110) mg/dL Calcium 9.3 (8.4-10.2) mg/dL Total Bilirubin 0.8 (0.2-1.3) mg/dL AST 70 H (17-59) U/L ALT 71 H (6-50) U/L Alkaline Phosphatase 78 (38-126) U/L Troponin I 0.028 0.025 (0.000-0.034) ng/mL Total Protein 7.0 (6.3-8.2) g/dL Albumin 4.3 (3.5-5.1) g/dL Lipase 46 (23-300) U/L Discharge Plan Discharge Clinical Impression: Heart palpitations Patient Disposition: Home Condition: Stable Instructions: Antibiotic Form, Heart Palpitations (DC) Additional Instructions: You were seen in the emergency department for palpitations. You are having frequent premature ventricular contractions on our cardiac tracing. These are typically benign. Please follow-up with your chemical laboratory technician for further management. Develop any new or worsening symptoms return to ED for re-evaluation. Patient Language: Luxembourgish Prescriptions: No Action omega-3 fatty acids [Fish Oil Concentrate] 1,000 mg capsule 2,000 mg PO Q12H multivitamin Tablet 1 tablet PO DAILY calcium carbonate 600 mg calcium (1,500 mg) tablet 600 mg PO QAM ezetimibe 10 mg tablet 10 mg PO HS Eliquis 5 mg tablet 5 mg PO BID Qty: 60 0RF Patient Comments: Patient states will be starting Eliquis on 12/17 magnesium oxide 400 mg magnesium tablet 400 mg PO Q12H Phazyme 250 mg capsule 250 mg PO BID PRN (Reason: Diarrhea) nitroglycerin 0.4 mg tablet, sublingual 0.4 mg sublingual Q5M PRN Rx Instructions: do not exceed 3 doses per episode trazodone 100 mg tablet 100 mg PO QHS Qty: 90 3RF Adult Probiotic 1 cap PO DAILY metoprolol tartrate 50 mg tablet 50 mg PO Q12H Vitamin D3 1 cap PO DAILY ferrous sulfate [FeroSul] 325 mg (65 mg iron) tablet 325 mg PO BID ascorbate calcium (vitamin C) 500 mg tablet 500 mg PO DAILY isosorbide mononitrate 30 mg tablet extended release 24 hr 90 mg PO QAM 30 Days Qty: 90 0RF ranolazine 500 mg tablet extended release 12 hr 500 mg PO Q12H Qty: 60 0RF chlorthalidone 25 mg tablet 12.5 mg PO DAILY Patient Comments: started by chemical laboratory technician 01/14/2024. levothyroxine 75 mcg tablet 75 mcg PO DAILY Qty: 90 3RF Rx Instructions: take with only water pantoprazole 40 mg tablet,delayed release (DR/EC) 40 mg PO QAM Qty: 90 3RF Breztri Aerosphere 160-9-4.8 mcg/actuation HFA aerosol inhaler 2 inh inhalation QAM AND QPM Qty: 11 11RF alprazolam 0.25 mg tablet 0.25 mg PO TID PRN (Reason: anxiety) Qty: 90 5RF mupirocin 2 % ointment See Rx Instructions topical BID Qty: 44 5RF Rx Instructions: melt 2 through 3 cm in each irrigation bottle, irrigate with 2 bottles daily rosuvastatin 5 mg tablet 5 mg PO . every other day Qty: 45 3RF azelastine 137 mcg (0.1 %) spray,non-aerosol 2 spray intranasal Q12H Qty: 30 11RF Rx Instructions: administer into each nostril budesonide 0.25 mg/2 mL suspension for nebulization 0.25 mg irrigation DAILY Qty: 60 11RF Rx Instructions: 2 mL per irrigation bottle, irrigate with 1 bottle daily zolpidem [Ambien] 5 mg tablet 5 mg PO QHS PRN (Reason: insomnia) Qty: 90 3RF Follow-up/Referrals: Mayank Souza MD [Primary Care Provider] -
[2025-03-04 05:38] LABS: Troponin I 0.025 ng/mL (0.000-0.034)
== END 2025-03-04 06:20 | disposition home or self-care (01) ==
PROVIDERS: Emergency Provider Emergency Medicine; PCP Family Medicine
DX: R00.2 Palpitations (principal); I48.0 Paroxysmal atrial fibrillation; I25.2 Old myocardial infarction; I10 Essential (primary) hypertension; Z87.891 Personal history of nicotine dependence
CPT/HCPCS: 36415; 71045; 80053; 83690; 84484; 85025; 85610; 85730; 93005; 99284

== ENCOUNTER 2025-05-19 18:09 | Emergency (ER) | payer MEDICARE, SELFPAY ==
--- OUTSIDE RECORDS SUMMARY | 2009-11-14 05:45 | XMS_ITS | Continuity of Care Document ---
Author Organization [facility] Address [address] [place] [address] Phone Care Team Providers Care Legal Aide Name Role Phone Valentin Kate Unavailable Unavailable Procedures Procedure Date Office/outpatient Visit, Est Advance Directives Directive Yes / No Effective Date File Name No Information Encounters Encounter Description Practice Location Reason(s) For Visit Diagnoses Date Provider Providers Copied on Encounter Office/outpat ient Visit, Est [facility], [address], [place], [place], [id number], tel:[phone] [facility] No Information 2-201 0 Lavinia Hanson. [address], [place], [address], [place]. tel:[phone] Family History Family Member Type Diagnosis Age At Onset No Information Payers Payer name Insurance type Covered green party ID Authoriza tion(s) Medicare [facility] [id number] Social History Type Description Quantity Date Captured Comments Sex Male Smoking Status No Information Chief Complaint And Reason For Visit No Information Reason For Referral Reason For Referral No Information History Of Present Illness Encounter Date Complaint History Of Prese nt Illness No Information Functional Status Date Functional Assessmen t No Information Instructions Date Instruction Additional Infor mation No Information Assessments Type Assessment Date No Information Patient Care Teams Name Effective Dates (start - stop) Status Members No Information
--- NOTE | ~2025-05-19 | XR_ITS ---
EXAMINATION: XR chest 2V DATE: 05/19/2025 18:59 INDICATION: Chest pain. Before meals heart. TECHNIQUE: PA and lateral views of the chest were obtained. COMPARISON: Chest radiograph dated 03/04/[address] dated 01/10/2017 FINDINGS: Unchanged calcified pleural plaque projecting over the right mid to lower lung zone. Additional calcified plaque along the left hemidiaphragm. Unchanged mild streaky atelectasis/scarring at the left lung base. No new airspace opacities, pulmonary edema, pleural effusion or pneumothorax. Heart size is normal. Median sternotomy wires, ostial markers and mediastinal surgical clips consistent with prior coronary artery bypass grafting. Aortic valve repair. Dual lead pacemaker seen with leads projecting over the expected locations of the right atrium and right ventricle. IMPRESSION: 1. Mild left basilar atelectasis and bilateral calcified pleural plaques consistent with prior asbestos exposure. No acute cardiopulmonary disease. Reviewed, dictated and finalized at location A. IMPRESSION: 1. Mild left basilar atelectasis and bilateral calcified pleural plaques consis tent with prior asbestos exposure. No acute cardiopulmonary disease.
[2025-05-19 18:11] VITALS: BP 151/100; PULSE 71; RESP 16; TEMP 36.8; O2SAT 97
--- OUTSIDE RECORDS SUMMARY | 2025-05-19 18:11 | XMS_ITS | Clinical Summary ---
Author Organization [facility] [address] Address [address] [place] [address] Care Team Providers Care Title Assistant Name Role Phone Mayank Souza MD Primary Care Provider [phone] Iza Mackey NP Unavailable [phone] Apoorva Whitlock MD Unavailable [phone] Tay Cook MD Unavailable Allergies No [...] 1 tablet (75 mcg total) by mouth electronic warfare operator before breakfast Active magnesium oxide (MAG-OX) 400 [...] by mouth daily 30 tablet 11 4 Active cholecalciferol (VITAMIN D-3) 39674 unit capsule Take 1 capsule (10,000 Units total) by mouth daily Active xshkq-frmvs-0-d eq-rte-yxyjwa (krill oil) 357-10-14-50 mg capsule Take 300 mg by mouth [...] drink = 0.6 oz pur e alcohol) [facility] Utilities Answer Date Recorded In the past 12 months has [employer], gas, oil, or water [employer] threatened to shut off services in your home? No 05/01/2024 Social Connection and Isolation Panel Answer Date Recorded In a typical week, how many times do you talk on the phone with family, friends, or neighbors? More than three times a week 05/01/2024 How often do you get togethe r with friends or relatives? More than three times a week 05/01/2024 How often do you attend chur ch or synagogue services? More than 4 times per year 05/01/2024 Do you belong to any clubs o r organizations such as catholic groups, unions, fraternal or athletic groups, or [...] any time in the past 12 m [facility], were you homeless or living in a penitentiary (including now)? No 05/01/2024 Personal Safety Answer Date Recorded Have you ever been in or are you currently in a harmful physical or emotional relationship or is someone making you feel afraid or unsafe? 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 Gender Identity Not on file Sexual Orientation [...] Pneumococcal vaccine 65+ (2 of 2 - PCV20 or PCV21) 05/29/2016 05/29/2015 Zoster Vaccine (2 of 3) 07/21/2018 05/26/2018, 07/24 Covid-19 Vaccine (4 - 2023-2 5 season) 2024 07/21/2021, 11/22/2020, 10/20/2020 Fall Risk Assessment 05/02/2025 05/02/2024 Influenza Vaccine (#1) 2025 , 05/26/2022, 05/26/2018, Additional history exists DTaP/Tdap/Td Vaccine (2 - Td or Tdap) 04/01/2033 04/01/2023 Medical Devices Implanted Type Area [employer]r Mill Operator Device Identifier Shelf Expiration Date Model / Serial / Lot Pacemaker Pacemaker Left: Chest Wall [employer] Hima 3 Commander Levine 26mm Transcatheter Ultra Low Profile [id number] - [id number] - [id number] Implanted:Qty: 1 on 04/30/2024 by Yobany Zhong MD at [facility] [employer] 11/19/2026 [id number] / [id number] / Edge Vascular System Closure Repair Femoral Artery Suture Mediated Perclose Prostyle 92992-47 - [id number] Implanted:Qty: 1 on 04/30/2024 by Yobany Zhong MD at [facility] [employer] 01/20/2026 [id number] / / [id number] Edge [employer] System Closure Repair Femoral Artery Suture Mediated Perclose Prostyle 70892-83 - [id number] Implanted:Qty: 1 on 04/30/2024 by Yobany Zhong MD at [facility] Vascular 01/20/2026 [id number] / / [id number] [place] [address] [employer] [place] [address] [employer] [place] [address] [employer]AGE Advance Directives For more information, please contact: [phone] * Full Code (Latest Code Status on File) Date Activated Date Inactivated Comments 03/23/2024 11:55 PM 03/25/2024 9:36 PM Care Teams Title Assistant Relationship Specialty Start Date End Date Mayank Souza MD [address] [place] [id number] PCP - General Family Medicine 03/23/24 Iza Mackey NP [address] [facility] [place] [id number] [place] [address] Nurse Practitioner Vascular Surgery 03/25/24 Apoorva Whitlock MD [address] [facility] [id number] [place] [address] Surgeon Cardiothoracic Surgery 03/25/24 Tay Cook MD [address] [facility] [address] [place] [address] Referring Physician Cardiology 03/25/24
--- OUTSIDE RECORDS SUMMARY | 2025-05-19 18:11 | XMS_ITS | Clinical Summary ---
Author Organization [facility] Address [address] [place] [address] Care Team Providers Care Gas Station Service Attendant Name Role Phone Ruddy Barnett MD Primary Care Provider [phone] Jennifer Lozano RN Unavailable [phone] Source Comments [facility],non-owned Affiliates and Associated Physician Practices is amultiple site organization consisting of ambulatory clinics and hospital sitesin [place], [place], [place] and [place]. This disclosure is being madepursuant to the Care Everywhere program and may not contain all information available regarding this patient. Last updated 18.[facility] ProTip Allergies No known active allergies Medications * Be aware that medications may not be up to date on this document. Alwaysverify current medications with the patient. 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
--- OUTSIDE RECORDS SUMMARY | 2025-05-19 18:12 | XMS_ITS | Encounter Summary ---
Author Organization [facility] Address [address] [place] [address] Care Team Providers Care Director Of Therapy Services Name Role Phone Ruddy Barnett MD Primary Care Provider [phone] Jennifer Lozano RN Unavailable [phone] Encounter Details Date Type Department Care Team (Late st Contact Info) Description 07/28/2024 Lab Requisition [facility] - DermPath Lab [address] [place] [address] Pacheco Murphy MD [address] [place] [address] Social History Tobacco Use Types Packs/Day Years Used Date Smoking Tobacco: Former Cigarettes Q uit: 12/06/1985 Alcohol Use Standard Drinks/Week Comments Not Asked 0 (1 standard drink = 0.6 oz pur e alcohol) Sex and Gender Information Value Date Recorded Sex Assigned at Not on file Legal Sex Male 6:29 AM PLANISHER Gender Identity Not on file Sexual Orientation [...] Diagnosis Comments DERMATOPATHOLOGY Routine 07/27/2024 3:33 AM PLANISHER documented in this encounter Results * DERMATOPATHOLOGY (07/27/2024 3:33 AM PLANISHER) Case Report Dermatopathology Report Case: [id number] Authorizing Provider: Pacheco Murphy MD Collected: 07/27/2024 03:33 AM Ordering Location: [facility] - Received: 07/28/2024 02:15 PM DermPath Lab Pathologist: Christine Jimenez MD Specimen: Skin, right side scalp at hairline 4 2:17 PM [facility] DERMATOPATHOLOGY LABORATORY Final Diagnosis Specimen A. 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 The specimen consists of a shave biopsy measuring 77c50p8 mm. Jar 0. 4 2:17 PM [facility] DERMATOPATHOLOGY LABORATORY Microscopic Description Specimen A. SKIN, right side scalp at hairline: The epidermis shows parakeratosis, full thickness disorderly maturation of keratinocytes, mitoses at different levels, and dyskeratotic cells. 4 2:17 PM [facility] Disclaimer An external and internal positive and negative controls are appropriate for the histochemical, immunohistochemical and immunofluorescence stain(s) in this case (if any), except where stated explicitly. The performance characteristics of the stain(s) cited in this report were developed and its performance characteristic determined by the Dermatopathology Laboratory at [facility], directed by Dr. Josee Ly. These tests need not be, and therefore are not, approved by the [place] Food and Drug Administration. The tests are used for clinical purposes. Billing Codes Specimen Charges Stain Charges 54760 1 4 2:17 PM [facility] Embedded Images 4 2:17 PM [facility] Pathology/Cytolo gy TISSUE SPECIMEN FROM SKIN / Unknown 07/27/2024 3:33 AM PLANISHER 07/28/2024 2:15 PM PLANISHER Pacheco Murphy MD LAB - PATHOLOGY/CYTOLOGY ORD ERABLES Final Result DERMATOPATHOLOGY LABORATORY [facility] - Department of Dermatology [facility] Medicine [address] [place] [address], [address] [phone] documented in this encounter Visit Diagnoses Not on filedocumented in this encounter Care Teams Director Of Therapy Services Relationship Specialty Start Date End Date Ruddy Barnett MD PCP - General Internal Medicine 11/21/15 Jennifer Lozano RN Slab Conditioner Supervisor 12/08/15 documented as of this encounter
--- OUTSIDE RECORDS SUMMARY | 2025-05-19 18:12 | XMS_ITS | Encounter Summary ---
Author Organization [facility] Address [address] [place] [address] Care Team Providers Care Belt Glass Sander Name Role Phone Ruddy Barnett MD Primary Care Provider [phone] Jennifer Lozano RN Unavailable [phone] Encounter Details Date Type Department Care Team (Late st Contact Info) Description 11/04/2019 Lab Requisition [facility] [address] [place] [address] Pacheco Murphy MD [address] [place] [address] Social History Tobacco Use Types Packs/Day Years Used Date Smoking Tobacco: Former Cigarettes Q uit: 12/06/1985 Alcohol Use Standard Drinks/Week Comments Not Asked 0 (1 standard drink = 0.6 oz pur e alcohol) Sex and Gender Information Value Date Recorded Sex Assigned at Not on file Legal Sex Male 6:29 AM [employer] Gender Identity Not on file Sexual Orientation [...] Assessment Author No 12/10/2015 1:21 PM Michelle Lagso RN documented as of this encounter Mental Status * Does person have difficulty concentrating/remembering/making decisions? Answer Entry Date Author No 12/10/2015 1:21 PM Michelle Lagos RN documented in this encounter Plan of Treatment Not on file documented as of this encounter Procedures Procedure Name Priority Date/Time Associated Diagnosis Comments DERMATOPATHOLOGY Routine 11/03/2019 12:0 0 AM [employer] documented in this encounter Results * DERMATOPATHOLOGY (11/03/2019 12:00 AM [employer]) Case Report Dermatopathology Report Case: [id number] Authorizing Provider: Pacheco Murphy MD Collected: 11/03/2019 12:00 AM Ordering Location: [facility] DermPath Lab Received: 11/04/2019 12:45 PM Pathologist: Christine Jimenez MD Specimen: Skin, right lat sup sideburn ant to ear 0 1:31 PM [facility] DERMATOPATHOLOGY LABORATORY Final Diagnosis Specimen A. 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 The specimen consists of a shave biopsy measuring 10x8x1 mm. Jar 0. 0 1:31 PM [facility] DERMATOPATHOLOGY LABORATORY Microscopic Description Specimen A. SKIN, right lat sup sideburn ant to ear: The epidermis shows parakeratosis, full thickness disorderly maturation of keratinocytes, mitoses at different levels, and dyskeratotic cells. 0 1:31 PM [facility] DERMATOPATHOLOGY LABORATORY Disclaimer An external and internal positive and negative controls are appropriate for the histochemical, immunohistochemical and immunofluorescence stain(s) in this case (if any), except where stated explicitly. The performance characteristics of the stain(s) cited in this report were developed and its performance characteristic determined by the Dermatopathology Laboratory at [facility], directed by Dr. Josee Ly. These tests need not be, and therefore are not, approved by the [place] Food and Drug Administration. The tests are used for clinical purposes. Billing Codes Specimen Charges Stain Charges 94525 1 0 1:31 PM [employer] [employer] [facility] DERMATOPATHOLOGY LABORATORY Embedded Images 0 1:31 PM [employer] DERMATOPATHOLOGY LABORATORY Pathology/Cytolog y TISSUE SPECIMEN FROM SKIN / Unknown 11/03/2019 11/04/2019 12:45 PM [employer] Pacheco Murphy MD LAB - PATHOLOGY/CYTOLOGY ORD ERABLES Final Result DERMATOPATHOLOGY LABORATORY [facility] - Department of Dermatology [address] [place] [address] [address] Lab [address] [phone] documented in this encounter Visit Diagnoses Not on filedocumented in this encounter Care Teams Belt Glass Sander Relationship Specialty Start Date End Date Ruddy Barnett MD PCP - General Internal Medicine 11/21/15 Jennifer Lozano, RN Nurses Director 12/08/15 documented as of this encounter
--- NOTE | 2025-05-19 18:15 | ECG_ITS ---
Test Date: 2025-05-19 18:19:18 Measurements Intervals [place] Rate: 71 P: 0 LA: 0 QRS: 52 QRSD: 111 T: 68 QT: 423 QTc: 460 Interpretive Statements ATRIAL FIBRILLATION INTRAVENTRICULAR CONDUCTION DELAY ABNORMAL ECG Compared to ECG 03/04/2025 01:54:07 Ectopic atrial rhythm no longer present Electronically Signed On 05-19-2025 18:49:24 CDT by Prem Solorzano D.O.
[2025-05-19 18:23] VITALS: PULSE 79
[2025-05-19 18:35] LABS: Hematocrit 42.2 % (42.0-52.0); Hemoglobin 13.8 g/dL (14.0-18.0); Immature Granulocyte Percent A 0.5 % (0-0.5); Lymphocytes Absolute Auto 1.27 K/mm3 (0.9-3.2); Mean Corpuscular HGB Conc 32.7 g/dl (32-36); Mean Corpuscular Hemoglobin 33.6 pg (26-34); Mean Corpuscular Volume 102.7 fl (80-100); Nucleated Red Blood Cells Absolute Auto 0.000 K/mm3 (0.0-0.012); Nucleated Red Blood Cells Perc 0.0 % (0.0-0.2); Platelet Count Result 227 k/mm3 (150-375); Red Blood Count 4.11 M/mm3 (4.6-6.20); White Blood Count 7.4 K/mm3 (4.5-10.0)
[2025-05-19 18:45] LABS: Alanine Aminotransferase 65 U/L (6-50); Albumin Level 4.3 g/dL (3.5-5.1); Alkaline Phosphatase 70 U/L (38-126); Anion Gap 7 mmol/L (4-12); Aspartate Amino Transferase 55 U/L (17-59); Bilirubin,Total 0.6 mg/dL (0.2-1.3); Blood Urea Nitrogen 13 mg/dL (9-20); Calcium 9.2 mg/dL (8.4-10.2); Carbon Dioxide 25 mmol/L (22-30); Chloride 105 mmol/L (98-107); Estimated CRCL calculation 50 ml/min; Estimated Glomerular Filt Rate > 60; Glucose 115 mg/dL (65-110); Lipase 42 U/L (23-300); Potassium 4.4 mmol/L (3.4-5.0); Sodium 137 mmol/L (137-145); Total Protein 7.2 g/dL (6.3-8.2)
[2025-05-19 18:47] LABS: INR 1.3; Partial Thromboplastin Time 35.7 Seconds (22.3-36.8); Prothrombin Time 16.0 Seconds (11.1-14.7)
[2025-05-19 18:57] LABS: Troponin I 0.016 ng/mL (0.000-0.034)
[2025-05-19 19:23] VITALS: BP 147/58; PULSE 72; RESP 17; O2SAT 97
[2025-05-19 19:42] LABS: Magnesium 2.1 mg/dL (1.6-2.3)
--- NOTE | 2025-05-19 19:43 | ED.ARRPALP ---
HPI - Arrhythmia/Palpitations General Chief Complaint: Arrhythmia/Palpitations Stated Complaint: afib or something Time Seen by Provider: 05/19/25 18:56 History of Present Illness HPI narrative: Patient is an 84-year-old male who presents to the emergency department this evening complaining of palpitations. Patient states that he noted that on his watch he had some PVCs. Patient does have a history of atrial fibrillation and is on Plavix and Eliquis. Also has a history of coronary artery disease. Follows up with bondactor machine operator at [place]. Patient is currently denying any chest pain or shortness of breath, denies any nausea vomiting or abdominal pain. Denies any recent illness, fevers or chills. There are no additional modifying, alleviating, or precipitating factors at this time. Related Data Home Medications ?Medication ?Instructions ?Recorded ?Confirmed ?Last Taken ?Type calcium carbonate 600 mg PO QAM 10/22/19 04/22/25 12/11/22 09:00 History multivitamin 1 tablet PO DAILY 10/22/19 04/22/25 12/11/22 08:00 History omega-3 fatty acids 1,000 mg 2,000 mg PO Q12H 10/22/19 04/22/25 12/11/22 21:00 History capsule (Fish Oil Concentrate) ezetimibe 10 mg tablet 10 mg PO HS 02/23/20 04/22/25 12/11/22 21:00 History magnesium oxide 400 mg PO Q12H 04/18/21 04/22/25 12/11/22 20:00 History Adult Probiotic 1 cap PO DAILY 11/14/22 04/22/25 12/11/22 08:00 History Vitamin D3 1 cap PO DAILY 11/14/22 04/22/25 12/11/22 08:00 History metoprolol tartrate 50 mg tablet 50 mg PO Q12H 11/14/22 04/22/25 12/11/22 20:00 History simethicone 250 mg capsule 250 mg PO BID PRN Diarrhea 12/19/22 04/22/25 Unknown History (Phazyme) ascorbate calcium (vitamin C) 500 500 mg PO DAILY 01/03/23 04/22/25 Unknown History mg tablet ferrous sulfate 325 mg (65 mg 325 mg PO BID 01/03/23 04/22/25 Unknown History iron) tablet (FeroSul) nitroglycerin 0.4 mg sublingual 0.4 mg sublingual Q5M PRN 03/28/23 04/22/25 Unknown History tablet chlorthalidone 25 mg tablet 12.5 mg PO DAILY 01/14/24 04/22/25 Unknown History Allergies Allergy/AdvReac Type Severity Reaction Status Date / Time No Known Allergies Allergy Verified 05/19/25 18:13 Review of Systems Review of Systems: All systems are reviewed and are negative unless stated otherwise in the HPI. [facility] Past Medical History Medical History Osteoarthritis of knees, bilateral Hypogonadism male (~02/16/25) total testosterone 105 with free testosterone 11.5 on 02/16/2025. Seasonal allergic rhinitis (05/27/24) Male erectile dysfunction, unspecified Macrocytosis (06/10/24) MCV elevated at 106 on 06/10/2024. MCV elevated at 106.7 with Vitamin B12 640 and folic acid greater than 24 with hemoglobin 13.9 on 02/16/2025. Pharyngitis Gastro-esophageal reflux disease without esophagitis Pulmonary hypertension severe pulmonary hypertension on echo on 01/29/2024. with moderate to severe mitral valve regurgitation and stenosis, tricuspid valve regurgitation and stenosis, aortic valve regurgitation and stenosis. Fatigue Overweight (BMI 25.0-29.9) BMI 25.0-25.9,adult Change in voice Presbyphonia PND (post-nasal drip) Nasal folliculitis Nasal crusting Nasal polyps Muscle cramps Chest congestion Pedal edema Dyspnea Follow up Lower GI bleed (11/2022) Colonoscopy showed stigmata of bleeding internal hemorrhoids. Paroxysmal atrial fibrillation Diverticulosis of sigmoid colon Elevated troponin Chest pain History of diverticulosis Internal hemorrhoids Rectal bleeding Elevated troponin Orthostatic hypotension Non-ST elevated myocardial infarction Chronic anticoagulation Elevated lactic acid level Syncope Acute blood loss anemia GI bleed Gastroesophageal reflux Benign prostatic hyperplasia Myocardial infarction Coronary artery disease Cardiac catheterization diagram from September 2021 showed an occluded proximal Left anterior descending and mid circumflex. Looks like the distal RCA is occluded. The saphenous vein graft to the posterolateral had an old stent distally and looks like a new 2.5 x 12 mm stent was placed in a subtotal occlusion in the proximal segment. Looks like another saphenous vein graft to the PDA is patent, saphenous vein graft to diagonal and Left anterior descending is patent, and a saphenous vein graft remnant between the 1st and 2nd OM is patent. cardiac catheterization 03/02/2024 with high-grade stenosis of 2 bypass graft, 80% LAD and 90% posterior lateral. Moderate to severe pulmonary hypertension. Diverticulosis Diarrhea Diverticulitis Lung nodule Epididymitis Chronic hoarseness Encounter for routine adult health examination with abnormal findings BPPV (benign paroxysmal positional vertigo) Dizziness Vitamin D deficiency Level normal at 35 on 02/16/2025. Prediabetes Fasting glucose 97 with hemoglobin A1c 5.3 on 10/10/2023. Fasting glucose 105 on 02/24/2024. Fasting glucose 91 with hemoglobin A1c 5.0 on 06/10/2024. Glucose 98 on 02/16/2025. BMI 26.0-26.9,adult Aortic stenosis echo 12/09/2022 with EF 65-70%, grade 1 diastolic dysfunction, moderate aortic valve stenosis and aortic valve regurgitation with mild mitral valve and tricuspid valve regurgitation. Patient had trans catheter aortic valve replacement on 04/30/2024. Nasal polyps Post-operative pain Chronic sinusitis Facial pressure Claudication Presbylarynges Insomnia Elevated glucose Hyperlipidemia Cholesterol 117, triglycerides 85, HDL 51, LDL 49 with ratio 2.3 on 09/30/2023. Cholesterol 95, triglycerides 78, HDL 44, LDL 35 on 02/24/2024. Cholesterol 135, triglycerides 94, HDL 57, LDL 60 with ratio 2.4 on 06/10/2024. Cholesterol 122, triglycerides 118, HDL 44, LDL 58 with ratio of 2.8 on 02/16/2025. PVC's (premature ventricular contractions) Abnormal finding of blood chemistry, unspecified Dry eyes Encounter for routine adult health examination without abnormal findings Peripheral visual field defect ASHD (arteriosclerotic heart disease) Benign essential hypertension Surgical History Surgical History History of colonoscopy (12/10/22) Internal hemorrhoids with stigmata of recent bleeding. Medium diverticula of sigmoid colon. History of coronary artery bypass graft x 2 1982 and 2001, last 1 at [facility] History of coronary artery stent placement History of cardiac catheterization History of nasal septoplasty (1969) History of epididymectomy (10/2009) Right. History of transurethral resection of prostate (10/2009) History of cholecystectomy (03/2005) History of appendectomy (07/2011) History of colonoscopy with polypectomy History of permanent cardiac pacemaker placement Biotronik 06/2022 Family History Family History Father Family history of heart disease in male family member before age 55 Family history of cardiovascular disease Alcoholism Heart disease Mother Family history of diabetes mellitus in first degree relative Family history of heart disease in male family member before age 55 Diabetes mellitus Family history of cardiovascular disease Heart disease Other Hypertension Social History Social History Social History: [employer] Medical Decision Maker is Natalia Sutherland, daughter and POA. Code status: Full code. Years smoked: 15 Smoking status: Former smoker Tobacco type: pipe Second hand tobacco smoke exposure: No Smoking end date: 03/23/78 Alcohol intake: never Substance use: never Substance use type: does not use Lack of Transportation: No Lack of Food: Never True Current Housing: I Have Housing Concerned About Future Housing: No Difficulty Paying Gas/Electric Bills: No Difficulty Paying for Meds: No Currently Unemployed: No Education: Bachelor's Degree Difficulty w/ Childcare or Family Care: No Living arrangements: with family Additional living arrangements comments: Lives with in [place]. Occupation/Education: retired Spiritual care concerns: No Exam Narrative: General: Alert, awake, afebrile, in no acute distress. HEENT: PERRL, no rhinorrhea, no post nasal drip, oropharynx clear. Neck: Trachea midline, no JVD, no lymphadenopathy. Cardiovascular: Regular rate and rhythm, no murmurs, rubs or gallops, no peripheral edema. Respiratory: Clear to auscultation bilaterally, no tachypnea, no wheezing, no rhonchi, no rubs, no respiratory distress. Abdomen: Soft, nontender, nondistended, no rebound, no guarding, no peritoneal signs. Musculoskeletal: No joint swelling or deformity, normal muscle tone. Skin: No rashes or petechia, no signs of infection. Psychiatric: Alert and oriented, normal behavior and judgment for situation. Neurological: Alert and oriented to person, place, and time. Follows all commands. No focal deficits, speech is clear and fluent. Course Vital Signs Vital signs: Vital Signs Temperature 98.2 F 05/19/25 18:11 Pulse Rate 71 05/19/25 18:11 Respiratory Rate 16 05/19/25 18:11 Blood Pressure 151/100 H 05/19/25 18:11 Pulse Oximetry 97 05/19/25 18:11 Temperature 98.2 F 05/19/25 18:11 Pulse Rate 87 05/19/25 21:47 Respiratory Rate 20 05/19/25 21:47 Blood Pressure 134/63 05/19/25 21:47 Pulse Oximetry 96 05/19/25 21:47 MDM - Arrhythmia/Palpitations MDM Narrative Medical decision making narrative: The patient was evaluated by myself in the emergency department. History is obtained from patient who is an independent historian and physical exam was performed. External medical records were reviewed at this time. IV was established and pertinent tests were ordered. EKG was obtained which revealed Atrial fibrillation rate of 71 beats per minute. No ST changes, T wave inversions or evidence of acute ischemia. EKG was independently interpreted by me and is currently pending official cardiology read. Laboratory results obtained revealing no acute process. Two sets of troponins were obtained and both noted to be negative. Imaging studies obtained included CXR which was independently interpreted by me revealing no acute process, which is pending final radiology interpretation. Differential diagnosis considerations include dehydration, electrolyte derangements, AFib with RVR, acute viral syndrome, acute coronary syndrome. Comorbidities impacting this visit include history of atrial fibrillation and coronary artery disease. I have evaluated and discussed social determinants of health with the patient that could potentially impact subsequent diagnosis and treatment plans. On repeat assessment of the patient, reevaluation revealed that the patient is doing well and is in no acute distress. Patient symptoms have improved since he arrived to our emergency department. Repeat vital signs were all reviewed and noted to be stable. Differential diagnosis and treatment plan were discussed with the patient at bedside. Patient agrees with discussion and after shared medical decision making agrees with discharge. All questions were answered to the patient's satisfaction. Patient will follow up with his bondactor machine operator in 3-5 days. Patient was provided with strict return precautions and instructed to return to the emergency department if any new or worsening symptoms develop. The patient was discharged in stable condition. Lab Data 05/19/25 18:29 05/19/25 18:29 Labs: Lab Results 05/19/25 05/19/25 05/19/25 Range/Units 18:29 20:07 21:15 WBC 7.4 (4.5-10.0) K/mm3 RBC 4.11 L (4.6-6.20) M/mm3 Hgb 13.8 L (14.0-18.0) g/dL Hct 42.2 (42.0-52.0) % MCV 102.7 H (80-100) fl MCH 33.6 (26-34) pg MCHC 32.7 (32-36) g/dl RDW 12.8 (11.5-14.5) % Plt Count 227 (150-375) k/mm3 MPV 10.6 H (7.4-10.4) fl Immature Gran % (Auto) 0.5 (0-0.5) % Neut % (Auto) 72.0 (45.5-73.1) % Lymph % (Auto) 17.3 L (18.3-44.2) % [place] % (Auto) 7.5 (2.6-8.5) % Eos % (Auto) 2.0 (0-4.4) % Baso % (Auto) 0.7 (0.2-1.2) % Lymph # (Auto) 1.27 (0.9-3.2) K/mm3 [place] # (Auto) 0.6 (0.1-0.6) K/mm3 Eos # (Auto) 0.2 (0-0.3) K/mm3 Baso # (Auto) 0.1 (0.0-0.1) K/mm3 Abs Immat Gran (auto) 0.04 H (0.00-0.031) K/mm3 Absolute Neuts (auto) 5.3 (1.3-6.7) K/mm3 Absolute Nucleated RBC 0.000 (0.0-0.012) K/mm3 Nucleated RBC % 0.0 (0.0-0.2) % PT 16.0 H (11.1-14.7) Seconds INR 1.3 APTT 35.7 (22.3-36.8) Seconds Sodium 137 (137-145) mmol/L Potassium 4.4 (3.4-5.0) mmol/L Chloride 105 (98-107) mmol/L Carbon Dioxide 25 (22-30) mmol/L Anion Gap 7 (4-12) mmol/L BUN 13 (9-20) mg/dL Creatinine 1.04 (0.7-1.3) mg/dL Estim Creat Clear Calc 50 ml/min Estimated GFR > 60 (59 - ) Glucose 115 H (65-110) mg/dL Calcium 9.2 (8.4-10.2) mg/dL Magnesium 2.1 (1.6-2.3) mg/dL Total Bilirubin 0.6 (0.2-1.3) mg/dL AST 55 (17-59) U/L ALT 65 H (6-50) U/L Alkaline Phosphatase 70 (38-126) U/L Troponin I 0.016 0.017 (0.000-0.034) ng/mL Total Protein 7.2 (6.3-8.2) g/dL Albumin 4.3 (3.5-5.1) g/dL Lipase 42 (23-300) U/L Urine Color Yellow (Yellow) Urine Appearance Cloudy H (Clear) Urine pH 6.5 (5.0-9.0) Ur Specific [place] 1.010 (1.001-1.035) Urine Protein Negative (Negative) mg/dL Urine Glucose (UA) Negative (Negative) mg/dL Urine Ketones Negative (Negative) mg/dL Ur Blood (Man) Negative (Negative) Urine Nitrate Negative (Negative) Urine Bilirubin Negative (Negative) Urine Urobilinogen 0.2 (<2.0) mg/dL Leukocyte Esterase Rfl Negative (Negative) SAKSHI/UL Urine RBC 0-2 (0-2) /hpf Urine WBC 0-5 (0-3) /hpf Ur Squamous Epith Cells None seen (Few) /hpf Urine Bacteria None seen /hpf Urine Casts 0-2 Discharge Plan Discharge Clinical Impression: Heart palpitations Patient Disposition: Home Condition: Improved Instructions: Antibiotic Form, Heart Palpitations (DC) Additional Instructions: Please follow-up with your bondactor machine operator within the next 3-5 days. Return to the emergency department if any new or worsening symptoms develop. Patient Language: Arabic Prescriptions: No Action omega-3 fatty acids [Fish Oil Concentrate] 1,000 mg capsule 2,000 mg PO Q12H multivitamin Tablet 1 tablet PO DAILY calcium carbonate 600 mg calcium (1,500 mg) tablet 600 mg PO QAM ezetimibe 10 mg tablet 10 mg PO HS Eliquis 5 mg tablet 5 mg PO BID Qty: 60 0RF Patient Comments: Patient states will be starting Eliquis on 12/17 magnesium oxide 400 mg magnesium tablet 400 mg PO Q12H Phazyme 250 mg capsule 250 mg PO BID PRN (Reason: Diarrhea) nitroglycerin 0.4 mg tablet, sublingual 0.4 mg sublingual Q5M PRN Rx Instructions: do not exceed 3 doses per episode trazodone 100 mg tablet 100 mg PO QHS Qty: 90 3RF Adult Probiotic 1 cap PO DAILY metoprolol tartrate 50 mg tablet 50 mg PO Q12H Vitamin D3 1 cap PO DAILY ferrous sulfate [FeroSul] 325 mg (65 mg iron) tablet 325 mg PO BID ascorbate calcium (vitamin C) 500 mg tablet 500 mg PO DAILY isosorbide mononitrate 30 mg tablet extended release 24 hr 90 mg PO QAM 30 Days Qty: 90 0RF ranolazine 500 mg tablet extended release 12 hr 500 mg PO Q12H Qty: 60 0RF chlorthalidone 25 mg tablet 12.5 mg PO DAILY Patient Comments: started by bondactor machine operator 01/14/2024. Breztri Aerosphere 160-9-4.8 mcg/actuation HFA aerosol inhaler 2 inh inhalation QAM AND QPM Qty: 11 11RF mupirocin 2 % ointment See Rx Instructions topical BID Qty: 44 5RF Rx Instructions: melt 2 through 3 cm in each irrigation bottle, irrigate with 2 bottles daily rosuvastatin 5 mg tablet 5 mg PO . every other day Qty: 45 3RF azelastine 137 mcg (0.1 %) spray,non-aerosol 2 spray intranasal Q12H Qty: 30 11RF Rx Instructions: administer into each nostril budesonide 0.25 mg/2 mL suspension for nebulization 0.25 mg irrigation DAILY Qty: 60 11RF Rx Instructions: 2 mL per irrigation bottle, irrigate with 1 bottle daily zolpidem [Ambien] 5 mg tablet 5 mg PO QHS PRN (Reason: insomnia) Qty: 90 3RF levothyroxine 75 mcg tablet 75 mcg PO DAILY Qty: 90 3RF Rx Instructions: take with only water pantoprazole 40 mg tablet,delayed release (DR/EC) 40 mg PO QAM Qty: 90 3RF alprazolam 0.25 mg tablet 0.25 mg PO TID PRN (Reason: anxiety) Qty: 90 5RF Follow-up/Referrals: Mayank Souza MD [Primary Care Provider, Family Practice] - 3 Days Time of Disposition: 22:03
[2025-05-19 19:45] VITALS: BP 147/58; PULSE 80; RESP 13; O2SAT 96
--- NOTE | 2025-05-19 19:45 | PC.NURSE ---
Assumed care of patient after receiving bedside report from NELLIE Castle @ [id number]
[2025-05-19 20:18] LABS: Add Urine Microscopic? YES; Appearance Urine Cloudy (Clear); Glucose Urine UA Negative (Negative); Leukocyte Esterase Ur Negative LEU/UL (Negative); Nitrate Urine Negative (Negative); Non Pathogenic Casts 0-2; Specific Grav Ur 1.010 (1.001-1.035)
--- NOTE | 2025-05-19 21:28 | ECG_ITS ---
Test Date: 2025-05-19 21:32:30 Measurements Intervals [place] Rate: 66 P: 0 MN: 0 QRS: -66 QRSD: 153 T: 64 QT: 481 QTc: 507 Interpretive Statements ELECTRONIC VENTRICULAR PACEMAKER WITH INHIBITION UNDERLYING ATRIAL FIBRILLATION BASELINE ARTIFACT- I, III, AVR, AVL, AVF, V2 ABNORMAL ECG Compared to ECG 05/19/2025 18:19:18 VENTRICULAR PACEMAKER NOW PRESENT Electronically Signed On 05-20-2025 06:13:04 CDT by Prem Solorzano D.O.
[2025-05-19 21:42] LABS: Troponin I 0.017 ng/mL (0.000-0.034)
[2025-05-19 21:47] VITALS: BP 134/63; PULSE 87; RESP 20; O2SAT 96
== END 2025-05-19 22:36 | disposition home or self-care (01) ==
PROVIDERS: Emergency Medicine; Emergency Provider Emergency Medicine; PCP Family Medicine
DX: R00.2 Palpitations (principal); I25.10 Atherosclerotic heart disease of native coronary artery without angina pectoris; I48.0 Paroxysmal atrial fibrillation; I25.2 Old myocardial infarction; I10 Essential (primary) hypertension; E78.5 Hyperlipidemia, unspecified; N40.0 Benign prostatic hyperplasia without lower urinary tract symptoms; R73.03 Prediabetes; K21.9 Gastro-esophageal reflux disease without esophagitis; M17.0 Bilateral primary osteoarthritis of knee; Z95.2 Presence of prosthetic heart valve; Z95.1 Presence of aortocoronary bypass graft; Z95.5 Presence of coronary angioplasty implant and graft; Z95.0 Presence of cardiac pacemaker; Z86.0100 Personal history of colon polyps, unspecified; Z87.891 Personal history of nicotine dependence; Z90.49 Acquired absence of other specified parts of digestive tract; Z90.79 Acquired absence of other genital organ(s); Z79.899 Other long term (current) drug therapy; Z79.02 Long term (current) use of antithrombotics/antiplatelets; Z79.01 Long term (current) use of anticoagulants; I45.9 Conduction disorder, unspecified
CPT/HCPCS: 36415; 71046; 80053; 81001; 83690; 83735; 84484; 85025; 85610; 85730; 93005; 99284

== ENCOUNTER 2025-07-17 18:57 | Emergency (ER) | payer MEDICARE, SELFPAY ==
--- OUTSIDE RECORDS SUMMARY | 2009-11-14 05:45 | XMS_ITS | Continuity of Care Document ---
Author Organization [facility] Address [address] [place] [address] Phone Care Team Providers Care Ict Customer Support Officer Name Role Phone Valentin Kate Unavailable Unavailable Procedures Procedure Date Office/outpatient Visit, Est Advance Directives Directive Yes / No Effective Date File Name No Information Encounters Encounter Description Practice Location Reason(s) For Visit Diagnoses Date Provider Providers Copied on Encounter Office/outpat ient Visit, Est [facility], [address], [place], [place], [id number], tel:[phone] [facility] No Information 2-201 0 Lavinia Hanson. [address] [facility] [address], [place], [address], [place]. tel:[phone] Family History Family Member Type Diagnosis Age At Onset No Information Payers Payer name Insurance type Covered constitution party ID Authoriza tion(s) Medicare [facility] [id number] Social History Type Description Quantity Date Captured [...]
--- OUTSIDE RECORDS SUMMARY | 2025-07-05 04:37 | XMS_ITS | Continuity of Care Document ---
Author Organization [facility] Address [address] [place] [address] Phone Care Team Providers Care Transmitter Supervisor Name Role Phone Ruben ÁLVAREZ, FACC, FSCAI, Kj Unavailable U navailable Allergies, Adverse Reactions, Alerts Substance Reaction Status Criticality No Known Allergies Active No Inform ation Medications Medication Instructions Dosage Effective Dates (start - stop) Status Comments Cialis 10 mg tablet take 1 tablet by oral route every day 10 MG - Active amiodarone 200 mg tablet 1 po bid - Active trazodone 50 mg tablet TAKE 1 TO 3 TABLETS BY MOUTH EVERY DAY AT BEDTIME NEEDED FOR INSOMNIA - Active zolpidem 5 mg tablet - Activ e budesonide 0.25 mg/2 mL suspension for nebulization - Active alprazolam 0.25 mg tablet - Active rosuvastatin 5 mg tablet TAKE 1 TABLET BY MOUTH EVERY OTHER DAY - Active pantoprazole 40 mg tablet,delayed release - Active magnesium 100 mg (as glycinate) capsule TAKE 2 CAPSULES BY MOUTH ONCE DAILY - Active azelastine 137 mcg (0.1 %) nasal spray - Active Dofetilide 250 MCG Oral Capsule TAKE 1 CAPSULE BY MOUTH EVERY 12 HOURS - Active metoprolol tartrate 50 mg tablet - Active Breztri Aerosphere 160 mcg-9mcg-4.8mcg/actua tion HFA aerosol inhaler INHALE 2 PUFFS BY MOUTH ONCE DAILY IN THE MORNING AND IN THE EVENING - Active ezetimibe 10 mg tablet TAKE 1 TABLET BY MOUTH ONCE DAILY - Active levothyroxine 75 mcg tablet - Active magnesium oxide 400 mg (241.3 mg magnesium) tablet TAKE 1 TABLET BY MOUTH TWICE DAILY - Active clopidogrel 75 mg tablet TAKE 1 TABLET BY MOUTH ONCE DAILY - Active Eliquis 5 mg tablet TAKE 1 TABLET BY MOUTH TWICE DAILY - Active ranolazine ER 500 mg tablet,extended release,12 hr - Active Cialis 10 mg tablet take 1 tablet by oral route every day 10 MG - No Longer Active Procedures Procedure Date Complex e/m visit add on OFFICE/OUTPATIENT VISIT, EST TTE W/DOPPLER, COMPLETE NTRPROF PH1/NTRNET/EHR /> INITIAL HOSPITAL CARE SUBSEQUENT HOSPITAL CARE SUBSEQUENT HOSPITAL CARE L HRT ART/GRFT ANGIO MOD SED SAME PHYS/QHP />YRS US GUIDE, VASCULAR ACCESS ICM DEVICE INTERROGAT REMOTE Complex e/m visit add on OFFICE/OUTPATIENT VISIT, EST ELECTROCARDIOGRAM, COMPLETE PM DEVICE PROGR EVAL, DUAL ICM DEVICE EVAL MYOCRD IMG PET RST&STRS CT AQMBF PET REST & RX STRESS CARDIOVASCULAR STRESS TEST Rb82 rubidium Regadenoson injection ICM DEVICE INTERROGAT REMOTE PM/ICD REMOTE TECH SERV PM DEVICE INTERROGATE REMOTE Complex e/m visit add on OFFICE/OUTPATIENT VISIT, EST ELECTROCARDIOGRAM, COMPLETE ICM DEVICE INTERROGAT REMOTE Advance Directives Directive Yes / No Effective Date File Name No Information Encounters Encounter Description Practice Location Reason(s) For Visit Diagnoses Date Provider Providers Copied on Encounter [facility], [address] [place] [address], [id number] , tel: [phone] [facility] No Information Ruben Underwood. [address] [place] [address], [id number], [place]. tel:[phone] OFFICE/OUTPA TIENT VISIT, EST [facility], [address] [place] [address], [id number] , tel: [phone] [facility] Follow Up of cardiology exam (chief complaint) Atrial fibrillationAther osclerotic heart disease of [place] coronary artery with other forms of angina pectorisHypothyro idism, unspecifiedEssent ial (primary) hypertension May- 5 Ramadaceferino Abdullahiiq. [facility] [address] [place], [place], [id number], . tel:[phone] Referring Provider: Kj Miranda, [facility] , [place], [address]. tel:[phone] [facility], [address] [place] [address], [id number] , tel: [phone] [facility] No Information Ruben Underwood. [facility] [place], [place], [id number], . tel:[phone] Referring Provider: Kj Miranda, [facility] , [place], [address]. tel:[phone] NTRPROF PH1/NTRNET/E HR 5/> [facility], [address] [place] [address], [id number] , tel: [phone] [facility] Encounter for preprocedural cardiovascular examination May- 0- 5 Ramadaceferino Abdullahiiq. [address], [place], [place], [id number], [place]. tel:[phone] INITIAL HOSPITAL CARE [facility], [address] [place] [address], [id number] , tel: [phone] [facility] [place] Ventricular tachycardia, unspecifiedAthscl heart disease of [place] coronary artery w/o ang pctrsPresence of cardiac pacemakerSyncope and collapse Sep-0 5 Kalvaitis Saulius. [address], [place], [place], [id number], [place]. tel:[phone] Referring Provider: Kj Miranda, [address] , [place], [address]. tel:[phone] SUBSEQUENT HOSPITAL CARE [facility] , [address] [place] [address], [id number] , tel: [phone] [facility] [place] IP Ventricular tachycardia, unspecifiedPresen ce of cardiac pacemakerSyncope and collapseAthscl heart disease of [place] cor art w oth ang pctrs Sep-0 5 Ramadaceferino Underwood. [address] [place], [place], [id number], [place]. tel:[phone] Referring Provider: Kj Miranda, [address] , [place], [address]. tel: [phone] [facility], [address] [place] [address], [id number] , [place] tel: [phone] [facility] [place] Athscl heart disease of [place] cor art w oth ang pctrsVentricular tachycardia, unspecifiedPresen ce of cardiac pacemaker Sep-0 5 . [address] [place], [place], [id number], [place]. tel:[phone] Referring Provider: Kj Miranda, [address], [place], [address]. tel:[phone] [facility], [address] [place] [address], [id number] , tel: [phone] [facility] [place] Presence of cardiac pacemaker 5 Ruben Underwood. [facility] [address] , [place], [place], [id number], . tel:[phone] Referring Provider: Kj Miranda, [facility] [address], [place], [address]. tel:[phone] lting Provider: Kj Miranda, [facility] [address] , [place], [address]. tel:[phone] OFFICE/OUTPA TIENT VISIT, [facility], [address] [place] [address], [id number] , tel: [phone] [facility] Follow Up of after testing (chief complaint) Aortic valve stenosisEssential hypertensionHypot hyroidismHyperlip idemiaAtrial fibrillationH/O: cardiac pacemaker in situCAD of [place] coronary artery w/o angina pectorisVentricul ar tachycardia, unspecified 5 Kalvaitis Saulius. [facility] [address] [place], [place], [id number], . tel:[phone] Referring Provider: Kj Miranda, [address] , [place], [address]. tel:[phone] [facility] , [address] [place] [address], [id number] , tel: [phone] [facility] Tift Unspecified atrial fibrillation 5 Kalvaitis Saulius. [facility] [address] [place], [place], [id number], . tel:[phone] Referring Provider: Kj Miranda, [facility] [address] , [place], [address]. tel:[phone] [facility] , [address] [place] [address], [id number] , tel: [phone] [facility] No Information Gentry Alvarez. [address] [place], [place] [address]Jospeh , [place], [place], [id number], . tel:[phone] Referring Provider: Kj Miranda, [facility] [address] , [place], [address]. tel:[phone] [facility] , [address] [place] [address], [id number] , tel: [phone] [facility] Tift Presence of cardiac pacemaker Ramadaceferino Abdullahiiq. [address] [place], [place] [address], [place], [id number], . tel:[phone] Referring Provider: Kj Miranda, [facility] [address] , [place], [address]. tel:[phone] lting Provider: Kj Miranda [facility] [address] , [place], [address]. tel:[phone] [place] [address] [facility] and V[facility] , [address] [place] [address], [id number] , tel: [phone] [facility] Tift Presence of cardiac pacemaker Ramadaceferino Abdullahiiq. [address] [place], [place] [address], [place], [id number], . tel:[phone] Referring Provider: Kj Miranda, [facility] [address], [place], [address]. tel:[phone] lting Provider: Kj Miranda [facility] [address] , [place], [address]. tel:[phone] OFFICE/OUTPA TIENT VISIT, EST [facility] , [address] [place] [address], [id number] , tel: [phone] [facility] Tift PVCs (chief complaint) Aortic stenosisUnspecifi ed atrial fibrillationHypot hyroidism, unspecifiedEssent ial (primary) hypertensionHyper lipidemia, unspecifiedCADVen tricular tachycardia 5 Kalvaitis Saulius. [address] [place], [place], [id number], . tel:[phone] Referring Provider: Ruddy Barnett, [address] [facility], [place], [address]. [phone] [facility], [address] [place] [address], [id number] , tel: [phone] [facility] No Information Kalvaitis Saulius. [address] , [place], [place], [id number], [place]. tel:[phone] [facility], [address] [place] [address], [id number] , tel: [phone] [facility] Presence of cardiac pacemaker 5 Ruben Underwood. [facility] [place], [place], [id number], . tel:[phone] Referring Provider: Kj Miranda, [address], [place], [address]. tel:[phone] lting Provider: Kj Miranda, [facility] [address] , [place], [address]. tel:[phone] Family History Family Member Type Diagnosis Age At Onset Problem (finding) Family history of Cardi ovascular disease Payers Payer name Insurance type Covered green party ID Rafaela dow(s) [facility] MEDICARE ADVANTAGE PPO [id number] Social History Type Description Quantity Date Captured Comments Alcohol Use Details Unknown Caffeine Use Details Unknown Tobacco Use Status No Information Smoking Status No Information Sex Male Chief Complaint And Reason For Visit No Information Reason For Referral Reason For Referral No Information Plan Of Treatment Date Type Action Status Appointment Eliezer Rivas BOOKED Future Order: Radiology Order Tiffany ([id number]), Ordered on: Ordered Future Order: Radiology Order IV US ([id number]), Ordered on: Ordered Future Order: Radiology Order FF R/IFR INITIAL VESSEL ([facility]-[id number]), Ordered on: Ordered Future Order: Lab Order CBC w/di ff ([id number]), Ordered on: Ordered Future Order: Lab Order [id number] FR ([id number]), Ordered on: Ordered Future Order: Lab Order Lipid Pa stefan ([id number]), Ordered on: Ordered Future Order: Lab Order PT/INR ( [id number]), Ordered on: Ordered Future Order: Lab Order PTT ([id number]), Ordered on: Ordered Future Order: Radiology Order PE T/CT ([id number]), Ordered on: Ordered Future Order: Lab Order CMP ([id number]), Ordered on: Ordered Future Order: Lab Order CBC ([id number]), Ordered on: Ordered Future Order: Lab Order Lipid Pa stefan ([id number]), Ordered on: Ordered Future Order: Lab Order Magnesiu m ([id number]), Ordered on: Ordered Future Order: Lab Order proBNP ( [id number]), Ordered on: Ordered Future Order: Lab Order Thyroid Profile(T3, T4, T3U, FT4, TSH) ([id number]), Ordered on: Ordered History Of Present Illness Encounter Date Complaint History Of Prese nt Illness Follow Up of cardiology exam Follow Up of after testing PVCs Functional Status Date Functional Assessmen t No Information Instructions Date Instruction Additional Infor mation No Information Assessments Type Assessment Date No Information Patient Care Teams Name Effective Dates (start - stop) Status Members No Information
[2025-07-17 19:03] VITALS: BP 159/70; PULSE 72; RESP 16; O2SAT 98
--- OUTSIDE RECORDS SUMMARY | 2025-07-17 19:13 | XMS_ITS | Encounter Summary ---
Author Organization [facility] Address [address] [facility] [place] [address] Care Team Providers Care Ingredient Specialist Name Role Phone Ruddy Barnett MD Primary Care Provider [phone] Jennifer Lozano RN Unavailable [phone] Encounter Details Date Type Department Care Team (Late st Contact Info) Description 11/04/2019 Lab Requisition [facility] [address] [place] [address] Pacheco Murphy MD [address] [address] Social History Tobacco Use Types Packs/Day Years Used Date Smoking Tobacco: Former Cigarettes Q uit: 12/06/1985 Alcohol Use Standard Drinks/Week Comments Not Asked 0 (1 standard drink = 0.6 oz pur e alcohol) Sex and Gender Information Value Date Recorded Sex Assigned at Not on file Legal Sex Male 6:29 AM [employer] OPERATOR VERTICAL Gender Identity Not on file Sexual Orientation [...] Comments DERMATOPATHOLOGY Routine 11/03/2019 12:0 0 AM [employer]W OPERATOR VERTICAL documented in this encounter Results * DERMATOPATHOLOGY (11/03/2019 12:00 AM [employer]W OPERATOR VERTICAL) Case Report Dermatopathology Report Case: [id number] Authorizing Provider: Pacheco Murphy MD Collected: 11/03/2019 12:00 AM Ordering Location: [facility] Received: 11/04/2019 12:45 PM Pathologist: Christine Jimenez MD Specimen: Skin, right lat sup sideburn ant to ear 0 1:31 PM [facility] Final Diagnosis Specimen A. 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 The specimen consists of a shave biopsy measuring 10x8x1 mm. Jar 0. 0 1:31 PM [facility] Microscopic Description Specimen A. SKIN, right lat sup sideburn ant to ear: The epidermis shows parakeratosis, full thickness disorderly maturation of keratinocytes, mitoses at different levels, and dyskeratotic cells. 0 1:31 PM [facility] Disclaimer An external and internal positive and negative controls are appropriate for the histochemical, immunohistochemical and immunofluorescence stain(s) in this case (if any), except where stated explicitly. The performance characteristics of the stain(s) cited in this report were developed and its performance characteristic determined by the Dermatopathology Laboratory at [facility], directed by Dr. Josee Ly. These tests need not be, and therefore are not, approved by the [place] Food and Drug Administration. The tests are used for clinical purposes. Billing Codes Specimen Charges Stain Charges 65244 1 0 1:31 PM [employer] OPERATOR VERTICAL DERMATOPATHOLOGY LABORATORY Embedded Images 0 1:31 PM [employer] OPERATOR VERTICAL DERMATOPATHOLOGY LABORATORY Pathology/Cytolog y TISSUE SPECIMEN FROM SKIN / Unknown 11/03/2019 11/04/2019 12:45 PM [employer] OPERATOR VERTICAL Pacheco Murphy MD LAB - PATHOLOGY/CYTOLOGY ORD ERABLES Final Result DERMATOPATHOLOGY LABORATORY [facility] - Department of Dermatology [address] [place] [address] 5th Floor Lab [address] [phone] documented in this encounter Visit Diagnoses Not on filedocumented in this encounter Care Teams Ingredient Specialist Relationship Specialty Start Date End Date Ruddy Barnett MD PCP - General Internal Medicine 11/21/15 Jennifer Lozano, RN Graphics Intern 12/08/15 documented as of this encounter
--- OUTSIDE RECORDS SUMMARY | 2025-07-17 19:13 | XMS_ITS | Clinical Summary ---
Author Organization [facility] [place] [address] [place] [address] Care Team Providers Care Info Specialist Name Role Phone Mayank Souza MD Primary Care Provider [phone] Iza Mackey NP Unavailable [phone] Apoorva Whitlock MD Unavailable [phone] Tay Cook MD Unavailable Ruben Rader MD, Kj P. Unavailable [phone] Antonio Rinaldi MD Unavailable [phone] Allergies No known active allergies Medications ezetimibe (ZETIA) 10 mg tablet Take 1 tablet (10 mg total) by mouth daily Active rosuvastatin (CRESTOR) 5 mg tablet Take 1 tablet (5 mg total) by mouth every other day Active ALPRAZolam (XANAX) 0.25 mg tablet Take [...] mouth 2 (two) times a day Active multivitamin tabletIndication s:Vitamin Deficiency Prevention Take 1 tablet by mouth daily Active levothyroxine (SYNTHROID) 75 mcg tablet Take 1 tablet (75 mcg total) by mouth title manager before breakfast Active metoprolol tartrate (LOPRESSOR) 50 mg immediate release tablet Take 1 tablet (50 mg total) by mouth 2 (two) times a day Active isosorbide mononitrate ER (IMDUR) 120 mg 24 hr tablet Take 1 tablet (120 mg total) by mouth daily Active budesonide-glyco pyr-formoterol (Breztri Aerosphere) 160-9-4.8 mcg/actuation inhaler Inhale 2 puffs 2 (two) times a day Active ascorbic acid (ascorbic acid with racheal hips) 500 mg tablet,chewable Take 1 tablet/chew tab (500 mg total) by mouth daily Active ferrous sulfate 325 mg (65 mg of elemental iron) tabletIndication s:Iron Deficiency Anemia Take 1 tablet (325 mg total) by mouth 2 (two) times a day Active clopidogreL (PLAVIX) 75 mg tablet Take 1 tablet (75 mg total) by mouth daily Active zolpidem (AMBIEN) 5 mg tabletIndication s:Sleep-Onset Insomnia Take 1 tablet (5 mg total) by mouth nightly as needed for sleep Active Saccharomyces boulardii (FLORASTOR) 250 mg capsule Take 1 capsule (250 mg total) by mouth daily Active cholecalciferol (VITAMIN D-3) 66635 unit capsule Take 1 capsule (10,000 Units total) by mouth daily Active bgxga-gcbol-6-dh a-ebw-avxwnx (krill oil) 256-53-51-50 mg capsule Take 300 mg by mouth 2 (two) times a day Active mupirocin (BACTROBAN) 2 % ointment Apply to each nostril daily 4 Active nitroglycerin (NITROSTAT) 0.[address] 1 tablet (0.4 mg total) under the tongue every 5 (five) minutes as needed for chest pain Active Eliquis 5 mg tablet Take 1 tablet (5 mg total) by mouth 2 (two) times a day Active magnesium glycinate 100 mg magnesium capsule Take 2 capsules by mouth daily 5 Active traZODone (DESYREL) 100 mg tablet Take 1 tablet (100 mg total) by mouth nightly at bedtime 5 Active melatonin 5 mg tablet Take 1 tablet (5 mg total) by mouth nightly Active simethicone 250 mg capsule Take 250 mg by mouth nightly as needed (gas) Active amiodarone (PACERONE) 200 mg tablet Take 1 tablet (200 mg total) by mouth 2 (two) times a day 60 tablet 5 06/28/20 25 Active Problems Problem Noted Date Diagnosed Date Anxiety 05/31/2025 Primary insomnia 05/28/2025 Rapid palpitations 05/27/2025 Anxiety and depression 05/27/2025 Atrial fibrillation 05/27/2025 Gastroesophageal reflux disease without esophagi tis 05/27/2025 Hyperlipidemia 05/27/2025 Hypertension 05/27/2025 Hypothyroidism 05/27/2025 Coronary artery disease 05/27/2025 Diastolic heart failure 05/27/2025 Chest pain 05/27/2025 S/p TAVR (transcatheter aort ic valve replacement), bioprosthetic 04/30/2024 Aortic stenosis, severe 04/02/2024 Hematoma of groin, initial encounter 03/23/2024 Encounters Date Type Department Care Team Description 05/28/2025 2:20 PM CDT - 05/28/2025 4:20 PM CDT Surgery [facility] Cardiac Catheterization [facility] [address] [place] [id number] Yobany Zhong MD LEFT HEART CATHETERIZATION WITH CORONARY ANGIOGRAPHY AND WITH OR WITHOUT LEFT VENTRICULOGRAM [id number] 05/27/2025 Orders Only [facility]iac [facility]ter[facility] [address] [place] [id number] Yobany Zhong MD Chest pain (Primary Dx) 05/26/2025 8:17 PM CDT - 05/29/2025 2:55 PM CDT Hospital Encounter [address] [address] Ashley Zamora MD [place], MD Nate Eugene Savitha Venkatkrishna, MD Chest pain, unspecified type (Primary Dx); Chest pain; Acquired hypothyroidism; Primary insomnia; Anxiety Discharge Disposition: Discharge to home or self care from Last 3 Months Surgical History Surgery Date Site/Laterality Comments CORONARY ARTERY BYPASS GRAFT 1982 Coronary Artery Bypass Graft CORONARY ARTERY BYPASS GRAFT 2001 Coronary Artery Bypass Graft CORONARY STENT PLACEMENT Coronary Stent Placement CARDIAC PACEMAKER PLACEMENT [place] SKIN CANCER EXCISION head CATARACT EXTRACTION, BILATERAL COLONOSCOPY CHOLECYSTECTOMY APPENDECTOMY TRANSURETHRAL RESECTION OF PROSTATE CARDIAC CATHETERIZATION 05/28/2025 N/A Procedure: LEFT HEART CATHETERIZATION WITH CORONARY ANGIOGRAPHY AND WITH OR WITHOUT LEFT VENTRICULOGRAM [id number]; Surgeon: Yobany Zhong MD; Location: [facility]; Service: Cardiovascular; Laterality: N/A; Medical History Medical History Date Comments Hypertension [...] Quit: 1977 Alcohol Use Standard Drinks/Week Comments Never 0 (1 standard drink = 0.6 oz pur e alcohol) Social Connection and Isolation Panel Answer Date Recorded In a typical week, how many times do you talk on the phone with family, friends, or neighbors? More than three times a week 05/01/2024 How often do you get togethe r with friends or relatives? More than three times a week 05/01/2024 How often do you attend [facility] or judaism services? More than 4 times per year 05/01/2024 Do you belong to any clubs o r organizations such as buddhist groups, unions, fraternal or athletic groups, or school groups? No 05/01/2024 How often do you attend meet ings of the clubs or organizations you belong to? Never 05/01/2024 Are you , , di vorced, , never , or living with a partner? 05/01/2024 Overall Financial Resource Strain (CARDIA) Answe r Date Recorded How hard is it for you to pa y for the very basics like food, housing, medical care, and heating? Not hard at all 05/01/2024 PRAPARE - Transportation Answer Date Re [...] any time in the past 12 m [facility], were you homeless or living in a chcf (including now)? No 05/01/2024 Social Connection and Isolation Panel Answer Date Recorded In a typical week, how many times do you talk on the phone with family, friends, or neighbors? More than three times a week 05/27/2025 How often do you get togethe r with friends or relatives? More than three times a week 05/27/2025 How often do you attend chur ch or judaism services? More than 4 times per year 05/27/2025 Do you belong to any clubs o r organizations such as buddhist groups, unions, fraternal or athletic groups, or school groups? Yes 05/27/2025 How often do you attend meet ings of the clubs or organizations you belong to? More than 4 times per year 05/27/2025 Are you , , di vorced, , never , or living with a partner? 05/27/2025 AUDIT-C Answer Date Recorded Q1: How often do you have a drink containing alcohol? Never 05/27/2025 Q2: How many drinks containi ng alcohol do you have on a typical day when you are drinking? Patient does not drink Q3: How often do you have si x or more drinks on one occasion? Never 05/27/2025 Overall Financial Resource Strain (CARDIA) Answe r Date Recorded How hard is it for you to pa y for the very basics like food, housing, medical care, and heating? Not hard at all 05/27/2025 Hunger Vital Sign Answer Date Recorded Within the past 12 months, y ou worried that your food would run out before you got the money to buy more. Never true 05/27/20 25 Within the past 12 months, t he food you bought just didn't last and you didn't have money to get more. Never true 05/27/2025 PRAPARE - Transportation Answer Date Re corded In the past 12 months, has l ack of transportation kept you from medical appointments or from getting medications? No 12/2024 In the past 12 months, has l ack of transportation kept you from meetings, work, or from getting things needed for daily living? No 05/27/2025 Housing Stability Vital Sign Answer Alcon e Recorded In the last 12 months, was t here a time when you were not able to pay the mortgage or rent on time? No 05/27/2025 In the past 12 months, how m any times have you moved where you were living? 0 05/27/2025 At any time in the past 12 m [facility], were you homeless or living in a chcf (including now)? No 05/27/2025 [facility] Utilities Answer Date Recorded In the past 12 months has th e electric, gas, oil, or water company threatened to shut off services in your home? No 05/27/2025 Personal Safety Answer Date Recorded Have you ever been in or are you currently in a harmful physical or emotional relationship or is someone making you feel afraid or unsafe? Denies 05/27/2025 Sex and Gender Information Value Date Recorded Sex Assigned at Not on file Legal Sex Male 7:16 PM [employer] Gender Identity Not on file Sexual Orientation Not on file Obstetrics History Last Filed Vital Signs Vital Sign Reading Time Taken Comments Blood Pressure 104/72 05/29/2025 1:00 PM CDT Pulse 66 05/29/2025 1:30 PM CDT Temperature 36.5 C (97.7 F) 05/29/2025 4:00 AM CDT Respiratory Rate 16 05/29/2025 1:30 PM CDT Oxygen Saturation 93% 05/29/2025 1:30 PM CDT Inhaled Oxygen Concentration - - Weight 84.3 kg (185 lb 13.6 oz) 05/27/2025 3:10 AM CDT Height 182.9 cm (6') 05/27/2025 3:25 AM CDT Body Mass Index 25.21 05/27/2025 3:10 AM CDT Plan of Treatment Health Maintenance Due Date Last Done Comments Depression Screening 1938 Hepatitis B Screening 1956 Well Visit 65+ 2003 Pneumococcal vaccine 65+ (2 of 2 - PPSV23, PCV20, or PCV21) 07/24/2015 05/29/2015 Zoster Vaccine (2 of 3) 07/21/2018 05/26/2018, 07/24 Covid-19 Vaccine (4 - 2024-2 6 season) 2025 07/21/2021, 11/22/2020, 10/20/2020 Influenza Vaccine (#1) 2025 , 05/29/2023, 05/26/2022, Additional history exists Fall Risk Assessment 05/29/2026 05/29/2025 DTaP/Tdap/Td Vaccine (2 - Td or Tdap) 04/01/2033 04/01/2023 Medical Devices Implanted Type Area Layer Out Plate Glass Device Identifier Shelf Expiration Date Model / Serial / Lot Pacemaker Pacemaker Left: Chest Wall [employer] Hima 3 Commander Levine 26mm Transcatheter Ultra Low Profile [id number] - [id number] - [id number] Implanted:Qty: 1 on 04/30/2024 by Yobany Zhong MD at [facility] [employer] 11/19/2026 [id number] / [id number] / [employer] System Closure Repair Femoral Artery Suture Mediated Perclose Prostyle 29750-02 - [id number] Implanted:Qty: 1 on 04/30/2024 by Yobany Zhong MD at [facility] [employer] 01/20/2026 [id number] / / [id number] [employer] System Closure Repair Femoral Artery Suture Mediated Perclose Prostyle 48655-16 - [id number] Implanted:Qty: 1 on 04/30/2024 by Yobany Zhong MD at [facility] V[facility] 01/20/2026 [id number] / / [id number] Procedures Procedure Name Priority Date/Time Associated Diagnosis Comments ECG 12-LEAD Routine 05/29/2025 9:22 AM CDT T4, FREE Routine 05/29/2025 2:47 AM CDT EGFR Routine 05/29/2025 2:47 AM CDT DIFFERENTIAL AUTO Routine 05/29/2025 2:4 7 AM CDT HEPATIC FUNCTION PANEL Routine 2:47 AM CDT CBC WITH AUTO DIFFERENTIAL Routine 05/29/2025 2:47 AM CDT THYROID FUNCTION CASCADE Routine 05/29/2025 2:47 AM CDT FOLATE Routine 05/29/2025 2:47 AM CDT VITAMIN B12 Routine 05/29/2025 2:47 AM CDT MAGNESIUM Routine 05/29/2025 2:47 AM CDT BASIC METABOLIC PANEL Routine 05/29/2025 2:47 AM CDT LEFT HEART CATHETERIZATION WITH CORONARY ANGIOGRAPHY AND WITH AND WITHOUT LEFT VENTRICULOGRAM Routine 05/28/2025 4:20 PM CDT Chest pain EGFR Routine 05/28/2025 2:18 AM CDT MAGNESIUM Routine 05/28/2025 2:18 AM CDT BASIC METABOLIC PANEL Routine 05/28/2025 2:18 AM CDT STOOL CULTURE Routine 05/27/2025 4:10 PM CDT EGFR Routine 05/27/2025 5:04 AM CDT CBC WITHOUT DIFFERENTIAL Routine 05/27/2025 5:04 AM CDT MAGNESIUM Routine 05/27/2025 5:04 AM CDT BASIC METABOLIC PANEL Routine 05/27/2025 5:04 AM CDT TROPONIN T HIGH-SENSITIVITY 6-HOUR Timed 05/27/2025 2:17 AM CDT TROPONIN T HIGH-SENSITIVITY 2-HOUR Timed 05/26/2025 10:19 PM CDT XR CHEST 1 VIEW ED 05/26/2025 8:45 PM CDT EGFR STAT 05/26/2025 8:24 PM CDT DIFFERENTIAL AUTO STAT 05/26/2025 8:2 4 PM CDT PROTIME-INR STAT 05/26/2025 8:24 PM CDT TROPONIN T HIGH-SENSITIVITY SERIES (BASELINE, 2HR, 4HR, 6HR) STAT 05/26/2025 8:24 PM CDT COMPREHENSIVE METABOLIC PANEL STAT 05/26/2025 8:24 PM CDT CBC WITH AUTO DIFFERENTIAL STAT 05/26/2025 8:24 PM CDT ECG 12-LEAD STAT 05/26/2025 8:16 PM CDT from Last 3 Months Results * ECG 12 lead (05/29/2025 9:22 AM CDT) 05/29/2025 9:22 AM CDT Narrative [facility] - 05/29/2025 12:05 PM CDT Vent Rate: 78 bpm RR Interval: 764 msec MS Interval: 115 msec QRS Duration: 113 msec QT Interval: 432 msec QTC Interval: 465 msec P-R-T [place]: -77 - 39 - 52 degrees IMPRESSION: Ectopic atrial rhythm MODERATE INTRAVENTRICULAR CONDUCTION DELAY [110+ ms QRS DURATION] NONSPECIFIC T-WAVE ABNORMALITY PROLONGED QT INTERVAL Compared to prior EKG QTC interval is prolonged Electronically Signed By: Roberto Cota MD [facility] us Antonio Rinaldi MD ECG ORDERABLES Final Resul t Performing Organization Address City/[facility] Co de Phone Number [facility] * eGFR (05/29/2025 2:47 AM CDT) eGFR 83 >=60 mL/min/1. 73 m2 Comment: Interpretive Data Reference Interval Normal >/= 90 mL/min/1.73m2 Mildly decreased* 60 - 89 mL/min/1.73m2 Mildly to moderately decreased 45 - 59 mL/min/1.73m2 Moderately to severely decreased 30 - 44 mL/min/1.73m2 Severely decreased 15 - 29 mL/min/1.73m2 Kidney Failure < 15 mL/min/1.73m2 *Relative to young adult level Estimated glomerular filtration rate is determined by the 2020 CKD-EPI equation recommended by the National Kidney Foundation (A Unifying Approach to GFR Estimation: Recommendations of the NKF-ASK Task Force on Reassessing the Inclusion of Race in Diagnosing Kidney Disease, JASN 2020). The CKD-EPI equation should not be used for patients with unstable renal function and has not been validated in children and those over 70. Current interpretive data was last reviewed 2021. Blood 05/29/2025 2:47 AM CDT 05/29/2025 2:50 AM CDT Tracy Warner NP LAB BLOOD ORDERABLES Fin al Result Performing Organization Address City/[facility] Co de Phone Number [facility] [id number] Department [place] [address] * Differential, auto (05/29/2025 2:47 AM CDT) Neutrophil abs 4.92 1.50 - 6.50 K/cumm Imm gran abs 0.01 0.00 - 0.10 K/cumm [facility] Lymphocyte abs 1.01 0.80 - 3.30 K/cumm [facility] Monocyte abs 0.62 0.20 - 0.80 K/cumm [facility] Eosinophil abs 0.32 0.00 - 0.50 K/cumm [facility] Basophil abs 0.04 0.00 - 0.10 K/cumm [facility] Neutrophil pct 71.1 % [facility] Comment: Interpretive Data Percent cell count reference ranges are not reported, since discordance with absolute values may lead to misinterpretation of CBC data. Current Interpretive Data was last revised on 2017. Imm gran pct 0.1 % [facility] Comment: Interpretive Data Percent cell count reference ranges are not reported, since discordance with absolute values may lead to misinterpretation of CBC data. Current Interpretive Data was last revised on 2017. Lymphocyte pct 14.6 % [facility] Comment: Interpretive Data Percent cell count reference ranges are not reported, since discordance with absolute values may lead to misinterpretation of CBC data. Current Interpretive Data was last revised on 2017. Monocyte pct 9.0 % [facility] Comment: Interpretive Data Percent cell count reference ranges are not reported, since discordance with absolute values may lead to misinterpretation of CBC data. Current Interpretive Data was last revised on 2017. Eosinophil pct 4.6 % [facility] Comment: Interpretive Data Percent cell count reference ranges are not reported, since discordance with absolute values may lead to misinterpretation of CBC data. Current Interpretive Data was last revised on 2017. Basophil pct 0.6 % [facility] Comment: Interpretive Data Percent cell count reference ranges are not reported, since discordance with absolute values may lead to misinterpretation of CBC data. Current Interpretive Data was last revised on 2017. Blood 05/29/2025 2:47 AM CDT 05/29/2025 2:50 AM CDT us Kiara Sullivan MD LAB BLOOD ORDERABLE S Final Result [facility] [id number] Department [place] [address] * (ABNORMAL) Thyroid Function [place] (05/29/2025 2:47 AM CDT) TSH 5.13(H) 0.30 - 4.20 mcIUnit/mL Blood 05/29/2025 2:47 AM CDT 05/29/2025 2:50 AM CDT Kiara Sullivan MD LAB BLOOD ORDERABLE S Final Result Performing Organization Address City/[facility]/ZIP Co de Phone Number [facility] [address] [place] [address] * (ABNORMAL) CBC with auto differential (05/29/2025 2:47 AM CDT) WBC 6.92 3.80 - 9.90 K/cumm Hgb 12.3(L) 13.0 - 17.5 g/dL [facility] Hct 37.3(L) 38.9 - 50.3 % [facility] Plt 182 150 - 400 K/cumm [facility] MPV 10.8 9.1 - 12.3 fL [facility] RBC 3.63(L) 4.30 - 5.80 M/cumm [facility] MCV 102.8(H) 81.3 - 96.4 fL [facility] MCH 33.9(H) 27.1 - 33.3 pg [facility] MCHC 33.0 32.3 - 35.7 g/dL [facility] RDW CV 12.8 11.1 - 14.9 % [facility] RDW SD 47.9 35.7 - 48.1 fL [facility] NRBC abs 0.00 0.00 - 0.01 K/cumm [facility] Blood 05/29/2025 2:47 AM CDT 05/29/2025 2:50 AM CDT Kiara Sullivan MD LAB BLOOD ORDERABLE S Final Result [facility] [id number] [employer] [place] [address] * T4, free (05/29/2025 2:47 AM CDT) Free T4 1.38 0.90 - 1.70 ng/dL Blood 05/29/2025 2:47 AM CDT 05/29/2025 2:50 AM CDT Kiara Sullivan MD LAB BLOOD ORDERABLE S Final Result Performing Organization Address [facility] Co de Phone Number [facility] [id number] [facility] [place] [address] * Magnesium (05/29/2025 2:47 AM CDT) Magnesium 2.0 1.4 - 2.5 mg/dL Blood 05/29/2025 2:47 AM CDT 05/29/2025 2:50 AM CDT Tracy Warner MICROBIOLOGY QUALITY CONTROL TECHNICIAN LAB BLOOD ORDERABLES Fin al Result Performing Organization Address [facility] Co de Phone Number [facility] [address] [address] [facility] [place] [address] * Folate (05/29/2025 2:47 AM CDT) Folic acid 19.6 >=5.0 ng/mL Comment:Hemolysis present. R esults may be affected. Blood 05/29/2025 2:47 AM CDT 05/29/2025 2:50 AM CDT Kiara Sullivan MD LAB BLOOD ORDERABLE S Final Result Performing Organization Address [facility] Co de Phone Number [facility] [address] [facility] [place] [address] * Vitamin B12 (05/29/2025 2:47 AM CDT) Vitamin B12 844 230 - 1,250 pg/mL Blood 05/29/2025 2:47 AM CDT 05/29/2025 2:50 AM CDT Kiara Sullivan MD LAB BLOOD ORDERABLE S Final Result Performing Organization Address City/[facility] Co de Phone Number [facility] [id number] Department [place] [address] * (ABNORMAL) Hepatic function panel (05/29/2025 2:47 AM CDT) Bilirubin, total 1.0 0.1 - 1.2 mg/dL Bilirubin, direct 0.4(H) 0.1 - 0.3 mg/dL [facility] Protein, pl 6.3(L) 6.5 - 8.5 g/dL [facility] Albumin 3.7 3.5 - 5.0 g/dL [facility] Alk phos 66 40 - 130 Units/L [facility] ALT 29 7 - 55 Units/L [facility] AST 36 10 - 50 Units/L [facility] Blood 05/29/2025 2:47 AM CDT 05/29/2025 2:50 AM CDT Kiara Sullivan MD LAB BLOOD ORDERABLE S Final Result Performing Organization Address City/[facility] Co de Phone Number [facility] [phone] Department [place] [address] * Basic metabolic panel (05/29/2025 2:47 AM CDT) Sodium 138 135 - 145 mmol/L Potassium, pl 4.1 3.3 - 4.9 mmol/L [facility] Chloride 103 97 - 110 mmol/L [facility] CO2 22 22 - 32 mmol/L [facility] Anion gap 13 2 - 15 mmol/L [facility] BUN 11 6 - 25 mg/dL [facility] Creatinine 0.90 0.80 - 1.30 mg/dL [facility] Glucose 101 70 - 199 mg/dL [facility] Comment: Interpretive Data Fasting glucose >/= 126 mg/dl is diagnostic for diabetes. Fasting is defined as no caloric intake for at least 8 hours. Fasting glucose between 100 mg/dl to 125 mg/dl is diagnostic of prediabetes. In a patient with classic symptoms of hyperglycemia or hyperglycemic crisis, a random glucose >/= 200 mg/dl is diagnostic for diabetes. In the absence of unequivocal hyperglycemia, results should be confirmed by repeat testing. The classification and Diagnosis of Diabetes Diabetes Care 2021; 46: S19-S40. Current interpretive data was last revised 2022. Calcium 8.8 8.5 - 10.3 mg/dL [facility] Blood 05/29/2025 2:47 AM CDT 05/29/2025 2:50 AM CDT us Tracy Mason Alana MARTINEZ LAB BLOOD ORDERABLES Fin al Result [facility] [address] Department [place] [address] * LEFT HEART CATHETERIZATION WITH CORONARY ANGIOGRAPHY AND WITH AND WITHOUT LEFT VENTRICULOGRAM (05/28/2025 4:20 PM CDT) Anatomical Region Laterality Modality X-Ray Angiograph y 05/29/2025 Narrative 06/04/2025 3:09 PM CDT [employer] Job ID: [id number] [employer] Document ID: [id number] Dictated date/time: [id number] INDICATION FOR PROCEDURE Angina pectoris in a patient with known coronary disease and abnormal stress test. PROCEDURE PERFORMED Left heart catheterization, selective right coronary angiography, left ventriculography, bypass graft angiography. TECHNIQUE After informed consent, patient was brought to labor law professor. Right groin was prepped and draped in the usual sterile fashion. The right radial was prepped and draped in usual sterile fashion. The right radial artery was injected with lidocaine. The right radial artery was punctured under ultrasound guidance and cannulated with a standard 6-Kittitian sheath. Access was done with ultrasound guidance and direct visualization. The needle penetrated the artery. An image of this was saved for future testing. Subsequently, the patient received intra-arterial vasodilators and intravenous heparin for the procedure. I used a JL4 catheter to engage the [place] right coronary artery, but this catheter could not be engaged used this to graft to the Y-graft, so I decided to use a JL3.5 catheter to engage the left main coronary artery and come back to engage the graft later. However, on trying to prop this catheter into actually fell into the graft and therefore I used a JL3.5 catheter to get selective angiograms of the bypass graft. Subsequently, this catheter was then torqued to engage the left main coronary artery and get selective angiograms. A pigtail catheter was then used to easily cross into the LV and do LV-gram and a pullback procedure. At this time, all the angiograms were reviewed and the patient was then transferred in stable condition. A TR band was applied to the right wrist to secure hemostasis. FINDINGS HEMODYNAMICS: The pressure 120/22 mmHg. Pullback blood pressure was 120/60. CORONARY ANATOMY: Left main coronary artery is normal. The circumflex has mild plaquing in the proximal segment, about 30%, but is not felt to have significant disease. The LAD is occluded at the ostium. Right coronary artery is patent proximally and has mild diffuse disease in the mid segment. There is a stent in the distal segment which extends into the PDA. The segment of the stenting of the PDA is occluded, but the PL branch is seen to fill with an ostial 50% to 70% stenosis which is unchanged from before. The vein graft to the right coronary artery is widely patent with mild plaquing in it. It is filling the PDA well. The 2nd arm of the graft close to the LAD and is also widely patent, filling the LAD and the diagonal branch as well. Not much retrograde flow is seen. There is a stent in the body of the graft which has only mild in-stent restenosis and appears angiographically unchanged compared to a final result after intervention. Left ventricle demonstrates normal LV size and normal contractility. Ejection fraction is estimated about 60%. There is no mitral regurgitation. IMPRESSION 1. The patient appears to be fairly well revascularized with patent left main, no significant disease in left circumflex and patent bypass grafts to the LAD. The [place] right coronary artery has significant disease with an occluded PDA which is bypassed. The only area which could be ischemic would be the posterolateral branch, but this has more flow not than it did on a previous angiogram a few months ago. 2. Normal LV function. 3. Normally functioning prosthetic aortic valve. 4. No mitral regurgitation. 5. Elevated LVEDP at 22 mmHg. Thank you for allowing my participation. Job ID/Internal Job ID: [id number] Yobany Zhong MD CV CARDIAC CATH PROCEDURES Final Result * eGFR (05/28/2025 2:18 AM CDT) eGFR 82 >=60 mL/min/1. 73 m2 Comment: Interpretive Data Reference Interval Normal >/= 90 mL/min/1.73m2 Mildly decreased* 60 - 89 mL/min/1.73m2 Mildly to moderately decreased 45 - 59 mL/min/1.73m2 Moderately to severely decreased 30 - 44 mL/min/1.73m2 Severely decreased 15 - 29 mL/min/1.73m2 Kidney Failure < 15 mL/min/1.73m2 *Relative to young adult level Estimated glomerular filtration rate is determined by the 2020 CKD-EPI equation recommended by the National Kidney Foundation (A Unifying Approach to GFR Estimation: Recommendations of the NKF-ASK Task Force on Reassessing the Inclusion of Race in Diagnosing Kidney Disease, JASN 2020). The CKD-EPI equation should not be used for patients with unstable renal function and has not been validated in children and those over 70. Current interpretive data was last reviewed 2021. Blood 05/28/2025 2:18 AM CDT 05/28/2025 2:21 AM CDT Tracy Warner LAB BLOOD ORDERABLES Fin al Result Performing Organization Address [facility] Co de Phone Number [facility] [address] [employer] [place], [place] [id number] * Magnesium (05/28/2025 2:18 AM CDT) Pathologist [facility] [place] Magnesium 2.1 1.4 - 2.5 mg/dL Blood 05/28/2025 2:18 AM CDT 05/28/2025 2:21 AM CDT Tracy Isabella Warner LAB BLOOD ORDERABLES Fin al Result Performing Organization Address [facility] Co de Phone Number [facility] [address] Department of [place] [address] * (ABNORMAL) Basic metabolic panel (05/28/2025 2:18 AM CDT) Sodium 140 135 - 145 mmol/L Potassium, pl 4.0 3.3 - 4.9 mmol/L [facility] Chloride 107 97 - 110 mmol/L [facility] CO2 20(L) 22 - 32 mmol/L [facility] Anion gap 13 2 - 15 mmol/L [facility] BUN 10 6 - 25 mg/dL [facility] Creatinine 0.91 0.80 - 1.30 mg/dL [facility] Glucose 124 70 - 199 mg/dL [facility] Comment: Interpretive Data Fasting glucose >/= 126 mg/dl is diagnostic for diabetes. Fasting is defined as no caloric intake for at least 8 hours. Fasting glucose between 100 mg/dl to 125 mg/dl is diagnostic of prediabetes. In a patient with classic symptoms of hyperglycemia or hyperglycemic crisis, a random glucose >/= 200 mg/dl is diagnostic for diabetes. In the absence of unequivocal hyperglycemia, results should be confirmed by repeat testing. The classification and Diagnosis of Diabetes Diabetes Care 2021; 46: S19-S40. Current interpretive data was last revised 2022. Calcium 9.0 8.5 - 10.3 mg/dL [facility] Blood 05/28/2025 2:18 AM CDT 05/28/2025 2:21 AM CDT Tracy Warner NP LAB BLOOD ORDERABLES Fin al Result [facility] [address] Department of Laboratories [place], [place] [id number] * Stool culture Stool Rectum (05/27/2025 4:10 PM CDT) Direct Specimen Exam Shiga Toxin Testing: Antigen detection assay for Shiga-toxin NEGATIVE for Shiga Toxin 1 and Shiga Toxin 2. Comment:Testing performed by : [facility], [address] [facility] [place] [address] Report Final Report: No growth of enteric bacterial pathogens [facility] Comment:Testing performed by : [facility], [address] [place]., [address] Stool (Rectum) 05/27/2025 4: 10 PM CDT 05/27/2025 7:04 PM CDT Brian MEZA CH - 05/31/2025 9:37 AM CDT Specimen received in a sterile container. Testing performed by [facility] ([phone]). Routine stool cultures include procedures to detect Salmonella, Shigella, Edwardsiella, Aeromonas, Pleisiomonas, Campylobacter, Yersinia, E. coli O157, and Shiga-like toxins. Vibrio is cultured only upon special request. If Vibrio is suspected, please call the laboratory at [phone]. Interpretive data was last updated January 28, 2017. us Kiara Sullivan MD LAB MICROBIOLOGY - GENERAL ORDERABLES Final Result [facility] [address] Department [place] [address] * eGFR (05/27/2025 5:04 AM CDT) eGFR 83 >=60 mL/min/1. 73 m2 Comment: Interpretive Data Reference Interval Normal >/= 90 mL/min/1.73m2 Mildly decreased* 60 - 89 mL/min/1.73m2 Mildly to moderately decreased 45 - 59 mL/min/1.73m2 Moderately to severely decreased 30 - 44 mL/min/1.73m2 Severely decreased 15 - 29 mL/min/1.73m2 Kidney Failure < 15 mL/min/1.73m2 *Relative to young adult level Estimated glomerular filtration rate is determined by the 2020 CKD-EPI equation recommended by the National Kidney Foundation (A Unifying Approach to GFR Estimation: Recommendations of the NKF-ASK Task Force on Reassessing the Inclusion of Race in Diagnosing Kidney Disease, JASN 202). The CKD-EPI equation should not be used for patients with unstable renal function and has not been validated in children and those over 70. Current interpretive data was last reviewed 2021. Blood 05/27/2025 5:04 AM CDT 05/27/2025 6:48 AM CDT Tracy Malloyo MICROBIOLOGY QUALITY CONTROL TECHNICIAN LAB BLOOD ORDERABLES Fin al Result Performing Organization Address City/[facility] Co de Phone Number [facility] [address] Department of [employer] [place], [place] [phone] * (ABNORMAL) CBC without differential (05/27/2025 5:04 AM CDT) WBC 6.06 3.80 - 9.90 K/cumm Hgb 13.4 13.0 - 17.5 g/dL [facility] CH Hct 41.1 38.9 - 50.3 % [facility] CH Plt 196 150 - 400 K/cumm [facility] CH MPV 11.5 9.1 - 12.3 fL [facility] RBC 3.93(L) 4.30 - 5.80 M/cumm [facility] CH MCV 104.6(H) 81.3 - 96.4 fL [facility] CH MCH 34.1(H) 27.1 - 33.3 pg [facility] MCHC 32.6 32.3 - 35.7 g/dL [facility] RDW CV 12.6 11.1 - 14.9 % [facility] RDW SD 48.9(H) 35.7 - 48.1 fL [facility] CH NRBC abs 0.00 0.00 - 0.01 K/cumm [facility] CH Blood 05/27/2025 5:04 AM CDT 05/27/2025 6:49 AM CDT Tracy Warner MICROBIOLOGY QUALITY CONTROL TECHNICIAN LAB BLOOD ORDERABLES Fin al Result Performing Organization Address City/[facility]/ZIP Co de Phone Number [facility] [place] [address] Department [employer] [place], [place] [id number] * Magnesium (05/27/2025 5:04 AM CDT) Magnesium 2.2 1.4 - 2.5 mg/dL Blood 05/27/2025 5:04 AM CDT 05/27/2025 6:49 AM CDT Tracy Warner MICROBIOLOGY QUALITY CONTROL TECHNICIAN LAB BLOOD ORDERABLES Fin al Result [facility] [address] [place] [address] * (ABNORMAL) Basic metabolic panel (05/27/2025 5:04 AM CDT) Sodium 142 135 - 145 mmol/L Potassium, pl 3.6 3.3 - 4.9 mmol/L [facility] Chloride 106 97 - 110 mmol/L [facility] CO2 19(L) 22 - 32 mmol/L [facility] Anion gap 17(H) 2 - 15 mmol/L [facility] BUN 11 6 - 25 mg/dL [facility] Creatinine 0.89 0.80 - 1.30 mg/dL [facility] Comment:Icteric sample, test results may be affected. Glucose 99 70 - 199 mg/dL [facility] Comment: Interpretive Data Fasting glucose >/= 126 mg/dl is diagnostic for diabetes. Fasting is defined as no caloric intake for at least 8 hours. Fasting glucose between 100 mg/dl to 125 mg/dl is diagnostic of prediabetes. In a patient with classic symptoms of hyperglycemia or hyperglycemic crisis, a random glucose >/= 200 mg/dl is diagnostic for diabetes. In the absence of unequivocal hyperglycemia, results should be confirmed by repeat testing. The classification and Diagnosis of Diabetes Diabetes Care 2021; 46: S19-S40. Current interpretive data was last revised 2022. Calcium 9.3 8.5 - 10.3 mg/dL [facility] Blood 05/27/2025 5:04 AM CDT 05/27/2025 6:49 AM CDT Tracy Warner MICROBIOLOGY QUALITY CONTROL TECHNICIAN LAB BLOOD ORDERABLES Fin al Result [facility] [address] Department [place] [address] * (ABNORMAL) Troponin T high-sensitivity 6-hour (05/27/2025 2:17 AM CDT) Trop T hs 35(H) <=22 ng/L Comment: Interpretive Data For further hscTnT resources including the diagnostic algorithm and an aid in interpretation, copy and paste this link: https://nrl.testcatalog.org/show/hsTrop Current Interpretive Data last revised 2020. Trop T hs delta 15(C) ng/L [facility] Comment:Critical Result call ed to and read back by Monique Fernandez, DATE: 2025-05-27 03:02:40 BY: Josh Prince Trop T hs interp Significa nt(C) [facility] Comment:Critical Result call ed to and read back by Monique Fernandez, DATE: 2025-05-27 03:02:40 BY: Josh Prince Blood 05/27/2025 2:17 AM CDT 05/27/2025 2:33 AM CDT Judd Abreu III, MD LAB BLOOD ORDER MARIFER Final Result Performing Organization Address [facility] Co de Phone Number [facility] [address] [address] * (ABNORMAL) Troponin T high-sensitivity 2-hour (05/26/2025 10:19 PM CDT) Trop T hs 24(H) <=22 ng/L Comment: Slight hemolysis may result in decreased troponin measurement. Consider recollection. Interpretive Data For further hscTnT resources including the diagnostic algorithm and an aid in interpretation, copy and paste this link: https://nrl.testcatInviteDEV.org/show/hsTrop Current Interpretive Data last revised 2020. Trop T hs delta 4 ng/L [facility] Trop T hs interp Insignificant [facility] Blood 05/26/2025 10:1 9 PM CDT 05/26/2025 10:27 PM CDT Judd Abreu III, MD LAB BLOOD ORDER MARIFER Final Result Performing Organization Address City/[facility]/ZIP Co de Phone Number [facility] [address] [place] [address] * XR Chest 1 Vw Portable (If patient hemodynamically UNstable or UNable to ambulate) (05/26/2025 8:45PM CDT) Anatomical Region Laterality Modality Body, Chest N/A Computed Radiogr aphy 05/26/2025 9:01 PM CDT Impressions 05/26/2025 9:01 PM CDT Mild vascular congestion. Electronically signed by: Ritu Gray M.D. Narrative 05/26/2025 9:01 PM CDT EXAMINATION: XR CHEST 1 VIEW HISTORY: The patient is a 84-year-old male who presents with chest pain. Comparison made with the previous study dated 05/02/2024. TECHNIQUE: AP portable view of the chest. FINDINGS: Cardiomegaly with aortic atherosclerosis. Mild degree of vascular congestion. No focal consolidation. Note is once again made of right-sided calcified pleural plaques. Procedure Note Ritu Gray MD - 05/26/2025 EXAMINATION: XR CHEST 1 VIEW HISTORY: The patient is a 84-year-old male who presents with chest pain. Comparison made with the previous study dated 05/02/2024. TECHNIQUE: AP portable view of the chest. FINDINGS: Cardiomegaly with aortic atherosclerosis. Mild degree of vascular congestion. No focal consolidation. Note is once again made of right-sided calcified pleural plaques. IMPRESSION: Mild vascular congestion. Electronically signed by: Ritu Gray M.D. Ashley Zamora MD IMG XR PROCEDURES Final Result * Troponin T high-sensitivity series (baseline, 2hr, 4hr, 6hr) (05/26/2025 8:24 PM CDT) Trop T hs 20 <=22 ng/L Comment: Interpretive Data For further hscTnT resources including the diagnostic algorithm and an aid in interpretation, copy and paste this link: https://nrl.testcatalog.org/show/hsTrop Current Interpretive Data last revised 2020. Blood 05/26/2025 8:24 PM CDT 05/26/2025 8:27 PM CDT us Ashley Zamora MD LAB BLOOD ORDERABLES Fi nal Result Performing Organization Address City/[facility]/ZIP Co de Phone Number [facility] [address] Department [place] [address] * eGFR (05/26/2025 8:24 PM CDT) eGFR 72 >=60 mL/min/1. 73 m2 Comment: Interpretive Data Reference Interval Normal >/= 90 mL/min/1.73m2 Mildly decreased* 60 - 89 mL/min/1.73m2 Mildly to moderately decreased 45 - 59 mL/min/1.73m2 Moderately to severely decreased 30 - 44 mL/min/1.73m2 Severely decreased 15 - 29 mL/min/1.73m2 Kidney Failure < 15 mL/min/1.73m2 *Relative to young adult level Estimated glomerular filtration rate is determined by the 2020 CKD-EPI equation recommended by the National Kidney Foundation (A Unifying Approach to GFR Estimation: Recommendations of the NKF-ASK Task Force on Reassessing the Inclusion of Race in Diagnosing Kidney Disease, JASN 2020). The CKD-EPI equation should not be used for patients with unstable renal function and has not been validated in children and those over 70. Current interpretive data was last reviewed 2021. Blood 05/26/2025 8:24 PM CDT 05/26/2025 8:27 PM CDT us Judd Abreu III, MD LAB BLOOD ORDER MARIFER Final Result Performing Organization Address City/[facility]/ZIP Co de Phone Number [facility] [address] Department [place] [address] * Differential, auto (05/26/2025 8:24 PM CDT) Neutrophil abs 4.47 1.50 - 6.50 K/cumm Imm gran abs 0.01 0.00 - 0.10 K/cumm [facility] Lymphocyte abs 1.37 0.80 - 3.30 K/cumm [facility] Monocyte abs 0.63 0.20 - 0.80 K/cumm [facility] Eosinophil abs 0.12 0.00 - 0.50 K/cumm [facility] Basophil abs 0.05 0.00 - 0.10 K/cumm [facility] Neutrophil pct 67.1 % [facility] Comment: Interpretive Data Percent cell count reference ranges are not reported, since discordance with absolute values may lead to misinterpretation of CBC data. Current Interpretive Data was last revised on 2017. Imm gran pct 0.2 % [facility] Comment: Interpretive Data Percent cell count reference ranges are not reported, since discordance with absolute values may lead to misinterpretation of CBC data. Current Interpretive Data was last revised on 2017. Lymphocyte pct 20.6 % [facility] Comment: Interpretive Data Percent cell count reference ranges are not reported, since discordance with absolute values may lead to misinterpretation of CBC data. Current Interpretive Data was last revised on 2017. Monocyte pct 9.5 % [facility] Comment: Interpretive Data Percent cell count reference ranges are not reported, since discordance with absolute values may lead to misinterpretation of CBC data. Current Interpretive Data was last revised on 2017. Eosinophil pct 1.8 % [facility] Comment: Interpretive Data Percent cell count reference ranges are not reported, since discordance with absolute values may lead to misinterpretation of CBC data. Current Interpretive Data was last revised on 2017. Basophil pct 0.8 % [facility] Comment: Interpretive Data Percent cell count reference ranges are not reported, since discordance with absolute values may lead to misinterpretation of CBC data. Current Interpretive Data was last revised on 2017. Blood 05/26/2025 8:24 PM CDT 05/26/2025 8:27 PM CDT us Judd Abreu III, MD LAB BLOOD ORDER MARIFER Final Result [facility] [address] Department of Laboratories [place], [place] [phone] * (ABNORMAL) CBC with auto differential (05/26/2025 8:24 PM CDT) WBC 6.65 3.80 - 9.90 K/cumm Hgb 14.1 13.0 - 17.5 g/dL [facility] Hct 42.6 38.9 - 50.3 % [facility] Plt 207 150 - 400 K/cumm [facility] MPV 11.0 9.1 - 12.3 fL [facility] RBC 4.22(L) 4.30 - 5.80 M/cumm [facility] MCV 100.9(H) 81.3 - 96.4 fL [facility] MCH 33.4(H) 27.1 - 33.3 pg [facility] MCHC 33.1 32.3 - 35.7 g/dL [facility] RDW CV 12.5 11.1 - 14.9 % [facility] RDW SD 47.1 35.7 - 48.1 fL [facility] NRBC abs 0.00 0.00 - 0.01 K/cumm [facility] Blood Venous blood specimen / Unknown 05/26/2025 8:24 PM CDT 05/26/2025 8:27 PM CDT Ashley Zamora MD LAB BLOOD ORDERABLES nal Result [facility] [address] Department [place] [address] * (ABNORMAL) Protime-INR (05/26/2025 8:24 PM CDT) Pathologist [facility] [place] PT 15.5(H) 10.2 - 13.5 sec INR 1.38(H) 0.90 - 1.20 [facility] Comment: Interpretive data Oral anticoagulant therapeutic ranges: Venous thromboembolism prophylaxis or treatment: 2.0-3.0 CARDIOLOGY Standard range: 2.0-3.0 High-intensity range: 2.5-3.5 Refer to indication-specific guidelines for appropriate target ranges for prosthetic heart valve replacement. Current interpretive data was last revised on 2019. Blood 05/26/2025 8:24 PM CDT 05/26/2025 8:27 PM CDT Ashley Zamora MD LAB BLOOD ORDERABLES Fi nal Result [facility] [address] Department [place] [address] * (ABNORMAL) Comprehensive metabolic panel (05/26/2025 8:24 PM CDT) Sodium 138 135 - 145 mmol/L Potassium, pl 3.6 3.3 - 4.9 mmol/L [facility] Chloride 104 97 - 110 mmol/L [facility] CO2 18(L) 22 - 32 mmol/L [facility] Anion gap 16(H) 2 - 15 mmol/L [facility] CH BUN 10 6 - 25 mg/dL [facility] Creatinine 1.02 0.80 - 1.30 mg/dL [facility] CH Glucose 109 70 - 199 mg/dL [facility] Comment: Interpretive Data Fasting glucose >/= 126 mg/dl is diagnostic for diabetes. Fasting is defined as no caloric intake for at least 8 hours. Fasting glucose between 100 mg/dl to 125 mg/dl is diagnostic of prediabetes. In a patient with classic symptoms of hyperglycemia or hyperglycemic crisis, a random glucose >/= 200 mg/dl is diagnostic for diabetes. In the absence of unequivocal hyperglycemia, results should be confirmed by repeat testing. The classification and Diagnosis of Diabetes Diabetes Care 202; 46: S19-S40. Current interpretive data was last revised 2022. Calcium 9.6 8.5 - 10.3 mg/dL [facility] Bilirubin, total 1.0 0.1 - 1.2 mg/dL [facility] CH Protein, pl 7.0 6.5 - 8.5 g/dL [facility] CH Albumin 4.2 3.5 - 5.0 g/dL [facility] Alk phos 80 40 - 130 Units/L [facility] ALT 36 7 - 55 Units/L [facility] AST 27 10 - 50 Units/L [facility] Blood 05/26/2025 8:24 PM CDT 05/26/2025 8:27 PM CDT Ashley Zamora MD LAB BLOOD ORDERABLES Fi nal Result [facility] [address] Department [place] [address] * ECG 12 lead (05/26/2025 8:16 PM CDT) 05/26/2025 8:16 PM CDT Narrative [facility] - 05/27/2025 9:04 AM CDT Vent Rate: 89 bpm RR Interval: 667 msec MS Interval: 103 msec QRS Duration: 108 msec QT Interval: 394 msec QTC Interval: 441 msec P-R-T [place]: -84 - 55 - 73 degrees IMPRESSION: JUNCTIONAL RHYTHM WITH OCCASIONAL VENTRICULAR PREMATURE COMPLEXES NONSPECIFIC ST \T\ T-WAVE ABNORMALITY ABNORMAL RHYTHM ECG INTERPRETATION BASED ON A DEFAULT AGE OF 40 YEARS Electronically Signed By: Dr. Oralia Ceron [facility] Ashley Zamora MD ECG ORDERABLES Final R esult [facility] [employer] [facility] from Last [address] [place] [address] [facility] MEDICARE ADVANTAGE [facility] MEDICARE Address: [facility] [address] [place] [address] [place] [address] [facility] MEDICARE ADVANTAGE [facility] MEDICARE ADVANTAGE [facility] MEDICARE Address: [address] [address] Advance Directives For more information, please contact: [phone] * Full Code (Latest Code Status on File) Date Activated Date Inactivated Comments 05/27/2025 3:23 AM 05/29/2025 6:55 PM * Full Code Date Activated Date Inactivated Comments 03/23/2024 11:55 PM 03/25/2024 9:36 PM Care Teams Info Specialist Relationship Specialty Start Date End Date Mayank Souza MD [address] [place] [id number] PCP - General Family Medicine 03/23/24 Iza Mackey NP [address] [facility] [id number] [place] [address] Nurse Practitioner Vascular Surgery 03/25/24 Apoorva Whitlock MD [address] [facility] [id number] [place] [address] Surgeon Cardiothoracic Surgery 03/25/24 Tay Cook MD [address] [facility] [id number] [place] [address] Referring Physician Cardiology 03/25/24 Kj Miranda Jr., MD [address] [place] [address] Consulting Physician Cardiology 05/29/25 Antonio Rinaldi MD [address] [place] [address] Consulting Physician Cardiology 05/29/25
--- OUTSIDE RECORDS SUMMARY | 2025-07-17 19:13 | XMS_ITS | Encounter Summary ---
Author Organization [facility] Address [address] [place] [address] Care Team Providers Care Change Lead Name Role Phone Ruddy Barnett MD Primary Care Provider [phone] Jennifer Lozano RN Unavailable [phone] Encounter Details Date Type Department Care Team (Late st Contact Info) Description 07/28/2024 Lab Requisition [facility] - DermPath Lab [address] [place] [address] Pacheco Murphy MD [address] [place] [address] Social History Tobacco Use Types Packs/Day Years Used Date Smoking Tobacco: Former Cigarettes Q uit: 12/06/1985 Alcohol Use Standard Drinks/Week Comments Not Asked 0 (1 standard drink = 0.6 oz pur e alcohol) Sex and Gender Information Value Date Recorded Sex Assigned at Not on file Legal Sex Male 6:29 AM SENIOR IT ENGINEER Gender Identity Not on file Sexual Orientation [...] Diagnosis Comments DERMATOPATHOLOGY Routine 07/27/2024 3:33 AM SENIOR IT ENGINEER documented in this encounter Results * DERMATOPATHOLOGY (07/27/2024 3:33 AM SENIOR IT ENGINEER) Case Report Dermatopathology Report Case: [id number] Authorizing Provider: Pacheco Murphy MD Collected: 07/27/2024 03:33 AM Ordering Location: [facility] - Received: 07/28/2024 02:15 PM DermPath Lab Pathologist: Christine Jimenez MD Specimen: Skin, right side scalp at hairline 4 2:17 PM [facility] Final Diagnosis Specimen A. 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 The specimen consists of a shave biopsy measuring [id number] mm. Jar 0. 4 2:17 PM [facility] Microscopic Description Specimen A. SKIN, right side scalp at hairline: The epidermis shows parakeratosis, full thickness disorderly maturation of keratinocytes, mitoses at different levels, and dyskeratotic cells. 4 2:17 PM SENIOR IT ENGINEER DERMATOPATHOLOGY LABORATORY Disclaimer An external and internal positive and negative controls are appropriate for the histochemical, immunohistochemical and immunofluorescence stain(s) in this case (if any), except where stated explicitly. The performance characteristics of the stain(s) cited in this report were developed and its performance characteristic determined by the Dermatopathology Laboratory at [facility], directed by Dr. Josee Ly. These tests need not be, and therefore are not, approved by the [place] Food and Drug Administration. The tests are used for clinical purposes. Billing Codes Specimen Charges Stain Charges 12110 1 4 2:17 PM SENIOR IT ENGINEER DERMATOPATHOLOGY LABORATORY Embedded Images 4 2:17 PM SENIOR IT ENGINEER DERMATOPATHOLOGY LABORATORY Pathology/Cytolo gy TISSUE SPECIMEN FROM SKIN / Unknown 07/27/2024 3:33 AM SENIOR IT ENGINEER 07/28/2024 2:15 PM SENIOR IT ENGINEER Pacheco Murphy MD LAB - PATHOLOGY/CYTOLOGY ORD ERABLES Final Result DERMATOPATHOLOGY LABORATORY [facility] - Department of Dermatology [facility] Medicine [address] [place] [address], [address] [phone] documented in this encounter Visit Diagnoses Not on filedocumented in this encounter Care Teams Change Lead Relationship Specialty Start Date End Date Ruddy Barnett MD PCP - General Internal Medicine 11/21/15 Jennifer Lozano RN Coater Operator Insulation Board 12/08/15 documented as of this encounter
--- OUTSIDE RECORDS SUMMARY | 2025-07-17 19:13 | XMS_ITS | Clinical Summary ---
Author Organization [facility] Address [address] [place] [address] Care Team Providers Care Senior Salesforce Developer Name Role Phone Ruddy Barnett MD Primary Care Provider [phone] Jennifer Lozano RN Unavailable [phone] Source Comments [facility],non-owned Affiliates and Associated Physician Practices is amultiple site organization consisting of ambulatory clinics and hospital sitesin [place], [place], [place] and [place]. This disclosure is being madepursuant to the Care Everywhere program and may not contain all information available regarding this patient. Last updated 18.[facility] [employer] Allergies No known active allergies Medications * Be aware that medications may not be up to date on this document. Alwaysverify current medications with the patient. aspirin EC (ECOTRIN) 81 MG tablet Take 81 mg by mouth once daily Active ALPRAZolam (XANAX) 0.25 MG tablet Take 0.25 mg by mouth 2 times daily Active fluticasone propionate (FLONASE) 50 MCG/ACT nasal spray [place] 2 Sprays into each nostril once daily [...] on file Legal Sex Male 6:29 AM NUTRITION THERAPIST Gender Identity Not on file Sexual Orientation [...] yrs (1 - 1-dose 75+ series) 2013 DEPRESSION SCREENING 09/23/2024 MEDICARE AWV CALENDAR YEAR 2024 COVID-19 VACCINE (1 - 2023-2 5 season) 2025 INFLUENZA VACCINE (#1) 2025 HEPATITIS B VACCINE [...] patient's age to complete [place] [address] [facility] Address: [address] [place] [address] [facility] MANAGED MEDICARE ADV [place] [address] MANAGED MEDICARE ADV Care Teams Senior Salesforce Developer Relationship Specialty Start Date End Date Ruddy Barnett MD PCP - General Internal Medicine 11/21/15 Jennifer Lozano, RN Regional Tanker Truck Driver 12/08/15
[2025-07-17 19:31] LABS: Hematocrit 40.6 % (42.0-52.0); Hemoglobin 13.4 g/dL (14.0-18.0); Immature Granulocyte Percent A 0.4 % (0-0.5); Lymphocytes Absolute Auto 1.12 K/mm3 (0.9-3.2); Mean Corpuscular HGB Conc 33.0 g/dl (32-36); Mean Corpuscular Hemoglobin 33.4 pg (26-34); Mean Corpuscular Volume 101.2 fl (80-100); Nucleated Red Blood Cells Absolute Auto 0.000 K/mm3 (0.0-0.012); Nucleated Red Blood Cells Perc 0.0 % (0.0-0.2); Platelet Count Result 253 k/mm3 (150-375); Red Blood Count 4.01 M/mm3 (4.6-6.20); White Blood Count 6.8 K/mm3 (4.5-10.0)
[2025-07-17 19:43] LABS: INR 1.7; Prothrombin Time 20.1 Seconds (11.1-14.7)
[2025-07-17 19:48] LABS: Anion Gap 9 mmol/L (4-12); Blood Urea Nitrogen 18 mg/dL (9-20); Calcium 9.1 mg/dL (8.4-10.2); Carbon Dioxide 24 mmol/L (22-30); Chloride 100 mmol/L (98-107); Estimated CRCL calculation 51 ml/min; Estimated Glomerular Filt Rate > 60; Glucose 102 mg/dL (65-110); Potassium 4.5 mmol/L (3.4-5.0); Sodium 133 mmol/L (137-145)
[2025-07-17] MEDS: TRANEXAMIC ACID 1,000 MG/10 ML AMPUL 1000 MG TOPICAL (19:48)
--- NOTE | 2025-07-17 19:49 | ED.DENTAL ---
HPI - Dental/Oral General Chief complaint: Dental/Oral Stated complaint: bleeding from gums Time Seen by Provider: 07/17/25 19:02 History of Present Illness HPI Narrative: this is an 84-year-old male with history of pulmonary hypertension, COPD, paroxysmal AFib on Eliquis who presents the ED for gum bleeding. Patient states that a few days ago, he had teeth extracted. He was advised to hold his Eliquis for a week prior and he recently restarted that yesterday. He breast is teeth a couple times and has had persistent bleeding since then. He he is unsure where the bleeding is coming from. Denies pain, lightheadedness, dizziness, chest pain, shortness of breath. Related Data Home Medications ?Medication ?Instructions ?Recorded ?Confirmed ?Last Taken ?Type calcium carbonate 600 mg PO QAM 10/22/19 04/22/25 12/11/22 09:00 History multivitamin 1 tablet PO DAILY 10/22/19 04/22/25 12/11/22 08:00 History omega-3 fatty acids 1,000 mg 2,000 mg PO Q12H 10/22/19 04/22/25 12/11/22 21:00 History capsule (Fish Oil Concentrate) ezetimibe 10 mg tablet 10 mg PO HS 02/23/20 04/22/25 12/11/22 21:00 History magnesium oxide 400 mg PO Q12H 04/18/21 04/22/25 12/11/22 20:00 History Adult Probiotic 1 cap PO DAILY 11/14/22 04/22/25 12/11/22 08:00 History Vitamin D3 1 cap PO DAILY 11/14/22 04/22/25 12/11/22 08:00 History metoprolol tartrate 50 mg tablet 50 mg PO Q12H 11/14/22 04/22/25 12/11/22 20:00 History simethicone 250 mg capsule 250 mg PO BID PRN Diarrhea 12/19/22 04/22/25 Unknown History (Phazyme) ascorbate calcium (vitamin C) 500 500 mg PO DAILY 01/03/23 04/22/25 Unknown History mg tablet ferrous sulfate 325 mg (65 mg 325 mg PO BID 01/03/23 04/22/25 Unknown History iron) tablet (FeroSul) nitroglycerin 0.4 mg sublingual 0.4 mg sublingual Q5M PRN 03/28/23 04/22/25 Unknown History tablet chlorthalidone 25 mg tablet 12.5 mg PO DAILY 01/14/24 04/22/25 Unknown History Allergies Allergy/AdvReac Type Severity Reaction Status Date / Time No Known Allergies Allergy Verified 05/19/25 18:13 Review of Systems Review of Systems: Gen.: Denies fevers or chills Eyes: Denies eye pain or visual change ENT: Denies congestion Respiratory: Denies shortness of breath or cough CV: Denies chest pain or palpitations GI: Denies abdominal pain nausea, emesis or diarrhea denies burning, urgency, frequency or hematuria Musculoskeletal: Denies back pain or muscle pain Neuro: Denies numbness, tingling, weakness or focal weakness Skin: Denies rash Except as documented, all other systems reviewed and negative [facility] Past Medical History Medical History Osteoarthritis of knees, bilateral Hypogonadism male (~02/16/25) total testosterone 105 with free testosterone 11.5 on 02/16/2025. Seasonal allergic rhinitis (05/27/24) Male erectile dysfunction, unspecified Macrocytosis (06/10/24) MCV elevated at 106 on 06/10/2024. MCV elevated at 106.7 with Vitamin B12 640 and folic acid greater than 24 with hemoglobin 13.9 on 02/16/2025. Pharyngitis Gastro-esophageal reflux disease without esophagitis Pulmonary hypertension severe pulmonary hypertension on echo on 01/29/2024. with moderate to severe mitral valve regurgitation and stenosis, tricuspid valve regurgitation and stenosis, aortic valve regurgitation and stenosis. Fatigue Overweight (BMI 25.0-29.9) BMI 25.0-25.9,adult Change in voice Presbyphonia PND (post-nasal drip) Nasal folliculitis Nasal crusting Nasal polyps Muscle cramps Chest congestion Pedal edema Dyspnea Follow up Lower GI bleed (11/2022) Colonoscopy showed stigmata of bleeding internal hemorrhoids. Paroxysmal atrial fibrillation Diverticulosis of sigmoid colon Elevated troponin Chest pain History of diverticulosis Internal hemorrhoids Rectal bleeding Elevated troponin Orthostatic hypotension Non-ST elevated myocardial infarction Chronic anticoagulation Elevated lactic acid level Syncope Acute blood loss anemia GI bleed Gastroesophageal reflux Benign prostatic hyperplasia Myocardial infarction Coronary artery disease Cardiac catheterization diagram from September 2021 showed an occluded proximal Left anterior descending and mid circumflex. Looks like the distal RCA is occluded. The saphenous vein graft to the posterolateral had an old stent distally and looks like a new 2.5 x 12 mm stent was placed in a subtotal occlusion in the proximal segment. Looks like another saphenous vein graft to the PDA is patent, saphenous vein graft to diagonal and Left anterior descending is patent, and a saphenous vein graft remnant between the 1st and 2nd OM is patent. cardiac catheterization 03/02/2024 with high-grade stenosis of 2 bypass graft, 80% LAD and 90% posterior lateral. Moderate to severe pulmonary hypertension. Diverticulosis Diarrhea Diverticulitis Lung nodule Epididymitis Chronic hoarseness Encounter for routine adult health examination with abnormal findings BPPV (benign paroxysmal positional vertigo) Dizziness Vitamin D deficiency Level normal at 35 on 02/16/2025. Prediabetes Fasting glucose 97 with hemoglobin A1c 5.3 on 10/10/2023. Fasting glucose 105 on 02/24/2024. Fasting glucose 91 with hemoglobin A1c 5.0 on 06/10/2024. Glucose 98 on 02/16/2025. BMI 26.0-26.9,adult Aortic stenosis echo 12/09/2022 with EF 65-70%, grade 1 diastolic dysfunction, moderate aortic valve stenosis and aortic valve regurgitation with mild mitral valve and tricuspid valve regurgitation. Patient had trans catheter aortic valve replacement on 04/30/2024. Nasal polyps Post-operative pain Chronic sinusitis Facial pressure Claudication Presbylarynges Insomnia Elevated glucose Hyperlipidemia Cholesterol 117, triglycerides 85, HDL 51, LDL 49 with ratio 2.3 on 09/30/2023. Cholesterol 95, triglycerides 78, HDL 44, LDL 35 on 02/24/2024. Cholesterol 135, triglycerides 94, HDL 57, LDL 60 with ratio 2.4 on 06/10/2024. Cholesterol 122, triglycerides 118, HDL 44, LDL 58 with ratio of 2.8 on 02/16/2025. PVC's (premature ventricular contractions) Abnormal finding of blood chemistry, unspecified Dry eyes Encounter for routine adult health examination without abnormal findings Peripheral visual field defect ASHD (arteriosclerotic heart disease) Benign essential hypertension Surgical History Surgical History History of colonoscopy (12/10/22) Internal hemorrhoids with stigmata of recent bleeding. Medium diverticula of sigmoid colon. History of coronary artery bypass graft x 2 1982 and 2001, last 1 at [facility] History of coronary artery stent placement History of cardiac catheterization History of nasal septoplasty (1969) History of epididymectomy (10/2009) Right. History of transurethral resection of prostate (10/2009) History of cholecystectomy (03/2005) History of appendectomy (07/2011) History of colonoscopy with polypectomy History of permanent cardiac pacemaker placement Biotronik 06/2022 Family History Family History Father Family history of heart disease in male family member before age 55 Family history of cardiovascular disease Alcoholism Heart disease Mother Family history of diabetes mellitus in first degree relative Family history of heart disease in male family member before age 55 Diabetes mellitus Family history of cardiovascular disease Heart disease Other Hypertension Social History Social History Social History: Surrogat Medical Decision Maker is Natalia Sutherland, daughter and POA. Code status: Full code. Years smoked: 15 Smoking status: Former smoker Tobacco type: pipe Second hand tobacco smoke exposure: No Smoking end date: 03/23/78 Alcohol intake: never Substance use: never Substance use type: does not use Lack of Transportation: No Lack of Food: Never True Current Housing: I Have Housing Concerned About Future Housing: No Difficulty Paying Gas/Electric Bills: No Difficulty Paying for Meds: No Currently Unemployed: No Education: Bachelor's Degree Difficulty w/ Childcare or Family Care: No Living arrangements: with family Additional living arrangements comments: Lives with in [place]. Occupation/Education: retired Spiritual care concerns: No Exam Narrative: APPEARANCE: No acute distress, nontoxic, resting in bed HEENT: Normocephalic, atraumatic, OMM. Status post dental extraction of tooth 12, there appears to be bleeding from 1 of the stitches anteriorly. RESPIRATORY: No respiratory distress CARDIOVASCULAR: Appears well perfused ABDOMINAL: Nondistended MUSCULOSKELETAl: Moves all extremities. No obvious deformities NEURO: Awake and alert. SKIN:: Warm, dry. No rashes lesions or abrasions PSYCHIATRIC: Normal affect/mood, Course Vital Signs Vital signs: Vital Signs Pulse Rate 72 07/17/25 19:03 Respiratory Rate 16 07/17/25 19:03 Blood Pressure 159/70 H 07/17/25 19:03 Pulse Oximetry 98 07/17/25 19:03 Oxygen Delivery Room Air 07/17/25 19:03 Pulse Rate 60 07/17/25 20:38 Respiratory Rate 18 07/17/25 20:38 Blood Pressure 139/72 07/17/25 20:38 Pulse Oximetry 97 07/17/25 20:38 Oxygen Delivery Room Air 07/17/25 19:03 MDM - Dental/Oral MDM Narrative Medical decision making narrative: 84-year-old male presenting for gingival bleeding. On initial evaluation, patient was in acute distress, afebrile, hemodynamically stable. There was bleeding over the recently extracted tooth 12 there appeared to be coming from the anterior aspect of the suture that was placed there. The patient held pressure on the site for 20 minutes and a re-evaluation was still bleeding. TXA was subsequently applied and pressure held again for 20 minutes. On re-evaluation, the bleeding was controlled at this time. CBC and CMP without significant abnormalities. Patient was educated on soft wrestled toothbrushes or using his finger to brush the area in the meantime. He was also given a chlorhexidine mouthwash. He was advised to call his patient services technician on Saturday to discuss a potential decreased dose of his Eliquis in the meantime. Patient was agreeable to this plan. Given strict return precautions. Differential Diagnosis Differential diagnosis: Likely toothache and other (gingival bleeding, post op complication, anemia, thrombocytopenia) Medical Records Attestation: I reviewed the patient's medical records. Lab Data Attestation: I reviewed the patient's lab results. 07/17/25 19:24 07/17/25 19:24 Labs: Lab Results 07/17/25 Range/Units 19:24 WBC 6.8 (4.5-10.0) K/mm3 RBC 4.01 L (4.6-6.20) M/mm3 Hgb 13.4 L (14.0-18.0) g/dL Hct 40.6 L (42.0-52.0) % MCV 101.2 H (80-100) fl MCH 33.4 (26-34) pg MCHC 33.0 (32-36) g/dl RDW 13.0 (11.5-14.5) % Plt Count 253 (150-375) k/mm3 MPV 10.1 (7.4-10.4) fl Immature Gran % (Auto) 0.4 (0-0.5) % Neut % (Auto) 72.8 (45.5-73.1) % Lymph % (Auto) 16.5 L (18.3-44.2) % [place] % (Auto) 9.0 H (2.6-8.5) % Eos % (Auto) 0.9 (0-4.4) % Baso % (Auto) 0.4 (0.2-1.2) % Lymph # (Auto) 1.12 (0.9-3.2) K/mm3 [place] # (Auto) 0.6 (0.1-0.6) K/mm3 Eos # (Auto) 0.1 (0-0.3) K/mm3 Baso # (Auto) 0.0 (0.0-0.1) K/mm3 Abs Immat Gran (auto) 0.03 (0.00-0.031) K/mm3 Absolute Neuts (auto) 4.9 (1.3-6.7) K/mm3 Absolute Nucleated RBC 0.000 (0.0-0.012) K/mm3 Nucleated RBC % 0.0 (0.0-0.2) % PT 20.1 H (11.1-14.7) Seconds INR 1.7 Sodium 133 L (137-145) mmol/L Potassium 4.5 (3.4-5.0) mmol/L Chloride 100 (98-107) mmol/L Carbon Dioxide 24 (22-30) mmol/L Anion Gap 9 (4-12) mmol/L BUN 18 (9-20) mg/dL Creatinine 1.00 (0.7-1.3) mg/dL Estim Creat Clear Calc 51 ml/min Estimated GFR > 60 (59 - ) Glucose 102 (65-110) mg/dL Calcium 9.1 (8.4-10.2) mg/dL Discharge Plan Discharge Clinical Impression: Bleeding gums, Anticoagulated Patient Disposition: Home Condition: Stable Instructions: Antibiotic Form Additional Instructions: If you are going to begin to bleed again, apply pressure to the area with gauze or a Kleenex for at least 15 minutes. If it continues to bleed despite this, return to your knee assist ER or urgent care for further evaluation. Try to avoid using heart bursal to toothbrushes over that left upper tooth in the meantime. Consider brushing with just her finger. Your sent a prescription for chlorhexidine use this as prescribed. Call your patient services technician on Saturday to discuss potential lower dose of your Eliquis temporarily. Return to the ED for any new or worsening symptoms. Patient Language: Palauan Prescriptions: New chlorhexidine gluconate 0.12 % mouthwash 15 ml mucous membrane BID Qty: 189 0RF No Action omega-3 fatty acids [Fish Oil Concentrate] 1,000 mg capsule 2,000 mg PO Q12H multivitamin Tablet 1 tablet PO DAILY calcium carbonate 600 mg calcium (1,500 mg) tablet 600 mg PO QAM ezetimibe 10 mg tablet 10 mg PO HS Eliquis 5 mg tablet 5 mg PO BID Qty: 60 0RF Patient Comments: Patient states will be starting Eliquis on 12/17 magnesium oxide 400 mg magnesium tablet 400 mg PO Q12H Phazyme 250 mg capsule 250 mg PO BID PRN (Reason: Diarrhea) nitroglycerin 0.4 mg tablet, sublingual 0.4 mg sublingual Q5M PRN Rx Instructions: do not exceed 3 doses per episode trazodone 100 mg tablet 100 mg PO QHS Qty: 90 3RF Adult Probiotic 1 cap PO DAILY metoprolol tartrate 50 mg tablet 50 mg PO Q12H Vitamin D3 1 cap PO DAILY ferrous sulfate [FeroSul] 325 mg (65 mg iron) tablet 325 mg PO BID ascorbate calcium (vitamin C) 500 mg tablet 500 mg PO DAILY isosorbide mononitrate 30 mg tablet extended release 24 hr 90 mg PO QAM 30 Days Qty: 90 0RF ranolazine 500 mg tablet extended release 12 hr 500 mg PO Q12H Qty: 60 0RF chlorthalidone 25 mg tablet 12.5 mg PO DAILY Patient Comments: started by patient services technician 01/14/2024. Breztri Aerosphere 160-9-4.8 mcg/actuation HFA aerosol inhaler 2 inh inhalation QAM AND QPM Qty: 11 11RF mupirocin 2 % ointment See Rx Instructions topical BID Qty: 44 5RF Rx Instructions: melt 2 through 3 cm in each irrigation bottle, irrigate with 2 bottles daily rosuvastatin 5 mg tablet 5 mg PO . every other day Qty: 45 3RF azelastine 137 mcg (0.1 %) spray,non-aerosol 2 spray intranasal Q12H Qty: 30 11RF Rx Instructions: administer into each nostril budesonide 0.25 mg/2 mL suspension for nebulization 0.25 mg irrigation DAILY Qty: 60 11RF Rx Instructions: 2 mL per irrigation bottle, irrigate with 1 bottle daily zolpidem [Ambien] 5 mg tablet 5 mg PO QHS PRN (Reason: insomnia) Qty: 90 3RF levothyroxine 75 mcg tablet 75 mcg PO DAILY Qty: 90 3RF Rx Instructions: take with only water pantoprazole 40 mg tablet,delayed release (DR/EC) 40 mg PO QAM Qty: 90 3RF alprazolam 0.25 mg tablet 0.25 mg PO TID PRN (Reason: anxiety) Qty: 90 5RF Follow-up/Referrals: Mayank Souza MD [Primary Care Provider, Family Practice]
[2025-07-17 20:38] VITALS: BP 139/72; PULSE 60; RESP 18; O2SAT 97
== END 2025-07-17 20:39 | disposition home or self-care (01) ==
PROVIDERS: Emergency Provider Student in an Organized Health Care Education/Training Program; PCP Family Medicine
DX: K06.8 Other specified disorders of gingiva and edentulous alveolar ridge (principal); J44.9 Chronic obstructive pulmonary disease, unspecified; I48.0 Paroxysmal atrial fibrillation; Z79.01 Long term (current) use of anticoagulants; K21.9 Gastro-esophageal reflux disease without esophagitis; I25.2 Old myocardial infarction; I25.10 Atherosclerotic heart disease of native coronary artery without angina pectoris; E55.9 Vitamin D deficiency, unspecified; E78.5 Hyperlipidemia, unspecified; I10 Essential (primary) hypertension; Z95.0 Presence of cardiac pacemaker; Z95.1 Presence of aortocoronary bypass graft; Z87.891 Personal history of nicotine dependence
CPT/HCPCS: 36415; 80048; 85025; 85610; 99283; J3290